=== PATIENT | female | born 1935 | race Caucasian/White ===

== ENCOUNTER 2017-05-21 19:44 | Observation (INO) | payer MEDICARE ==
[~2017-05-21] VITALS: Ht 162.6 cm; Wt 94.5 kg
[~2017-05-21 19:44] MED LIST: AMLO10TA2 PO; ANTACID; ASPI-630 PO; CYCL-331 PO; DONE10TA7 PO; GABA-586 PO; HYDR-2758 PO; ISOS30TA4 PO; LIDOCAINE; METF500T4 PO; METO10TA81 PO; OMEP40CA5 PO; POTA20TA12 PO; PRAV20TA2 PO; RIVA10TA PO; RIVA20TA2 PO; [UNRECOGNIZED DRUG - OTHER]
[2017-05-21] MEDS ORDERED: MEMA10TA PO (21:32)
[2017-05-21] MEDS ORDERED: POTA10TA10 PO (21:33)
[2017-05-21] MEDS ORDERED: MIRT15TA3 PO (21:33)
[2017-05-21] MEDS ORDERED: HYDR-2758 PO (21:33)
[2017-05-21] MEDS ORDERED: ALPR1TAB2 PO (21:34)
[2017-05-21] MEDS ORDERED: ACET325T9 PO (21:34)
[2017-05-21 21:36] VITALS: BP 186/69
[2017-05-21] MEDS ORDERED: HYDROcodone/APAP 5/325MG 1 TAB TABLET PO PRN (21:45)
[2017-05-21] MEDS: MEMANTINE 5 MG TABLET. PO SCH (22:00)
[2017-05-21] MEDS: ACETAMINOPHEN 325 MG TABLET PO PRN (22:00)
[2017-05-21] MEDS: PRAVASTATIN 20 MG TABLET. PO SCH (22:00)
[2017-05-21] MEDS: MIRTAZAPINE 15 MG TABLET PO SCH (22:00)
[2017-05-21] MEDS: ALPRAZolam 0.5 MG TABLET PO PRN (22:54)
[2017-05-22 01:57] VITALS: BP 162/90
[2017-05-22 04:42] LABS: BASO % 1 % (0-3); EOS # 0.3 x10^3/uL (0.0-0.7); EOS % 5 % (0-3); HEMATOCRIT 31.4 % (36.0-47.0); HEMOGLOBIN 10.4 g/dL (12.0-15.5); LYMPH # 1.8 x10^3/uL (1.0-4.8); LYMPH % 30 % (24-48); MEAN CORPUSCULAR HEMOGLOBIN 30 pg (25-35); MEAN CORPUSCULAR HGB CONC 33 g/dL (31-37); MEAN CORPUSCULAR VOLUME 91 fL (79-100); MONO # 0.6 x10^3/uL (0.0-1.1); MONO % 10 % (0-9); NEUT # 3.4 x10^3uL (1.8-7.7); NEUT % 54 % (31-73); PLATELET COUNT 231 x10^3/uL (140-400); RED BLOOD COUNT 3.44 x10^6/uL (3.50-5.40); RED CELL DISTRIBUTION WIDTH 13.3 % (11.5-14.5); WHITE BLOOD COUNT 6.2 x10^3/uL (4.0-11.0)
[2017-05-22 05:04] LABS: ALBUMIN 2.9 g/dL (3.4-5.0); ALBUMIN/GLOBULIN RATIO 0.7 (1.0-1.7); CALCIUM 8.5 mg/dL (8.5-10.1); CREATININE 1.3 mg/dL (0.6-1.0); GFR 39.3; POTASSIUM 4.2 mmol/L (3.5-5.1); TOTAL BILIRUBIN 0.3 mg/dL (0.2-1.0); TOTAL PROTEIN 6.8 g/dL (6.4-8.2)
[2017-05-22 05:25] VITALS: BP 164/84
[2017-05-22] MEDS: ACETAMINOPHEN 325 MG TABLET PO PRN ×2 (07:19→15:52)
[2017-05-22] MEDS: POTASSIUM CHLORIDE 20 MEQ TABLET.ER. PO SCH (08:58)
[2017-05-22] MEDS: MEMANTINE 5 MG TABLET. PO SCH ×2 (08:58→20:05)
[2017-05-22] MEDS: ALPRAZolam 0.5 MG TABLET PO PRN ×2 (10:29→20:04)
[2017-05-22] MEDS: amLODIPine BESYLATE 10 MG TABLET PO SCH (10:58)
[2017-05-22] MEDS: traMADol 50 MG TABLET PO PRN ×2 (10:59→12:49)
[2017-05-22 11:26] VITALS: BP 151/84
[2017-05-22] MEDS: SODIUM CHLORIDE 0.65% NASAL SPRAY 45ML BOTTLE. NS PRN ×2 (11:33→20:04)
[2017-05-22] MEDS: PANTOPRAZOLE 40 MG TABLET. PO SCH (11:33)
--- NOTE | 2017-05-22 13:17 | PDOC2 ---
CARDIAC CONSULT DATE OF CONSULT Date Of Consult DATE: 05/22/17 TIME: 13:04 REASON FOR CONSULT Reason for Consult Chest pain REFERRING PHYSICIAN Referring Physician Dr. Jaleel Valdovinos HPI History of Present Illness Ms. Gill is a very pleasant 82 yo F who is relatively well known to our group. It appears that she used to follow with my partner, Dr. Ren, in the past. She was last seen in our office in September 2015. The patient has a history of mild nonobstructive coronary artery disease, essential hypertension, hyperlipidemia, DMII, GERD with gastritis, and morbid obesity. The patient reports that she has been feeling unwell for the past year, but more recently has been having intermittent symptoms of chest pain that has been becoming more frequent over the past month. She states that yesterday she was out working on her garden when she developed symptoms of chest pain localized to her mid chest that did not radiate, and was not associated with any particular features. She denies any associated shortness of breath, nausea, diaphoresis, or palpitations. The patient states that she usually keeps working, and the pain eventually resolves spontaneously. She has not been able to identify any exacerbating or relieving factors, and reports that the pain may occur at rest as well. Her work up thus far has included an ECG demonstrating underlying RBBB , but no acute ischemic changes. Her serial troponins were noted to be negative. In review of her records, it appears that the patient underwent a cardiac catheterization within the past year at [facility]. This demonstrated mild nonobstructive coronary artery disease, and no intervention was thought to be necessary at that time. She also had an echocardiogram performed at that time that as unremarkable. The patient is otherwise doing well this afternoon, and has no other particular complaints. PAST MEDICAL HISTORY Cardiovascular: CAD, HTN, hyperipidemia GI: GERD, Gastritis Endocrine: Diabetes FAMILY HISTORY Family History: Heart Disease SOCIAL HISTORY Smoke: No ALCOHOL: rare CURRENT MEDICATIONS Current Medications Current Medications Acetaminophen (Tylenol) 650 mg PRN Q6HRS PRN PO PAIN Last administered on t 07:19; Start 05/21/17 at 21:45 Acetaminophen/ Hydrocodone Bitart (Lortab 5/325) 1 tab PRN Q6HRS PRN PO PAIN; Start 05/21/17 at 21:45 Memantine (Namenda) 5 mg BID PO Last administered on 05/22/17 08:58; Start at 22:00 Mirtazapine (Remeron) 15 mg QHS PO Last administered on 05/21/17 22:00; Start 05/21/17 at 22:00 Pravastatin Sodium (Pravachol) 20 mg HS PO Last administered on 05/21/17 22:00 ; Start 05/21/17 at 22:00 Alprazolam (Xanax) 1 mg PRN TID PRN PO ANXIETY / AGITATION Last administered on 05/22/17 10:29; Start 05/21/17 at 22:00 Potassium Chloride (Klor-Con) 20 meq DAILYWBKFT PO Last administered on 08:58; Start 05/22/17 at 08:00 Pantoprazole Sodium (Protonix) 40 mg DAILYAC PO Last administered on 05/22/17 11:33; Start 05/22/17 at 11:00 Famotidine (Pepcid) 20 mg BID PO ; Start 05/22/17 at 21:00 Amlodipine Besylate (Norvasc) 10 mg DAILY PO Last administered on 05/22/17 10: 58; Start 05/22/17 at 10:45 Tramadol HCl (Ultram) 50 mg PRN Q6HRS PRN PO PAIN; Start 05/22/17 at 11:00 Sodium Chloride (Saline Mist Nasal) 1 mo PRN Q1HR PRN NS NASAL CONGESTION Last administered on 05/22/17 11:33; Start 05/22/17 at 11:15 Active Scripts Active Reported Xanax (Alprazolam) 1 Mg Tablet 1 Tab PO TID PRN Tylenol (Acetaminophen) 325 Mg Tablet 650 Mg PO Q6HRS PRN Hydrocodone-Apap 5-325 (Hydrocodone Bit/Acetaminophen) 1 Each Tablet 1 Tab PO PRN Q6HRS PRN Mirtazapine 15 Mg Tablet 1 Tab PO QHS Potassium Chloride 10 Meq Tablet.er 20 Meq PO DAILY Namenda (Memantine Hcl) 10 Mg Tablet 5 Mg PO BID Pravastatin Sodium 20 Mg Tablet 1 Tab PO HS ALLERGIES Allergies: Coded Allergies: I S O L A T I O N *CONTACT* (Verified Allergy, Unknown, 05/22/17) +MRSA screen 8-9-13 NKMA (Verified Allergy, Unknown, 05/22/17) ROS Review of Systems 14-point organ system ROS is negative other than as described above. PHYSICAL EXAM General: Alert, Oriented X3, No acute distress HEENT: Atraumatic, PERRLA, EOMI Lungs: Clear to auscultation Heart: Regular rate, Normal S1, Normal S2, No murmurs Abdomen: Normal bowel sounds, Soft, No tenderness Extremities: No edema, Normal pulses Skin: No rashes Neuro: Normal speech, Strength at 5/5 X4 ext, Normal tone, Cranial nerves 3-12 NL Psych/Mental Status: Mental status NL MUSCULOSKELETAL: Full range of motion without pain VITALS Vital Signs Vital Signs Date Time Temp Pulse Resp B/P (MAP) Pulse Ox O2 Delivery O2 Flow Rate FiO2 05/22/17 11:26 97.3 74 18 151/84 (106) 97 05/22/17 05:25 Room Air LABS LABS Laboratory Tests Test 05/21/17 22:20 05/22/17 01:52 05/22/17 04:30 05/22/17 09:57 Troponin I Quantitative < 0.017 ng/mL (0-0.055) < 0.017 ng/mL (0-0.055) < 0.017 ng/mL (0-0.055) Glucose (Fingerstick) 121 mg/dL (70-99) White Blood Count 6.2 x10^3/uL (4.0-11.0) Red Blood Count 3.44 x10^6/uL (3.50-5.40) Hemoglobin 10.4 g/dL (12.0-15.5) Hematocrit 31.4 % (36.0-47.0) Mean Corpuscular Volume 91 fL (79-100) Mean Corpuscular Hemoglobin 30 pg (25-35) Mean Corpuscular Hemoglobin Concent 33 g/dL (31-37) Red Cell Distribution Width 13.3 % (11.5-14.5) Platelet Count 231 x10^3/uL (140-400) Neutrophils (%) (Auto) 54 % (31-73) Lymphocytes (%) (Auto) 30 % (24-48) Monocytes (%) (Auto) 10 % (0-9) Eosinophils (%) (Auto) 5 % (0-3) Basophils (%) (Auto) 1 % (0-3) Neutrophils # (Auto) 3.4 x10^3uL (1.8-7.7) Lymphocytes # (Auto) 1.8 x10^3/uL (1.0-4.8) Monocytes # (Auto) 0.6 x10^3/uL (0.0-1.1) Eosinophils # (Auto) 0.3 x10^3/uL (0.0-0.7) Basophils # (Auto) 0.0 x10^3/uL (0.0-0.2) Sodium Level 143 mmol/L (136-145) Potassium Level 4.2 mmol/L (3.5-5.1) Chloride Level 110 mmol/L (98-107) Carbon Dioxide Level 27 mmol/L (21-32) Anion Gap 6 (6-14) Blood Urea Nitrogen 27 mg/dL (7-20) Creatinine 1.3 mg/dL (0.6-1.0) Estimated GFR (Cockcroft-Gault) 39.3 BUN/Creatinine Ratio 21 (6-20) Glucose Level 112 mg/dL (70-99) Calcium Level 8.5 mg/dL (8.5-10.1) Total Bilirubin 0.3 mg/dL (0.2-1.0) Aspartate Amino Transf (AST/SGOT) 18 U/L (15-37) Alanine Aminotransferase (ALT/SGPT) 17 U/L (14-59) Alkaline Phosphatase 129 U/L (46-116) Total Protein 6.8 g/dL (6.4-8.2) Albumin 2.9 g/dL (3.4-5.0) Albumin/Globulin Ratio 0.7 (1.0-1.7) EKG EKG Normal sinus rhythm with underlying RBBB. No acute ischemic changes noted. HEART CATH Heart Cath Heart catheterization from January 2016 demonstrated mild nonobstructive coronary artery disease. ASSESSMENT/PLAN Assessment/Plan 1. Chest pain with atypical features 2. History of mild CAD 3. Essential hypertension 4. Hyperlipidemia 5. DMII 6. Abnormal ECG 7. Obesity 8. GERD Ms. Gill presented with a several week history of progressively worsening chest pain with atypical features. Etiology is not completely clear at this point. Her work up has thus far been unremarkable, with negative serial troponins and ECG, although abnormal with underlying RBBB, demonstrates no significant ischemic changes. The patient has remained hemodynamically stable since admission, and her chest pain has actually resolved today. I do note that she has been persistently hypertensive. I have taken the liberty of starting the patient on metoprolol tart 12.5 mg BID. This may need to be adjusted further as tolerated. I did review her most recent cardiac work up done last year. This included an echocardiogram and cardiac catheterization, both of which were essentially unremarkable. I do not think any further cardiac diagnostic testing is needed at this time given resolution of her symptoms, and no high-risk features noted. If patient remains chest pain free and blood pressure better controlled, she may be able to be discharged home tomorrow with plans for close follow up in our office. We will continue to follow along. Please call with any further questions. STEPHANIE MEEK MD May 22, 2017 13:17
[2017-05-22] MEDS: METOPROLOL TART IMMED RELEASE 25 MG TABLET PO SCH ×2 (13:51→20:05)
[2017-05-22 15:08] VITALS: BP 151/68
[2017-05-22 19:29] VITALS: BP 137/75
[2017-05-22] MEDS: PRAVASTATIN 20 MG TABLET. PO SCH (20:04)
[2017-05-22] MEDS: FAMOTIDINE 20 MG TABLET PO SCH (20:05)
[2017-05-22] MEDS: MIRTAZAPINE 15 MG TABLET PO SCH (20:05)
[2017-05-22 22:54] VITALS: BP 146/92
[2017-05-23 05:36] VITALS: BP 149/80
[2017-05-23 07:09] LABS: BASO # 0.1 x10^3/uL (0.0-0.2); BASO % 1 % (0-3); EOS # 0.3 x10^3/uL (0.0-0.7); EOS % 6 % (0-3); HEMATOCRIT 34.5 % (36.0-47.0); HEMOGLOBIN 11.2 g/dL (12.0-15.5); LYMPH # 1.7 x10^3/uL (1.0-4.8); LYMPH % 30 % (24-48); MEAN CORPUSCULAR HEMOGLOBIN 30 pg (25-35); MEAN CORPUSCULAR HGB CONC 33 g/dL (31-37); MEAN CORPUSCULAR VOLUME 93 fL (79-100); MONO # 0.5 x10^3/uL (0.0-1.1); MONO % 9 % (0-9); NEUT # 3.1 x10^3uL (1.8-7.7); NEUT % 54 % (31-73); PLATELET COUNT 273 x10^3/uL (140-400); RED BLOOD COUNT 3.72 x10^6/uL (3.50-5.40); RED CELL DISTRIBUTION WIDTH 13.5 % (11.5-14.5); WHITE BLOOD COUNT 5.8 x10^3/uL (4.0-11.0)
[2017-05-23 07:19] LABS: CALCIUM 8.6 mg/dL (8.5-10.1); CREATININE 1.3 mg/dL (0.6-1.0); GFR 39.3; POTASSIUM 4.2 mmol/L (3.5-5.1)
[2017-05-23] MEDS: POTASSIUM CHLORIDE 20 MEQ TABLET.ER. PO SCH (07:53)
[2017-05-23] MEDS: PANTOPRAZOLE 40 MG TABLET. PO SCH (07:53)
[2017-05-23] MEDS: MEMANTINE 5 MG TABLET. PO SCH (08:27)
[2017-05-23] MEDS: amLODIPine BESYLATE 10 MG TABLET PO SCH (08:28)
[2017-05-23 08:31] VITALS: BP 149/80
[2017-05-23] MEDS: METOPROLOL TART IMMED RELEASE 25 MG TABLET PO SCH (08:31)
[2017-05-23] MEDS: FAMOTIDINE 20 MG TABLET PO SCH (08:32)
[2017-05-23] MEDS: ALPRAZolam 0.5 MG TABLET PO PRN (08:49)
[2017-05-23] MEDS ORDERED: FAMO20TA5 PO (10:04)
[2017-05-23] MEDS ORDERED: PANT40TA5 PO (10:04)
[2017-05-23] MEDS ORDERED: AMLO10TA2 PO (10:04)
== END 2017-05-23 11:00 | disposition home or self-care (01) ==
LOC: INTOOBSV 21:07 → 1 SOUTH 21:07
PROVIDERS: ADMIT Family Medicine; ATTEND Family Medicine
DX: R07.89 Other chest pain (principal); I25.10 Atherosclerotic heart disease of native coronary artery without angina pectoris; I10 Essential (primary) hypertension; E78.5 Hyperlipidemia, unspecified; E11.9 Type 2 diabetes mellitus without complications; R94.31 Abnormal electrocardiogram [ECG] [EKG]; K21.9 Gastro-esophageal reflux disease without esophagitis; I45.10 Unspecified right bundle-branch block; E66.01 Morbid (severe) obesity due to excess calories; Z82.49 Family history of ischemic heart disease and other diseases of the circulatory system
CPT/HCPCS: 36415; 80048; 80053; 82947; 84484; 85027; 87641; G0378; G0379

== ENCOUNTER 2017-05-28 17:55 | Inpatient (IN) | payer MEDICARE ==
[~2017-05-28] VITALS: Ht 157.5 cm; Wt 100.9 kg
[~2017-05-28 17:55] MED LIST changes: +ACET325T9 PO; +ALPR1TAB2 PO; +FAMO20TA5 PO; +MEMA10TA PO; +MIRT15TA3 PO; +PANT40TA5 PO; +POTA10TA10 PO
[2017-05-28] MEDS ORDERED: IV NORMAL SALINE 1,000ML 1,000 ML IV SCH (18:47)
[2017-05-28 19:01] LABS: BASO # 0.1 x10^3/uL (0.0-0.2); BASO % 1 % (0-3); EOS # 0.3 x10^3/uL (0.0-0.7); EOS % 4 % (0-3); HEMATOCRIT 35.3 % (36.0-47.0); HEMOGLOBIN 11.6 g/dL (12.0-15.5); LYMPH # 1.6 x10^3/uL (1.0-4.8); LYMPH % 23 % (24-48); MEAN CORPUSCULAR HEMOGLOBIN 30 pg (25-35); MEAN CORPUSCULAR HGB CONC 33 g/dL (31-37); MEAN CORPUSCULAR VOLUME 92 fL (79-100); MONO # 0.6 x10^3/uL (0.0-1.1); MONO % 8 % (0-9); NEUT # 4.5 x10^3uL (1.8-7.7); NEUT % 64 % (31-73); PLATELET COUNT 268 x10^3/uL (140-400); RED BLOOD COUNT 3.83 x10^6/uL (3.50-5.40); RED CELL DISTRIBUTION WIDTH 13.4 % (11.5-14.5); WHITE BLOOD COUNT 7.1 x10^3/uL (4.0-11.0)
[2017-05-28 19:06] LABS: ALBUMIN 3.6 g/dL (3.4-5.0); ALBUMIN/GLOBULIN RATIO 0.9 (1.0-1.7); CALCIUM 9.2 mg/dL (8.5-10.1); CREATININE 1.3 mg/dL (0.6-1.0); GFR 39.3; POTASSIUM 4.1 mmol/L (3.5-5.1); TOTAL BILIRUBIN 0.5 mg/dL (0.2-1.0); TOTAL PROTEIN 7.8 g/dL (6.4-8.2)
[2017-05-28 19:31] LABS: BILIRUBIN,URINE NEG (NEG); CLARITY,URINE CLOUDY; COLOR,URINE YELLOW; GLUCOSE,URINE NEG (NEG)
[2017-05-28 19:32] LABS: BACTERIA,URINE 0 /HPF (0-FEW); NITRITE,URINE NEG (NEG); SQUAMOUS EPITHELIAL CELL,UR MANY /LPF; UROBILINOGEN,URINE 0.2 mg/dL (0.2 mg/dL)
--- NOTE | 2017-05-28 19:48 | RAD ---
CT head without intravenous contrast History: Altered mental status. Comparison: None. Technique: Axial images are obtained of the head from the skull base through the vertex without IV contrast. Exposure: One or more of the following individualized dose reduction techniques were utilized for this examination: 1. Automated exposure control 2. Adjustment of the mA and/or kV according to patient size 3. Use of iterative reconstruction technique Findings: The ventricles are appropriate in size, shape, and location for the patient's age. No obvious intracranial mass, mass-effect, midline shift, hemorrhage or obvious acute infarction is identified. Basilar cisterns are patent. Mild, patchy nonspecific white matter low-attenuation is seen, probably chronic microvascular ischemic disease. Bone windows demonstrate no acute calvarial abnormality. The visualized paranasal sinuses appear clear. Impression: No acute intracranial process. Please note that CT can be relatively insensitive to acute ischemic infarction for up to 24 hours after symptom onset. Electronically signed by: Zana Long MD (05/28/2017 7:46 PM)
[2017-05-28 22:06] VITALS: BP 144/89
[2017-05-28] MEDS ORDERED: METHYL SALICYLATE/MENTHOL TOPICAL OINTMENT 29GM TUBE. TP PRN (22:15)
[2017-05-28] MEDS ORDERED: MAG HYDROX/AL HYDROX/SIMETH 30 ML ORAL.SUSP PO PRN (22:15)
[2017-05-28] MEDS ORDERED: MAGNESIUM HYDROXIDE 2,400 MG/30 ML ORAL.SUSP. PO PRN (22:15)
--- NOTE | 2017-05-29 00:23 | PHYS DOC ---
Past History Past Medical History: Diabetes, Hypertension, Other Past Surgical History: Cholecystectomy, Knee Replacement, Other Alcohol Use: None Drug Use: None Adult General Chief Complaint Chief Complaint: ALTERED MENTAL STATUS HPI HPI 82-year-old female with a history of dementia, son has power of city attorney, now sent for evaluation of exacerbation of dementia. Per son patient has been exhibiting some unusual behavior at home and he is concerned she may be a danger to herself. She did not Suffer any injuries or take any overdose accidentally. Patient is currently asymptomatic alert communicative and appropriate however she is disoriented at her chronic dementia baseline per her sons were present in the ED. Review of Systems Review of Systems Constitutional: Denies fever or chills [] Eyes: Denies change in visual acuity, redness, or eye pain [] HENT: Denies nasal congestion or sore throat [] Respiratory: Denies cough or shortness of breath [] Cardiovascular: No additional information not addressed in HPI [] GI: Denies abdominal pain, nausea, vomiting, bloody stools or diarrhea [] : Denies dysuria or hematuria [] Musculoskeletal: Denies back pain or joint pain [] Integument: Denies rash or skin lesions [] Neurologic: Denies headache, focal weakness or sensory changes [] Endocrine: Denies polyuria or polydipsia [] Current Medications Current Medications Current Medications Medications (Trade) Dose Ordered Sig/Henrry Start Time Stop Time Status Last Admin Dose Admin Sodium Chloride 1,000 ml @ 100 mls/hr Q10H 05/28/17 18:47 05/29/17 04:46 05/28/17 19:08 100 MLS/HR Allergies Allergies Allergies Coded Allergies Type Severity Reaction Last Updated Verified NKMA Allergy Unknown 05/22/17 Yes Physical Exam Physical Exam Elderly female no acute distress alert and communicative and very pleasant. She is manifesting her baseline signs of dementia with a nonfocal neurologic exam Constitutional: Well developed, well nourished, no acute distress, non-toxic appearance. [] HENT: Normocephalic, atraumatic, bilateral external ears normal, oropharynx moist, no oral exudates, nose normal. [] Eyes: PERRLA, EOMI, conjunctiva normal, no discharge. [] Neck: Normal range of motion, no tenderness, supple, no stridor. [] Cardiovascular:Heart rate regular rhythm, no murmur [] Lungs & Thorax: Bilateral breath sounds clear to auscultation [] Abdomen: Bowel sounds normal, soft, no tenderness, no masses, no pulsatile masses. [] Skin: Warm, dry, no erythema, no rash. [] Back: No tenderness, no CVA tenderness. [] Extremities: No tenderness, no cyanosis, no clubbing, ROM intact, no edema. [] Neurologic: Alert and oriented X 2 , normal motor function, normal sensory function, no focal deficits noted. [] Psychologic: Affect normal, judgement normal, mood normal. [] Current Patient Data Vital Signs Vital Signs Date Time Temp Pulse Resp B/P (MAP) Pulse Ox O2 Delivery O2 Flow Rate FiO2 05/28/17 22:06 97.4 83 18 144/89 (107) 97 Room Air Lab Results Laboratory Tests Test 05/28/17 18:20 05/28/17 18:23 05/28/17 18:53 White Blood Count 7.1 x10^3/uL (4.0-11.0) Red Blood Count 3.83 x10^6/uL (3.50-5.40) Hemoglobin 11.6 g/dL (12.0-15.5) L Hematocrit 35.3 % (36.0-47.0) L Mean Corpuscular Volume 92 fL (79-100) Mean Corpuscular Hemoglobin 30 pg (25-35) Mean Corpuscular Hemoglobin Concent 33 g/dL (31-37) Red Cell Distribution Width 13.4 % (11.5-14.5) Platelet Count 268 x10^3/uL (140-400) Neutrophils (%) (Auto) 64 % (31-73) Lymphocytes (%) (Auto) 23 % (24-48) L Monocytes (%) (Auto) 8 % (0-9) Eosinophils (%) (Auto) 4 % (0-3) H Basophils (%) (Auto) 1 % (0-3) Neutrophils # (Auto) 4.5 x10^3uL (1.8-7.7) Lymphocytes # (Auto) 1.6 x10^3/uL (1.0-4.8) Monocytes # (Auto) 0.6 x10^3/uL (0.0-1.1) Eosinophils # (Auto) 0.3 x10^3/uL (0.0-0.7) Basophils # (Auto) 0.1 x10^3/uL (0.0-0.2) Sodium Level 141 mmol/L (136-145) Potassium Level 4.1 mmol/L (3.5-5.1) Chloride Level 107 mmol/L (98-107) Carbon Dioxide Level 22 mmol/L (21-32) Anion Gap 12 (6-14) Blood Urea Nitrogen 23 mg/dL (7-20) H Creatinine 1.3 mg/dL (0.6-1.0) H Estimated GFR (Cockcroft-Gault) 39.3 BUN/Creatinine Ratio 18 (6-20) Glucose Level 98 mg/dL (70-99) Calcium Level 9.2 mg/dL (8.5-10.1) Total Bilirubin 0.5 mg/dL (0.2-1.0) Aspartate Amino Transferase (AST) 24 U/L (15-37) Alanine Aminotransferase (ALT) 24 U/L (14-59) Alkaline Phosphatase 168 U/L (46-116) H Troponin I Quantitative < 0.017 ng/mL (0-0.055) Total Protein 7.8 g/dL (6.4-8.2) Albumin 3.6 g/dL (3.4-5.0) Albumin/Globulin Ratio 0.9 (1.0-1.7) L Magnesium Level 2.1 mg/dL (1.8-2.4) Urine Collection Type Unknown Urine Color Yellow Urine Clarity Cloudy Urine pH 5.0 Urine Specific [place] <=1.005 Urine Protein Neg (NEG-TRACE) Urine Glucose (UA) Neg mg/dL (NEG) Urine Ketones (Stick) Neg mg/dL (NEG) Urine Blood Trace (NEG) Urine Nitrite Neg (NEG) Urine Bilirubin Neg (NEG) Urine Urobilinogen Dipstick 0.2 mg/dL (0.2 mg/dL) Urine Leukocyte Esterase Large (NEG) Urine RBC 3-5 /HPF (0-2) Urine WBC 11-20 /HPF (0-4) Urine Squamous Epithelial Cells Many /LPF Urine Bacteria 0 /HPF (0-FEW) EKG EKG [] Radiology/Procedures Radiology/Procedures [] Course & Med Decision Making Course & Med Decision Making Pertinent Labs and Imaging studies reviewed. (See chart for details) Signs and symptoms consistent with exacerbation of dementia in this patient who is no longer safe to be at home without full supervision. Medical clearance unremarkable. Patient accepted for inpatient evaluation at [facility]. No further workup or treatment indicated medically cleared for psych eval [] Dragon Disclaimer Dragon Disclaimer This chart was dictated in whole or in part using Voice Recognition software in a busy, high-work load, and often noisy Emergency Department environment. It may contain unintended and wholly unrecognized errors or omissions. Departure Departure: Impression: Primary Impression: Altered mental state Disposition: 65 XFER TO PSYCH HOSP/UNIT Condition: STABLE HEATHER MURRY MD May 29, 2017 00:23
[2017-05-29 05:49] VITALS: BP 130/81
--- NOTE | 2017-05-29 06:18 | EKG ---
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
--- NOTE | 2017-05-29 07:17 | RAD ---
Indication: Altered mental status. Time of exam 1910 hours. Correlation is made with prior study from 09/28/2014. The heart is mildly enlarged but stable. There is some ectasia and tortuosity of the descending thoracic aorta. The lungs are clear. No infiltrate or failure is detected. No effusion or pneumothorax is seen. Impression: No acute cardiopulmonary process is detected.
[2017-05-29] MEDS: MEMANTINE 10 MG TABLET. PO SCH ×2 (08:48→19:34)
[2017-05-29] MEDS: PANTOPRAZOLE 40 MG TABLET. PO SCH (08:48)
[2017-05-29] MEDS: POTASSIUM CHLORIDE 20 MEQ TABLET.ER. PO SCH (08:48)
[2017-05-29] MEDS: amLODIPine BESYLATE 10 MG TABLET PO SCH (08:50)
[2017-05-29 14:14] LABS: THYROID STIM HORMONE (TSH) 0.813 uIU/mL (0.358-3.740)
[2017-05-29 15:44] VITALS: BP 124/80
[2017-05-29] MEDS: PRAVASTATIN 20 MG TABLET. PO SCH (19:34)
[2017-05-29] MEDS: MIRTAZAPINE 7.5 MG TABLET. PO SCH (19:34)
[2017-05-29] MEDS ORDERED: MIRTAZAPINE 15 MG TABLET PO SCH (21:00)
[2017-05-29 21:10] LABS: T3 TOTAL 99 ng/dL (71-180); THYROXINE 7.7 ug/dL (4.5-12.0)
[2017-05-30 03:10] LABS: HEMOGLOBIN A1C 5.9 % (4.8-5.6)
[2017-05-30 06:17] VITALS: BP 116/76
[2017-05-30] MEDS: PANTOPRAZOLE 40 MG TABLET. PO SCH (08:41)
[2017-05-30] MEDS: POTASSIUM CHLORIDE 20 MEQ TABLET.ER. PO SCH (08:41)
[2017-05-30] MEDS: MEMANTINE 10 MG TABLET. PO SCH ×2 (08:41→19:17)
[2017-05-30] MEDS: amLODIPine BESYLATE 10 MG TABLET PO SCH (08:42)
[2017-05-30 15:22] VITALS: BP 113/75
[2017-05-30] MEDS: CHOLECALCIFEROL (VITAMIN D3) 50,000 UNIT CAPSULE PO SCH (16:05)
[2017-05-30 16:40] LABS: BILIRUBIN,URINE NEG (NEG); CLARITY,URINE CLOUDY; COLOR,URINE YELLOW; GLUCOSE,URINE NEG (NEG); NITRITE,URINE NEG (NEG); UROBILINOGEN,URINE 0.2 mg/dL (0.2 mg/dL)
[2017-05-30 16:41] LABS: BACTERIA,URINE FEW /HPF (0-FEW); RBC,URINE 0 /HPF (0-2); SQUAMOUS EPITHELIAL CELL,UR MOD /LPF; WBC,URINE >40 /HPF (0-4)
[2017-05-30] MEDS: PRAVASTATIN 20 MG TABLET. PO SCH (19:16)
[2017-05-30] MEDS: MIRTAZAPINE 7.5 MG TABLET. PO SCH (19:16)
[2017-05-31 05:45] VITALS: BP 122/65
[2017-05-31] MEDS: ACETAMINOPHEN 325 MG TABLET PO PRN (08:16)
[2017-05-31] MEDS: MEMANTINE 10 MG TABLET. PO SCH ×2 (08:16→19:50)
[2017-05-31] MEDS: POTASSIUM CHLORIDE 20 MEQ TABLET.ER. PO SCH (08:17)
[2017-05-31] MEDS: PANTOPRAZOLE 40 MG TABLET. PO SCH (08:17)
[2017-05-31] MEDS: amLODIPine BESYLATE 10 MG TABLET PO SCH (08:17)
[2017-05-31 16:00] VITALS: BP 113/75
[2017-05-31] MEDS: MIRTAZAPINE 7.5 MG TABLET. PO SCH (19:50)
[2017-05-31] MEDS: PRAVASTATIN 20 MG TABLET. PO SCH (19:50)
[2017-05-31] MEDS: DIVALPROEX 125 MG CAP.SPRINK PO SCH (19:52)
[2017-06-01 05:59] VITALS: BP 153/98
[2017-06-01] MEDS: MEMANTINE 10 MG TABLET. PO SCH ×2 (07:49→20:52)
[2017-06-01] MEDS: DIVALPROEX 125 MG CAP.SPRINK PO SCH ×2 (07:49→20:53)
[2017-06-01] MEDS: POTASSIUM CHLORIDE 20 MEQ TABLET.ER. PO SCH (07:49)
[2017-06-01] MEDS: PANTOPRAZOLE 40 MG TABLET. PO SCH (07:49)
[2017-06-01] MEDS: amLODIPine BESYLATE 10 MG TABLET PO SCH (07:50)
--- NOTE | 2017-06-01 13:03 | PDOC ---
Exam Antoine Demential Exam: Antoine Note: Please also refer to the separate dictated note~for this date of service dictated separately.~Patient seen individually. Discussed the patient with Nursing staff reviewed the chart.~Reviewed interim history and current functioning. Reviewed vital signs,~Labs/ Radiology~and current medications noted below. Continue current treatment with the changes noted in the dictated addendum note Assessment: Vital Signs: Vital Signs Date Time Temp Pulse Resp B/P (MAP) Pulse Ox O2 Delivery O2 Flow Rate FiO2 06/01/17 07:50 98 153/98 06/01/17 05:59 98.0 18 95 05/31/17 05:45 Room Air I&O Intake and Output 06/01/17 07:00 Intake Total 960 ml Balance 960 ml Intake Oral 960 ml # Bowel Movements 1 Labs: Laboratory Tests Test 06/01/17 07:04 Glucose (Fingerstick) 119 mg/dL (70-99) H Current Medications: Meds: Current Medications Sodium Chloride 1,000 ml @ 100 mls/hr Q10H IV Last administered on 05/28/17 19:08; Start 05/28/17 at 18:47; Stop 05/29/17 at 04:46; Status DC Acetaminophen (Tylenol) 650 mg PRN Q6HRS PRN PO PAIN / TEMP Last administered on 05/31/17 08:16; Start 05/28/17 at 22:15 Multi-Ingredient Ointment (Analgesic [place]) 1 mo PRN QID PRN TP MUSCLE PAIN; Start 05/28/17 at 22:15 Al Hydroxide/Mg Hydroxide (Mylanta Plus Xs) 15 ml PRN AFTMEALHC PRN PO DYSPEPSIA; Start 05/28/17 at 22:15 Magnesium Hydroxide (Milk Of Magnesia) 2,400 mg PRN QHS PRN PO CONSTIPATION; Start 05/28/17 at 22:15 Olanzapine (ZyPREXA ZYDIS) 5 mg 1X ONCE PO Last administered on 05/28/17 23: 16; Start 05/28/17 at 23:15; Stop 05/28/17 at 23:16; Status DC Olanzapine (ZyPREXA ZYDIS) 2.5 mg PRN Q4HRS PRN PO ANXIETY / AGITATION Last administered on 05/31/17 12:56; Start 05/28/17 at 23:15 Memantine (Namenda) 5 mg BID PO Last administered on 06/01/17 07:49; Start at 09:00 Mirtazapine (Remeron) 15 mg QHS PO ; Start 05/29/17 at 21:00; Stop 05/29/17 at 21:00; Status DC Amlodipine Besylate (Norvasc) 10 mg DAILY PO Last administered on 06/01/17 07: 50; Start 05/29/17 at 09:00 Pantoprazole Sodium (Protonix) 40 mg DAILYAC PO Last administered on 06/01/17 07:49; Start 05/29/17 at 08:00 Pravastatin Sodium (Pravachol) 20 mg HS PO Last administered on 05/31/17 19:50 ; Start 05/29/17 at 21:00 Potassium Chloride (Klor-Con) 20 meq DAILYWBKFT PO Last administered on 07:49; Start 05/29/17 at 08:00 Mirtazapine (Remeron) 7.5 mg QHS PO Last administered on 05/31/17 19:50; Start 05/29/17 at 21:00 Olanzapine (ZyPREXA ZYDIS) 5 mg HS PO Last administered on 05/30/17 19:16; Start 05/29/17 at 21:00; Stop 05/31/17 at 14:49; Status DC Vitamin D (Vitamin D3) 50,000 unit WEEKLY PO Last administered on 05/30/17 16: 05; Start 05/30/17 at 14:30 Olanzapine (ZyPREXA ZYDIS) 7.5 mg HS PO Last administered on 05/31/17 19:50; Start 05/31/17 at 21:00 Divalproex Sodium (Depakote Sprinkles) 125 mg BID PO Last administered on 07:49; Start 05/31/17 at 21:00 Active Scripts Active Pantoprazole Sodium 40 Mg Tablet.dr 40 Mg PO DAILYAC 30 Days Famotidine 20 Mg Tablet 20 Mg PO BID 30 Days Amlodipine Besylate 10 Mg Tablet 10 Mg PO DAILY 30 Days Reported Mirtazapine 15 Mg Tablet 15 Mg PO QHS Potassium Chloride 10 Meq Tablet.er 20 Meq PO DAILY Namenda (Memantine Hcl) 10 Mg Tablet 5 Mg PO BID Pravastatin Sodium 20 Mg Tablet 20 Mg PO HS Diagnosis: Problems: (1) Anxiety disorder (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
[2017-06-01 16:21] VITALS: BP 138/85
[2017-06-01] MEDS: MIRTAZAPINE 7.5 MG TABLET. PO SCH (20:52)
[2017-06-01] MEDS: PRAVASTATIN 20 MG TABLET. PO SCH (20:53)
[2017-06-02 06:20] VITALS: BP 119/72
[2017-06-02] MEDS: DIVALPROEX 125 MG CAP.SPRINK PO SCH ×2 (07:48→20:51)
[2017-06-02] MEDS: PANTOPRAZOLE 40 MG TABLET. PO SCH (07:48)
[2017-06-02] MEDS: POTASSIUM CHLORIDE 20 MEQ TABLET.ER. PO SCH (07:48)
[2017-06-02] MEDS: amLODIPine BESYLATE 10 MG TABLET PO SCH (07:48)
[2017-06-02] MEDS: MEMANTINE 10 MG TABLET. PO SCH ×2 (07:49→20:52)
[2017-06-02 15:58] VITALS: BP 132/93
[2017-06-02 18:31] LABS: BILIRUBIN,URINE NEG (NEG); CLARITY,URINE HAZY; COLOR,URINE YELLOW; GLUCOSE,URINE NEG (NEG)
[2017-06-02 18:32] LABS: NITRITE,URINE NEG (NEG); UROBILINOGEN,URINE 0.2 mg/dL (0.2 mg/dL)
[2017-06-02 18:34] LABS: RBC,URINE RARE /HPF (0-2); WBC,URINE >40 /HPF (0-4)
[2017-06-02 18:35] LABS: BACTERIA,URINE 0 /HPF (0-FEW); SQUAMOUS EPITHELIAL CELL,UR OCC /LPF
[2017-06-02] MEDS: MIRTAZAPINE 7.5 MG TABLET. PO SCH (20:51)
[2017-06-02] MEDS: PRAVASTATIN 20 MG TABLET. PO SCH (20:51)
--- NOTE | 2017-06-02 21:17 | PDOC ---
Exam Antoine Demential Exam: Antoine Note: Please also refer to the separate dictated note~for this date of service dictated separately.~Patient seen individually. Discussed the patient with Nursing staff reviewed the chart.~Reviewed interim history and current functioning. Reviewed vital signs,~Labs/ Radiology~and current medications noted below. Continue current treatment with the changes noted in the dictated addendum note Assessment: Vital Signs: Vital Signs Date Time Temp Pulse Resp B/P (MAP) Pulse Ox O2 Delivery O2 Flow Rate FiO2 06/02/17 15:58 98.7 94 20 132/93 (106) 97 05/31/17 05:45 Room Air I&O Intake and Output 06/02/17 07:00 Intake Total 540 ml Balance 540 ml Intake Oral 540 ml Labs: Laboratory Tests Test 06/02/17 07:30 06/02/17 18:15 Glucose (Fingerstick) 121 mg/dL (70-99) H Urine Collection Type Void Urine Color Yellow Urine Clarity Hazy Urine pH 5.5 Urine Specific [place] 1.025 Urine Protein 30 mg/dl (NEG-TRACE) Urine Glucose (UA) Neg mg/dL (NEG) Urine Ketones (Stick) Neg mg/dL (NEG) Urine Blood Trace (NEG) Urine Nitrite Neg (NEG) Urine Bilirubin Neg (NEG) Urine Urobilinogen Dipstick 0.2 mg/dL (0.2 mg/dL) Urine Leukocyte Esterase Small (NEG) Urine RBC Rare /HPF (0-2) Urine WBC >40 /HPF (0-4) Urine Squamous Epithelial Cells Occ /LPF Urine Bacteria 0 /HPF (0-FEW) Current Medications: Meds: Current Medications Sodium Chloride 1,000 ml @ 100 mls/hr Q10H IV Last administered on 05/28/17 19:08; Start 05/28/17 at 18:47; Stop 05/29/17 at 04:46; Status DC Acetaminophen (Tylenol) 650 mg PRN Q6HRS PRN PO PAIN / TEMP Last administered on 05/31/17 08:16; Start 05/28/17 at 22:15 Multi-Ingredient Ointment (Analgesic [place]) 1 mo PRN QID PRN TP MUSCLE PAIN; Start 05/28/17 at 22:15 Al Hydroxide/Mg Hydroxide (Mylanta Plus Xs) 15 ml PRN AFTMEALHC PRN PO DYSPEPSIA; Start 05/28/17 at 22:15 Magnesium Hydroxide (Milk Of Magnesia) 2,400 mg PRN QHS PRN PO CONSTIPATION; Start 05/28/17 at 22:15 Olanzapine (ZyPREXA ZYDIS) 5 mg 1X ONCE PO Last administered on 05/28/17 23: 16; Start 05/28/17 at 23:15; Stop 05/28/17 at 23:16; Status DC Olanzapine (ZyPREXA ZYDIS) 2.5 mg PRN Q4HRS PRN PO ANXIETY / AGITATION Last administered on 06/02/17 18:22; Start 05/28/17 at 23:15 Memantine (Namenda) 5 mg BID PO Last administered on 06/02/17 20:52; Start at 09:00 Mirtazapine (Remeron) 15 mg QHS PO ; Start 05/29/17 at 21:00; Stop 05/29/17 at 21:00; Status DC Amlodipine Besylate (Norvasc) 10 mg DAILY PO Last administered on 06/02/17 07: 48; Start 05/29/17 at 09:00 Pantoprazole Sodium (Protonix) 40 mg DAILYAC PO Last administered on 06/02/17 07:48; Start 05/29/17 at 08:00 Pravastatin Sodium (Pravachol) 20 mg HS PO Last administered on 06/02/17 20:51 ; Start 05/29/17 at 21:00 Potassium Chloride (Klor-Con) 20 meq DAILYWBKFT PO Last administered on 07:48; Start 05/29/17 at 08:00 Mirtazapine (Remeron) 7.5 mg QHS PO Last administered on 06/02/17 20:51; Start 05/29/17 at 21:00 Olanzapine (ZyPREXA ZYDIS) 5 mg HS PO Last administered on 05/30/17 19:16; Start 05/29/17 at 21:00; Stop 05/31/17 at 14:49; Status DC Vitamin D (Vitamin D3) 50,000 unit WEEKLY PO Last administered on 05/30/17 16: 05; Start 05/30/17 at 14:30 Olanzapine (ZyPREXA ZYDIS) 7.5 mg HS PO Last administered on 06/02/17 20:51; Start 05/31/17 at 21:00 Divalproex Sodium (Depakote Sprinkles) 125 mg BID PO Last administered on 20:51; Start 05/31/17 at 21:00 Active Scripts Active Pantoprazole Sodium 40 Mg Tablet.dr 40 Mg PO DAILYAC 30 Days Famotidine 20 Mg Tablet 20 Mg PO BID 30 Days Amlodipine Besylate 10 Mg Tablet 10 Mg PO DAILY 30 Days Reported Mirtazapine 15 Mg Tablet 15 Mg PO QHS Potassium Chloride 10 Meq Tablet.er 20 Meq PO DAILY Namenda (Memantine Hcl) 10 Mg Tablet 5 Mg PO BID Pravastatin Sodium 20 Mg Tablet 20 Mg PO HS Diagnosis: Problems: (1) Anxiety disorder (2) Altered mental state (3) Impulse control disorder (4) Major depressive disorder, recurrent episode (5) Dementia, vascular, with depression (6) Dementia, vascular, with delusions (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
[2017-06-02] MEDS: traZODone 50 MG TABLET. PO PRN (22:23)
[2017-06-03 06:45] VITALS: BP 133/82
[2017-06-03 07:48] LABS: BASO # 0.1 x10^3/uL (0.0-0.2); BASO % 1 % (0-3); EOS # 0.1 x10^3/uL (0.0-0.7); EOS % 2 % (0-3); HEMOGLOBIN 11.4 g/dL (12.0-15.5); LYMPH # 1.4 x10^3/uL (1.0-4.8); LYMPH % 18 % (24-48); MEAN CORPUSCULAR HEMOGLOBIN 30 pg (25-35); MEAN CORPUSCULAR HGB CONC 33 g/dL (31-37); MEAN CORPUSCULAR VOLUME 92 fL (79-100); MONO # 0.6 x10^3/uL (0.0-1.1); MONO % 7 % (0-9); NEUT # 5.5 x10^3uL (1.8-7.7); NEUT % 72 % (31-73); PLATELET COUNT 260 x10^3/uL (140-400); RED CELL DISTRIBUTION WIDTH 13.5 % (11.5-14.5); WHITE BLOOD COUNT 7.6 x10^3/uL (4.0-11.0)
[2017-06-03 07:59] LABS: ALBUMIN 3.6 g/dL (3.4-5.0); ALBUMIN/GLOBULIN RATIO 0.8 (1.0-1.7); ALK PHOS 150 U/L (46-116); ALT (SGPT) 21 U/L (14-59); ANION GAP 10 (6-14); AST (SGOT) 18 U/L (15-37); BLOOD UREA NITROGEN 27 mg/dL (7-20); BUN/CREATININE RATIO 19 (6-20); CARBON DIOXIDE 24 mmol/L (21-32); CHLORIDE 109 mmol/L (98-107); CREATININE 1.4 mg/dL (0.6-1.0); GFR 36.1; GLUCOSE 145 mg/dL (70-99); POTASSIUM 4.1 mmol/L (3.5-5.1); SODIUM 143 mmol/L (136-145); TOTAL BILIRUBIN 0.6 mg/dL (0.2-1.0); TOTAL PROTEIN 7.9 g/dL (6.4-8.2)
[2017-06-03 08:01] LABS: VAL ACID 16 mcg/mL (50-100)
[2017-06-03] MEDS: amLODIPine BESYLATE 10 MG TABLET PO SCH (09:11)
[2017-06-03] MEDS: DIVALPROEX 125 MG CAP.SPRINK PO SCH ×2 (09:11→21:04)
[2017-06-03] MEDS: MEMANTINE 10 MG TABLET. PO SCH ×2 (09:12→19:53)
[2017-06-03] MEDS: POTASSIUM CHLORIDE 20 MEQ TABLET.ER. PO SCH (09:12)
[2017-06-03] MEDS: PANTOPRAZOLE 40 MG TABLET. PO SCH (09:12)
[2017-06-03 15:51] VITALS: BP 114/81
[2017-06-03] MEDS: PRAVASTATIN 20 MG TABLET. PO SCH (19:51)
[2017-06-03] MEDS: MIRTAZAPINE 15 MG TABLET PO SCH (19:53)
--- NOTE | 2017-06-03 20:47 | PDOC ---
Exam Antoine Demential Exam: Antoine Note: Please also refer to the separate dictated note~for this date of service dictated separately.~Patient seen individually. Discussed the patient with Nursing staff reviewed the chart.~Reviewed interim history and current functioning. Reviewed vital signs,~Labs/ Radiology~and current medications noted below. Continue current treatment with the changes noted in the dictated addendum note S/O: This is late entry for date of service 06/01/2017. This note covers elements not covered in my initial note of June 01. The patient's remote memory is reasonable. She recognizes the nursing supervisor [facility] at the hospital whom she has known in the past. Short-term memory is impaired. Reviewed information from Dr. Rogers and nursing staff. UA was contaminated, will be repeated. The patient is anxious, restless, wanting to leave, refusing medications. MSE: Oriented to herself, at times to situation. Insight, judgment, recent memory is impaired. Language function intact. Attention span short. Mood and affect are somewhat labile. Labs: Reviewed. Plan: Continue Zyprexa, Remeron, Namenda, Depakote, valproic acid will be checked on June 03 and will adjust thereafter. Assessment: Vital Signs: Vital Signs Date Time Temp Pulse Resp B/P (MAP) Pulse Ox O2 Delivery O2 Flow Rate FiO2 06/03/17 15:51 98.2 104 20 114/81 (92) 95 Room Air I&O Intake and Output 06/03/17 07:00 Intake Total 720 ml Balance 720 ml Intake Oral 720 ml Labs: Laboratory Tests Test 06/03/17 07:31 06/03/17 07:45 White Blood Count 7.6 x10^3/uL (4.0-11.0) Red Blood Count 3.80 x10^6/uL (3.50-5.40) Hemoglobin 11.4 g/dL (12.0-15.5) L Hematocrit 35.0 % (36.0-47.0) L Mean Corpuscular Volume 92 fL (79-100) Mean Corpuscular Hemoglobin 30 pg (25-35) Mean Corpuscular Hemoglobin Concent 33 g/dL (31-37) Red Cell Distribution Width 13.5 % (11.5-14.5) Platelet Count 260 x10^3/uL (140-400) Neutrophils (%) (Auto) 72 % (31-73) Lymphocytes (%) (Auto) 18 % (24-48) L Monocytes (%) (Auto) 7 % (0-9) Eosinophils (%) (Auto) 2 % (0-3) Basophils (%) (Auto) 1 % (0-3) Neutrophils # (Auto) 5.5 x10^3uL (1.8-7.7) Lymphocytes # (Auto) 1.4 x10^3/uL (1.0-4.8) Monocytes # (Auto) 0.6 x10^3/uL (0.0-1.1) Eosinophils # (Auto) 0.1 x10^3/uL (0.0-0.7) Basophils # (Auto) 0.1 x10^3/uL (0.0-0.2) Sodium Level 143 mmol/L (136-145) Potassium Level 4.1 mmol/L (3.5-5.1) Chloride Level 109 mmol/L (98-107) H Carbon Dioxide Level 24 mmol/L (21-32) Anion Gap 10 (6-14) Blood Urea Nitrogen 27 mg/dL (7-20) H Creatinine 1.4 mg/dL (0.6-1.0) H Estimated GFR (Cockcroft-Gault) 36.1 BUN/Creatinine Ratio 19 (6-20) Glucose Level 145 mg/dL (70-99) H Calcium Level 9.0 mg/dL (8.5-10.1) Total Bilirubin 0.6 mg/dL (0.2-1.0) Aspartate Amino Transferase (AST) 18 U/L (15-37) Alanine Aminotransferase (ALT) 21 U/L (14-59) Alkaline Phosphatase 150 U/L (46-116) H Total Protein 7.9 g/dL (6.4-8.2) Albumin 3.6 g/dL (3.4-5.0) Albumin/Globulin Ratio 0.8 (1.0-1.7) L Valproic Acid Level 16 mcg/mL (50-100) L Valproic Acid Last Dose Date 06/02/17 Valproic Acid Last Dose Time 2100 Glucose (Fingerstick) 139 mg/dL (70-99) H Current Medications: Meds: Current Medications Sodium Chloride 1,000 ml @ 100 mls/hr Q10H IV Last administered on 6/27/17at 19:08; Start 05/28/17 at 18:47; Stop 05/29/17 at 04:46; Status DC Acetaminophen (Tylenol) 650 mg PRN Q6HRS PRN PO PAIN / TEMP Last administered on 05/31/17 08:16; Start 05/28/17 at 22:15 Multi-Ingredient Ointment (Analgesic [place]) 1 mo PRN QID PRN TP MUSCLE PAIN; Start 05/28/17 at 22:15 Al Hydroxide/Mg Hydroxide (Mylanta Plus Xs) 15 ml PRN AFTMEALHC PRN PO DYSPEPSIA; Start 05/28/17 at 22:15 Magnesium Hydroxide (Milk Of Magnesia) 2,400 mg PRN QHS PRN PO CONSTIPATION; Start 05/28/17 at 22:15 Olanzapine (ZyPREXA ZYDIS) 5 mg 1X ONCE PO Last administered on 05/28/17 23: 16; Start 05/28/17 at 23:15; Stop 05/28/17 at 23:16; Status DC Olanzapine (ZyPREXA ZYDIS) 2.5 mg PRN Q4HRS PRN PO ANXIETY / AGITATION Last administered on 06/02/17 18:22; Start 05/28/17 at 23:15 Memantine (Namenda) 5 mg BID PO Last administered on 06/03/17 19:53; Start at 09:00 Mirtazapine (Remeron) 15 mg QHS PO ; Start 05/29/17 at 21:00; Stop 05/29/17 at 21:00; Status DC Amlodipine Besylate (Norvasc) 10 mg DAILY PO Last administered on 06/03/17 09: 11; Start 05/29/17 at 09:00 Pantoprazole Sodium (Protonix) 40 mg DAILYAC PO Last administered on 06/03/17 09:12; Start 05/29/17 at 08:00 Pravastatin Sodium (Pravachol) 20 mg HS PO Last administered on 06/03/17 19:51 ; Start 05/29/17 at 21:00 Potassium Chloride (Klor-Con) 20 meq DAILYWBKFT PO Last administered on 09:12; Start 05/29/17 at 08:00 Mirtazapine (Remeron) 7.5 mg QHS PO Last administered on 06/02/17 20:51; Start 05/29/17 at 21:00; Stop 06/03/17 at 18:36; Status DC Olanzapine (ZyPREXA ZYDIS) 5 mg HS PO Last administered on 05/30/17 19:16; Start 05/29/17 at 21:00; Stop 05/31/17 at 14:49; Status DC Vitamin D (Vitamin D3) 50,000 unit WEEKLY PO Last administered on 05/30/17 16: 05; Start 05/30/17 at 14:30 Olanzapine (ZyPREXA ZYDIS) 7.5 mg HS PO Last administered on 06/03/17 19:53; Start 05/31/17 at 21:00 Divalproex Sodium (Depakote Sprinkles) 125 mg BID PO Last administered on 09:11; Start 05/31/17 at 21:00; Stop 06/03/17 at 18:36; Status DC Trazodone HCl (Desyrel) 50 mg PRN QHS PRN PO INSOMNIA, MAY REPEAT IN 1HR Last administered on 06/02/17 22:23; Start 06/02/17 at 22:30 Divalproex Sodium (Depakote Sprinkles) 250 mg BID PO ; Start 06/03/17 at 21:00 Mirtazapine (Remeron) 15 mg QHS PO Last administered on 06/03/17 19:53; Start 06/03/17 at 21:00 Active Scripts Active Pantoprazole Sodium 40 Mg Tablet.dr 40 Mg PO DAILYAC 30 Days Famotidine 20 Mg Tablet 20 Mg PO BID 30 Days Amlodipine Besylate 10 Mg Tablet 10 Mg PO DAILY 30 Days Reported Mirtazapine 15 Mg Tablet 15 Mg PO QHS Potassium Chloride 10 Meq Tablet.er 20 Meq PO DAILY Namenda (Memantine Hcl) 10 Mg Tablet 5 Mg PO BID Pravastatin Sodium 20 Mg Tablet 20 Mg PO HS MONICA BOND MD Jun 03, 2017 20:46
[2017-06-04 06:02] VITALS: BP 121/64
[2017-06-04] MEDS: POTASSIUM CHLORIDE 20 MEQ TABLET.ER. PO SCH (09:34)
[2017-06-04] MEDS: MEMANTINE 10 MG TABLET. PO SCH ×2 (09:35→19:07)
[2017-06-04] MEDS: amLODIPine BESYLATE 10 MG TABLET PO SCH (09:35)
[2017-06-04] MEDS: PANTOPRAZOLE 40 MG TABLET. PO SCH (09:35)
[2017-06-04] MEDS: DIVALPROEX 125 MG CAP.SPRINK PO SCH ×2 (09:36→19:07)
[2017-06-04 16:23] VITALS: BP 121/75
[2017-06-04] MEDS: PRAVASTATIN 20 MG TABLET. PO SCH (19:07)
[2017-06-04] MEDS: MIRTAZAPINE 15 MG TABLET PO SCH (19:07)
--- NOTE | 2017-06-04 20:07 | PDOC ---
Exam Antoine Demential Exam: Antoine Note: Please also refer to the separate dictated note~for this date of service dictated separately.~Patient seen individually. Discussed the patient with Nursing staff reviewed the chart.~Reviewed interim history and current functioning. Reviewed vital signs,~Labs/ Radiology~and current medications noted below. Continue current treatment with the changes noted in the dictated addendum note TIFFANIE FRANCI DATE OF SERVICE: 06/02/2017. PSYCHIATRIC PROGRESS NOTE This is a late entry for Date of Service 06/02/2017 and covers elements not covered in my initial note of 06/02/2017. Per nursing report the patient has been hyperverbal, manic, somewhat anxious, labile in her mood. Slept poorly 2-1 /2 hours previous night. No CV, , pulmonary, eye, ENT systems symptoms, on review. Reliability poor. MENTAL STATUS EXAM: Oriented to herself. Insight and judgment, recent and memory is impaired, language function intact, attention span short. Mood and affect labile. LABS: Reviewed. IMPRESSION: Unchanged from initial note. PLAN: Start trazodone 50 mg h.s. p.r.n., may repeat x1 for insomnia. Continue Remeron, Namenda, Zyprexa, Depakote at current dosage. Check valproic acid level 06/03, adjust further as clinically indicated. Assessment: Vital Signs: Vital Signs Date Time Temp Pulse Resp B/P (MAP) Pulse Ox O2 Delivery O2 Flow Rate FiO2 06/04/17 16:23 99.1 55 16 121/75 (90) 100 06/03/17 15:51 Room Air I&O Intake and Output 06/04/17 07:00 Intake Total 960 ml Balance 960 ml Intake Oral 960 ml # Bowel Movements 1 Labs: Laboratory Tests Test 06/04/17 07:52 Glucose (Fingerstick) 82 mg/dL (70-99) Current Medications: Meds: Current Medications Sodium Chloride 1,000 ml @ 100 mls/hr Q10H IV Last administered on 05/28/17 19:08; Start 05/28/17 at 18:47; Stop 05/29/17 at 04:46; Status DC Acetaminophen (Tylenol) 650 mg PRN Q6HRS PRN PO PAIN / TEMP Last administered on 05/31/17 08:16; Start 05/28/17 at 22:15 Multi-Ingredient Ointment (Analgesic [place]) 1 mo PRN QID PRN TP MUSCLE PAIN; Start 05/28/17 at 22:15 Al Hydroxide/Mg Hydroxide (Mylanta Plus Xs) 15 ml PRN AFTMEALHC PRN PO DYSPEPSIA; Start 05/28/17 at 22:15 Magnesium Hydroxide (Milk Of Magnesia) 2,400 mg PRN QHS PRN PO CONSTIPATION; Start 05/28/17 at 22:15 Olanzapine (ZyPREXA ZYDIS) 5 mg 1X ONCE PO Last administered on 05/28/17 23: 16; Start 05/28/17 at 23:15; Stop 05/28/17 at 23:16; Status DC Olanzapine (ZyPREXA ZYDIS) 2.5 mg PRN Q4HRS PRN PO ANXIETY / AGITATION Last administered on 06/04/17 18:41; Start 05/28/17 at 23:15 Memantine (Namenda) 5 mg BID PO Last administered on 06/04/17 09:35; Start at 09:00; Stop 06/04/17 at 18:17; Status DC Mirtazapine (Remeron) 15 mg QHS PO ; Start 05/29/17 at 21:00; Stop 05/29/17 at 21:00; Status DC Amlodipine Besylate (Norvasc) 10 mg DAILY PO Last administered on 06/04/17 09: 35; Start 05/29/17 at 09:00 Pantoprazole Sodium (Protonix) 40 mg DAILYAC PO Last administered on 06/04/17 09:35; Start 05/29/17 at 08:00 Pravastatin Sodium (Pravachol) 20 mg HS PO Last administered on 06/04/17 19:07 ; Start 05/29/17 at 21:00 Potassium Chloride (Klor-Con) 20 meq DAILYWBKFT PO Last administered on 09:34; Start 05/29/17 at 08:00 Mirtazapine (Remeron) 7.5 mg QHS PO Last administered on 06/02/17 20:51; Start 05/29/17 at 21:00; Stop 06/03/17 at 18:36; Status DC Olanzapine (ZyPREXA ZYDIS) 5 mg HS PO Last administered on 05/30/17 19:16; Start 05/29/17 at 21:00; Stop 05/31/17 at 14:49; Status DC Vitamin D (Vitamin D3) 50,000 unit WEEKLY PO Last administered on 05/30/17 16: 05; Start 05/30/17 at 14:30 Olanzapine (ZyPREXA ZYDIS) 7.5 mg HS PO Last administered on 06/04/17 19:08; Start 05/31/17 at 21:00 Divalproex Sodium (Depakote Sprinkles) 125 mg BID PO Last administered on 09:11; Start 05/31/17 at 21:00; Stop 06/03/17 at 18:36; Status DC Trazodone HCl (Desyrel) 50 mg PRN QHS PRN PO INSOMNIA, MAY REPEAT IN 1HR Last administered on 06/02/17 22:23; Start 06/02/17 at 22:30 Divalproex Sodium (Depakote Sprinkles) 250 mg BID PO Last administered on 19:07; Start 06/03/17 at 21:00 Mirtazapine (Remeron) 15 mg QHS PO Last administered on 06/04/17 19:07; Start 06/03/17 at 21:00 Memantine (Namenda) 10 mg BID PO Last administered on 06/04/17 19:07; Start 06/04/17 at 21:00 Active Scripts Active Pantoprazole Sodium 40 Mg Tablet.dr 40 Mg PO DAILYAC 30 Days Famotidine 20 Mg Tablet 20 Mg PO BID 30 Days Amlodipine Besylate 10 Mg Tablet 10 Mg PO DAILY 30 Days Reported Mirtazapine 15 Mg Tablet 15 Mg PO QHS Potassium Chloride 10 Meq Tablet.er 20 Meq PO DAILY Namenda (Memantine Hcl) 10 Mg Tablet 5 Mg PO BID Pravastatin Sodium 20 Mg Tablet 20 Mg PO HS MONICA BOND MD Jun 04, 2017 20:07
--- NOTE | 2017-06-04 20:44 | PDOC ---
Exam Antoine Demential Exam: Antoine Note: Please also refer to the separate dictated note~for this date of service dictated separately.~Patient seen individually. Discussed the patient with Nursing staff reviewed the chart.~Reviewed interim history and current functioning. Reviewed vital signs,~Labs/ Radiology~and current medications noted below. Continue current treatment with the changes noted in the dictated addendum note Assessment: Vital Signs: Vital Signs Date Time Temp Pulse Resp B/P (MAP) Pulse Ox O2 Delivery O2 Flow Rate FiO2 06/04/17 16:23 99.1 55 16 121/75 (90) 100 06/03/17 15:51 Room Air I&O Intake and Output 06/04/17 07:00 Intake Total 960 ml Balance 960 ml Intake Oral 960 ml # Bowel Movements 1 Labs: Laboratory Tests Test 06/04/17 07:52 Glucose (Fingerstick) 82 mg/dL (70-99) Current Medications: Meds: Current Medications Sodium Chloride 1,000 ml @ 100 mls/hr Q10H IV Last administered on 05/28/17 19:08; Start 05/28/17 at 18:47; Stop 05/29/17 at 04:46; Status DC Acetaminophen (Tylenol) 650 mg PRN Q6HRS PRN PO PAIN / TEMP Last administered on 05/31/17 08:16; Start 05/28/17 at 22:15 Multi-Ingredient Ointment (Analgesic [place]) 1 mo PRN QID PRN TP MUSCLE PAIN; Start 05/28/17 at 22:15 Al Hydroxide/Mg Hydroxide (Mylanta Plus Xs) 15 ml PRN AFTMEALHC PRN PO DYSPEPSIA; Start 05/28/17 at 22:15 Magnesium Hydroxide (Milk Of Magnesia) 2,400 mg PRN QHS PRN PO CONSTIPATION; Start 05/28/17 at 22:15 Olanzapine (ZyPREXA ZYDIS) 5 mg 1X ONCE PO Last administered on 05/28/17 23: 16; Start 05/28/17 at 23:15; Stop 05/28/17 at 23:16; Status DC Olanzapine (ZyPREXA ZYDIS) 2.5 mg PRN Q4HRS PRN PO ANXIETY / AGITATION Last administered on 06/04/17 18:41; Start 05/28/17 at 23:15 Memantine (Namenda) 5 mg BID PO Last administered on 06/04/17 09:35; Start at 09:00; Stop 06/04/17 at 18:17; Status DC Mirtazapine (Remeron) 15 mg QHS PO ; Start 05/29/17 at 21:00; Stop 05/29/17 at 21:00; Status DC Amlodipine Besylate (Norvasc) 10 mg DAILY PO Last administered on 06/04/17 09: 35; Start 05/29/17 at 09:00 Pantoprazole Sodium (Protonix) 40 mg DAILYAC PO Last administered on 06/04/17 09:35; Start 05/29/17 at 08:00 Pravastatin Sodium (Pravachol) 20 mg HS PO Last administered on 06/04/17 19:07 ; Start 05/29/17 at 21:00 Potassium Chloride (Klor-Con) 20 meq DAILYWBKFT PO Last administered on 09:34; Start 05/29/17 at 08:00 Mirtazapine (Remeron) 7.5 mg QHS PO Last administered on 06/02/17 20:51; Start 05/29/17 at 21:00; Stop 06/03/17 at 18:36; Status DC Olanzapine (ZyPREXA ZYDIS) 5 mg HS PO Last administered on 05/30/17 19:16; Start 05/29/17 at 21:00; Stop 05/31/17 at 14:49; Status DC Vitamin D (Vitamin D3) 50,000 unit WEEKLY PO Last administered on 05/30/17 16: 05; Start 05/30/17 at 14:30 Olanzapine (ZyPREXA ZYDIS) 7.5 mg HS PO Last administered on 06/04/17 19:08; Start 05/31/17 at 21:00 Divalproex Sodium (Depakote Sprinkles) 125 mg BID PO Last administered on 09:11; Start 05/31/17 at 21:00; Stop 06/03/17 at 18:36; Status DC Trazodone HCl (Desyrel) 50 mg PRN QHS PRN PO INSOMNIA, MAY REPEAT IN 1HR Last administered on 06/02/17 22:23; Start 06/02/17 at 22:30 Divalproex Sodium (Depakote Sprinkles) 250 mg BID PO Last administered on 19:07; Start 06/03/17 at 21:00 Mirtazapine (Remeron) 15 mg QHS PO Last administered on 06/04/17 19:07; Start 06/03/17 at 21:00 Memantine (Namenda) 10 mg BID PO Last administered on 06/04/17 19:07; Start 06/04/17 at 21:00 Active Scripts Active Pantoprazole Sodium 40 Mg Tablet.dr 40 Mg PO DAILYAC 30 Days Famotidine 20 Mg Tablet 20 Mg PO BID 30 Days Amlodipine Besylate 10 Mg Tablet 10 Mg PO DAILY 30 Days Reported Mirtazapine 15 Mg Tablet 15 Mg PO QHS Potassium Chloride 10 Meq Tablet.er 20 Meq PO DAILY Namenda (Memantine Hcl) 10 Mg Tablet 5 Mg PO BID Pravastatin Sodium 20 Mg Tablet 20 Mg PO HS Diagnosis: Problems: (1) Anxiety disorder (2) Impulse control disorder (3) Major depressive disorder, recurrent episode (4) Dementia, vascular, with depression (5) Dementia, vascular, with delusions (6) Dementia in Alzheimer's disease with depression (7) Dementia in Alzheimer's disease with delusions MONICA BOND MD Jun 04, 2017 20:44
[2017-06-05 05:59] VITALS: BP 158/86
[2017-06-05] MEDS: amLODIPine BESYLATE 10 MG TABLET PO SCH (08:56)
[2017-06-05] MEDS: DIVALPROEX 125 MG CAP.SPRINK PO SCH ×2 (08:56→19:30)
[2017-06-05] MEDS: PANTOPRAZOLE 40 MG TABLET. PO SCH (08:56)
[2017-06-05] MEDS: POTASSIUM CHLORIDE 20 MEQ TABLET.ER. PO SCH (08:57)
[2017-06-05] MEDS: MEMANTINE 10 MG TABLET. PO SCH ×2 (08:57→19:30)
[2017-06-05 16:11] VITALS: BP 121/79
[2017-06-05] MEDS: MIRTAZAPINE 15 MG TABLET PO SCH (19:30)
[2017-06-05] MEDS: PRAVASTATIN 20 MG TABLET. PO SCH (19:30)
[2017-06-05] MEDS: ACETAMINOPHEN 325 MG TABLET PO SCH (19:32)
--- NOTE | 2017-06-05 19:51 | PDOC ---
Exam Antoine Demential Exam: Antoine Note: Please also refer to the separate dictated note~for this date of service dictated separately.~Patient seen individually. Discussed the patient with Nursing staff reviewed the chart.~Reviewed interim history and current functioning. Reviewed vital signs,~Labs/ Radiology~and current medications noted below. Continue current treatment with the changes noted in the dictated addendum note Assessment: Vital Signs: Vital Signs Date Time Temp Pulse Resp B/P (MAP) Pulse Ox O2 Delivery O2 Flow Rate FiO2 06/05/17 16:11 98.9 85 18 121/79 (93) 97 06/03/17 15:51 Room Air I&O Intake and Output 06/05/17 07:00 Intake Total 1220 ml Balance 1220 ml Intake Oral 1220 ml # Bowel Movements 1 Current Medications: Meds: Current Medications Sodium Chloride 1,000 ml @ 100 mls/hr Q10H IV Last administered on 05/28/17 19:08; Start 05/28/17 at 18:47; Stop 05/29/17 at 04:46; Status DC Acetaminophen (Tylenol) 650 mg PRN Q6HRS PRN PO PAIN / TEMP Last administered on 05/31/17 08:16; Start 05/28/17 at 22:15 Multi-Ingredient Ointment (Analgesic [place]) 1 mo PRN QID PRN TP MUSCLE PAIN; Start 05/28/17 at 22:15 Al Hydroxide/Mg Hydroxide (Mylanta Plus Xs) 15 ml PRN AFTMEALHC PRN PO DYSPEPSIA; Start 05/28/17 at 22:15 Magnesium Hydroxide (Milk Of Magnesia) 2,400 mg PRN QHS PRN PO CONSTIPATION; Start 05/28/17 at 22:15 Olanzapine (ZyPREXA ZYDIS) 5 mg 1X ONCE PO Last administered on 05/28/17 23: 16; Start 05/28/17 at 23:15; Stop 05/28/17 at 23:16; Status DC Olanzapine (ZyPREXA ZYDIS) 2.5 mg PRN Q4HRS PRN PO ANXIETY / AGITATION Last administered on 06/04/17 23:59; Start 05/28/17 at 23:15 Memantine (Namenda) 5 mg BID PO Last administered on 06/04/17 09:35; Start at 09:00; Stop 06/04/17 at 18:17; Status DC Mirtazapine (Remeron) 15 mg QHS PO ; Start 05/29/17 at 21:00; Stop 05/29/17 at 21:00; Status DC Amlodipine Besylate (Norvasc) 10 mg DAILY PO Last administered on 06/05/17 08: 56; Start 05/29/17 at 09:00 Pantoprazole Sodium (Protonix) 40 mg DAILYAC PO Last administered on 06/05/17 08:56; Start 05/29/17 at 08:00 Pravastatin Sodium (Pravachol) 20 mg HS PO Last administered on 06/05/17 19:30 ; Start 05/29/17 at 21:00 Potassium Chloride (Klor-Con) 20 meq DAILYWBKFT PO Last administered on 08:57; Start 05/29/17 at 08:00 Mirtazapine (Remeron) 7.5 mg QHS PO Last administered on 06/02/17 20:51; Start 05/29/17 at 21:00; Stop 06/03/17 at 18:36; Status DC Olanzapine (ZyPREXA ZYDIS) 5 mg HS PO Last administered on 05/30/17 19:16; Start 05/29/17 at 21:00; Stop 05/31/17 at 14:49; Status DC Vitamin D (Vitamin D3) 50,000 unit WEEKLY PO Last administered on 05/30/17 16: 05; Start 05/30/17 at 14:30 Olanzapine (ZyPREXA ZYDIS) 7.5 mg HS PO Last administered on 06/05/17 19:31; Start 05/31/17 at 21:00 Divalproex Sodium (Depakote Sprinkles) 125 mg BID PO Last administered on 09:11; Start 05/31/17 at 21:00; Stop 06/03/17 at 18:36; Status DC Trazodone HCl (Desyrel) 50 mg PRN QHS PRN PO INSOMNIA, MAY REPEAT IN 1HR Last administered on 06/02/17 22:23; Start 06/02/17 at 22:30 Divalproex Sodium (Depakote Sprinkles) 250 mg BID PO Last administered on 19:30; Start 06/03/17 at 21:00 Mirtazapine (Remeron) 15 mg QHS PO Last administered on 06/05/17 19:30; Start 06/03/17 at 21:00 Memantine (Namenda) 10 mg BID PO Last administered on 06/05/17 19:30; Start 06/04/17 at 21:00 Acetaminophen (Tylenol) 650 mg TID PO Last administered on 06/05/17 19:32; Start 06/05/17 at 21:00 Active Scripts Active Pantoprazole Sodium 40 Mg Tablet.dr 40 Mg PO DAILYAC 30 Days Famotidine 20 Mg Tablet 20 Mg PO BID 30 Days Amlodipine Besylate 10 Mg Tablet 10 Mg PO DAILY 30 Days Reported Mirtazapine 15 Mg Tablet 15 Mg PO QHS Potassium Chloride 10 Meq Tablet.er 20 Meq PO DAILY Namenda (Memantine Hcl) 10 Mg Tablet 5 Mg PO BID Pravastatin Sodium 20 Mg Tablet 20 Mg PO HS Diagnosis: Problems: (1) Anxiety disorder (2) Impulse control disorder (3) Major depressive disorder, recurrent episode (4) Dementia, vascular, with depression (5) Dementia, vascular, with delusions (6) Dementia in Alzheimer's disease with depression (7) Dementia in Alzheimer's disease with delusions MONICA BOND MD Jun 05, 2017 19:50
[2017-06-06 06:07] VITALS: BP 136/85
[2017-06-06 06:44] LABS: BASO % 1 % (0-3); EOS # 0.3 x10^3/uL (0.0-0.7); EOS % 6 % (0-3); HEMATOCRIT 30.7 % (36.0-47.0); HEMOGLOBIN 10.3 g/dL (12.0-15.5); LYMPH # 1.6 x10^3/uL (1.0-4.8); LYMPH % 29 % (24-48); MEAN CORPUSCULAR HEMOGLOBIN 31 pg (25-35); MEAN CORPUSCULAR HGB CONC 34 g/dL (31-37); MEAN CORPUSCULAR VOLUME 92 fL (79-100); MONO # 0.5 x10^3/uL (0.0-1.1); MONO % 9 % (0-9); NEUT # 3.1 x10^3uL (1.8-7.7); NEUT % 55 % (31-73); PLATELET COUNT 199 x10^3/uL (140-400); RED BLOOD COUNT 3.35 x10^6/uL (3.50-5.40); RED CELL DISTRIBUTION WIDTH 13.3 % (11.5-14.5); WHITE BLOOD COUNT 5.6 x10^3/uL (4.0-11.0)
[2017-06-06 06:52] LABS: ALBUMIN 2.9 g/dL (3.4-5.0); ALBUMIN/GLOBULIN RATIO 0.8 (1.0-1.7); ALK PHOS 117 U/L (46-116); ALT (SGPT) 15 U/L (14-59); ANION GAP 10 (6-14); AST (SGOT) 16 U/L (15-37); BLOOD UREA NITROGEN 29 mg/dL (7-20); BUN/CREATININE RATIO 22 (6-20); CALCIUM 8.2 mg/dL (8.5-10.1); CARBON DIOXIDE 24 mmol/L (21-32); CHLORIDE 112 mmol/L (98-107); CREATININE 1.3 mg/dL (0.6-1.0); GFR 39.3; GLUCOSE 90 mg/dL (70-99); MAGNESIUM 1.9 mg/dL (1.8-2.4); POTASSIUM 3.8 mmol/L (3.5-5.1); SODIUM 146 mmol/L (136-145); TOTAL BILIRUBIN 0.3 mg/dL (0.2-1.0); TOTAL PROTEIN 6.5 g/dL (6.4-8.2)
[2017-06-06 06:53] LABS: VAL ACID 43 mcg/mL (50-100)
[2017-06-06] MEDS: PANTOPRAZOLE 40 MG TABLET. PO SCH (09:17)
[2017-06-06] MEDS: DIVALPROEX 125 MG CAP.SPRINK PO SCH ×2 (09:18→19:34)
[2017-06-06] MEDS: POTASSIUM CHLORIDE 20 MEQ TABLET.ER. PO SCH (09:18)
[2017-06-06] MEDS: CHOLECALCIFEROL (VITAMIN D3) 50,000 UNIT CAPSULE PO SCH (09:18)
[2017-06-06] MEDS: MEMANTINE 10 MG TABLET. PO SCH ×2 (09:18→19:34)
[2017-06-06] MEDS: amLODIPine BESYLATE 10 MG TABLET PO SCH (09:19)
[2017-06-06] MEDS: ACETAMINOPHEN 325 MG TABLET PO SCH ×3 (09:19→19:34)
[2017-06-06] MEDS: risperiDONE 0.5 MG TABLET. PO SCH ×2 (12:27→19:34)
[2017-06-06 15:30] VITALS: BP 110/62
[2017-06-06] MEDS: MIRTAZAPINE 15 MG TABLET PO SCH (19:34)
[2017-06-06] MEDS: PRAVASTATIN 20 MG TABLET. PO SCH (19:34)
--- NOTE | 2017-06-06 20:10 | PDOC ---
Exam Antoine Demential Exam: Antoine Note: Please also refer to the separate dictated note~for this date of service dictated separately.~Patient seen individually. Discussed the patient with Nursing staff reviewed the chart.~Reviewed interim history and current functioning. Reviewed vital signs,~Labs/ Radiology~and current medications noted below. Continue current treatment with the changes noted in the dictated addendum note S/O: This is a late entry for date of service 06/03/2017. The patient is seen individually in the evening of June 03. This note covers elements not covered in my initial note. Per nursing report the patient is alert, oriented to herself. Has flight of ideas, labile in her mood, anxious, exit-seeking, wandering. Review of Systems: No CV, , Pulmonary, Eye, ENT system symptoms on review. She is very pleasant, verbal as I met with her. MSE: Oriented to herself. Insight, judgment, recent memory is impaired. Language function intact. Attention span short. Mood and affect still anxious , labile but improved. Labs: Reviewed. Imp: Unchanged from initial note. Plan: Increase Depakote from 125 b.i.d. to 250 mg twice a day, check labs level in three days since the current valproic acid level today is 16 on the current dosage of 125 mg b.i.d. Increase Remeron from 7.5 mg h.s. to 15 mg h.s. since she slept only 2 hours last night. Make further adjustments as clinically indicated. Assessment: Vital Signs: Vital Signs Date Time Temp Pulse Resp B/P (MAP) Pulse Ox O2 Delivery O2 Flow Rate FiO2 06/06/17 15:30 98.5 81 18 110/62 (78) 96 06/06/17 06:07 Room Air I&O Intake and Output 06/06/17 07:00 Intake Total 960 ml Balance 960 ml Intake Oral 960 ml Labs: Laboratory Tests Test 06/06/17 06:17 06/06/17 07:25 White Blood Count 5.6 x10^3/uL (4.0-11.0) Red Blood Count 3.35 x10^6/uL (3.50-5.40) L Hemoglobin 10.3 g/dL (12.0-15.5) L Hematocrit 30.7 % (36.0-47.0) L Mean Corpuscular Volume 92 fL (79-100) Mean Corpuscular Hemoglobin 31 pg (25-35) Mean Corpuscular Hemoglobin Concent 34 g/dL (31-37) Red Cell Distribution Width 13.3 % (11.5-14.5) Platelet Count 199 x10^3/uL (140-400) Neutrophils (%) (Auto) 55 % (31-73) Lymphocytes (%) (Auto) 29 % (24-48) Monocytes (%) (Auto) 9 % (0-9) Eosinophils (%) (Auto) 6 % (0-3) H Basophils (%) (Auto) 1 % (0-3) Neutrophils # (Auto) 3.1 x10^3uL (1.8-7.7) Lymphocytes # (Auto) 1.6 x10^3/uL (1.0-4.8) Monocytes # (Auto) 0.5 x10^3/uL (0.0-1.1) Eosinophils # (Auto) 0.3 x10^3/uL (0.0-0.7) Basophils # (Auto) 0.0 x10^3/uL (0.0-0.2) Sodium Level 146 mmol/L (136-145) H Potassium Level 3.8 mmol/L (3.5-5.1) Chloride Level 112 mmol/L (98-107) H Carbon Dioxide Level 24 mmol/L (21-32) Anion Gap 10 (6-14) Blood Urea Nitrogen 29 mg/dL (7-20) H Creatinine 1.3 mg/dL (0.6-1.0) H Estimated GFR (Cockcroft-Gault) 39.3 BUN/Creatinine Ratio 22 (6-20) H Glucose Level 90 mg/dL (70-99) Calcium Level 8.2 mg/dL (8.5-10.1) L Magnesium Level 1.9 mg/dL (1.8-2.4) Total Bilirubin 0.3 mg/dL (0.2-1.0) Aspartate Amino Transferase (AST) 16 U/L (15-37) Alanine Aminotransferase (ALT) 15 U/L (14-59) Alkaline Phosphatase 117 U/L (46-116) H Total Protein 6.5 g/dL (6.4-8.2) Albumin 2.9 g/dL (3.4-5.0) L Albumin/Globulin Ratio 0.8 (1.0-1.7) L Valproic Acid Level 43 mcg/mL (50-100) L Valproic Acid Last Dose Date 06/05/2017 Valproic Acid Last Dose Time 2100 Glucose (Fingerstick) 93 mg/dL (70-99) Current Medications: Meds: Current Medications Sodium Chloride 1,000 ml @ 100 mls/hr Q10H IV Last administered on 05/28/17 19:08; Start 05/28/17 at 18:47; Stop 05/29/17 at 04:46; Status DC Acetaminophen (Tylenol) 650 mg PRN Q6HRS PRN PO PAIN / TEMP Last administered on 05/31/17 08:16; Start 05/28/17 at 22:15 Multi-Ingredient Ointment (Analgesic [place]) 1 mo PRN QID PRN TP MUSCLE PAIN; Start 05/28/17 at 22:15 Al Hydroxide/Mg Hydroxide (Mylanta Plus Xs) 15 ml PRN AFTMEALHC PRN PO DYSPEPSIA; Start 05/28/17 at 22:15 Magnesium Hydroxide (Milk Of Magnesia) 2,400 mg PRN QHS PRN PO CONSTIPATION; Start 05/28/17 at 22:15 Olanzapine (ZyPREXA ZYDIS) 5 mg 1X ONCE PO Last administered on 05/28/17 23: 16; Start 05/28/17 at 23:15; Stop 05/28/17 at 23:16; Status DC Olanzapine (ZyPREXA ZYDIS) 2.5 mg PRN Q4HRS PRN PO ANXIETY / AGITATION Last administered on 06/06/17 17:15; Start 05/28/17 at 23:15 Memantine (Namenda) 5 mg BID PO Last administered on 06/04/17 09:35; Start at 09:00; Stop 06/04/17 at 18:17; Status DC Mirtazapine (Remeron) 15 mg QHS PO ; Start 05/29/17 at 21:00; Stop 05/29/17 at 21:00; Status DC Amlodipine Besylate (Norvasc) 10 mg DAILY PO Last administered on 06/06/17 09: 19; Start 05/29/17 at 09:00 Pantoprazole Sodium (Protonix) 40 mg DAILYAC PO Last administered on 06/06/17 09:17; Start 05/29/17 at 08:00 Pravastatin Sodium (Pravachol) 20 mg HS PO Last administered on 06/06/17 19:34 ; Start 05/29/17 at 21:00 Potassium Chloride (Klor-Con) 20 meq DAILYWBKFT PO Last administered on 09:18; Start 05/29/17 at 08:00 Mirtazapine (Remeron) 7.5 mg QHS PO Last administered on 06/02/17 20:51; Start 05/29/17 at 21:00; Stop 06/03/17 at 18:36; Status DC Olanzapine (ZyPREXA ZYDIS) 5 mg HS PO Last administered on 05/30/17 19:16; Start 05/29/17 at 21:00; Stop 05/31/17 at 14:49; Status DC Vitamin D (Vitamin D3) 50,000 unit WEEKLY PO Last administered on 06/06/17 09: 18; Start 05/30/17 at 14:30 Olanzapine (ZyPREXA ZYDIS) 7.5 mg HS PO Last administered on 06/05/17 19:31; Start 05/31/17 at 21:00; Stop 06/06/17 at 10:43; Status DC Divalproex Sodium (Depakote Sprinkles) 125 mg BID PO Last administered on 09:11; Start 05/31/17 at 21:00; Stop 06/03/17 at 18:36; Status DC Trazodone HCl (Desyrel) 50 mg PRN QHS PRN PO INSOMNIA, MAY REPEAT IN 1HR Last administered on 06/02/17 22:23; Start 06/02/17 at 22:30 Divalproex Sodium (Depakote Sprinkles) 250 mg BID PO Last administered on 09:18; Start 06/03/17 at 21:00; Stop 06/06/17 at 18:43; Status DC Mirtazapine (Remeron) 15 mg QHS PO Last administered on 06/06/17 19:34; Start 06/03/17 at 21:00 Memantine (Namenda) 10 mg BID PO Last administered on 06/06/17 19:34; Start 06/04/17 at 21:00 Acetaminophen (Tylenol) 650 mg TID PO Last administered on 06/06/17 19:34; Start 06/05/17 at 21:00 Risperidone (RisperDAL) 0.5 mg QHS PO Last administered on 06/06/17 19:34; Start 06/06/17 at 11:00 Sertraline HCl (Zoloft) 50 mg DAILY PO ; Start 06/07/17 at 09:00 Divalproex Sodium (Depakote Sprinkles) 375 mg BID PO Last administered on 19:34; Start 06/06/17 at 21:00 Active Scripts Active Pantoprazole Sodium 40 Mg Tablet.dr 40 Mg PO DAILYAC 30 Days Famotidine 20 Mg Tablet 20 Mg PO BID 30 Days Amlodipine Besylate 10 Mg Tablet 10 Mg PO DAILY 30 Days Reported Mirtazapine 15 Mg Tablet 15 Mg PO QHS Potassium Chloride 10 Meq Tablet.er 20 Meq PO DAILY Namenda (Memantine Hcl) 10 Mg Tablet 5 Mg PO BID Pravastatin Sodium 20 Mg Tablet 20 Mg PO MONICA BOND MD Jun 06, 2017 20:10
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
--- NOTE | 2017-06-06 21:16 | PDOC ---
Exam Antoine Demential Exam: Antoine Note: Please also refer to the separate dictated note~for this date of service dictated separately.~Patient seen individually. Discussed the patient with Nursing staff reviewed the chart.~Reviewed interim history and current functioning. Reviewed vital signs,~Labs/ Radiology~and current medications noted below. Continue current treatment with the changes noted in the dictated addendum note Assessment: Vital Signs: Vital Signs Date Time Temp Pulse Resp B/P (MAP) Pulse Ox O2 Delivery O2 Flow Rate FiO2 06/06/17 15:30 98.5 81 18 110/62 (78) 96 06/06/17 06:07 Room Air I&O Intake and Output 06/06/17 07:00 Intake Total 960 ml Balance 960 ml Intake Oral 960 ml Labs: Laboratory Tests Test 06/06/17 06:17 06/06/17 07:25 White Blood Count 5.6 x10^3/uL (4.0-11.0) Red Blood Count 3.35 x10^6/uL (3.50-5.40) L Hemoglobin 10.3 g/dL (12.0-15.5) L Hematocrit 30.7 % (36.0-47.0) L Mean Corpuscular Volume 92 fL (79-100) Mean Corpuscular Hemoglobin 31 pg (25-35) Mean Corpuscular Hemoglobin Concent 34 g/dL (31-37) Red Cell Distribution Width 13.3 % (11.5-14.5) Platelet Count 199 x10^3/uL (140-400) Neutrophils (%) (Auto) 55 % (31-73) Lymphocytes (%) (Auto) 29 % (24-48) Monocytes (%) (Auto) 9 % (0-9) Eosinophils (%) (Auto) 6 % (0-3) H Basophils (%) (Auto) 1 % (0-3) Neutrophils # (Auto) 3.1 x10^3uL (1.8-7.7) Lymphocytes # (Auto) 1.6 x10^3/uL (1.0-4.8) Monocytes # (Auto) 0.5 x10^3/uL (0.0-1.1) Eosinophils # (Auto) 0.3 x10^3/uL (0.0-0.7) Basophils # (Auto) 0.0 x10^3/uL (0.0-0.2) Sodium Level 146 mmol/L (136-145) H Potassium Level 3.8 mmol/L (3.5-5.1) Chloride Level 112 mmol/L (98-107) H Carbon Dioxide Level 24 mmol/L (21-32) Anion Gap 10 (6-14) Blood Urea Nitrogen 29 mg/dL (7-20) H Creatinine 1.3 mg/dL (0.6-1.0) H Estimated GFR (Cockcroft-Gault) 39.3 BUN/Creatinine Ratio 22 (6-20) H Glucose Level 90 mg/dL (70-99) Calcium Level 8.2 mg/dL (8.5-10.1) L Magnesium Level 1.9 mg/dL (1.8-2.4) Total Bilirubin 0.3 mg/dL (0.2-1.0) Aspartate Amino Transferase (AST) 16 U/L (15-37) Alanine Aminotransferase (ALT) 15 U/L (14-59) Alkaline Phosphatase 117 U/L (46-116) H Total Protein 6.5 g/dL (6.4-8.2) Albumin 2.9 g/dL (3.4-5.0) L Albumin/Globulin Ratio 0.8 (1.0-1.7) L Valproic Acid Level 43 mcg/mL (50-100) L Valproic Acid Last Dose Date 06/05/2017 Valproic Acid Last Dose Time 2100 Glucose (Fingerstick) 93 mg/dL (70-99) Current Medications: Meds: Current Medications Sodium Chloride 1,000 ml @ 100 mls/hr Q10H IV Last administered on 05/28/17 19:08; Start 05/28/17 at 18:47; Stop 05/29/17 at 04:46; Status DC Acetaminophen (Tylenol) 650 mg PRN Q6HRS PRN PO PAIN / TEMP Last administered on 05/31/17 08:16; Start 05/28/17 at 22:15 Multi-Ingredient Ointment (Analgesic [place]) 1 mo PRN QID PRN TP MUSCLE PAIN; Start 05/28/17 at 22:15 Al Hydroxide/Mg Hydroxide (Mylanta Plus Xs) 15 ml PRN AFTMEALHC PRN PO DYSPEPSIA; Start 05/28/17 at 22:15 Magnesium Hydroxide (Milk Of Magnesia) 2,400 mg PRN QHS PRN PO CONSTIPATION; Start 05/28/17 at 22:15 Olanzapine (ZyPREXA ZYDIS) 5 mg 1X ONCE PO Last administered on 05/28/17 23: 16; Start 05/28/17 at 23:15; Stop 05/28/17 at 23:16; Status DC Olanzapine (ZyPREXA ZYDIS) 2.5 mg PRN Q4HRS PRN PO ANXIETY / AGITATION Last administered on 06/06/17 17:15; Start 05/28/17 at 23:15 Memantine (Namenda) 5 mg BID PO Last administered on 06/04/17 09:35; Start at 09:00; Stop 06/04/17 at 18:17; Status DC Mirtazapine (Remeron) 15 mg QHS PO ; Start 05/29/17 at 21:00; Stop 05/29/17 at 21:00; Status DC Amlodipine Besylate (Norvasc) 10 mg DAILY PO Last administered on 06/06/17 09: 19; Start 05/29/17 at 09:00 Pantoprazole Sodium (Protonix) 40 mg DAILYAC PO Last administered on 06/06/17 09:17; Start 05/29/17 at 08:00 Pravastatin Sodium (Pravachol) 20 mg HS PO Last administered on 06/06/17 19:34 ; Start 05/29/17 at 21:00 Potassium Chloride (Klor-Con) 20 meq DAILYWBKFT PO Last administered on 09:18; Start 05/29/17 at 08:00 Mirtazapine (Remeron) 7.5 mg QHS PO Last administered on 06/02/17 20:51; Start 05/29/17 at 21:00; Stop 06/03/17 at 18:36; Status DC Olanzapine (ZyPREXA ZYDIS) 5 mg HS PO Last administered on 05/30/17 19:16; Start 05/29/17 at 21:00; Stop 05/31/17 at 14:49; Status DC Vitamin D (Vitamin D3) 50,000 unit WEEKLY PO Last administered on 06/06/17 09: 18; Start 05/30/17 at 14:30 Olanzapine (ZyPREXA ZYDIS) 7.5 mg HS PO Last administered on 06/05/17 19:31; Start 05/31/17 at 21:00; Stop 06/06/17 at 10:43; Status DC Divalproex Sodium (Depakote Sprinkles) 125 mg BID PO Last administered on 09:11; Start 05/31/17 at 21:00; Stop 06/03/17 at 18:36; Status DC Trazodone HCl (Desyrel) 50 mg PRN QHS PRN PO INSOMNIA, MAY REPEAT IN 1HR Last administered on 06/02/17 22:23; Start 06/02/17 at 22:30 Divalproex Sodium (Depakote Sprinkles) 250 mg BID PO Last administered on 09:18; Start 06/03/17 at 21:00; Stop 06/06/17 at 18:43; Status DC Mirtazapine (Remeron) 15 mg QHS PO Last administered on 06/06/17 19:34; Start 06/03/17 at 21:00 Memantine (Namenda) 10 mg BID PO Last administered on 06/06/17 19:34; Start 06/04/17 at 21:00 Acetaminophen (Tylenol) 650 mg TID PO Last administered on 06/06/17 19:34; Start 06/05/17 at 21:00 Risperidone (RisperDAL) 0.5 mg QHS PO Last administered on 06/06/17 19:34; Start 06/06/17 at 11:00 Sertraline HCl (Zoloft) 50 mg DAILY PO ; Start 06/07/17 at 09:00 Divalproex Sodium (Depakote Sprinkles) 375 mg BID PO Last administered on 19:34; Start 06/06/17 at 21:00 Active Scripts Active Pantoprazole Sodium 40 Mg Tablet.dr 40 Mg PO DAILYAC 30 Days Famotidine 20 Mg Tablet 20 Mg PO BID 30 Days Amlodipine Besylate 10 Mg Tablet 10 Mg PO DAILY 30 Days Reported Mirtazapine 15 Mg Tablet 15 Mg PO QHS Potassium Chloride 10 Meq Tablet.er 20 Meq PO DAILY Namenda (Memantine Hcl) 10 Mg Tablet 5 Mg PO BID Pravastatin Sodium 20 Mg Tablet 20 Mg PO HS Diagnosis: Problems: (1) Anxiety disorder (2) Impulse control disorder (3) Major depressive disorder, recurrent episode (4) Dementia, vascular, with depression (5) Dementia, vascular, with delusions (6) Dementia in Alzheimer's disease with depression (7) Dementia in Alzheimer's disease with delusions MONICA BOND MD Jun 06, 2017 21:16
[2017-06-07 05:44] VITALS: BP 158/66
[2017-06-07] MEDS: ACETAMINOPHEN 325 MG TABLET PO SCH ×3 (07:27→19:53)
[2017-06-07] MEDS: MEMANTINE 10 MG TABLET. PO SCH ×2 (07:27→19:53)
[2017-06-07] MEDS: PANTOPRAZOLE 40 MG TABLET. PO SCH (07:27)
[2017-06-07] MEDS: DIVALPROEX 125 MG CAP.SPRINK PO SCH ×2 (07:28→19:53)
[2017-06-07] MEDS: amLODIPine BESYLATE 10 MG TABLET PO SCH (07:28)
[2017-06-07] MEDS: SERTRALINE 50 MG TABLET. PO SCH (07:41)
[2017-06-07] MEDS: POTASSIUM CHLORIDE 20 MEQ TABLET.ER. PO SCH (07:43)
[2017-06-07 15:53] VITALS: BP 111/68
[2017-06-07] MEDS: PRAVASTATIN 20 MG TABLET. PO SCH (19:53)
[2017-06-07] MEDS: MIRTAZAPINE 15 MG TABLET PO SCH (19:53)
[2017-06-07] MEDS: risperiDONE 0.5 MG TABLET. PO SCH (19:53)
--- NOTE | 2017-06-07 20:07 | PDOC ---
Exam Antoine Demential Exam: Antoine Note: Please also refer to the separate dictated note~for this date of service dictated separately.~Patient seen individually. Discussed the patient with Nursing staff reviewed the chart.~Reviewed interim history and current functioning. Reviewed vital signs,~Labs/ Radiology~and current medications noted below. Continue current treatment with the changes noted in the dictated addendum note Assessment: Vital Signs: Vital Signs Date Time Temp Pulse Resp B/P (MAP) Pulse Ox O2 Delivery O2 Flow Rate FiO2 06/07/17 15:53 97.2 67 18 111/68 (82) 97 06/06/17 06:07 Room Air I&O Intake and Output 06/07/17 07:00 Intake Total 1360 ml Balance 1360 ml Intake Oral 1360 ml Labs: Laboratory Tests Test 06/07/17 07:15 Glucose (Fingerstick) 87 mg/dL (70-99) Current Medications: Meds: Current Medications Sodium Chloride 1,000 ml @ 100 mls/hr Q10H IV Last administered on 05/28/17 19:08; Start 05/28/17 at 18:47; Stop 05/29/17 at 04:46; Status DC Acetaminophen (Tylenol) 650 mg PRN Q6HRS PRN PO PAIN / TEMP Last administered on 05/31/17 08:16; Start 05/28/17 at 22:15 Multi-Ingredient Ointment (Analgesic [place]) 1 mo PRN QID PRN TP MUSCLE PAIN; Start 05/28/17 at 22:15 Al Hydroxide/Mg Hydroxide (Mylanta Plus Xs) 15 ml PRN AFTMEALHC PRN PO DYSPEPSIA; Start 05/28/17 at 22:15 Magnesium Hydroxide (Milk Of Magnesia) 2,400 mg PRN QHS PRN PO CONSTIPATION; Start 05/28/17 at 22:15 Olanzapine (ZyPREXA ZYDIS) 5 mg 1X ONCE PO Last administered on 05/28/17 23: 16; Start 05/28/17 at 23:15; Stop 05/28/17 at 23:16; Status DC Olanzapine (ZyPREXA ZYDIS) 2.5 mg PRN Q4HRS PRN PO ANXIETY / AGITATION Last administered on 06/06/17 17:15; Start 05/28/17 at 23:15 Memantine (Namenda) 5 mg BID PO Last administered on 06/04/17 09:35; Start at 09:00; Stop 06/04/17 at 18:17; Status DC Mirtazapine (Remeron) 15 mg QHS PO ; Start 05/29/17 at 21:00; Stop 05/29/17 at 21:00; Status DC Amlodipine Besylate (Norvasc) 10 mg DAILY PO Last administered on 06/07/17 07: 28; Start 05/29/17 at 09:00 Pantoprazole Sodium (Protonix) 40 mg DAILYAC PO Last administered on 06/07/17 07:27; Start 05/29/17 at 08:00 Pravastatin Sodium (Pravachol) 20 mg HS PO Last administered on 06/07/17 19:53 ; Start 05/29/17 at 21:00 Potassium Chloride (Klor-Con) 20 meq DAILYWBKFT PO Last administered on 07:43; Start 05/29/17 at 08:00 Mirtazapine (Remeron) 7.5 mg QHS PO Last administered on 06/02/17 20:51; Start 05/29/17 at 21:00; Stop 06/03/17 at 18:36; Status DC Olanzapine (ZyPREXA ZYDIS) 5 mg HS PO Last administered on 05/30/17 19:16; Start 05/29/17 at 21:00; Stop 05/31/17 at 14:49; Status DC Vitamin D (Vitamin D3) 50,000 unit WEEKLY PO Last administered on 06/06/17 09: 18; Start 05/30/17 at 14:30 Olanzapine (ZyPREXA ZYDIS) 7.5 mg HS PO Last administered on 06/05/17 19:31; Start 05/31/17 at 21:00; Stop 06/06/17 at 10:43; Status DC Divalproex Sodium (Depakote Sprinkles) 125 mg BID PO Last administered on 09:11; Start 05/31/17 at 21:00; Stop 06/03/17 at 18:36; Status DC Trazodone HCl (Desyrel) 50 mg PRN QHS PRN PO INSOMNIA, MAY REPEAT IN 1HR Last administered on 06/02/17 22:23; Start 06/02/17 at 22:30 Divalproex Sodium (Depakote Sprinkles) 250 mg BID PO Last administered on 09:18; Start 06/03/17 at 21:00; Stop 06/06/17 at 18:43; Status DC Mirtazapine (Remeron) 15 mg QHS PO Last administered on 06/07/17 19:53; Start 06/03/17 at 21:00 Memantine (Namenda) 10 mg BID PO Last administered on 06/07/17 19:53; Start 06/04/17 at 21:00 Acetaminophen (Tylenol) 650 mg TID PO Last administered on 06/07/17 19:53; Start 06/05/17 at 21:00 Risperidone (RisperDAL) 0.5 mg QHS PO Last administered on 06/07/17 19:53; Start 06/06/17 at 11:00 Sertraline HCl (Zoloft) 50 mg DAILY PO Last administered on 06/07/17 07:41; Start 06/07/17 at 09:00 Divalproex Sodium (Depakote Sprinkles) 375 mg BID PO Last administered on 19:53; Start 06/06/17 at 21:00 Active Scripts Active Pantoprazole Sodium 40 Mg Tablet.dr 40 Mg PO DAILYAC 30 Days Famotidine 20 Mg Tablet 20 Mg PO BID 30 Days Amlodipine Besylate 10 Mg Tablet 10 Mg PO DAILY 30 Days Reported Mirtazapine 15 Mg Tablet 15 Mg PO QHS Potassium Chloride 10 Meq Tablet.er 20 Meq PO DAILY Namenda (Memantine Hcl) 10 Mg Tablet 5 Mg PO BID Pravastatin Sodium 20 Mg Tablet 20 Mg PO HS Diagnosis: Problems: (1) Anxiety disorder (2) Impulse control disorder (3) Major depressive disorder, recurrent episode (4) Dementia, vascular, with depression (5) Dementia, vascular, with delusions (6) Dementia in Alzheimer's disease with depression (7) Dementia in Alzheimer's disease with delusions MONICA BOND MD Jun 07, 2017 20:07
[2017-06-08 06:12] VITALS: BP 132/67
[2017-06-08] MEDS: POTASSIUM CHLORIDE 20 MEQ TABLET.ER. PO SCH (07:40)
[2017-06-08] MEDS: SERTRALINE 50 MG TABLET. PO SCH (07:40)
[2017-06-08] MEDS: DIVALPROEX 125 MG CAP.SPRINK PO SCH ×2 (07:41→19:58)
[2017-06-08] MEDS: ACETAMINOPHEN 325 MG TABLET PO SCH ×3 (07:41→19:59)
[2017-06-08] MEDS: amLODIPine BESYLATE 10 MG TABLET PO SCH (07:41)
[2017-06-08] MEDS: MEMANTINE 10 MG TABLET. PO SCH ×2 (07:41→19:59)
[2017-06-08] MEDS: PANTOPRAZOLE 40 MG TABLET. PO SCH (07:43)
[2017-06-08 15:53] VITALS: BP 127/84
[2017-06-08] MEDS: traZODone 50 MG TABLET. PO PRN (19:59)
[2017-06-08] MEDS: MIRTAZAPINE 15 MG TABLET PO SCH (19:59)
[2017-06-08] MEDS: PRAVASTATIN 20 MG TABLET. PO SCH (19:59)
[2017-06-08] MEDS: risperiDONE 0.5 MG TABLET. PO SCH (19:59)
--- NOTE | 2017-06-08 23:20 | PDOC ---
Exam Antoine Demential Exam: Antoine Note: Please also refer to the separate dictated note~for this date of service dictated separately.~Patient seen individually. Discussed the patient with Nursing staff reviewed the chart.~Reviewed interim history and current functioning. Reviewed vital signs,~Labs/ Radiology~and current medications noted below. Continue current treatment with the changes noted in the dictated addendum note Assessment: Vital Signs: Vital Signs Date Time Temp Pulse Resp B/P (MAP) Pulse Ox O2 Delivery O2 Flow Rate FiO2 06/08/17 15:53 98.8 77 16 127/84 (98) 97 Room Air I&O Intake and Output 06/08/17 07:00 Intake Total 600 ml Balance 600 ml Intake Oral 600 ml Current Medications: Meds: Current Medications Sodium Chloride 1,000 ml @ 100 mls/hr Q10H IV Last administered on 05/28/17 19:08; Start 05/28/17 at 18:47; Stop 05/29/17 at 04:46; Status DC Acetaminophen (Tylenol) 650 mg PRN Q6HRS PRN PO PAIN / TEMP Last administered on 05/31/17 08:16; Start 05/28/17 at 22:15 Multi-Ingredient Ointment (Analgesic [place]) 1 mo PRN QID PRN TP MUSCLE PAIN; Start 05/28/17 at 22:15 Al Hydroxide/Mg Hydroxide (Mylanta Plus Xs) 15 ml PRN AFTMEALHC PRN PO DYSPEPSIA; Start 05/28/17 at 22:15 Magnesium Hydroxide (Milk Of Magnesia) 2,400 mg PRN QHS PRN PO CONSTIPATION; Start 05/28/17 at 22:15 Olanzapine (ZyPREXA ZYDIS) 5 mg 1X ONCE PO Last administered on 05/28/17 23: 16; Start 05/28/17 at 23:15; Stop 05/28/17 at 23:16; Status DC Olanzapine (ZyPREXA ZYDIS) 2.5 mg PRN Q4HRS PRN PO ANXIETY / AGITATION Last administered on 06/06/17 17:15; Start 05/28/17 at 23:15 Memantine (Namenda) 5 mg BID PO Last administered on 06/04/17 09:35; Start at 09:00; Stop 06/04/17 at 18:17; Status DC Mirtazapine (Remeron) 15 mg QHS PO ; Start 05/29/17 at 21:00; Stop 05/29/17 at 21:00; Status DC Amlodipine Besylate (Norvasc) 10 mg DAILY PO Last administered on 06/08/17 07: 41; Start 05/29/17 at 09:00 Pantoprazole Sodium (Protonix) 40 mg DAILYAC PO Last administered on 06/08/17 07:43; Start 05/29/17 at 08:00 Pravastatin Sodium (Pravachol) 20 mg HS PO Last administered on 06/08/17 19:59 ; Start 05/29/17 at 21:00 Potassium Chloride (Klor-Con) 20 meq DAILYWBKFT PO Last administered on 07:40; Start 05/29/17 at 08:00 Mirtazapine (Remeron) 7.5 mg QHS PO Last administered on 06/02/17 20:51; Start 05/29/17 at 21:00; Stop 06/03/17 at 18:36; Status DC Olanzapine (ZyPREXA ZYDIS) 5 mg HS PO Last administered on 05/30/17 19:16; Start 05/29/17 at 21:00; Stop 05/31/17 at 14:49; Status DC Vitamin D (Vitamin D3) 50,000 unit WEEKLY PO Last administered on 06/06/17 09: 18; Start 05/30/17 at 14:30 Olanzapine (ZyPREXA ZYDIS) 7.5 mg HS PO Last administered on 06/05/17 19:31; Start 05/31/17 at 21:00; Stop 06/06/17 at 10:43; Status DC Divalproex Sodium (Depakote Sprinkles) 125 mg BID PO Last administered on 09:11; Start 05/31/17 at 21:00; Stop 06/03/17 at 18:36; Status DC Trazodone HCl (Desyrel) 50 mg PRN QHS PRN PO INSOMNIA, MAY REPEAT IN 1HR Last administered on 06/08/17 19:59; Start 06/02/17 at 22:30 Divalproex Sodium (Depakote Sprinkles) 250 mg BID PO Last administered on 09:18; Start 06/03/17 at 21:00; Stop 06/06/17 at 18:43; Status DC Mirtazapine (Remeron) 15 mg QHS PO Last administered on 06/08/17 19:59; Start 06/03/17 at 21:00 Memantine (Namenda) 10 mg BID PO Last administered on 06/08/17 19:59; Start 06/04/17 at 21:00 Acetaminophen (Tylenol) 650 mg TID PO Last administered on 06/08/17 19:59; Start 06/05/17 at 21:00 Risperidone (RisperDAL) 0.5 mg QHS PO Last administered on 06/08/17 19:59; Start 06/06/17 at 11:00 Sertraline HCl (Zoloft) 50 mg DAILY PO Last administered on 06/08/17 07:40; Start 06/07/17 at 09:00 Divalproex Sodium (Depakote Sprinkles) 375 mg BID PO Last administered on 19:58; Start 06/06/17 at 21:00 Active Scripts Active Pantoprazole Sodium 40 Mg Tablet.dr 40 Mg PO DAILYAC 30 Days Famotidine 20 Mg Tablet 20 Mg PO BID 30 Days Amlodipine Besylate 10 Mg Tablet 10 Mg PO DAILY 30 Days Reported Mirtazapine 15 Mg Tablet 15 Mg PO QHS Potassium Chloride 10 Meq Tablet.er 20 Meq PO DAILY Namenda (Memantine Hcl) 10 Mg Tablet 5 Mg PO BID Pravastatin Sodium 20 Mg Tablet 20 Mg PO HS Diagnosis: Problems: (1) Altered mental state (2) Anxiety disorder (3) Impulse control disorder (4) Major depressive disorder, recurrent episode (5) Dementia, vascular, with depression (6) Dementia, vascular, with delusions (7) Dementia in Alzheimer's disease with depression (8) Dementia in Alzheimer's disease with delusions MONICA BOND MD Jun 08, 2017 23:20
[2017-06-09 06:19] VITALS: BP 127/78
[2017-06-09] MEDS: ACETAMINOPHEN 325 MG TABLET PO SCH ×4 (07:45→21:00)
[2017-06-09] MEDS: SERTRALINE 50 MG TABLET. PO SCH (07:46)
[2017-06-09] MEDS: PANTOPRAZOLE 40 MG TABLET. PO SCH (07:46)
[2017-06-09] MEDS: MEMANTINE 10 MG TABLET. PO SCH ×3 (07:46→21:00)
[2017-06-09] MEDS: POTASSIUM CHLORIDE 20 MEQ TABLET.ER. PO SCH (07:46)
[2017-06-09] MEDS: amLODIPine BESYLATE 10 MG TABLET PO SCH (07:46)
[2017-06-09] MEDS: DIVALPROEX 125 MG CAP.SPRINK PO SCH ×3 (07:48→21:00)
[2017-06-09 16:40] VITALS: BP 114/72
[2017-06-09] MEDS: PRAVASTATIN 20 MG TABLET. PO SCH ×2 (19:36→21:00)
[2017-06-09] MEDS: risperiDONE 0.5 MG TABLET. PO SCH ×2 (19:36→21:00)
[2017-06-09] MEDS: traZODone 50 MG TABLET. PO PRN (19:36)
[2017-06-09] MEDS: MIRTAZAPINE 15 MG TABLET PO SCH ×2 (19:36→21:00)
--- NOTE | 2017-06-09 20:16 | PDOC ---
Exam Antoine Demential Exam: Antoine Note: Please also refer to the separate dictated note~for this date of service dictated separately.~Patient seen individually. Discussed the patient with Nursing staff reviewed the chart.~Reviewed interim history and current functioning. Reviewed vital signs,~Labs/ Radiology~and current medications noted below. Continue current treatment with the changes noted in the dictated addendum note Assessment: Vital Signs: Vital Signs Date Time Temp Pulse Resp B/P (MAP) Pulse Ox O2 Delivery O2 Flow Rate FiO2 06/09/17 16:40 98.6 78 16 114/72 (86) 97 06/09/17 06:19 Room Air I&O Intake and Output 06/09/17 07:00 Intake Total 760 ml Balance 760 ml Intake Oral 760 ml Current Medications: Meds: Current Medications Sodium Chloride 1,000 ml @ 100 mls/hr Q10H IV Last administered on 05/28/17 19:08; Start 05/28/17 at 18:47; Stop 05/29/17 at 04:46; Status DC Acetaminophen (Tylenol) 650 mg PRN Q6HRS PRN PO PAIN / TEMP Last administered on 05/31/17 08:16; Start 05/28/17 at 22:15 Multi-Ingredient Ointment (Analgesic [place]) 1 mo PRN QID PRN TP MUSCLE PAIN; Start 05/28/17 at 22:15 Al Hydroxide/Mg Hydroxide (Mylanta Plus Xs) 15 ml PRN AFTMEALHC PRN PO DYSPEPSIA; Start 05/28/17 at 22:15 Magnesium Hydroxide (Milk Of Magnesia) 2,400 mg PRN QHS PRN PO CONSTIPATION; Start 05/28/17 at 22:15 Olanzapine (ZyPREXA ZYDIS) 5 mg 1X ONCE PO Last administered on 05/28/17 23: 16; Start 05/28/17 at 23:15; Stop 05/28/17 at 23:16; Status DC Olanzapine (ZyPREXA ZYDIS) 2.5 mg PRN Q4HRS PRN PO ANXIETY / AGITATION Last administered on 06/09/17 19:33; Start 05/28/17 at 23:15 Memantine (Namenda) 5 mg BID PO Last administered on 06/04/17 09:35; Start at 09:00; Stop 06/04/17 at 18:17; Status DC Mirtazapine (Remeron) 15 mg QHS PO ; Start 05/29/17 at 21:00; Stop 05/29/17 at 21:00; Status DC Amlodipine Besylate (Norvasc) 10 mg DAILY PO Last administered on 06/09/17 07: 46; Start 05/29/17 at 09:00 Pantoprazole Sodium (Protonix) 40 mg DAILYAC PO Last administered on 06/09/17 07:46; Start 05/29/17 at 08:00 Pravastatin Sodium (Pravachol) 20 mg HS PO Last administered on 06/09/17 19:36 ; Start 05/29/17 at 21:00 Potassium Chloride (Klor-Con) 20 meq DAILYWBKFT PO Last administered on 07:46; Start 05/29/17 at 08:00 Mirtazapine (Remeron) 7.5 mg QHS PO Last administered on 06/02/17 20:51; Start 05/29/17 at 21:00; Stop 06/03/17 at 18:36; Status DC Olanzapine (ZyPREXA ZYDIS) 5 mg HS PO Last administered on 05/30/17 19:16; Start 05/29/17 at 21:00; Stop 05/31/17 at 14:49; Status DC Vitamin D (Vitamin D3) 50,000 unit WEEKLY PO Last administered on 06/06/17 09: 18; Start 05/30/17 at 14:30 Olanzapine (ZyPREXA ZYDIS) 7.5 mg HS PO Last administered on 06/05/17 19:31; Start 05/31/17 at 21:00; Stop 06/06/17 at 10:43; Status DC Divalproex Sodium (Depakote Sprinkles) 125 mg BID PO Last administered on 09:11; Start 05/31/17 at 21:00; Stop 06/03/17 at 18:36; Status DC Trazodone HCl (Desyrel) 50 mg PRN QHS PRN PO INSOMNIA, MAY REPEAT IN 1HR Last administered on 06/09/17 19:36; Start 06/02/17 at 22:30 Divalproex Sodium (Depakote Sprinkles) 250 mg BID PO Last administered on 09:18; Start 06/03/17 at 21:00; Stop 06/06/17 at 18:43; Status DC Mirtazapine (Remeron) 15 mg QHS PO Last administered on 06/09/17 19:36; Start 06/03/17 at 21:00 Memantine (Namenda) 10 mg BID PO Last administered on 06/09/17 19:33; Start 06/04/17 at 21:00 Acetaminophen (Tylenol) 650 mg TID PO Last administered on 06/09/17 19:33; Start 06/05/17 at 21:00 Risperidone (RisperDAL) 0.5 mg QHS PO Last administered on 06/09/17 19:36; Start 06/06/17 at 11:00 Sertraline HCl (Zoloft) 50 mg DAILY PO Last administered on 06/09/17 07:46; Start 06/07/17 at 09:00 Divalproex Sodium (Depakote Sprinkles) 375 mg BID PO Last administered on 19:33; Start 06/06/17 at 21:00 Active Scripts Active Pantoprazole Sodium 40 Mg Tablet.dr 40 Mg PO DAILYAC 30 Days Famotidine 20 Mg Tablet 20 Mg PO BID 30 Days Amlodipine Besylate 10 Mg Tablet 10 Mg PO DAILY 30 Days Reported Mirtazapine 15 Mg Tablet 15 Mg PO QHS Potassium Chloride 10 Meq Tablet.er 20 Meq PO DAILY Namenda (Memantine Hcl) 10 Mg Tablet 5 Mg PO BID Pravastatin Sodium 20 Mg Tablet 20 Mg PO HS Diagnosis: Problems: (1) Anxiety disorder (2) Impulse control disorder (3) Major depressive disorder, recurrent episode (4) Dementia, vascular, with depression (5) Dementia, vascular, with delusions (6) Dementia in Alzheimer's disease with depression (7) Dementia in Alzheimer's disease with delusions MONICA BOND MD Jun 09, 2017 20:16
[2017-06-10 05:54] VITALS: BP 110/71
[2017-06-10 06:45] LABS: BASO % 1 % (0-3); EOS # 0.2 x10^3/uL (0.0-0.7); EOS % 4 % (0-3); HEMATOCRIT 31.4 % (36.0-47.0); HEMOGLOBIN 10.5 g/dL (12.0-15.5); LYMPH # 1.6 x10^3/uL (1.0-4.8); LYMPH % 29 % (24-48); MEAN CORPUSCULAR HEMOGLOBIN 31 pg (25-35); MEAN CORPUSCULAR HGB CONC 33 g/dL (31-37); MEAN CORPUSCULAR VOLUME 91 fL (79-100); MONO # 0.4 x10^3/uL (0.0-1.1); MONO % 8 % (0-9); NEUT # 3.2 x10^3uL (1.8-7.7); NEUT % 59 % (31-73); PLATELET COUNT 183 x10^3/uL (140-400); RED BLOOD COUNT 3.44 x10^6/uL (3.50-5.40); RED CELL DISTRIBUTION WIDTH 13.6 % (11.5-14.5); WHITE BLOOD COUNT 5.4 x10^3/uL (4.0-11.0)
[2017-06-10 06:53] LABS: ALBUMIN 2.8 g/dL (3.4-5.0); ALBUMIN/GLOBULIN RATIO 0.8 (1.0-1.7); ALK PHOS 113 U/L (46-116); ALT (SGPT) 14 U/L (14-59); ANION GAP 6 (6-14); AST (SGOT) 14 U/L (15-37); BLOOD UREA NITROGEN 26 mg/dL (7-20); BUN/CREATININE RATIO 22 (6-20); CALCIUM 8.6 mg/dL (8.5-10.1); CARBON DIOXIDE 27 mmol/L (21-32); CHLORIDE 112 mmol/L (98-107); CREATININE 1.2 mg/dL (0.6-1.0); GFR 43.1; GLUCOSE 84 mg/dL (70-99); POTASSIUM 4.3 mmol/L (3.5-5.1); SODIUM 145 mmol/L (136-145); TOTAL BILIRUBIN 0.3 mg/dL (0.2-1.0); TOTAL PROTEIN 6.5 g/dL (6.4-8.2)
[2017-06-10 06:56] LABS: VAL ACID 38 mcg/mL (50-100)
[2017-06-10] MEDS: POTASSIUM CHLORIDE 20 MEQ TABLET.ER. PO SCH (08:01)
[2017-06-10] MEDS: PANTOPRAZOLE 40 MG TABLET. PO SCH (08:01)
[2017-06-10] MEDS: DIVALPROEX 125 MG CAP.SPRINK PO SCH ×2 (08:02→19:11)
[2017-06-10] MEDS: amLODIPine BESYLATE 10 MG TABLET PO SCH (08:03)
[2017-06-10] MEDS: MEMANTINE 10 MG TABLET. PO SCH ×2 (08:03→19:12)
[2017-06-10] MEDS: SERTRALINE 50 MG TABLET. PO SCH (08:04)
[2017-06-10] MEDS: ACETAMINOPHEN 325 MG TABLET PO SCH ×3 (08:12→19:12)
[2017-06-10 15:35] VITALS: BP 99/57
[2017-06-10] MEDS: PRAVASTATIN 20 MG TABLET. PO SCH (19:12)
[2017-06-10] MEDS: MIRTAZAPINE 15 MG TABLET PO SCH (19:12)
[2017-06-10] MEDS: risperiDONE 0.5 MG TABLET. PO SCH (19:12)
--- NOTE | 2017-06-10 20:11 | PDOC ---
Exam Antoine Demential Exam: Antoine Note: Please also refer to the separate dictated note~for this date of service dictated separately.~Patient seen individually. Discussed the patient with Nursing staff reviewed the chart.~Reviewed interim history and current functioning. Reviewed vital signs,~Labs/ Radiology~and current medications noted below. Continue current treatment with the changes noted in the dictated addendum note Assessment: Vital Signs: Vital Signs Date Time Temp Pulse Resp B/P (MAP) Pulse Ox O2 Delivery O2 Flow Rate FiO2 06/10/17 15:35 98.4 68 18 99/57 (71) 97 06/09/17 06:19 Room Air I&O Intake and Output 06/10/17 07:00 Intake Total 720 ml Balance 720 ml Intake Oral 720 ml Labs: Laboratory Tests Test 06/10/17 06:18 06/10/17 07:24 White Blood Count 5.4 x10^3/uL (4.0-11.0) Red Blood Count 3.44 x10^6/uL (3.50-5.40) L Hemoglobin 10.5 g/dL (12.0-15.5) L Hematocrit 31.4 % (36.0-47.0) L Mean Corpuscular Volume 91 fL (79-100) Mean Corpuscular Hemoglobin 31 pg (25-35) Mean Corpuscular Hemoglobin Concent 33 g/dL (31-37) Red Cell Distribution Width 13.6 % (11.5-14.5) Platelet Count 183 x10^3/uL (140-400) Neutrophils (%) (Auto) 59 % (31-73) Lymphocytes (%) (Auto) 29 % (24-48) Monocytes (%) (Auto) 8 % (0-9) Eosinophils (%) (Auto) 4 % (0-3) H Basophils (%) (Auto) 1 % (0-3) Neutrophils # (Auto) 3.2 x10^3uL (1.8-7.7) Lymphocytes # (Auto) 1.6 x10^3/uL (1.0-4.8) Monocytes # (Auto) 0.4 x10^3/uL (0.0-1.1) Eosinophils # (Auto) 0.2 x10^3/uL (0.0-0.7) Basophils # (Auto) 0.0 x10^3/uL (0.0-0.2) Sodium Level 145 mmol/L (136-145) Potassium Level 4.3 mmol/L (3.5-5.1) Chloride Level 112 mmol/L (98-107) H Carbon Dioxide Level 27 mmol/L (21-32) Anion Gap 6 (6-14) Blood Urea Nitrogen 26 mg/dL (7-20) H Creatinine 1.2 mg/dL (0.6-1.0) H Estimated GFR (Cockcroft-Gault) 43.1 BUN/Creatinine Ratio 22 (6-20) H Glucose Level 84 mg/dL (70-99) Calcium Level 8.6 mg/dL (8.5-10.1) Total Bilirubin 0.3 mg/dL (0.2-1.0) Aspartate Amino Transferase (AST) 14 U/L (15-37) L Alanine Aminotransferase (ALT) 14 U/L (14-59) Alkaline Phosphatase 113 U/L (46-116) Total Protein 6.5 g/dL (6.4-8.2) Albumin 2.8 g/dL (3.4-5.0) L Albumin/Globulin Ratio 0.8 (1.0-1.7) L Valproic Acid Level 38 mcg/mL (50-100) L Valproic Acid Last Dose Date 06/06/2017 Valproic Acid Last Dose Time 0000 Glucose (Fingerstick) 82 mg/dL (70-99) Current Medications: Meds: Current Medications Sodium Chloride 1,000 ml @ 100 mls/hr Q10H IV Last administered on 05/28/17 19:08; Start 05/28/17 at 18:47; Stop 05/29/17 at 04:46; Status DC Acetaminophen (Tylenol) 650 mg PRN Q6HRS PRN PO PAIN / TEMP Last administered on 05/31/17 08:16; Start 05/28/17 at 22:15 Multi-Ingredient Ointment (Analgesic [place]) 1 mo PRN QID PRN TP MUSCLE PAIN; Start 05/28/17 at 22:15 Al Hydroxide/Mg Hydroxide (Mylanta Plus Xs) 15 ml PRN AFTMEALHC PRN PO DYSPEPSIA Last administered on 06/10/17 16:32; Start 05/28/17 at 22:15 Magnesium Hydroxide (Milk Of Magnesia) 2,400 mg PRN QHS PRN PO CONSTIPATION; Start 05/28/17 at 22:15 Olanzapine (ZyPREXA ZYDIS) 5 mg 1X ONCE PO Last administered on 05/28/17 23: 16; Start 05/28/17 at 23:15; Stop 05/28/17 at 23:16; Status DC Olanzapine (ZyPREXA ZYDIS) 2.5 mg PRN Q4HRS PRN PO ANXIETY / AGITATION Last administered on 06/09/17 19:33; Start 05/28/17 at 23:15 Memantine (Namenda) 5 mg BID PO Last administered on 06/04/17 09:35; Start at 09:00; Stop 06/04/17 at 18:17; Status DC Mirtazapine (Remeron) 15 mg QHS PO ; Start 05/29/17 at 21:00; Stop 05/29/17 at 21:00; Status DC Amlodipine Besylate (Norvasc) 10 mg DAILY PO Last administered on 06/10/17 08: 03; Start 05/29/17 at 09:00 Pantoprazole Sodium (Protonix) 40 mg DAILYAC PO Last administered on 06/10/17 08:01; Start 05/29/17 at 08:00 Pravastatin Sodium (Pravachol) 20 mg HS PO Last administered on 06/10/17 19:12 ; Start 05/29/17 at 21:00 Potassium Chloride (Klor-Con) 20 meq DAILYWBKFT PO Last administered on 08:01; Start 05/29/17 at 08:00 Mirtazapine (Remeron) 7.5 mg QHS PO Last administered on 06/02/17 20:51; Start 05/29/17 at 21:00; Stop 06/03/17 at 18:36; Status DC Olanzapine (ZyPREXA ZYDIS) 5 mg HS PO Last administered on 05/30/17 19:16; Start 05/29/17 at 21:00; Stop 05/31/17 at 14:49; Status DC Vitamin D (Vitamin D3) 50,000 unit WEEKLY PO Last administered on 06/06/17 09: 18; Start 05/30/17 at 14:30 Olanzapine (ZyPREXA ZYDIS) 7.5 mg HS PO Last administered on 06/05/17 19:31; Start 05/31/17 at 21:00; Stop 06/06/17 at 10:43; Status DC Divalproex Sodium (Depakote Sprinkles) 125 mg BID PO Last administered on 09:11; Start 05/31/17 at 21:00; Stop 06/03/17 at 18:36; Status DC Trazodone HCl (Desyrel) 50 mg PRN QHS PRN PO INSOMNIA, MAY REPEAT IN 1HR Last administered on 06/08/17 19:59; Start 06/02/17 at 22:30 Divalproex Sodium (Depakote Sprinkles) 250 mg BID PO Last administered on 09:18; Start 06/03/17 at 21:00; Stop 06/06/17 at 18:43; Status DC Mirtazapine (Remeron) 15 mg QHS PO Last administered on 06/10/17 19:12; Start 06/03/17 at 21:00 Memantine (Namenda) 10 mg BID PO Last administered on 06/10/17 19:12; Start at 21:00 Acetaminophen (Tylenol) 650 mg TID PO Last administered on 06/10/17 19:12; Start 06/05/17 at 21:00 Risperidone (RisperDAL) 0.5 mg QHS PO Last administered on 06/10/17 19:12; Start 06/06/17 at 11:00 Sertraline HCl (Zoloft) 50 mg DAILY PO Last administered on 06/10/17 08:04; Start 06/07/17 at 09:00 Divalproex Sodium (Depakote Sprinkles) 375 mg BID PO Last administered on 19:11; Start 06/06/17 at 21:00 Active Scripts Active Pantoprazole Sodium 40 Mg Tablet.dr 40 Mg PO DAILYAC 30 Days Famotidine 20 Mg Tablet 20 Mg PO BID 30 Days Amlodipine Besylate 10 Mg Tablet 10 Mg PO DAILY 30 Days Reported Mirtazapine 15 Mg Tablet 15 Mg PO QHS Potassium Chloride 10 Meq Tablet.er 20 Meq PO DAILY Namenda (Memantine Hcl) 10 Mg Tablet 5 Mg PO BID Pravastatin Sodium 20 Mg Tablet 20 Mg PO HS Diagnosis: Problems: (1) Anxiety disorder (2) Impulse control disorder (3) Major depressive disorder, recurrent episode (4) Dementia, vascular, with depression (5) Dementia, vascular, with delusions (6) Dementia in Alzheimer's disease with depression (7) Dementia in Alzheimer's disease with delusions MONICA BOND MD Jun 10, 2017 20:11
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
[2017-06-11 06:06] VITALS: BP 118/75
[2017-06-11] MEDS: PANTOPRAZOLE 40 MG TABLET. PO SCH ×2 (07:30→08:00)
[2017-06-11] MEDS: MEMANTINE 10 MG TABLET. PO SCH ×3 (08:00→19:24)
[2017-06-11] MEDS: POTASSIUM CHLORIDE 20 MEQ TABLET.ER. PO SCH (08:00)
[2017-06-11] MEDS: SERTRALINE 50 MG TABLET. PO SCH ×2 (08:01→09:00)
[2017-06-11] MEDS: amLODIPine BESYLATE 10 MG TABLET PO SCH ×2 (08:01→09:00)
[2017-06-11] MEDS: ACETAMINOPHEN 325 MG TABLET PO SCH ×3 (08:01→19:25)
[2017-06-11] MEDS: DIVALPROEX 125 MG CAP.SPRINK PO SCH ×3 (08:02→19:24)
[2017-06-11 15:58] VITALS: BP 115/71
[2017-06-11] MEDS: PRAVASTATIN 20 MG TABLET. PO SCH (19:24)
[2017-06-11] MEDS: MIRTAZAPINE 15 MG TABLET PO SCH (19:25)
[2017-06-11] MEDS: risperiDONE 0.5 MG TABLET. PO SCH (19:25)
--- NOTE | 2017-06-11 20:13 | PDOC ---
Exam Antoine Demential Exam: Antoine Note: Please also refer to the separate dictated note~for this date of service dictated separately.~Patient seen individually. Discussed the patient with Nursing staff reviewed the chart.~Reviewed interim history and current functioning. Reviewed vital signs,~Labs/ Radiology~and current medications noted below. Continue current treatment with the changes noted in the dictated addendum note Assessment: Vital Signs: Vital Signs Date Time Temp Pulse Resp B/P (MAP) Pulse Ox O2 Delivery O2 Flow Rate FiO2 06/11/17 15:58 98.8 58 18 115/71 (86) 98 Room Air I&O Intake and Output 06/11/17 07:00 Intake Total 960 ml Balance 960 ml Intake Oral 960 ml Labs: Laboratory Tests Test 06/11/17 07:24 Glucose (Fingerstick) 88 mg/dL (70-99) Current Medications: Meds: Current Medications Sodium Chloride 1,000 ml @ 100 mls/hr Q10H IV Last administered on 05/28/17 19:08; Start 05/28/17 at 18:47; Stop 05/29/17 at 04:46; Status DC Acetaminophen (Tylenol) 650 mg PRN Q6HRS PRN PO PAIN / TEMP Last administered on 05/31/17 08:16; Start 05/28/17 at 22:15 Multi-Ingredient Ointment (Analgesic [place]) 1 mo PRN QID PRN TP MUSCLE PAIN; Start 05/28/17 at 22:15 Al Hydroxide/Mg Hydroxide (Mylanta Plus Xs) 15 ml PRN AFTMEALHC PRN PO DYSPEPSIA Last administered on 06/10/17 16:32; Start 05/28/17 at 22:15 Magnesium Hydroxide (Milk Of Magnesia) 2,400 mg PRN QHS PRN PO CONSTIPATION; Start 05/28/17 at 22:15 Olanzapine (ZyPREXA ZYDIS) 5 mg 1X ONCE PO Last administered on 05/28/17 23: 16; Start 05/28/17 at 23:15; Stop 05/28/17 at 23:16; Status DC Olanzapine (ZyPREXA ZYDIS) 2.5 mg PRN Q4HRS PRN PO ANXIETY / AGITATION Last administered on 06/11/17 17:59; Start 05/28/17 at 23:15 Memantine (Namenda) 5 mg BID PO Last administered on 06/04/17 09:35; Start at 09:00; Stop 06/04/17 at 18:17; Status DC Mirtazapine (Remeron) 15 mg QHS PO ; Start 05/29/17 at 21:00; Stop 05/29/17 at 21:00; Status DC Amlodipine Besylate (Norvasc) 10 mg DAILY PO Last administered on 06/10/17 08: 03; Start 05/29/17 at 09:00 Pantoprazole Sodium (Protonix) 40 mg DAILYAC PO Last administered on 06/10/17 08:01; Start 05/29/17 at 08:00 Pravastatin Sodium (Pravachol) 20 mg HS PO Last administered on 06/11/17 19:24 ; Start 05/29/17 at 21:00 Potassium Chloride (Klor-Con) 20 meq DAILYWBKFT PO Last administered on 08:01; Start 05/29/17 at 08:00 Mirtazapine (Remeron) 7.5 mg QHS PO Last administered on 06/02/17 20:51; Start 05/29/17 at 21:00; Stop 06/03/17 at 18:36; Status DC Olanzapine (ZyPREXA ZYDIS) 5 mg HS PO Last administered on 05/30/17 19:16; Start 05/29/17 at 21:00; Stop 05/31/17 at 14:49; Status DC Vitamin D (Vitamin D3) 50,000 unit WEEKLY PO Last administered on 06/06/17 09: 18; Start 05/30/17 at 14:30 Olanzapine (ZyPREXA ZYDIS) 7.5 mg HS PO Last administered on 06/05/17 19:31; Start 05/31/17 at 21:00; Stop 06/06/17 at 10:43; Status DC Divalproex Sodium (Depakote Sprinkles) 125 mg BID PO Last administered on 09:11; Start 05/31/17 at 21:00; Stop 06/03/17 at 18:36; Status DC Trazodone HCl (Desyrel) 50 mg PRN QHS PRN PO INSOMNIA, MAY REPEAT IN 1HR Last administered on 06/08/17 19:59; Start 06/02/17 at 22:30 Divalproex Sodium (Depakote Sprinkles) 250 mg BID PO Last administered on 09:18; Start 06/03/17 at 21:00; Stop 06/06/17 at 18:43; Status DC Mirtazapine (Remeron) 15 mg QHS PO Last administered on 06/11/17 19:25; Start 06/03/17 at 21:00 Memantine (Namenda) 10 mg BID PO Last administered on 06/11/17 19:24; Start at 21:00 Acetaminophen (Tylenol) 650 mg TID PO Last administered on 06/11/17 19:25; Start 06/05/17 at 21:00 Risperidone (RisperDAL) 0.5 mg QHS PO Last administered on 06/11/17 19:25; Start 06/06/17 at 11:00 Sertraline HCl (Zoloft) 50 mg DAILY PO Last administered on 06/10/17 08:04; Start 06/07/17 at 09:00 Divalproex Sodium (Depakote Sprinkles) 375 mg BID PO Last administered on 19:24; Start 06/06/17 at 21:00 Active Scripts Active Pantoprazole Sodium 40 Mg Tablet.dr 40 Mg PO DAILYAC 30 Days Famotidine 20 Mg Tablet 20 Mg PO BID 30 Days Amlodipine Besylate 10 Mg Tablet 10 Mg PO DAILY 30 Days Reported Mirtazapine 15 Mg Tablet 15 Mg PO QHS Potassium Chloride 10 Meq Tablet.er 20 Meq PO DAILY Namenda (Memantine Hcl) 10 Mg Tablet 5 Mg PO BID Pravastatin Sodium 20 Mg Tablet 20 Mg PO HS Diagnosis: Problems: (1) Altered mental state (2) Impulse control disorder (3) Major depressive disorder, recurrent episode (4) Dementia, vascular, with depression (5) Dementia, vascular, with delusions (6) Dementia in Alzheimer's disease with depression (7) Dementia in Alzheimer's disease with delusions MONICA BOND MD Jun 11, 2017 20:13
--- NOTE | 2017-06-11 20:34 | PDOC ---
Exam Antoine Demential Exam: Antoine Note: Please also refer to the separate dictated note~for this date of service dictated separately.~Patient seen individually. Discussed the patient with Nursing staff reviewed the chart.~Reviewed interim history and current functioning. Reviewed vital signs,~Labs/ Radiology~and current medications noted below. Continue current treatment with the changes noted in the dictated addendum note S/O: This is a late entry for date of service 06/06/2017 and covers elements not covered in my initial note. The patient was staffed with the entire team in morning of 06/06/2017 and seen individually in evening of 06/06/2017. During the treatment team meeting, we discussed the patient's progress. She slept about 6 hours. Appetite is good, remains confused, paranoid, and somewhat delusional. Her visited her. She was anxious, received Zyprexa Zydis at 1800 mg p.r.n. Review of Systems: No CV, , Pulmonary, Eye, ENT system symptoms on review. Reliability poor. MSE: Oriented to herself. Insight, judgment, and recent memory are impaired. Language function is intact. Attention span is short. Mood and affect is still somewhat paranoid, labile at times. No active suicidal or homicidal ideation. Speech is coherent, rapid at times, slightly loose associations. Memory is impaired. Labs: Reviewed. Imp: Major neurocognitive disorder, Alzheimer vascular with depression, delusion behavioral disturbance. Rest unchanged. Plan: Change Zyprexa 7.5 mg h.s. to Risperdal 0.5 mg h.s. Start Zoloft 50 mg a day, valproic acid level on 06/06/2017 is 43. We will increase the Depakote from 250 mg b.i.d. to 375 mg b.i.d. Check labs and valproic acid level in three days. Adjust further as clinically indicated. Assessment: Vital Signs: Vital Signs Date Time Temp Pulse Resp B/P (MAP) Pulse Ox O2 Delivery O2 Flow Rate FiO2 06/11/17 15:58 98.8 58 18 115/71 (86) 98 Room Air I&O Intake and Output 06/11/17 07:00 Intake Total 960 ml Balance 960 ml Intake Oral 960 ml Labs: Laboratory Tests Test 06/11/17 07:24 Glucose (Fingerstick) 88 mg/dL (70-99) Current Medications: Meds: Current Medications Sodium Chloride 1,000 ml @ 100 mls/hr Q10H IV Last administered on 05/28/17 19:08; Start 05/28/17 at 18:47; Stop 05/29/17 at 04:46; Status DC Acetaminophen (Tylenol) 650 mg PRN Q6HRS PRN PO PAIN / TEMP Last administered on 05/31/17 08:16; Start 05/28/17 at 22:15 Multi-Ingredient Ointment (Analgesic [place]) 1 mo PRN QID PRN TP MUSCLE PAIN; Start 05/28/17 at 22:15 Al Hydroxide/Mg Hydroxide (Mylanta Plus Xs) 15 ml PRN AFTMEALHC PRN PO DYSPEPSIA Last administered on 06/10/17 16:32; Start 05/28/17 at 22:15 Magnesium Hydroxide (Milk Of Magnesia) 2,400 mg PRN QHS PRN PO CONSTIPATION; Start 05/28/17 at 22:15 Olanzapine (ZyPREXA ZYDIS) 5 mg 1X ONCE PO Last administered on 05/28/17 23: 16; Start 05/28/17 at 23:15; Stop 05/28/17 at 23:16; Status DC Olanzapine (ZyPREXA ZYDIS) 2.5 mg PRN Q4HRS PRN PO ANXIETY / AGITATION Last administered on 06/11/17 17:59; Start 05/28/17 at 23:15 Memantine (Namenda) 5 mg BID PO Last administered on 06/04/17 09:35; Start at 09:00; Stop 06/04/17 at 18:17; Status DC Mirtazapine (Remeron) 15 mg QHS PO ; Start 05/29/17 at 21:00; Stop 05/29/17 at 21:00; Status DC Amlodipine Besylate (Norvasc) 10 mg DAILY PO Last administered on 06/10/17 08: 03; Start 05/29/17 at 09:00 Pantoprazole Sodium (Protonix) 40 mg DAILYAC PO Last administered on 06/10/17 08:01; Start 05/29/17 at 08:00 Pravastatin Sodium (Pravachol) 20 mg HS PO Last administered on 06/11/17 19:24 ; Start 05/29/17 at 21:00 Potassium Chloride (Klor-Con) 20 meq DAILYWBKFT PO Last administered on 08:01; Start 05/29/17 at 08:00 Mirtazapine (Remeron) 7.5 mg QHS PO Last administered on 06/02/17 20:51; Start 05/29/17 at 21:00; Stop 06/03/17 at 18:36; Status DC Olanzapine (ZyPREXA ZYDIS) 5 mg HS PO Last administered on 05/30/17 19:16; Start 05/29/17 at 21:00; Stop 05/31/17 at 14:49; Status DC Vitamin D (Vitamin D3) 50,000 unit WEEKLY PO Last administered on 06/06/17 09: 18; Start 05/30/17 at 14:30 Olanzapine (ZyPREXA ZYDIS) 7.5 mg HS PO Last administered on 06/05/17 19:31; Start 05/31/17 at 21:00; Stop 06/06/17 at 10:43; Status DC Divalproex Sodium (Depakote Sprinkles) 125 mg BID PO Last administered on 09:11; Start 05/31/17 at 21:00; Stop 06/03/17 at 18:36; Status DC Trazodone HCl (Desyrel) 50 mg PRN QHS PRN PO INSOMNIA, MAY REPEAT IN 1HR Last administered on 06/08/17 19:59; Start 06/02/17 at 22:30 Divalproex Sodium (Depakote Sprinkles) 250 mg BID PO Last administered on 09:18; Start 06/03/17 at 21:00; Stop 06/06/17 at 18:43; Status DC Mirtazapine (Remeron) 15 mg QHS PO Last administered on 06/11/17 19:25; Start 06/03/17 at 21:00 Memantine (Namenda) 10 mg BID PO Last administered on 06/11/17 19:24; Start at 21:00 Acetaminophen (Tylenol) 650 mg TID PO Last administered on 06/11/17 19:25; Start 06/05/17 at 21:00 Risperidone (RisperDAL) 0.5 mg QHS PO Last administered on 06/11/17 19:25; Start 06/06/17 at 11:00 Sertraline HCl (Zoloft) 50 mg DAILY PO Last administered on 06/10/17 08:04; Start 06/07/17 at 09:00 Divalproex Sodium (Depakote Sprinkles) 375 mg BID PO Last administered on 19:24; Start 06/06/17 at 21:00 Active Scripts Active Pantoprazole Sodium 40 Mg Tablet.dr 40 Mg PO DAILYAC 30 Days Famotidine 20 Mg Tablet 20 Mg PO BID 30 Days Amlodipine Besylate 10 Mg Tablet 10 Mg PO DAILY 30 Days Reported Mirtazapine 15 Mg Tablet 15 Mg PO QHS Potassium Chloride 10 Meq Tablet.er 20 Meq PO DAILY Namenda (Memantine Hcl) 10 Mg Tablet 5 Mg PO BID Pravastatin Sodium 20 Mg Tablet 20 Mg PO MONICA BOND MD Jun 11, 2017 20:34
--- NOTE | 2017-06-11 21:22 | PDOC ---
Exam Antoine Demential Exam: Antoine Note: Please also refer to the separate dictated note~for this date of service dictated separately.~Patient seen individually. Discussed the patient with Nursing staff reviewed the chart.~Reviewed interim history and current functioning. Reviewed vital signs,~Labs/ Radiology~and current medications noted below. Continue current treatment with the changes noted in the dictated addendum note S/O: This is a late entry for date of service 06/07/2017. The patient was seen individually in the evening of June 07, discussed with nursing staff, and reviewed the chart. This note covers elements not covered in my initial note. Per nursing report, the patient has done better during the day. The patient is confused and less agitated. Her son, Jarvis and came to visit her in the afternoon. They talked about EEG scheduled on the as an outpatient. Review of Systems: No CV, , Pulmonary, Eye, ENT system symptoms on review. This note covers elements not covered in my initial note. MSE: Oriented to herself. Insight, judgment, and recent memory are impaired. Language function intact. Attention span short. Mood and affect appears less labile. Labs: Reviewed. Imp: Unchanged from initial note. Plan: Continue psychotropics mentioned in my initial note. Assessment: Vital Signs: Vital Signs Date Time Temp Pulse Resp B/P (MAP) Pulse Ox O2 Delivery O2 Flow Rate FiO2 06/11/17 15:58 98.8 58 18 115/71 (86) 98 Room Air I&O Intake and Output 06/11/17 07:00 Intake Total 960 ml Balance 960 ml Intake Oral 960 ml Labs: Laboratory Tests Test 06/11/17 07:24 Glucose (Fingerstick) 88 mg/dL (70-99) Current Medications: Meds: Current Medications Sodium Chloride 1,000 ml @ 100 mls/hr Q10H IV Last administered on 05/28/17 19:08; Start 05/28/17 at 18:47; Stop 05/29/17 at 04:46; Status DC Acetaminophen (Tylenol) 650 mg PRN Q6HRS PRN PO PAIN / TEMP Last administered on 05/31/17 08:16; Start 05/28/17 at 22:15 Multi-Ingredient Ointment (Analgesic [place]) 1 mo PRN QID PRN TP MUSCLE PAIN; Start 05/28/17 at 22:15 Al Hydroxide/Mg Hydroxide (Mylanta Plus Xs) 15 ml PRN AFTMEALHC PRN PO DYSPEPSIA Last administered on 06/10/17 16:32; Start 05/28/17 at 22:15 Magnesium Hydroxide (Milk Of Magnesia) 2,400 mg PRN QHS PRN PO CONSTIPATION; Start 05/28/17 at 22:15 Olanzapine (ZyPREXA ZYDIS) 5 mg 1X ONCE PO Last administered on 05/28/17 23: 16; Start 05/28/17 at 23:15; Stop 05/28/17 at 23:16; Status DC Olanzapine (ZyPREXA ZYDIS) 2.5 mg PRN Q4HRS PRN PO ANXIETY / AGITATION Last administered on 06/11/17 17:59; Start 05/28/17 at 23:15 Memantine (Namenda) 5 mg BID PO Last administered on 06/04/17 09:35; Start at 09:00; Stop 06/04/17 at 18:17; Status DC Mirtazapine (Remeron) 15 mg QHS PO ; Start 05/29/17 at 21:00; Stop 05/29/17 at 21:00; Status DC Amlodipine Besylate (Norvasc) 10 mg DAILY PO Last administered on 06/10/17 08: 03; Start 05/29/17 at 09:00 Pantoprazole Sodium (Protonix) 40 mg DAILYAC PO Last administered on 06/10/17 08:01; Start 05/29/17 at 08:00 Pravastatin Sodium (Pravachol) 20 mg HS PO Last administered on 06/11/17 19:24 ; Start 05/29/17 at 21:00 Potassium Chloride (Klor-Con) 20 meq DAILYWBKFT PO Last administered on 08:01; Start 05/29/17 at 08:00 Mirtazapine (Remeron) 7.5 mg QHS PO Last administered on 06/02/17 20:51; Start 05/29/17 at 21:00; Stop 06/03/17 at 18:36; Status DC Olanzapine (ZyPREXA ZYDIS) 5 mg HS PO Last administered on 05/30/17 19:16; Start 05/29/17 at 21:00; Stop 05/31/17 at 14:49; Status DC Vitamin D (Vitamin D3) 50,000 unit WEEKLY PO Last administered on 06/06/17 09: 18; Start 05/30/17 at 14:30 Olanzapine (ZyPREXA ZYDIS) 7.5 mg HS PO Last administered on 06/05/17 19:31; Start 05/31/17 at 21:00; Stop 06/06/17 at 10:43; Status DC Divalproex Sodium (Depakote Sprinkles) 125 mg BID PO Last administered on 09:11; Start 05/31/17 at 21:00; Stop 06/03/17 at 18:36; Status DC Trazodone HCl (Desyrel) 50 mg PRN QHS PRN PO INSOMNIA, MAY REPEAT IN 1HR Last administered on 06/08/17 19:59; Start 06/02/17 at 22:30 Divalproex Sodium (Depakote Sprinkles) 250 mg BID PO Last administered on 09:18; Start 06/03/17 at 21:00; Stop 06/06/17 at 18:43; Status DC Mirtazapine (Remeron) 15 mg QHS PO Last administered on 06/11/17 19:25; Start 06/03/17 at 21:00 Memantine (Namenda) 10 mg BID PO Last administered on 06/11/17 19:24; Start at 21:00 Acetaminophen (Tylenol) 650 mg TID PO Last administered on 06/11/17 19:25; Start 06/05/17 at 21:00 Risperidone (RisperDAL) 0.5 mg QHS PO Last administered on 06/11/17 19:25; Start 06/06/17 at 11:00 Sertraline HCl (Zoloft) 50 mg DAILY PO Last administered on 06/10/17 08:04; Start 06/07/17 at 09:00 Divalproex Sodium (Depakote Sprinkles) 375 mg BID PO Last administered on 19:24; Start 06/06/17 at 21:00 Active Scripts Active Pantoprazole Sodium 40 Mg Tablet.dr 40 Mg PO DAILYAC 30 Days Famotidine 20 Mg Tablet 20 Mg PO BID 30 Days Amlodipine Besylate 10 Mg Tablet 10 Mg PO DAILY 30 Days Reported Mirtazapine 15 Mg Tablet 15 Mg PO QHS Potassium Chloride 10 Meq Tablet.er 20 Meq PO DAILY Namenda (Memantine Hcl) 10 Mg Tablet 5 Mg PO BID Pravastatin Sodium 20 Mg Tablet 20 Mg PO MONICA BOND MD Jun 11, 2017 21:22
[2017-06-12 05:53] VITALS: BP 110/68
[2017-06-12] MEDS: POTASSIUM CHLORIDE 20 MEQ TABLET.ER. PO SCH (07:48)
[2017-06-12] MEDS: SERTRALINE 50 MG TABLET. PO SCH (07:48)
[2017-06-12] MEDS: DIVALPROEX 125 MG CAP.SPRINK PO SCH ×2 (07:48→19:49)
[2017-06-12] MEDS: PANTOPRAZOLE 40 MG TABLET. PO SCH (07:48)
[2017-06-12] MEDS: MEMANTINE 10 MG TABLET. PO SCH ×2 (07:48→19:48)
[2017-06-12] MEDS: ACETAMINOPHEN 325 MG TABLET PO SCH ×3 (07:49→19:48)
[2017-06-12] MEDS: amLODIPine BESYLATE 10 MG TABLET PO SCH (07:49)
[2017-06-12 16:09] VITALS: BP 118/71
[2017-06-12] MEDS: ACETAMINOPHEN 325 MG TABLET PO PRN (16:52)
[2017-06-12] MEDS: MIRTAZAPINE 15 MG TABLET PO SCH (19:48)
[2017-06-12] MEDS: PRAVASTATIN 20 MG TABLET. PO SCH (19:48)
[2017-06-12] MEDS: risperiDONE 0.5 MG TABLET. PO SCH (19:49)
--- NOTE | 2017-06-12 19:52 | PDOC ---
Exam Antoine Demential Exam: Antoine Note: Please also refer to the separate dictated note~for this date of service dictated separately.~Patient seen individually. Discussed the patient with Nursing staff reviewed the chart.~Reviewed interim history and current functioning. Reviewed vital signs,~Labs/ Radiology~and current medications noted below. Continue current treatment with the changes noted in the dictated addendum note Assessment: Vital Signs: Vital Signs Date Time Temp Pulse Resp B/P (MAP) Pulse Ox O2 Delivery O2 Flow Rate FiO2 06/12/17 16:09 98.7 69 16 118/71 (87) 98 Room Air I&O Intake and Output 06/12/17 07:00 Intake Total 1200 ml Balance 1200 ml Intake Oral 1200 ml Labs: Laboratory Tests Test 06/12/17 07:05 Glucose (Fingerstick) 99 mg/dL (70-99) Current Medications: Meds: Current Medications Sodium Chloride 1,000 ml @ 100 mls/hr Q10H IV Last administered on 05/28/17 19:08; Start 05/28/17 at 18:47; Stop 05/29/17 at 04:46; Status DC Acetaminophen (Tylenol) 650 mg PRN Q6HRS PRN PO PAIN / TEMP Last administered on 06/12/17 16:52; Start 05/28/17 at 22:15 Multi-Ingredient Ointment (Analgesic [place]) 1 mo PRN QID PRN TP MUSCLE PAIN; Start 05/28/17 at 22:15 Al Hydroxide/Mg Hydroxide (Mylanta Plus Xs) 15 ml PRN AFTMEALHC PRN PO DYSPEPSIA Last administered on 06/10/17 16:32; Start 05/28/17 at 22:15 Magnesium Hydroxide (Milk Of Magnesia) 2,400 mg PRN QHS PRN PO CONSTIPATION; Start 05/28/17 at 22:15 Olanzapine (ZyPREXA ZYDIS) 5 mg 1X ONCE PO Last administered on 05/28/17 23: 16; Start 05/28/17 at 23:15; Stop 05/28/17 at 23:16; Status DC Olanzapine (ZyPREXA ZYDIS) 2.5 mg PRN Q4HRS PRN PO ANXIETY / AGITATION Last administered on 06/11/17 17:59; Start 05/28/17 at 23:15 Memantine (Namenda) 5 mg BID PO Last administered on 06/04/17 09:35; Start at 09:00; Stop 06/04/17 at 18:17; Status DC Mirtazapine (Remeron) 15 mg QHS PO ; Start 05/29/17 at 21:00; Stop 05/29/17 at 21:00; Status DC Amlodipine Besylate (Norvasc) 10 mg DAILY PO Last administered on 06/12/17 07: 49; Start 05/29/17 at 09:00 Pantoprazole Sodium (Protonix) 40 mg DAILYAC PO Last administered on 06/12/17 07:48; Start 05/29/17 at 08:00 Pravastatin Sodium (Pravachol) 20 mg HS PO Last administered on 06/12/17 19:48 ; Start 05/29/17 at 21:00 Potassium Chloride (Klor-Con) 20 meq DAILYWBKFT PO Last administered on 07:48; Start 05/29/17 at 08:00 Mirtazapine (Remeron) 7.5 mg QHS PO Last administered on 06/02/17 20:51; Start 05/29/17 at 21:00; Stop 06/03/17 at 18:36; Status DC Olanzapine (ZyPREXA ZYDIS) 5 mg HS PO Last administered on 05/30/17 19:16; Start 05/29/17 at 21:00; Stop 05/31/17 at 14:49; Status DC Vitamin D (Vitamin D3) 50,000 unit WEEKLY PO Last administered on 06/06/17 09: 18; Start 05/30/17 at 14:30 Olanzapine (ZyPREXA ZYDIS) 7.5 mg HS PO Last administered on 06/05/17 19:31; Start 05/31/17 at 21:00; Stop 06/06/17 at 10:43; Status DC Divalproex Sodium (Depakote Sprinkles) 125 mg BID PO Last administered on 09:11; Start 05/31/17 at 21:00; Stop 06/03/17 at 18:36; Status DC Trazodone HCl (Desyrel) 50 mg PRN QHS PRN PO INSOMNIA, MAY REPEAT IN 1HR Last administered on 06/08/17 19:59; Start 06/02/17 at 22:30 Divalproex Sodium (Depakote Sprinkles) 250 mg BID PO Last administered on 09:18; Start 06/03/17 at 21:00; Stop 06/06/17 at 18:43; Status DC Mirtazapine (Remeron) 15 mg QHS PO Last administered on 06/12/17 19:48; Start 06/03/17 at 21:00 Memantine (Namenda) 10 mg BID PO Last administered on 06/12/17 19:48; Start at 21:00 Acetaminophen (Tylenol) 650 mg TID PO Last administered on 06/12/17 19:48; Start 06/05/17 at 21:00 Risperidone (RisperDAL) 0.5 mg QHS PO Last administered on 06/12/17 19:49; Start 06/06/17 at 11:00 Sertraline HCl (Zoloft) 50 mg DAILY PO Last administered on 06/12/17 07:48; Start 06/07/17 at 09:00 Divalproex Sodium (Depakote Sprinkles) 375 mg BID PO Last administered on 19:49; Start 06/06/17 at 21:00 Active Scripts Active Pantoprazole Sodium 40 Mg Tablet.dr 40 Mg PO DAILYAC 30 Days Famotidine 20 Mg Tablet 20 Mg PO BID 30 Days Amlodipine Besylate 10 Mg Tablet 10 Mg PO DAILY 30 Days Reported Mirtazapine 15 Mg Tablet 15 Mg PO QHS Potassium Chloride 10 Meq Tablet.er 20 Meq PO DAILY Namenda (Memantine Hcl) 10 Mg Tablet 5 Mg PO BID Pravastatin Sodium 20 Mg Tablet 20 Mg PO HS Diagnosis: Problems: (1) Altered mental state (2) Anxiety disorder (3) Impulse control disorder (4) Major depressive disorder, recurrent episode (5) Dementia, vascular, with depression (6) Dementia, vascular, 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
--- NOTE | 2017-06-12 20:16 | PDOC ---
Exam Antoine Demential Exam: Antoine Note: Please also refer to the separate dictated note~for this date of service dictated separately.~Patient seen individually. Discussed the patient with Nursing staff reviewed the chart.~Reviewed interim history and current functioning. Reviewed vital signs,~Labs/ Radiology~and current medications noted below. Continue current treatment with the changes noted in the dictated addendum note S/O: This is a late entry of 06/08/2017, and covers the elements not covered in my initial note. The patient was seen in the evening of 06/08/2017. Per nursing report, she has been less intrusive, attention seeking, compliant with medications and somewhat drowsy. The patient is quite graphically describing to me, how she felt sedated because she takes too many medications. No CV, , Pulmonary, Eye, ENT, system symptoms on review. MSE: Oriented to herself and situation. At times, insight, judgment, recent memory is impaired. Language function is intact. Attention span short. Mood and affect somewhat withdrawn. Labs: Reviewed. Imp: Unchanged from initial note. Plan: Continue current psychotropics. Valproic acid level is sub-therapeutic but clinically adequate. We will see how the sedation does for the next day or two before reducing the Risperdal perhaps. Assessment: Vital Signs: Vital Signs Date Time Temp Pulse Resp B/P (MAP) Pulse Ox O2 Delivery O2 Flow Rate FiO2 06/12/17 16:09 98.7 69 16 118/71 (87) 98 Room Air I&O Intake and Output 06/12/17 07:00 Intake Total 1200 ml Balance 1200 ml Intake Oral 1200 ml Labs: Laboratory Tests Test 06/12/17 07:05 Glucose (Fingerstick) 99 mg/dL (70-99) Current Medications: Meds: Current Medications Sodium Chloride 1,000 ml @ 100 mls/hr Q10H IV Last administered on 05/28/17 19:08; Start 05/28/17 at 18:47; Stop 05/29/17 at 04:46; Status DC Acetaminophen (Tylenol) 650 mg PRN Q6HRS PRN PO PAIN / TEMP Last administered on 06/12/17 16:52; Start 05/28/17 at 22:15 Multi-Ingredient Ointment (Analgesic [place]) 1 mo PRN QID PRN TP MUSCLE PAIN; Start 05/28/17 at 22:15 Al Hydroxide/Mg Hydroxide (Mylanta Plus Xs) 15 ml PRN AFTMEALHC PRN PO DYSPEPSIA Last administered on 06/10/17 16:32; Start 05/28/17 at 22:15 Magnesium Hydroxide (Milk Of Magnesia) 2,400 mg PRN QHS PRN PO CONSTIPATION; Start 05/28/17 at 22:15 Olanzapine (ZyPREXA ZYDIS) 5 mg 1X ONCE PO Last administered on 05/28/17 23: 16; Start 05/28/17 at 23:15; Stop 05/28/17 at 23:16; Status DC Olanzapine (ZyPREXA ZYDIS) 2.5 mg PRN Q4HRS PRN PO ANXIETY / AGITATION Last administered on 06/11/17 17:59; Start 05/28/17 at 23:15 Memantine (Namenda) 5 mg BID PO Last administered on 06/04/17 09:35; Start at 09:00; Stop 06/04/17 at 18:17; Status DC Mirtazapine (Remeron) 15 mg QHS PO ; Start 05/29/17 at 21:00; Stop 05/29/17 at 21:00; Status DC Amlodipine Besylate (Norvasc) 10 mg DAILY PO Last administered on 06/12/17 07: 49; Start 05/29/17 at 09:00 Pantoprazole Sodium (Protonix) 40 mg DAILYAC PO Last administered on 06/12/17 07:48; Start 05/29/17 at 08:00 Pravastatin Sodium (Pravachol) 20 mg HS PO Last administered on 06/12/17 19:48 ; Start 05/29/17 at 21:00 Potassium Chloride (Klor-Con) 20 meq DAILYWBKFT PO Last administered on 07:48; Start 05/29/17 at 08:00 Mirtazapine (Remeron) 7.5 mg QHS PO Last administered on 06/02/17 20:51; Start 05/29/17 at 21:00; Stop 06/03/17 at 18:36; Status DC Olanzapine (ZyPREXA ZYDIS) 5 mg HS PO Last administered on 05/30/17 19:16; Start 05/29/17 at 21:00; Stop 05/31/17 at 14:49; Status DC Vitamin D (Vitamin D3) 50,000 unit WEEKLY PO Last administered on 06/06/17 09: 18; Start 05/30/17 at 14:30 Olanzapine (ZyPREXA ZYDIS) 7.5 mg HS PO Last administered on 06/05/17 19:31; Start 05/31/17 at 21:00; Stop 06/06/17 at 10:43; Status DC Divalproex Sodium (Depakote Sprinkles) 125 mg BID PO Last administered on 09:11; Start 05/31/17 at 21:00; Stop 06/03/17 at 18:36; Status DC Trazodone HCl (Desyrel) 50 mg PRN QHS PRN PO INSOMNIA, MAY REPEAT IN 1HR Last administered on 06/08/17 19:59; Start 06/02/17 at 22:30 Divalproex Sodium (Depakote Sprinkles) 250 mg BID PO Last administered on 09:18; Start 06/03/17 at 21:00; Stop 06/06/17 at 18:43; Status DC Mirtazapine (Remeron) 15 mg QHS PO Last administered on 06/12/17 19:48; Start 06/03/17 at 21:00 Memantine (Namenda) 10 mg BID PO Last administered on 06/12/17 19:48; Start at 21:00 Acetaminophen (Tylenol) 650 mg TID PO Last administered on 06/12/17 19:48; Start 06/05/17 at 21:00 Risperidone (RisperDAL) 0.5 mg QHS PO Last administered on 06/12/17 19:49; Start 06/06/17 at 11:00 Sertraline HCl (Zoloft) 50 mg DAILY PO Last administered on 06/12/17 07:48; Start 06/07/17 at 09:00 Divalproex Sodium (Depakote Sprinkles) 375 mg BID PO Last administered on 19:49; Start 06/06/17 at 21:00 Active Scripts Active Pantoprazole Sodium 40 Mg Tablet.dr 40 Mg PO DAILYAC 30 Days Famotidine 20 Mg Tablet 20 Mg PO BID 30 Days Amlodipine Besylate 10 Mg Tablet 10 Mg PO DAILY 30 Days Reported Mirtazapine 15 Mg Tablet 15 Mg PO QHS Potassium Chloride 10 Meq Tablet.er 20 Meq PO DAILY Namenda (Memantine Hcl) 10 Mg Tablet 5 Mg PO BID Pravastatin Sodium 20 Mg Tablet 20 Mg PO HS MONICA BOND MD Jun 12, 2017 20:15
--- NOTE | 2017-06-12 20:51 | PDOC ---
Exam Antoine Demential Exam: Antoine Note: Please also refer to the separate dictated note~for this date of service dictated separately.~Patient seen individually. Discussed the patient with Nursing staff reviewed the chart.~Reviewed interim history and current functioning. Reviewed vital signs,~Labs/ Radiology~and current medications noted below. Continue current treatment with the changes noted in the dictated addendum note S/O: This is a late entry for date of service 06/09/2017 and covers the elements that are not covered in my initial note. UA shows mixed delores. The patient has been compliant, confused, less anxious today, and intrusive. She complains of some dizziness and wants not to take her psychotropics. I addressed this with her at some length. Review of Systems: No CV, , Eye, ENT, Pulmonary system symptoms on review. Reliability poor. MSE: Oriented to herself. Insight and judgment, recent memory is impaired. Attention span, short. Language function, intact. Mood and affect, somewhat anxious and less labile. Labs: Reviewed. Imp: Unchanged from initial note. The patient was seen individually on evening of 06/09/2017. Plan: Continue psychotropics mentioned in my initial note. Adjust further as clinically indicated. Assessment: Vital Signs: Vital Signs Date Time Temp Pulse Resp B/P (MAP) Pulse Ox O2 Delivery O2 Flow Rate FiO2 06/12/17 16:09 98.7 69 16 118/71 (87) 98 Room Air I&O Intake and Output 06/12/17 07:00 Intake Total 1200 ml Balance 1200 ml Intake Oral 1200 ml Labs: Laboratory Tests Test 06/12/17 07:05 Glucose (Fingerstick) 99 mg/dL (70-99) Current Medications: Meds: Current Medications Sodium Chloride 1,000 ml @ 100 mls/hr Q10H IV Last administered on 05/28/17 19:08; Start 05/28/17 at 18:47; Stop 05/29/17 at 04:46; Status DC Acetaminophen (Tylenol) 650 mg PRN Q6HRS PRN PO PAIN / TEMP Last administered on 06/12/17 16:52; Start 05/28/17 at 22:15 Multi-Ingredient Ointment (Analgesic [place]) 1 mo PRN QID PRN TP MUSCLE PAIN; Start 05/28/17 at 22:15 Al Hydroxide/Mg Hydroxide (Mylanta Plus Xs) 15 ml PRN AFTMEALHC PRN PO DYSPEPSIA Last administered on 06/10/17 16:32; Start 05/28/17 at 22:15 Magnesium Hydroxide (Milk Of Magnesia) 2,400 mg PRN QHS PRN PO CONSTIPATION; Start 05/28/17 at 22:15 Olanzapine (ZyPREXA ZYDIS) 5 mg 1X ONCE PO Last administered on 05/28/17 23: 16; Start 05/28/17 at 23:15; Stop 05/28/17 at 23:16; Status DC Olanzapine (ZyPREXA ZYDIS) 2.5 mg PRN Q4HRS PRN PO ANXIETY / AGITATION Last administered on 06/11/17 17:59; Start 05/28/17 at 23:15 Memantine (Namenda) 5 mg BID PO Last administered on 06/04/17 09:35; Start at 09:00; Stop 06/04/17 at 18:17; Status DC Mirtazapine (Remeron) 15 mg QHS PO ; Start 05/29/17 at 21:00; Stop 05/29/17 at 21:00; Status DC Amlodipine Besylate (Norvasc) 10 mg DAILY PO Last administered on 06/12/17 07: 49; Start 05/29/17 at 09:00 Pantoprazole Sodium (Protonix) 40 mg DAILYAC PO Last administered on 06/12/17 07:48; Start 05/29/17 at 08:00 Pravastatin Sodium (Pravachol) 20 mg HS PO Last administered on 06/12/17 19:48 ; Start 05/29/17 at 21:00 Potassium Chloride (Klor-Con) 20 meq DAILYWBKFT PO Last administered on 07:48; Start 05/29/17 at 08:00 Mirtazapine (Remeron) 7.5 mg QHS PO Last administered on 06/02/17 20:51; Start 05/29/17 at 21:00; Stop 06/03/17 at 18:36; Status DC Olanzapine (ZyPREXA ZYDIS) 5 mg HS PO Last administered on 05/30/17 19:16; Start 05/29/17 at 21:00; Stop 05/31/17 at 14:49; Status DC Vitamin D (Vitamin D3) 50,000 unit WEEKLY PO Last administered on 06/06/17 09: 18; Start 05/30/17 at 14:30 Olanzapine (ZyPREXA ZYDIS) 7.5 mg HS PO Last administered on 06/05/17 19:31; Start 05/31/17 at 21:00; Stop 06/06/17 at 10:43; Status DC Divalproex Sodium (Depakote Sprinkles) 125 mg BID PO Last administered on 09:11; Start 05/31/17 at 21:00; Stop 06/03/17 at 18:36; Status DC Trazodone HCl (Desyrel) 50 mg PRN QHS PRN PO INSOMNIA, MAY REPEAT IN 1HR Last administered on 06/08/17 19:59; Start 06/02/17 at 22:30 Divalproex Sodium (Depakote Sprinkles) 250 mg BID PO Last administered on 09:18; Start 06/03/17 at 21:00; Stop 06/06/17 at 18:43; Status DC Mirtazapine (Remeron) 15 mg QHS PO Last administered on 06/12/17 19:48; Start 06/03/17 at 21:00 Memantine (Namenda) 10 mg BID PO Last administered on 06/12/17 19:48; Start at 21:00 Acetaminophen (Tylenol) 650 mg TID PO Last administered on 06/12/17 19:48; Start 06/05/17 at 21:00 Risperidone (RisperDAL) 0.5 mg QHS PO Last administered on 06/12/17 19:49; Start 06/06/17 at 11:00 Sertraline HCl (Zoloft) 50 mg DAILY PO Last administered on 06/12/17 07:48; Start 06/07/17 at 09:00 Divalproex Sodium (Depakote Sprinkles) 375 mg BID PO Last administered on 19:49; Start 06/06/17 at 21:00 Active Scripts Active Pantoprazole Sodium 40 Mg Tablet.dr 40 Mg PO DAILYAC 30 Days Famotidine 20 Mg Tablet 20 Mg PO BID 30 Days Amlodipine Besylate 10 Mg Tablet 10 Mg PO DAILY 30 Days Reported Mirtazapine 15 Mg Tablet 15 Mg PO QHS Potassium Chloride 10 Meq Tablet.er 20 Meq PO DAILY Namenda (Memantine Hcl) 10 Mg Tablet 5 Mg PO BID Pravastatin Sodium 20 Mg Tablet 20 Mg PO HS MONICA BOND MD Jun 12, 2017 20:51
[2017-06-13] MEDS ORDERED: SERT50TA PO (00:26)
[2017-06-13] MEDS ORDERED: TRAZ50TA15 PO (00:26)
[2017-06-13] MEDS ORDERED: MAG30ORA2 PO (00:26)
[2017-06-13] MEDS ORDERED: DIVA125C PO (00:26)
[2017-06-13] MEDS ORDERED: METH29OI TP (00:26)
[2017-06-13] MEDS ORDERED: MAGN2400 PO (00:26)
[2017-06-13] MEDS ORDERED: ACET325T9 PO ×2 (00:26→09:06)
[2017-06-13] MEDS ORDERED: CHOL500021 PO (00:26)
[2017-06-13] MEDS ORDERED: RISP0.5T3 PO (00:26)
[2017-06-13] MEDS ORDERED: OLAN5TAB9 PO (00:26)
[2017-06-13 05:55] VITALS: BP 129/80
[2017-06-13] MEDS: DIVALPROEX 125 MG CAP.SPRINK PO SCH (08:20)
[2017-06-13 08:21] VITALS: BP 129/80
[2017-06-13] MEDS: MEMANTINE 10 MG TABLET. PO SCH (08:21)
[2017-06-13] MEDS: amLODIPine BESYLATE 10 MG TABLET PO SCH (08:21)
[2017-06-13] MEDS: ACETAMINOPHEN 325 MG TABLET PO SCH (08:21)
[2017-06-13] MEDS: POTASSIUM CHLORIDE 20 MEQ TABLET.ER. PO SCH (08:21)
[2017-06-13] MEDS: PANTOPRAZOLE 40 MG TABLET. PO SCH (08:21)
[2017-06-13] MEDS: SERTRALINE 50 MG TABLET. PO SCH (08:22)
[2017-06-13] MEDS: CHOLECALCIFEROL (VITAMIN D3) 50,000 UNIT CAPSULE PO SCH (08:23)
--- NOTE | 2017-06-13 20:24 | PDOC ---
Exam Antoine Demential Exam: Antoine Note: Please also refer to the separate dictated note~for this date of service dictated separately.~Patient seen individually. Discussed the patient with Nursing staff reviewed the chart.~Reviewed interim history and current functioning. Reviewed vital signs,~Labs/ Radiology~and current medications noted below. Continue current treatment with the changes noted in the dictated addendum note S/O: This is a late entry for 06/10/2017 and covers elements not covered in my initial note. The patient was seen individually on the evening of 06/10/2017. She had a good night but today during the day she has refused some of her medications because she states it makes her head fuzzy. EEGs will be done on . Review of Systems: As I met with her, she complained of headaches. No CV, , Pulmonary, Eye system symptoms on review. MSE: Oriented to herself and situation. Speech is coherent, has some latency. Abstraction fair. Computation impaired. Language function intact. Attention span short. Memory is impaired. Imp: Unchanged from initial note. Plan: Continue psychotropics mentioned in my initial note. Transition to lower level of care this week. Assessment: Vital Signs: Vital Signs Date Time Temp Pulse Resp B/P (MAP) Pulse Ox O2 Delivery O2 Flow Rate FiO2 06/13/17 08:21 75 129/80 06/13/17 05:55 98.4 18 96 06/12/17 16:09 Room Air I&O Intake and Output 06/13/17 07:00 Intake Total 1080 ml Balance 1080 ml Intake Oral 1080 ml Labs: Laboratory Tests Test 06/13/17 07:15 Glucose (Fingerstick) 82 mg/dL (70-99) Current Medications: Meds: Current Medications Sodium Chloride 1,000 ml @ 100 mls/hr Q10H IV Last administered on 05/28/17 19:08; Start 05/28/17 at 18:47; Stop 05/29/17 at 04:46; Status DC Acetaminophen (Tylenol) 650 mg PRN Q6HRS PRN PO PAIN / TEMP Last administered on 06/12/17 16:52; Start 05/28/17 at 22:15; Stop 06/13/17 at 11:45; Status DC Multi-Ingredient Ointment (Analgesic [place]) 1 nelda PRN QID PRN TP MUSCLE PAIN; Start 05/28/17 at 22:15; Stop 06/13/17 at 11:45; Status DC Al Hydroxide/Mg Hydroxide (Mylanta Plus Xs) 15 ml PRN AFTMEALHC PRN PO DYSPEPSIA Last administered on 06/10/17 16:32; Start 05/28/17 at 22:15; Stop at 11:45; Status DC Magnesium Hydroxide (Milk Of Magnesia) 2,400 mg PRN QHS PRN PO CONSTIPATION; Start 05/28/17 at 22:15; Stop 06/13/17 at 11:45; Status DC Olanzapine (ZyPREXA ZYDIS) 5 mg 1X ONCE PO Last administered on 05/28/17 23: 16; Start 05/28/17 at 23:15; Stop 05/28/17 at 23:16; Status DC Olanzapine (ZyPREXA ZYDIS) 2.5 mg PRN Q4HRS PRN PO ANXIETY / AGITATION Last administered on 06/11/17 17:59; Start 05/28/17 at 23:15; Stop 06/13/17 at 11:45 ; Status DC Memantine (Namenda) 5 mg BID PO Last administered on 06/04/17 09:35; Start at 09:00; Stop 06/04/17 at 18:17; Status DC Mirtazapine (Remeron) 15 mg QHS PO ; Start 05/29/17 at 21:00; Stop 05/29/17 at 21:00; Status DC Amlodipine Besylate (Norvasc) 10 mg DAILY PO Last administered on 06/13/17 08: 21; Start 05/29/17 at 09:00; Stop 06/13/17 at 11:45; Status DC Pantoprazole Sodium (Protonix) 40 mg DAILYAC PO Last administered on 06/13/17 08:21; Start 05/29/17 at 08:00; Stop 06/13/17 at 11:45; Status DC Pravastatin Sodium (Pravachol) 20 mg HS PO Last administered on 06/12/17 19:48 ; Start 05/29/17 at 21:00; Stop 06/13/17 at 11:45; Status DC Potassium Chloride (Klor-Con) 20 meq DAILYWBKFT PO Last administered on 08:21; Start 05/29/17 at 08:00; Stop 06/13/17 at 11:45; Status DC Mirtazapine (Remeron) 7.5 mg QHS PO Last administered on 06/02/17 20:51; Start 05/29/17 at 21:00; Stop 06/03/17 at 18:36; Status DC Olanzapine (ZyPREXA ZYDIS) 5 mg HS PO Last administered on 05/30/17 19:16; Start 05/29/17 at 21:00; Stop 05/31/17 at 14:49; Status DC Vitamin D (Vitamin D3) 50,000 unit WEEKLY PO Last administered on 06/13/17 08: 23; Start 05/30/17 at 14:30; Stop 06/13/17 at 11:45; Status DC Olanzapine (ZyPREXA ZYDIS) 7.5 mg HS PO Last administered on 06/05/17 19:31; Start 05/31/17 at 21:00; Stop 06/06/17 at 10:43; Status DC Divalproex Sodium (Depakote Sprinkles) 125 mg BID PO Last administered on 09:11; Start 05/31/17 at 21:00; Stop 06/03/17 at 18:36; Status DC Trazodone HCl (Desyrel) 50 mg PRN QHS PRN PO INSOMNIA, MAY REPEAT IN 1HR Last administered on 06/08/17 19:59; Start 06/02/17 at 22:30; Stop 06/13/17 at 11:45; Status DC Divalproex Sodium (Depakote Sprinkles) 250 mg BID PO Last administered on 09:18; Start 06/03/17 at 21:00; Stop 06/06/17 at 18:43; Status DC Mirtazapine (Remeron) 15 mg QHS PO Last administered on 06/12/17 19:48; Start 06/03/17 at 21:00; Stop 06/13/17 at 11:45; Status DC Memantine (Namenda) 10 mg BID PO Last administered on 06/13/17 08:21; Start at 21:00; Stop 06/13/17 at 11:45; Status DC Acetaminophen (Tylenol) 650 mg TID PO Last administered on 06/13/17 08:21; Start 06/05/17 at 21:00; Stop 06/13/17 at 11:45; Status DC Risperidone (RisperDAL) 0.5 mg QHS PO Last administered on 06/12/17 19:49; Start 06/06/17 at 11:00; Stop 06/13/17 at 11:45; Status DC Sertraline HCl (Zoloft) 50 mg DAILY PO Last administered on 06/13/17 08:22; Start 06/07/17 at 09:00; Stop 06/13/17 at 11:45; Status DC Divalproex Sodium (Depakote Sprinkles) 375 mg BID PO Last administered on 08:20; Start 06/06/17 at 21:00; Stop 06/13/17 at 11:45; Status DC Active Scripts Active Pantoprazole Sodium 40 Mg Tablet.dr 40 Mg PO DAILYAC 30 Days Amlodipine Besylate 10 Mg Tablet 10 Mg PO DAILY 30 Days Reported Tylenol (Acetaminophen) 325 Mg Tablet 650 Mg PO TID Trazodone Hcl 50 Mg Tablet 50 Mg PO PRN QHS PRN Risperidone 0.5 Mg Tablet 0.5 Mg PO QHS Zoloft (Sertraline Hcl) 50 Mg Tablet 50 Mg PO DAILY Olanzapine 5 Mg Tablet 2.5 Mg PO PRN Q4HRS PRN MDD 10mg Analgesic [place] (Methyl Salicylate/Menthol) 28 Gm Oint...g. 1 Nelda TP PRN QID PRN Milk Of Magnesia (Magnesium Hydroxide) 2,400 Mg/10 Ml Oral.susp 2,400 Mg PO PRN QHS PRN Depakote Sprinkle (Divalproex Sodium) 125 Mg Cap.sprink 375 Mg PO BID D3-50 (Cholecalciferol (Vitamin D3)) 50,000 Unit Capsule 50,000 Unit PO WEEKLY Tylenol (Acetaminophen) 325 Mg Tablet 650 Mg PO PRN QID PRN Mirtazapine 15 Mg Tablet 15 Mg PO QHS Potassium Chloride 10 Meq Tablet.er 20 Meq PO DAILYWBKFT Namenda (Memantine Hcl) 10 Mg Tablet 10 Mg PO BID Pravastatin Sodium 20 Mg Tablet 20 Mg PO HS MONICA BOND MD Jun 13, 2017 20:24
--- NOTE | 2017-06-13 20:57 | PDOC ---
Exam Antoine Demential Exam: Antoine Note: Please also refer to the separate dictated note~for this date of service dictated separately.~Patient seen individually. Discussed the patient with Nursing staff reviewed the chart.~Reviewed interim history and current functioning. Reviewed vital signs,~Labs/ Radiology~and current medications noted below. Continue current treatment with the changes noted in the dictated addendum note S/O: This is a late entry for date of service 06/11/2017 and covers elements not covered in my initial note. The patient was seen individually o nthe evening of 06/11/2017. She refused her a.m. medications, felt strung out on them , and then later took her medications. She refused to eat later in the day and received Zyprexa Zydis p.r.n. x2. Review of Systems: No CV, , Pulmonary, Eye, ENT system symptoms on review. Reliability poor. MSE: Oriented to herself. Insight, judgment, recent and remote memory, attention and concentration, and fund of knowledge poor consistent with her diagnosis mentioned in my initial note. Plan: Continue current psychotropics. Transition to a lower level of care as soon as arranged by social service staff. Assessment: Vital Signs: Vital Signs Date Time Temp Pulse Resp B/P (MAP) Pulse Ox O2 Delivery O2 Flow Rate FiO2 06/13/17 08:21 75 129/80 06/13/17 05:55 98.4 18 96 06/12/17 16:09 Room Air I&O Intake and Output 06/13/17 07:00 Intake Total 1080 ml Balance 1080 ml Intake Oral 1080 ml Labs: Laboratory Tests Test 06/13/17 07:15 Glucose (Fingerstick) 82 mg/dL (70-99) Current Medications: Meds: Current Medications Sodium Chloride 1,000 ml @ 100 mls/hr Q10H IV Last administered on 05/28/17 19:08; Start 05/28/17 at 18:47; Stop 05/29/17 at 04:46; Status DC Acetaminophen (Tylenol) 650 mg PRN Q6HRS PRN PO PAIN / TEMP Last administered on 06/12/17 16:52; Start 05/28/17 at 22:15; Stop 06/13/17 at 11:45; Status DC Multi-Ingredient Ointment (Analgesic [place]) 1 nelda PRN QID PRN TP MUSCLE PAIN; Start 05/28/17 at 22:15; Stop 06/13/17 at 11:45; Status DC Al Hydroxide/Mg Hydroxide (Mylanta Plus Xs) 15 ml PRN AFTMEALHC PRN PO DYSPEPSIA Last administered on 06/10/17 16:32; Start 05/28/17 at 22:15; Stop at 11:45; Status DC Magnesium Hydroxide (Milk Of Magnesia) 2,400 mg PRN QHS PRN PO CONSTIPATION; Start 05/28/17 at 22:15; Stop 06/13/17 at 11:45; Status DC Olanzapine (ZyPREXA ZYDIS) 5 mg 1X ONCE PO Last administered on 05/28/17 23: 16; Start 05/28/17 at 23:15; Stop 05/28/17 at 23:16; Status DC Olanzapine (ZyPREXA ZYDIS) 2.5 mg PRN Q4HRS PRN PO ANXIETY / AGITATION Last administered on 06/11/17 17:59; Start 05/28/17 at 23:15; Stop 06/13/17 at 11:45 ; Status DC Memantine (Namenda) 5 mg BID PO Last administered on 06/04/17 09:35; Start at 09:00; Stop 06/04/17 at 18:17; Status DC Mirtazapine (Remeron) 15 mg QHS PO ; Start 05/29/17 at 21:00; Stop 05/29/17 at 21:00; Status DC Amlodipine Besylate (Norvasc) 10 mg DAILY PO Last administered on 06/13/17 08: 21; Start 05/29/17 at 09:00; Stop 06/13/17 at 11:45; Status DC Pantoprazole Sodium (Protonix) 40 mg DAILYAC PO Last administered on 06/13/17 08:21; Start 05/29/17 at 08:00; Stop 06/13/17 at 11:45; Status DC Pravastatin Sodium (Pravachol) 20 mg HS PO Last administered on 06/12/17 19:48 ; Start 05/29/17 at 21:00; Stop 06/13/17 at 11:45; Status DC Potassium Chloride (Klor-Con) 20 meq DAILYWBKFT PO Last administered on 08:21; Start 05/29/17 at 08:00; Stop 06/13/17 at 11:45; Status DC Mirtazapine (Remeron) 7.5 mg QHS PO Last administered on 06/02/17 20:51; Start 05/29/17 at 21:00; Stop 06/03/17 at 18:36; Status DC Olanzapine (ZyPREXA ZYDIS) 5 mg HS PO Last administered on 05/30/17 19:16; Start 05/29/17 at 21:00; Stop 05/31/17 at 14:49; Status DC Vitamin D (Vitamin D3) 50,000 unit WEEKLY PO Last administered on 06/13/17 08: 23; Start 05/30/17 at 14:30; Stop 06/13/17 at 11:45; Status DC Olanzapine (ZyPREXA ZYDIS) 7.5 mg HS PO Last administered on 06/05/17 19:31; Start 05/31/17 at 21:00; Stop 06/06/17 at 10:43; Status DC Divalproex Sodium (Depakote Sprinkles) 125 mg BID PO Last administered on 09:11; Start 05/31/17 at 21:00; Stop 06/03/17 at 18:36; Status DC Trazodone HCl (Desyrel) 50 mg PRN QHS PRN PO INSOMNIA, MAY REPEAT IN 1HR Last administered on 06/08/17 19:59; Start 06/02/17 at 22:30; Stop 06/13/17 at 11:45; Status DC Divalproex Sodium (Depakote Sprinkles) 250 mg BID PO Last administered on 09:18; Start 06/03/17 at 21:00; Stop 06/06/17 at 18:43; Status DC Mirtazapine (Remeron) 15 mg QHS PO Last administered on 06/12/17 19:48; Start 06/03/17 at 21:00; Stop 06/13/17 at 11:45; Status DC Memantine (Namenda) 10 mg BID PO Last administered on 06/13/17 08:21; Start at 21:00; Stop 06/13/17 at 11:45; Status DC Acetaminophen (Tylenol) 650 mg TID PO Last administered on 06/13/17 08:21; Start 06/05/17 at 21:00; Stop 06/13/17 at 11:45; Status DC Risperidone (RisperDAL) 0.5 mg QHS PO Last administered on 06/12/17 19:49; Start 06/06/17 at 11:00; Stop 06/13/17 at 11:45; Status DC Sertraline HCl (Zoloft) 50 mg DAILY PO Last administered on 06/13/17 08:22; Start 06/07/17 at 09:00; Stop 06/13/17 at 11:45; Status DC Divalproex Sodium (Depakote Sprinkles) 375 mg BID PO Last administered on 08:20; Start 06/06/17 at 21:00; Stop 06/13/17 at 11:45; Status DC Active Scripts Active Pantoprazole Sodium 40 Mg Tablet.dr 40 Mg PO DAILYAC 30 Days Amlodipine Besylate 10 Mg Tablet 10 Mg PO DAILY 30 Days Reported Tylenol (Acetaminophen) 325 Mg Tablet 650 Mg PO TID Trazodone Hcl 50 Mg Tablet 50 Mg PO PRN QHS PRN Risperidone 0.5 Mg Tablet 0.5 Mg PO QHS Zoloft (Sertraline Hcl) 50 Mg Tablet 50 Mg PO DAILY Olanzapine 5 Mg Tablet 2.5 Mg PO PRN Q4HRS PRN MDD 10mg Analgesic [place] (Methyl Salicylate/Menthol) 28 Gm Oint...g. 1 Nelda TP PRN QID PRN Milk Of Magnesia (Magnesium Hydroxide) 2,400 Mg/10 Ml Oral.susp 2,400 Mg PO PRN QHS PRN Depakote Sprinkle (Divalproex Sodium) 125 Mg Cap.sprink 375 Mg PO BID D3-50 (Cholecalciferol (Vitamin D3)) 50,000 Unit Capsule 50,000 Unit PO WEEKLY Tylenol (Acetaminophen) 325 Mg Tablet 650 Mg PO PRN QID PRN Mirtazapine 15 Mg Tablet 15 Mg PO QHS Potassium Chloride 10 Meq Tablet.er 20 Meq PO DAILYWBKFT Namenda (Memantine Hcl) 10 Mg Tablet 10 Mg PO BID Pravastatin Sodium 20 Mg Tablet 20 Mg PO HS VARUN,MAN M MD Jun 13, 2017 20:57
--- NOTE | 2017-06-14 20:38 | PDOC ---
Exam Antoine Demential Exam: Antoine Note: Please also refer to the separate dictated note~for this date of service dictated separately.~Patient seen individually. Discussed the patient with Nursing staff reviewed the chart.~Reviewed interim history and current functioning. Reviewed vital signs,~Labs/ Radiology~and current medications noted below. Continue current treatment with the changes noted in the dictated addendum note S/O: This is late entry on 06/12/2017 covers elements not covered in my initial note. The patient was seen individually on evening of 06/12/2017. Complains of headaches, otherwise, compliant, anxious regarding discharge. She had another demented patient in her bathroom and that other patient's colostomy bag was removed; it is unclear the patient had anything to do with this, however. Review of systems: Positive for the headaches. No CV, , Pulmonary, Eye, ENT system symptoms on review. Reliability is poor. MSE: Oriented to herself and situation. Insight, judgment, recent memory is impaired. Language function is intact. Attention span is short. Mood and affect is somewhat anxious. Impression: Unchanged. Plan: Continue current psychotropics adjust as indicated. Assessment: Vital Signs: Vital Signs Date Time Temp Pulse Resp B/P (MAP) Pulse Ox O2 Delivery O2 Flow Rate FiO2 06/13/17 08:21 75 129/80 06/13/17 05:55 98.4 18 96 06/12/17 16:09 Room Air I&O Intake and Output 06/14/17 07:00 Intake Total 360 ml Balance 360 ml Intake Oral 360 ml Current Medications: Meds: Current Medications Sodium Chloride 1,000 ml @ 100 mls/hr Q10H IV Last administered on 05/28/17 19:08; Start 05/28/17 at 18:47; Stop 05/29/17 at 04:46; Status DC Acetaminophen (Tylenol) 650 mg PRN Q6HRS PRN PO PAIN / TEMP Last administered on 06/12/17 16:52; Start 05/28/17 at 22:15; Stop 06/13/17 at 11:45; Status DC Multi-Ingredient Ointment (Analgesic [place]) 1 nelda PRN QID PRN TP MUSCLE PAIN; Start 05/28/17 at 22:15; Stop 06/13/17 at 11:45; Status DC Al Hydroxide/Mg Hydroxide (Mylanta Plus Xs) 15 ml PRN AFTMEALHC PRN PO DYSPEPSIA Last administered on 06/10/17 16:32; Start 05/28/17 at 22:15; Stop at 11:45; Status DC Magnesium Hydroxide (Milk Of Magnesia) 2,400 mg PRN QHS PRN PO CONSTIPATION; Start 05/28/17 at 22:15; Stop 06/13/17 at 11:45; Status DC Olanzapine (ZyPREXA ZYDIS) 5 mg 1X ONCE PO Last administered on 05/28/17 23: 16; Start 05/28/17 at 23:15; Stop 05/28/17 at 23:16; Status DC Olanzapine (ZyPREXA ZYDIS) 2.5 mg PRN Q4HRS PRN PO ANXIETY / AGITATION Last administered on 06/11/17 17:59; Start 05/28/17 at 23:15; Stop 06/13/17 at 11:45 ; Status DC Memantine (Namenda) 5 mg BID PO Last administered on 06/04/17 09:35; Start at 09:00; Stop 06/04/17 at 18:17; Status DC Mirtazapine (Remeron) 15 mg QHS PO ; Start 05/29/17 at 21:00; Stop 05/29/17 at 21:00; Status DC Amlodipine Besylate (Norvasc) 10 mg DAILY PO Last administered on 06/13/17 08: 21; Start 05/29/17 at 09:00; Stop 06/13/17 at 11:45; Status DC Pantoprazole Sodium (Protonix) 40 mg DAILYAC PO Last administered on 06/13/17 08:21; Start 05/29/17 at 08:00; Stop 06/13/17 at 11:45; Status DC Pravastatin Sodium (Pravachol) 20 mg HS PO Last administered on 06/12/17 19:48 ; Start 05/29/17 at 21:00; Stop 06/13/17 at 11:45; Status DC Potassium Chloride (Klor-Con) 20 meq DAILYWBKFT PO Last administered on 08:21; Start 05/29/17 at 08:00; Stop 06/13/17 at 11:45; Status DC Mirtazapine (Remeron) 7.5 mg QHS PO Last administered on 06/02/17 20:51; Start 05/29/17 at 21:00; Stop 06/03/17 at 18:36; Status DC Olanzapine (ZyPREXA ZYDIS) 5 mg HS PO Last administered on 05/30/17 19:16; Start 05/29/17 at 21:00; Stop 05/31/17 at 14:49; Status DC Vitamin D (Vitamin D3) 50,000 unit WEEKLY PO Last administered on 06/13/17 08: 23; Start 05/30/17 at 14:30; Stop 06/13/17 at 11:45; Status DC Olanzapine (ZyPREXA ZYDIS) 7.5 mg HS PO Last administered on 06/05/17 19:31; Start 05/31/17 at 21:00; Stop 06/06/17 at 10:43; Status DC Divalproex Sodium (Depakote Sprinkles) 125 mg BID PO Last administered on 09:11; Start 05/31/17 at 21:00; Stop 06/03/17 at 18:36; Status DC Trazodone HCl (Desyrel) 50 mg PRN QHS PRN PO INSOMNIA, MAY REPEAT IN 1HR Last administered on 06/08/17 19:59; Start 06/02/17 at 22:30; Stop 06/13/17 at 11:45; Status DC Divalproex Sodium (Depakote Sprinkles) 250 mg BID PO Last administered on 09:18; Start 06/03/17 at 21:00; Stop 06/06/17 at 18:43; Status DC Mirtazapine (Remeron) 15 mg QHS PO Last administered on 06/12/17 19:48; Start 06/03/17 at 21:00; Stop 06/13/17 at 11:45; Status DC Memantine (Namenda) 10 mg BID PO Last administered on 06/13/17 08:21; Start at 21:00; Stop 06/13/17 at 11:45; Status DC Acetaminophen (Tylenol) 650 mg TID PO Last administered on 06/13/17 08:21; Start 06/05/17 at 21:00; Stop 06/13/17 at 11:45; Status DC Risperidone (RisperDAL) 0.5 mg QHS PO Last administered on 06/12/17 19:49; Start 06/06/17 at 11:00; Stop 06/13/17 at 11:45; Status DC Sertraline HCl (Zoloft) 50 mg DAILY PO Last administered on 06/13/17 08:22; Start 06/07/17 at 09:00; Stop 06/13/17 at 11:45; Status DC Divalproex Sodium (Depakote Sprinkles) 375 mg BID PO Last administered on 08:20; Start 06/06/17 at 21:00; Stop 06/13/17 at 11:45; Status DC Active Scripts Active Pantoprazole Sodium 40 Mg Tablet.dr 40 Mg PO DAILYAC 30 Days Amlodipine Besylate 10 Mg Tablet 10 Mg PO DAILY 30 Days Reported Tylenol (Acetaminophen) 325 Mg Tablet 650 Mg PO TID Trazodone Hcl 50 Mg Tablet 50 Mg PO PRN QHS PRN Risperidone 0.5 Mg Tablet 0.5 Mg PO QHS Zoloft (Sertraline Hcl) 50 Mg Tablet 50 Mg PO DAILY Olanzapine 5 Mg Tablet 2.5 Mg PO PRN Q4HRS PRN MDD 10mg Analgesic [place] (Methyl Salicylate/Menthol) 28 Gm Oint...g. 1 Nelda TP PRN QID PRN Milk Of Magnesia (Magnesium Hydroxide) 2,400 Mg/10 Ml Oral.susp 2,400 Mg PO PRN QHS PRN Depakote Sprinkle (Divalproex Sodium) 125 Mg Cap.sprink 375 Mg PO BID D3-50 (Cholecalciferol (Vitamin D3)) 50,000 Unit Capsule 50,000 Unit PO WEEKLY Tylenol (Acetaminophen) 325 Mg Tablet 650 Mg PO PRN QID PRN Mirtazapine 15 Mg Tablet 15 Mg PO QHS Potassium Chloride 10 Meq Tablet.er 20 Meq PO DAILYWBKFT Namenda (Memantine Hcl) 10 Mg Tablet 10 Mg PO BID Pravastatin Sodium 20 Mg Tablet 20 Mg PO HS MONICA BOND MD Jun 14, 2017 20:38
--- NOTE | 2017-06-17 20:38 | PDOC3 ---
Discharge Summary Visit Information Final Diagnosis Problems Medical Problems: (1) Altered mental state Status: Acute Problems: Brief Hospital Course Allergies Allergies Coded Allergies Type Severity Reaction Last Updated Verified NKMA Allergy Unknown 05/22/17 Yes Vital Signs Vital Signs Date Time Temp Pulse Resp B/P (MAP) Pulse Ox O2 Delivery O2 Flow Rate FiO2 06/13/17 08:21 75 129/80 06/13/17 05:55 98.4 18 96 06/12/17 16:09 Room Air Brief Hospital Course Ms. Gill is a 82 old [sex] who presented with [ ] Reason for Admission: Please refer to the admission history for detail. Briefly, the patient is an 82-year-old female admitted from home to the emergency room on account of increasing delusion, dementia, memory deficits , attempting to eat her wedding ring, bath in a toilet card cleaner amongst other things. She is dangerous living at home, referred for inpatient psychiatric stabilization. Significant Findings/Clinical Course Following Admission: The patient was seen daily individually by myself, followed medically by Dr. Sharma/Dr. Rendon. She is quite confused, paranoid, intermittently agitated, and labile. Adjustments were made in her psychotropics and she seemed to respond to a combination of Namenda, Remeron, Depakote, trazodone, Risperdal, and Zoloft. Review of Systems: Prior to discharge on 06/13/2017, no CV, , Pulmonary, Eye , ENT system symptoms on review. Reliability is poor. MSE: Oriented to herself. Insight and judgment and recent memory are impaired. Language function is intact. Mood and affect is improved. Final Diagnoses: Major neurocognitive disorder, Alzheimer's vascular with depression, delusion, behavioral disturbance; anxiety disorder, unspecified; impulse control disorder, unspecified. Rest of the diagnoses is as above. Discharge Medications: Please refer to the EMRAD. Outpatient psychiatric followup at the [facility]. Medical followup with her primary care physician. Time for Discharge and management: Greater than 30 minutes. Discharge Information Dischare Medications Current Medications Sodium Chloride 1,000 ml @ 100 mls/hr Q10H IV Last administered on 05/28/17t 19:08; Start 05/28/17 at 18:47; Stop 05/29/17 at 04:46; Status DC Acetaminophen (Tylenol) 650 mg PRN Q6HRS PRN PO PAIN / TEMP Last administered on 06/12/17 16:52; Start 05/28/17 at 22:15; Stop 06/13/17 at 11:45; Status DC Multi-Ingredient Ointment (Analgesic [place]) 1 nelda PRN QID PRN TP MUSCLE PAIN; Start 05/28/17 at 22:15; Stop 06/13/17 at 11:45; Status DC Al Hydroxide/Mg Hydroxide (Mylanta Plus Xs) 15 ml PRN AFTMEALHC PRN PO DYSPEPSIA Last administered on 06/10/17 16:32; Start 05/28/17 at 22:15; Stop at 11:45; Status DC Magnesium Hydroxide (Milk Of Magnesia) 2,400 mg PRN QHS PRN PO CONSTIPATION; Start 05/28/17 at 22:15; Stop 06/13/17 at 11:45; Status DC Olanzapine (ZyPREXA ZYDIS) 5 mg 1X ONCE PO Last administered on 05/28/17 23: 16; Start 05/28/17 at 23:15; Stop 05/28/17 at 23:16; Status DC Olanzapine (ZyPREXA ZYDIS) 2.5 mg PRN Q4HRS PRN PO ANXIETY / AGITATION Last administered on 06/11/17 17:59; Start 05/28/17 at 23:15; Stop 06/13/17 at 11:45 ; Status DC Memantine (Namenda) 5 mg BID PO Last administered on 06/04/17 09:35; Start at 09:00; Stop 06/04/17 at 18:17; Status DC Mirtazapine (Remeron) 15 mg QHS PO ; Start 05/29/17 at 21:00; Stop 05/29/17 at 21:00; Status DC Amlodipine Besylate (Norvasc) 10 mg DAILY PO Last administered on 06/13/17 08: 21; Start 05/29/17 at 09:00; Stop 06/13/17 at 11:45; Status DC Pantoprazole Sodium (Protonix) 40 mg DAILYAC PO Last administered on 06/13/17 08:21; Start 05/29/17 at 08:00; Stop 06/13/17 at 11:45; Status DC Pravastatin Sodium (Pravachol) 20 mg HS PO Last administered on 06/12/17 19:48 ; Start 05/29/17 at 21:00; Stop 06/13/17 at 11:45; Status DC Potassium Chloride (Klor-Con) 20 meq DAILYWBKFT PO Last administered on 08:21; Start 05/29/17 at 08:00; Stop 06/13/17 at 11:45; Status DC Mirtazapine (Remeron) 7.5 mg QHS PO Last administered on 06/02/17 20:51; Start 05/29/17 at 21:00; Stop 06/03/17 at 18:36; Status DC Olanzapine (ZyPREXA ZYDIS) 5 mg HS PO Last administered on 05/30/17 19:16; Start 05/29/17 at 21:00; Stop 05/31/17 at 14:49; Status DC Vitamin D (Vitamin D3) 50,000 unit WEEKLY PO Last administered on 06/13/17 08: 23; Start 05/30/17 at 14:30; Stop 06/13/17 at 11:45; Status DC Olanzapine (ZyPREXA ZYDIS) 7.5 mg HS PO Last administered on 06/05/17 19:31; Start 05/31/17 at 21:00; Stop 06/06/17 at 10:43; Status DC Divalproex Sodium (Depakote Sprinkles) 125 mg BID PO Last administered on 09:11; Start 05/31/17 at 21:00; Stop 06/03/17 at 18:36; Status DC Trazodone HCl (Desyrel) 50 mg PRN QHS PRN PO INSOMNIA, MAY REPEAT IN 1HR Last administered on 06/08/17 19:59; Start 06/02/17 at 22:30; Stop 06/13/17 at 11:45; Status DC Divalproex Sodium (Depakote Sprinkles) 250 mg BID PO Last administered on 09:18; Start 06/03/17 at 21:00; Stop 06/06/17 at 18:43; Status DC Mirtazapine (Remeron) 15 mg QHS PO Last administered on 06/12/17 19:48; Start 06/03/17 at 21:00; Stop 06/13/17 at 11:45; Status DC Memantine (Namenda) 10 mg BID PO Last administered on 06/13/17 08:21; Start at 21:00; Stop 06/13/17 at 11:45; Status DC Acetaminophen (Tylenol) 650 mg TID PO Last administered on 06/13/17 08:21; Start 06/05/17 at 21:00; Stop 06/13/17 at 11:45; Status DC Risperidone (RisperDAL) 0.5 mg QHS PO Last administered on 06/12/17 19:49; Start 06/06/17 at 11:00; Stop 06/13/17 at 11:45; Status DC Sertraline HCl (Zoloft) 50 mg DAILY PO Last administered on 06/13/17 08:22; Start 06/07/17 at 09:00; Stop 06/13/17 at 11:45; Status DC Divalproex Sodium (Depakote Sprinkles) 375 mg BID PO Last administered on 08:20; Start 06/06/17 at 21:00; Stop 06/13/17 at 11:45; Status DC Active Scripts Active Pantoprazole Sodium 40 Mg Tablet.dr 40 Mg PO DAILYAC 30 Days Amlodipine Besylate 10 Mg Tablet 10 Mg PO DAILY 30 Days Reported Tylenol (Acetaminophen) 325 Mg Tablet 650 Mg PO TID Trazodone Hcl 50 Mg Tablet 50 Mg PO PRN QHS PRN Risperidone 0.5 Mg Tablet 0.5 Mg PO QHS Zoloft (Sertraline Hcl) 50 Mg Tablet 50 Mg PO DAILY Olanzapine 5 Mg Tablet 2.5 Mg PO PRN Q4HRS PRN MDD 10mg Analgesic [place] (Methyl Salicylate/Menthol) 28 Gm Oint...g. 1 Nelda TP PRN QID PRN Milk Of Magnesia (Magnesium Hydroxide) 2,400 Mg/10 Ml Oral.susp 2,400 Mg PO PRN QHS PRN Depakote Sprinkle (Divalproex Sodium) 125 Mg Cap.sprink 375 Mg PO BID D3-50 (Cholecalciferol (Vitamin D3)) 50,000 Unit Capsule 50,000 Unit PO WEEKLY Tylenol (Acetaminophen) 325 Mg Tablet 650 Mg PO PRN QID PRN Mirtazapine 15 Mg Tablet 15 Mg PO QHS Potassium Chloride 10 Meq Tablet.er 20 Meq PO DAILYWBKFT Namenda (Memantine Hcl) 10 Mg Tablet 10 Mg PO BID Pravastatin Sodium 20 Mg Tablet 20 Mg PO HS MONICA BOND MD Jun 17, 2017 20:38
--- NOTE | 2017-06-26 14:21 | HP ---
ADMIT DATE: 05/29/2017 During the time of this admission on 05/28, the dictation line was out and a paper history and physical was done; however, it has been lost. Also, cranial nerves were done at that time. We will dictate an H and P now to the best of what I can remember. REASON FOR ADMISSION TO THE [facility]: This is an 82-year-old female who was brought from home for agitation and abnormal behavior. She was having memory deficits, which she was attempting to eat her wedding ring and excessively cleaning and was found to be dangerous to live at home. PAST MEDICAL HISTORY: She had a recent admission on 05/21/2017 to the hospital for chest pain and under the care of Dr. Valdovinos. Other medical conditions include coronary artery disease, hypertension, hyperlipidemia, GERD, gastritis, and diabetes. MEDICATIONS: Available on the MAR. ALLERGIES: No known medical allergies. REVIEW OF SYSTEMS: Negative today. OBJECTIVE: Blood pressure on the day of admission 134/67, temperature 97.5, pulse 66, respirations 20, pulse ox 100% on room air. The patient was not overly cooperative and the actual exam, I cannot recall and will not be dictating physical exam because I cannot recall the exam. She was examined, did have a history and physical; however, it was written on paper. LABORATORY DATA: Hemoglobin 11.6, hematocrit 35.3, BUN was 26, creatinine 1.2. Vitamin D was low at 12.5. TSH was normal. I did not see B12. ASSESSMENT: Dementia with behavior disturbance, vitamin D deficiency, chronic kidney disease stage 3, morbid obesity, coronary artery disease, hypertension. PLAN: Follow along with Dr. Martinez. Replace her vitamin D and treat her medical conditions. RELL PARKS DO DR: ANNEMARIE/willy JOB#: [id number] / [id number]
== END 2017-06-13 10:15 | disposition home health service (06) | DRG 884 ==
LOC: ER 17:55 → GEROPSY 21:25
PROVIDERS: ADMIT Psychiatry & Neurology Psychiatry; ATTEND Psychiatry & Neurology Psychiatry
DX: F01.51 Vascular dementia, unspecified severity, with behavioral disturbance (principal); F02.81 Dementia in other diseases classified elsewhere, unspecified severity, with behavioral disturbance; F33.9 Major depressive disorder, recurrent, unspecified; G30.9 Alzheimer's disease, unspecified; F41.9 Anxiety disorder, unspecified; F63.9 Impulse disorder, unspecified; I10 Essential (primary) hypertension; Z96.659 Presence of unspecified artificial knee joint; Z90.49 Acquired absence of other specified parts of digestive tract; F22 Delusional disorders; I25.10 Atherosclerotic heart disease of native coronary artery without angina pectoris; K21.9 Gastro-esophageal reflux disease without esophagitis; I12.9 Hypertensive chronic kidney disease with stage 1 through stage 4 chronic kidney disease, or unspecified chronic kidney disease; N18.3 Chronic kidney disease, stage 3 (moderate); E78.5 Hyperlipidemia, unspecified; E66.01 Morbid (severe) obesity due to excess calories; E55.9 Vitamin D deficiency, unspecified; E11.22 Type 2 diabetes mellitus with diabetic chronic kidney disease
CPT/HCPCS: 36415; 70450; 71010; 80053; 80061; 80164; 81001; 82306; 82947; 83036; 83735; 84436; 84443; 84480; 84484; 85027; 86592; 86593; 87086; 93005; 96360; 96361; 99285-25; J7030

== ENCOUNTER → 2017-07-11 | Outpatient (CLI) | payer MEDICARE ==
[2017-06-13 08:21] VITALS: BP 129/80
[~2017-07-11] MED LIST changes: +CHOL500021 PO; +DIVA125C PO; +MAG30ORA2 PO; +MAGN2400 PO; +METH29OI TP; +OLAN5TAB9 PO; +RISP0.5T3 PO; +SERT50TA PO; +TRAZ50TA15 PO
--- NOTE | 2017-07-11 16:13 | RAD ---
Indication pain and swelling. Grayscale color Doppler and spectral imaging was performed. The examination was targeted to the veins of the right lower extremity. The common femoral, femoral and popliteal vessels demonstrate normal flow compressibility and augmentation. No thrombus is seen. The visualized calf veins appeared unremarkable. The left common femoral vein appeared normal. IMPRESSION: Negative right lower extremity venous analysis for DVT
== END | disposition home or self-care (01) ==
LOC: US 14:50
PROVIDERS: ATTEND Family Medicine
DX: I82.441 Acute embolism and thrombosis of right tibial vein (principal); M79.604 Pain in right leg; M79.89 Other specified soft tissue disorders
CPT/HCPCS: 93971

== ENCOUNTER 2018-07-12 19:53 | Inpatient (IN) | payer MEDICARE ==
[~2018-07-12] VITALS: Ht 160 cm; Wt 99.4 kg
[2018-07-12] MEDS: IV RINGERS SOLUTION,LACTATED 1,000 ML IV SCH (00:45)
[~2018-07-12 19:53] MED LIST changes: -METF500T4 PO; +METF500T5 PO; +TRAZ-85 PO; -TRAZ50TA15 PO
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
[2018-07-12] MEDS ORDERED: IV RINGERS SOLUTION,LACTATED 1,000 ML IV SCH (20:00)
[2018-07-12] MEDS ORDERED: TETANUS AND DIPHTHERIA TOX/PF 0.5 ML VIAL. VAX IM ONE (20:00)
[2018-07-12] MEDS ORDERED: LIDOCAINE 2% 20 ML VIAL. IJ ONE (20:00)
[2018-07-12] MEDS ORDERED: BUPIVACAINE MPF 0.5% 10 ML VIAL. IJ ONE (20:00)
[2018-07-12] MEDS ORDERED: ONDANSETRON PF 4 MG/2 ML VIAL. IV PRN (21:15)
[2018-07-12 21:18] LABS: BASO # 0.1 x10^3/uL (0.0-0.2); BASO % 1 % (0-3); EOS # 0.3 x10^3/uL (0.0-0.7); EOS % 3 % (0-3); HEMATOCRIT 31.4 % (36.0-47.0); HEMOGLOBIN 10.4 g/dL (12.0-15.5); LYMPH # 1.2 x10^3/uL (1.0-4.8); LYMPH % 10 % (24-48); MEAN CORPUSCULAR HEMOGLOBIN 29 pg (25-35); MEAN CORPUSCULAR HGB CONC 33 g/dL (31-37); MEAN CORPUSCULAR VOLUME 88 fL (79-100); MONO # 0.8 x10^3/uL (0.0-1.1); MONO % 7 % (0-9); NEUT # 9.5 x10^3uL (1.8-7.7); NEUT % 80 % (31-73); PLATELET COUNT 252 x10^3/uL (140-400); RED BLOOD COUNT 3.56 x10^6/uL (3.50-5.40)
--- NOTE | 2018-07-12 21:20 | EKG ---
[address] [address] Test Date: 2018-07-12 Test Time: 20:00:53 Pat Name: TIFFANIE KOROMA Department: Room: Gender: F Penetration Tester: : [id number] Requested By: ERNESTINA FISCHER Order Number: [id number] Reading MD: Devon Smiley MD Measurements Intervals [place] Rate: 85 P: -103 TX: 190 QRS: -12 QRSD: 116 T: 11 QT: 376 QTc: 453 Interpretive Statements SINUS RHYTHM RBBB NON-SPECIFIC ST/T CHANGES LOW VOLTAGE Electronically Signed On 07-21-2018 10:56:53 CDT by Devon Smiley MD
[2018-07-12 21:27] LABS: CLARITY,URINE HAZY; COLOR,URINE YELLOW
[2018-07-12 21:31] LABS: BILIRUBIN,URINE NEG (NEG); GLUCOSE,URINE NEG (NEG); NITRITE,URINE POS (NEG); UROBILINOGEN,URINE 0.2 mg/dL (0.2 mg/dL)
[2018-07-12 21:32] LABS: ALBUMIN 2.7 g/dL (3.4-5.0); BACTERIA,URINE MANY /HPF (0-FEW); CALCIUM 8.7 mg/dL (8.5-10.1); CREATININE 1.2 mg/dL (0.6-1.0); MAGNESIUM 1.9 mg/dL (1.8-2.4); POTASSIUM 4.5 mmol/L (3.5-5.1); RBC,URINE OCC /HPF (0-2); SQUAMOUS EPITHELIAL CELL,UR FEW /LPF; TOTAL BILIRUBIN 0.4 mg/dL (0.2-1.0); TOTAL PROTEIN 6.7 g/dL (6.4-8.2)
[2018-07-12 21:33] LABS: DIRECT BILIRUBIN 0.1 mg/dL (0.0-0.2)
[2018-07-12 21:35] LABS: BARBITURATES NEG (NEG); BENZODIAZEPINES POS (NEG); CANNABINOIDS NEG (NEG); COCAINE NEG (NEG); METHADONE NEG (NEG); OPIATES NEG (NEG); PHENCYCLIDINE NEG (NEG)
[2018-07-12 21:36] LABS: AMPHETAMINE/METHAMPHETAMINE NEG (NEG)
[2018-07-12 21:38] LABS: AMORPHOUS SEDIMENT,UR PRESENT /HPF
[2018-07-12] MEDS ORDERED: cefTRIAXone IV Push 1 GM VIAL. IVP ONE (22:00)
[2018-07-12] MEDS ORDERED: MAGNESIUM HYDROXIDE 2,400 MG/30 ML ORAL.SUSP. PO ONE (22:15)
--- NOTE | 2018-07-12 22:16 | RAD ---
AP chest. HISTORY: Syncope AP view was taken of the chest. Comparison is made with an old study from May 28, 2017. Heart is enlarged. The aorta is mildly enlarged and tortuous. There are no confluent infiltrates. There is arthritis in the shoulders especially on the right. Patient is not taken a deep inspiration. Patient is mildly rotated. IMPRESSION: 1. No acute infiltrates. Electronically signed by: Wilton Mcclelland MD (07/12/2018 10:12 PM) [facility]
[2018-07-12] MEDS ORDERED: LORazepam 2 MG/ML VIAL IV STA (22:26)
--- NOTE | 2018-07-12 22:31 | RAD ---
CT head without contrast: Reason for examination: Syncope. Fell with neck pain. Laceration to right posterior occipital region of the skull. Comparison is made to previous study dated 05/28/2017. Axial images were obtained through the brain. No contrast was administered. The ventricular systems are symmetric and not abnormally dilated for the patient's age. There is some prominence of the cerebral sulci and fissures consistent some generalized cerebral atrophy. No midline shift is seen. There is no evidence of intracranial hemorrhage. There are patchy deep white matter changes in the frontal and parietal lobes which probably represents chronic microvascular ischemic changes and are stable. No acute infarct, mass, contusion or edema is seen. No abnormalities are seen at the orbits. The paranasal sinuses and mastoid air cells are clear. No acute abnormality seen in the skull. IMPRESSION: Generalized cerebral atrophy with some microvascular ischemic changes in the deep white matter. No acute intracranial abnormality evident. CT cervical spine without contrast: Helical images were obtained through the cervical spine from skull base through the thoracic apices with no contrast administered. Reconstruction was performed in sagittal and coronal planes. The C1 ring is intact. The odontoid process appears to be intact and normally centered between the lateral masses of C1. No acute fracture is seen. There is however a grade 1 anterolisthesis of C4 on C5 which appears to be chronic. The remaining vertebral bodies are normally aligned. Posterior elements are intact. There are some hypertrophic changes off the anterior endplates. The intervertebral discs show moderate narrowing at the C5-6 and C6-7 disc levels. Remaining intervertebral disc heights are fairly well-maintained but there does appear to be some bulging of disc posteriorly at the C4-5 level which is probably associated with the anterolisthesis. There does appear to be some narrowing of the spinal canal at this level with the disc encroaching on the anterior surface of the cervical cord. There is still a 7 mm AP diameter of the cervical cord and canal. Prevertebral soft tissues are normal. IMPRESSION: Degenerative spondylosis with degenerative disc disease at the C4-5, C5-6 and C6-7 disc levels. Grade 1 anterolisthesis is seen of C4 on C5 and appears to be chronic. Bulging of disc posteriorly at the C4-5 level also appears chronic but causes at least mild stenosis of the spinal canal at this level. No acute abnormalities evident in the cervical spine. Exposure: One or more of the following individualized dose reduction techniques were utilized for this examination: 1. Automated exposure control 2. Adjustment of the mA and/or kV according to patient size 3. Use of iterative reconstruction technique. Electronically signed by: Nicole De Paz MD (07/12/2018 10:27 PM) [id number]
[2018-07-12] MEDS ORDERED: LORazepam 2 MG/ML VIAL IV ONE (22:45)
[2018-07-12] MEDS ORDERED: LORazepam 1 MG TABLET PO ONE (22:45)
[2018-07-12] MEDS ORDERED: HALOPERIDOL LACT 5 MG/ML VIAL. IVP ONE (23:00)
[2018-07-12] MEDS ORDERED: diphenhydrAMINE 50 MG/ML VIAL IVP ONE (23:00)
--- NOTE | 2018-07-13 00:20 | NUR ---
The patient, TIFFANIE KOROMA, 83 y/o, F admitted by KASEY OWENS MD, was given written information regarding hospital policies, unit procedures and contact persons. Valuables were checked and logged. Pt is extremely confused, yelling, and screaming. Call light in reach, with a bed alarm and a personal alarm. Will continue to monitor.
[2018-07-13 00:27] VITALS: BP 130/83
[2018-07-13] MEDS: IV RINGERS SOLUTION,LACTATED 1,000 ML IV SCH ×5 (00:45→22:15)
--- NOTE | 2018-07-13 01:00 | NUR ---
Pt does not cooperate with admission process. Very poor historian.
[2018-07-13] MEDS ORDERED: LORazepam 2 MG/ML VIAL IV ONE (06:00)
--- NOTE | 2018-07-13 06:00 | NUR ---
Order for Ativan that was non-administered at this time was for a ER does given earlier in the shift per MAYDA Puente.
[2018-07-13 06:08] VITALS: BP 135/83
[2018-07-13] MEDS: IPRATRPIUM/ALBUTEROL 0.5/2.5MG 3 ML NEBU. NEB SCH ×4 (06:23→20:00)
[2018-07-13 06:34] LABS: BASO # 0.1 x10^3/uL (0.0-0.2); BASO % 1 % (0-3); EOS # 0.3 x10^3/uL (0.0-0.7); EOS % 3 % (0-3); HEMATOCRIT 30.8 % (36.0-47.0); HEMOGLOBIN 10.1 g/dL (12.0-15.5); LYMPH # 1.3 x10^3/uL (1.0-4.8); LYMPH % 15 % (24-48); MEAN CORPUSCULAR HEMOGLOBIN 28 pg (25-35); MEAN CORPUSCULAR HGB CONC 33 g/dL (31-37); MEAN CORPUSCULAR VOLUME 86 fL (79-100); MONO # 0.8 x10^3/uL (0.0-1.1); MONO % 9 % (0-9); NEUT # 6.5 x10^3uL (1.8-7.7); NEUT % 73 % (31-73); PLATELET COUNT 223 x10^3/uL (140-400); RED BLOOD COUNT 3.59 x10^6/uL (3.50-5.40); WHITE BLOOD COUNT 8.9 x10^3/uL (4.0-11.0)
[2018-07-13 06:42] LABS: CALCIUM 8.7 mg/dL (8.5-10.1); CREATININE 1.1 mg/dL (0.6-1.0); GFR 47.6; POTASSIUM 3.9 mmol/L (3.5-5.1)
--- NOTE | 2018-07-13 06:53 | RAD ---
AP view pelvis 2017 CLINICAL INDICATION: Fall and syncope. COMPARISON: None. FINDINGS: No diastases of the symphysis pubis or sacroiliac articulations. No evidence of acute fracture or traumatic malalignment. Lower lumbar spondylosis. Mild bilateral hip osteoarthritis. Moderate distal colorectal retained stool. IMPRESSION: No radiographic evidence of acute osseous abnormality. Electronically signed by: Wes Rodriguez MD (07/13/2018 6:49 AM) [facility]
--- NOTE | 2018-07-13 07:04 | RAD ---
Supine and upright AP views abdomen 07/12/2018 CLINICAL INDICATION: Syncope. COMPARISON: CT abdomen and pelvis 03/10/2016. FINDINGS: Vertebral quadrant cholecystectomy clips. There is a nonobstructive bowel gas pattern with moderate distal colorectal retained stool. No evidence of pneumoperitoneum. Multilevel lumbar spondylosis. IMPRESSION: 1. No radiographic evidence of bowel obstruction. 2. Moderate retained distal colonic stool, may contribute to constipation. Electronically signed by: Wes Rodriguez MD (07/13/2018 7:01 AM) [facility]
[2018-07-13] MEDS ORDERED: METHYL SALICYLATE/MENTHOL TOPICAL OINTMENT 29GM TUBE. TP PRN (08:45)
[2018-07-13] MEDS ORDERED: MAGNESIUM HYDROXIDE 2,400 MG/30 ML ORAL.SUSP. PO PRN (09:00)
[2018-07-13] MEDS ORDERED: CHOLECALCIFEROL (VITAMIN D3) 50,000 UNIT CAPSULE PO SCH (09:00)
[2018-07-13] MEDS: POTASSIUM CHLORIDE 20 MEQ TABLET.ER. PO SCH (09:00)
[2018-07-13] MEDS ORDERED: traZODone 50 MG TABLET. PO PRN (09:00)
[2018-07-13] MEDS: DIVALPROEX 125 MG CAP.SPRINK PO SCH ×2 (09:13→20:44)
[2018-07-13] MEDS: PANTOPRAZOLE 40 MG TABLET. PO SCH (09:14)
[2018-07-13] MEDS: SERTRALINE 50 MG TABLET. PO SCH (09:14)
[2018-07-13] MEDS: MEMANTINE 10 MG TABLET. PO SCH ×2 (09:14→20:42)
[2018-07-13] MEDS: amLODIPine BESYLATE 10 MG TABLET PO SCH (09:14)
[2018-07-13 10:42] VITALS: BP 129/76
[2018-07-13] MEDS ORDERED: PIP/TAZO PER PHARMACY MC PRN (10:45)
[2018-07-13] MEDS: OLANZapine 2.5 MG TABLET PO PRN (11:17)
[2018-07-13] MEDS: ACETAMINOPHEN 325 MG TABLET PO PRN (11:45)
--- NOTE | 2018-07-13 12:32 | HP ---
ADMIT DATE: 07/12/2018 HISTORY OF PRESENT ILLNESS: Apparently the patient confused, acute change in mental status, went out to change ____ in the middle of the night with her walker, she fell, crawling around the ground. The patient's apparently neighbors found her in the middle of the night. She was brought into the Emergency Room where she was worked up. The patient had acute psychosis where she was completely disoriented and talking out of her hat, talking to people that were not there. Her mom was 82, her boy was 7, of course, neither of which is true. The patient did have a head laceration 2.5 cm laceration, which was repaired in the Emergency Room. The patient was admitted for Alzheimer's with depression and delusions, encephalopathy, anxiety disorder, impulsive behavior, history of pulmonary emboli and so forth. The patient was admitted to the hospital for further evaluation for her multiple medical issues here with her marked confusion. PAST MEDICAL HISTORY: Includes dementia, peripheral neuropathy, cardiac catheterizations, gastrointestinal disorders, appendectomy, cholecystectomy, uterine suspension, incontinence, left knee replacement, back pain, endocrine disorders, psychiatric disorders, depression, medical symptoms, wears glasses, skin disorders. 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 IMMUNIZATIONS: Influenza and pneumococcal up-to-date. The patient has had problems with neuropathy and acute mental changes in the past. FAMILY HISTORY: Cardiovascular disease and stroke in the family. ALLERGIES: No known allergies. MEDICATIONS: Include that of pravastatin 20 mg a day, amlodipine 10, analgesic balm, Depakote 375 p.o. b.i.d., Remeron 15 at bedtime, Zoloft 50, trazodone 50, Zyprexa 2.5 mg a day, risperidone, Protonix 40 mg a day, vitamin D3. SOCIAL HISTORY: No smoking, alcohol, or drug use. Lives at home normally. REVIEW OF SYSTEMS: The patient unable to give any type of history. The patient markedly confused and yelling out and with marked confusional mentation. PHYSICAL EXAMINATION: VITAL SIGNS: Blood pressure 130/76, respiratory rate 24, pulse 76, afebrile. GENERAL: The patient is alert, but disoriented x 3. LUNGS: Diminished but clear. HEENT: Traumatic as noted with the laceration repair. Eyes were PERRLA. Mouth and throat: Dry. NECK: Supple. LUNGS: Diminished throughout, but clear. CARDIOVASCULAR: Regular sinus rhythm. ABDOMEN: Soft, nontender. EXTREMITIES: No clubbing, cyanosis, or edema. Abrasions noted on the legs and so forth. NEUROLOGIC: Alert, but confused, disoriented. LABORATORY DATA: Lactic acid 2.1. Drug screen unremarkable. Most of her other labs except for a white count of 12,000, hemoglobin of 10 are basically unremarkable. The patient otherwise will continue to be monitored carefully in psych consult. Because of the elevated lactic acid and the possibility of sepsis causing this acute change in mental status, the patient will be placed on IV antibiotic therapy for now. The patient's urine did show positive for nitrites and she has a Carr catheter in place. KASEY OWENS MD DR: ISAAC/willy JOB#: [id number] / [id number]
[2018-07-13] MEDS: PIPERACILLIN/TAZOBACTAM 4.5 GM in IV NORMAL SALINE 50ML 50 ML IV SCH ×2 (13:54→19:27)
[2018-07-13 15:34] VITALS: BP 126/69
[2018-07-13 20:31] VITALS: BP 135/84
--- NOTE | 2018-07-13 20:37 | PDOC ---
Exam Note: Antoine Note: Please also refer to the separate dictated note~for this date of service dictated separately.~Patient seen individually. Discussed the patient with Nursing staff reviewed the chart.~Reviewed interim history and current functioning. Reviewed vital signs,~Labs/ Radiology~and current medications noted below. Continue current treatment with the changes noted in the dictated addendum note Assessment: Vital Signs: Vital Signs Date Time Temp Pulse Resp B/P (MAP) Pulse Ox O2 Delivery O2 Flow Rate FiO2 07/13/18 20:31 97.3 76 22 135/84 (101) 96 07/13/18 08:00 Room Air I&O Intake and Output 07/13/18 07:00 Intake Total 1436 ml Output Total 1000 ml Balance 436 ml IV Total 1436 ml Output Urine Total 1000 ml Labs: Laboratory Tests Test 07/12/18 20:50 07/13/18 00:45 07/13/18 06:06 07/13/18 07:28 White Blood Count 12.0 x10^3/uL (4.0-11.0) H 8.9 x10^3/uL (4.0-11.0) Red Blood Count 3.56 x10^6/uL (3.50-5.40) 3.59 x10^6/uL (3.50-5.40) Hemoglobin 10.4 g/dL (12.0-15.5) L 10.1 g/dL (12.0-15.5) L Hematocrit 31.4 % (36.0-47.0) L 30.8 % (36.0-47.0) L Mean Corpuscular Volume 88 fL (79-100) 86 fL (79-100) Mean Corpuscular Hemoglobin 29 pg (25-35) 28 pg (25-35) Mean Corpuscular Hemoglobin Concent 33 g/dL (31-37) 33 g/dL (31-37) Red Cell Distribution Width 15.0 % (11.5-14.5) H 15.0 % (11.5-14.5) H Platelet Count 252 x10^3/uL (140-400) 223 x10^3/uL (140-400) Neutrophils (%) (Auto) 80 % (31-73) H 73 % (31-73) Lymphocytes (%) (Auto) 10 % (24-48) L 15 % (24-48) L Monocytes (%) (Auto) 7 % (0-9) 9 % (0-9) Eosinophils (%) (Auto) 3 % (0-3) 3 % (0-3) Basophils (%) (Auto) 1 % (0-3) 1 % (0-3) Neutrophils # (Auto) 9.5 x10^3uL (1.8-7.7) H 6.5 x10^3uL (1.8-7.7) Lymphocytes # (Auto) 1.2 x10^3/uL (1.0-4.8) 1.3 x10^3/uL (1.0-4.8) Monocytes # (Auto) 0.8 x10^3/uL (0.0-1.1) 0.8 x10^3/uL (0.0-1.1) Eosinophils # (Auto) 0.3 x10^3/uL (0.0-0.7) 0.3 x10^3/uL (0.0-0.7) Basophils # (Auto) 0.1 x10^3/uL (0.0-0.2) 0.1 x10^3/uL (0.0-0.2) Prothrombin Time 9.9 SEC (9.4-11.4) Prothrombin Time INR 1.0 (0.9-1.1) PTT 23 SEC (23-33) D-Dimer (Megan) 2.85 mg/L (0.00-0.50) H Urine Collection Type Unknown Urine Color Yellow Urine Clarity Hazy Urine pH 6.0 Urine Specific [place] 1.010 Urine Protein Neg (NEG-TRACE) Urine Glucose (UA) Neg mg/dL (NEG) Urine Ketones (Stick) Neg mg/dL (NEG) Urine Blood Neg (NEG) Urine Nitrite Pos (NEG) Urine Bilirubin Neg (NEG) Urine Urobilinogen Dipstick 0.2 mg/dL (0.2 mg/dL) Urine Leukocyte Esterase Trace (NEG) Urine RBC Occ /HPF (0-2) Urine WBC 5-10 /HPF (0-4) Urine Squamous Epithelial Cells Few /LPF Urine Amorphous Sediment Present /HPF Urine Bacteria Many /HPF (0-FEW) Urine Mucus Mod /LPF Sodium Level 138 mmol/L (136-145) 141 mmol/L (136-145) Potassium Level 4.5 mmol/L (3.5-5.1) 3.9 mmol/L (3.5-5.1) Chloride Level 107 mmol/L (98-107) 108 mmol/L (98-107) H Carbon Dioxide Level 22 mmol/L (21-32) 26 mmol/L (21-32) Anion Gap 9 (6-14) 7 (6-14) Blood Urea Nitrogen 16 mg/dL (7-20) 14 mg/dL (7-20) Creatinine 1.2 mg/dL (0.6-1.0) H 1.1 mg/dL (0.6-1.0) H Estimated GFR (Cockcroft-Gault) 43.0 47.6 Glucose Level 115 mg/dL (70-99) H 120 mg/dL (70-99) H Calcium Level 8.7 mg/dL (8.5-10.1) 8.7 mg/dL (8.5-10.1) Magnesium Level 1.9 mg/dL (1.8-2.4) Total Bilirubin 0.4 mg/dL (0.2-1.0) Direct Bilirubin 0.1 mg/dL (0.0-0.2) Aspartate Amino Transferase (AST) 25 U/L (15-37) Alanine Aminotransferase (ALT) 18 U/L (14-59) Alkaline Phosphatase 102 U/L (46-116) Creatine Kinase 130 U/L (26-192) Creatine Kinase MB (Mass) 2.5 ng/mL (0.0-3.6) Creatine Kinase MB Relative Index 1.9 % (0-4) Troponin I Quantitative < 0.017 ng/mL (0-0.055) WE-Fhm-K-Type Natriuretic Peptide 267 pg/mL (0-449) Total Protein 6.7 g/dL (6.4-8.2) Albumin 2.7 g/dL (3.4-5.0) L Lipase 125 U/L (73-393) Thyroid Stimulating Hormone (TSH) 2.482 uIU/mL (0.358-3.740) Urine Opiates Screen Neg (NEG) Urine Methadone Screen Neg (NEG) Urine Barbiturates Neg (NEG) Urine Phencyclidine Screen Neg (NEG) Urine Amphetamine/Methamphetamine Neg (NEG) Urine Benzodiazepines Screen Pos (NEG) Urine Cocaine Screen Neg (NEG) Urine Cannabinoids Screen Neg (NEG) Urine Ethyl Alcohol Neg (NEG) Glucose (Fingerstick) 136 mg/dL (70-99) H 122 mg/dL (70-99) H Test 07/13/18 10:07 07/13/18 11:22 07/13/18 13:02 07/13/18 16:34 Lactic Acid Level 2.1 mmol/L (0.4-2.0) H 1.6 mmol/L (0.4-2.0) Ammonia < 10 mcmol/L (11-34) L Glucose (Fingerstick) 148 mg/dL (70-99) H 125 mg/dL (70-99) H Current Medications: Meds: Current Medications Lactated Ringer's 1,000 ml @ 100 mls/hr Q10H IV Last administered on at 23:13; Start 07/12/18 at 20:00; Stop 07/13/18 at 06:00; Status DC Tetanus/ Diphtheria Toxoids Adsorbed (Tenivac Vial) 0.5 ml ONCE ONCE VAX IM Last administered on 07/12/18at 23:12; Start 07/12/18 at 20:00; Stop 07/12/18 at 20:10; Status DC Bupivacaine HCl (Sensorcaine Mpf 0.5%) 10 ml 1X ONCE IJ ; Start 07/12/18 at 20: 00; Stop 07/12/18 at 20:10; Status DC Lidocaine HCl 20 ml 1X ONCE IJ ; Start 07/12/18 at 20:00; Stop 07/12/18 at 20: 10; Status DC Ondansetron HCl (Zofran) 4 mg PRN Q4HRS PRN IV NAUSEA/VOMITING; Start 07/12/18 at 21:15; Stop 07/13/18 at 21:14 Albuterol/ Ipratropium (Duoneb) 3 ml RTQID NEB ; Start 07/13/18 at 08:00; Stop 07/14/18 at 07:59 Lactated Ringer's 1,000 ml @ 160 mls/hr Q6H15M IV Last administered on at 19:28; Start 07/12/18 at 21:15 Ceftriaxone Sodium 1 gm/ Sodium Chloride 50 ml @ 100 mls/hr 1X ONCE IV ; Start 07/12/18 at 22:00; Stop 07/12/18 at 22:29; Status UNV Ceftriaxone Sodium (Rocephin) 1 gm ONCE ONCE IVP Last administered on at 23:17; Start 07/12/18 at 22:00; Stop 07/12/18 at 22:05; Status DC Magnesium Hydroxide (Milk Of Magnesia) 2,400 mg 1X ONCE PO ; Start 07/12/18 at 22:15; Stop 07/12/18 at 22:16; Status DC Lorazepam (Ativan) 2 mg 1X ONCE PO ; Start 07/12/18 at 22:45; Stop 07/12/18 at 22:46; Status DC Lorazepam (Ativan) 2 mg 1X STAT IV Last administered on 07/12/18at 22:34; Start 07/12/18 at 22:26; Stop 07/12/18 at 22:35; Status DC Lorazepam (Ativan) 2 mg 1X ONCE IV Last administered on 07/12/18at 22:45; Start 07/12/18 at 22:45; Stop 07/12/18 at 22:46; Status DC Haloperidol Lactate (Haldol) 2 mg 1X ONCE IVP Last administered on 07/12/18at 23:09; Start 07/12/18 at 23:00; Stop 07/12/18 at 23:21; Status DC Diphenhydramine HCl (Benadryl) 50 mg 1X ONCE IVP Last administered on at 23:12; Start 07/12/18 at 23:00; Stop 07/12/18 at 23:21; Status DC Lorazepam (Ativan) 2 mg 1X ONCE IV ; Start 07/13/18 at 06:00; Stop 07/13/18 at 06:23; Status DC Acetaminophen (Tylenol) 650 mg PRN QID PRN PO PAIN / TEMP Last administered on 07/13/18at 11:45; Start 07/13/18 at 08:45 Vitamin D (Vitamin D3) 50,000 unit WEEKLY PO Last administered on 07/13/18at 11: 46; Start 07/13/18 at 09:00 Multi-Ingredient Ointment (Analgesic [place]) 1 nelda PRN QID PRN TP MUSCLE PAIN; Start 07/13/18 at 08:45 Pravastatin Sodium (Pravachol) 20 mg HS PO ; Start 07/13/18 at 21:00 Sertraline HCl (Zoloft) 50 mg DAILY PO Last administered on 07/13/18at 09:14; Start 07/13/18 at 09:00 Amlodipine Besylate (Norvasc) 10 mg DAILY PO Last administered on 07/13/18at 09: 14; Start 07/13/18 at 09:00 Divalproex Sodium (Depakote Sprinkles) 375 mg BID PO Last administered on at 09:13; Start 07/13/18 at 09:00 Magnesium Hydroxide (Milk Of Magnesia) 2,400 mg PRN QHS PRN PO CONSTIPATION; Start 07/13/18 at 09:00 Memantine (Namenda) 10 mg BID PO Last administered on 07/13/18at 09:14; Start at 09:00 Mirtazapine (Remeron) 15 mg QHS PO ; Start 07/13/18 at 21:00 Olanzapine (ZyPREXA) 2.5 mg PRN Q4HRS PRN PO AGITATION Last administered on 11/18at 11:17; Start 07/13/18 at 09:00 Pantoprazole Sodium (Protonix) 40 mg DAILYAC PO Last administered on 07/13/18at 09:14; Start 07/13/18 at 09:00 Potassium Chloride (Klor-Con) 20 meq DAILYWBKFT PO Last administered on at 09:00; Start 07/13/18 at 09:00 Risperidone (RisperDAL) 0.5 mg QHS PO ; Start 07/13/18 at 21:00 Trazodone HCl (Desyrel) 50 mg PRN QHS PRN PO INSOMNIA; Start 07/13/18 at 09:00 Piperacillin Sod/ Tazobactam Sod (Zosyn Per Pharmacy) 1 each PRN DAILY PRN MC SEE COMMENTS; Start 07/13/18 at 10:45 Levofloxacin/ Dextrose 150 ml @ 150 mls/hr Q24H IV ; Start 07/13/18 at 11:00; Stop 07/13/18 at 11:00; Status DC Levofloxacin/ Dextrose 50 ml @ 50 mls/hr Q24H IV Last administered on at 11:29; Start 07/13/18 at 11:00 Piperacillin Sod/ Tazobactam Sod 4.5 gm/Sodium Chloride 50 ml @ 100 mls/hr Q6HRS IV Last administered on 07/13/18at 19:27; Start 07/13/18 at 12:00 Lactobacillus Rhamnosus (Culturelle) 1 cap BID PO ; Start 07/13/18 at 21:00 Active Scripts Active Pantoprazole Sodium 40 Mg Tablet.dr 40 Mg PO DAILYAC 30 Days Amlodipine Besylate 10 Mg Tablet 10 Mg PO DAILY 30 Days Reported Trazodone Hcl 50 Mg Tablet 50 Mg PO PRN QHS PRN Risperidone 0.5 Mg Tablet 0.5 Mg PO QHS Zoloft (Sertraline Hcl) 50 Mg Tablet 50 Mg PO DAILY Olanzapine 5 Mg Tablet 2.5 Mg PO PRN Q4HRS PRN MDD 10mg Analgesic [place] (Methyl Salicylate/Menthol) 28 Gm Oint...g. 1 Nelda TP PRN QID PRN Milk Of Magnesia (Magnesium Hydroxide) 2,400 Mg/10 Ml Oral.susp 2,400 Mg PO PRN QHS PRN Depakote Sprinkle (Divalproex Sodium) 125 Mg Cap.sprink 375 Mg PO BID D3-50 (Cholecalciferol (Vitamin D3)) 50,000 Unit Capsule 50,000 Unit PO WEEKLY Tylenol (Acetaminophen) 325 Mg Tablet 650 Mg PO PRN QID PRN Mirtazapine 15 Mg Tablet 15 Mg PO QHS Potassium Chloride 10 Meq Tablet.er 20 Meq PO DAILYWBKFT Namenda (Memantine Hcl) 10 Mg Tablet 10 Mg PO BID Pravastatin Sodium 20 Mg Tablet 20 Mg PO HS I have reviewed the current psychotropics carefully including drug interactions. Risk benefit ratio favors no change other than as noted in my dictated progress note. 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
[2018-07-13] MEDS: LACTOBACILLUS RHAMNOSUS GG 1 CAPSULE. PO SCH (20:42)
[2018-07-13] MEDS ORDERED: PRAVASTATIN 20 MG TABLET. PO SCH (21:00)
[2018-07-13] MEDS ORDERED: MIRTAZAPINE 15 MG TABLET PO SCH (21:00)
[2018-07-13] MEDS ORDERED: risperiDONE 0.5 MG TABLET. PO SCH (21:00)
[2018-07-14] MEDS: PIPERACILLIN/TAZOBACTAM 4.5 GM in IV NORMAL SALINE 50ML 50 ML IV SCH ×3 (00:26→11:18)
[2018-07-14] MEDS: IV RINGERS SOLUTION,LACTATED 1,000 ML IV SCH (04:28)
[2018-07-14] MEDS: OLANZapine 2.5 MG TABLET PO PRN ×2 (05:18→11:18)
[2018-07-14 05:49] VITALS: BP 120/79
[2018-07-14 06:54] LABS: BASO % 1 % (0-3); EOS # 0.3 x10^3/uL (0.0-0.7); EOS % 5 % (0-3); HEMATOCRIT 32.1 % (36.0-47.0); HEMOGLOBIN 10.5 g/dL (12.0-15.5); LYMPH # 1.2 x10^3/uL (1.0-4.8); LYMPH % 17 % (24-48); MEAN CORPUSCULAR HEMOGLOBIN 28 pg (25-35); MEAN CORPUSCULAR HGB CONC 33 g/dL (31-37); MEAN CORPUSCULAR VOLUME 86 fL (79-100); MONO # 0.6 x10^3/uL (0.0-1.1); MONO % 9 % (0-9); NEUT # 4.8 x10^3uL (1.8-7.7); NEUT % 68 % (31-73); PLATELET COUNT 221 x10^3/uL (140-400); RED BLOOD COUNT 3.73 x10^6/uL (3.50-5.40); RED CELL DISTRIBUTION WIDTH 15.2 % (11.5-14.5)
[2018-07-14] MEDS: POTASSIUM CHLORIDE 20 MEQ TABLET.ER. PO SCH (08:12)
[2018-07-14] MEDS: DIVALPROEX 125 MG CAP.SPRINK PO SCH (08:12)
[2018-07-14] MEDS: LACTOBACILLUS RHAMNOSUS GG 1 CAPSULE. PO SCH (08:12)
[2018-07-14] MEDS: SERTRALINE 50 MG TABLET. PO SCH (08:12)
[2018-07-14] MEDS: PANTOPRAZOLE 40 MG TABLET. PO SCH (08:12)
[2018-07-14] MEDS: MEMANTINE 10 MG TABLET. PO SCH (08:13)
[2018-07-14] MEDS: amLODIPine BESYLATE 10 MG TABLET PO SCH (08:13)
--- NOTE | 2018-07-14 09:36 | NUR ---
Pt arrived to unit Saturday night after a fall at home. On Saturday, 07/13, pt was very confused on where she was. She was very anxious and tearful and wanted to go home. She thought her parents were waiting for her to come home and they would be mad if she wasn't there in time. Pt received prn zydis to help calm her down. This morning pt remains very confused and anxious. Again, she is asking that we call her parents and make sure they know where she is. She keeps trying to get out of bed to leave and go to them. Pt is not easily redirected. Pt will call out if no one is in her room, yelling for help or saying a name of someone that I can not understand.
--- NOTE | 2018-07-14 09:45 | NUR ---
Arrived onto shift, patient was yelling out "hello" from room. Patient appears very disoriented to place and situation, uable to explain where she is at. Talking about how she needs to go home and her car is outside so she can go drive. Patient does well with company but once left alone she starts to yell out and be more confused and agitated. Patient very restless and trying to get out of bed, nurse continues to try to reorient patient. Patient was taken to shower this morning, required moderate assist. Patient denies pain or discomfort this morning, but complains of catheter being uncomfortable. Catheter removed this morning, urine clear pale yellow.
[2018-07-14 10:04] VITALS: BP 134/79
[2018-07-14] MEDS: ACETAMINOPHEN 325 MG TABLET PO PRN (10:18)
--- NOTE | 2018-07-14 11:30 | NUR ---
Dr. Rowley notified of patients behaviors, PRN zyprexa zydis ordered and given at this time. Patient yelling and continues to cry majority of day. Currently looking for granddaughter Adelia under the sheets and bed, states the she sees her running around and then she cant find her. This is making patient very anxious and tearful, Pt also hitting at staff when they are trying to assist patient.
--- NOTE | 2018-07-14 14:45 | NUR ---
Patient accepted to [facility], awaiting for nurse to call for report. Patient sitting out at nurses station at this time, calm and cooperative with staff.
[2018-07-14 14:59] VITALS: BP 117/77
--- NOTE | 2018-07-14 15:41 | NUR ---
Report given to Yudith OHARA on [facility] unit. Patient ambulated off unit via wheelchair by staff. Belongings left with patient and IV discontinued at this time.
--- NOTE | 2018-07-14 17:47 | PDOC ---
Exam Note: Antoine Note: Please also refer to the separate dictated note~for this date of service dictated separately.~Patient seen individually. Discussed the patient with Nursing staff reviewed the chart.~Reviewed interim history and current functioning. Reviewed vital signs,~Labs/ Radiology~and current medications noted below. Continue current treatment with the changes noted in the dictated addendum note Assessment: Vital Signs: Vital Signs Date Time Temp Pulse Resp B/P (MAP) Pulse Ox O2 Delivery O2 Flow Rate FiO2 07/14/18 14:59 98.4 89 18 117/77 (90) 94 Room Air I&O Intake and Output 07/14/18 06:59 Intake Total 944 ml Output Total 4600 ml Balance -3656 ml Intake Oral 780 ml IV Total 164 ml Output Urine Total 4600 ml Labs: Laboratory Tests Test 07/13/18 21:00 07/14/18 05:40 07/14/18 07:17 07/14/18 11:20 Glucose (Fingerstick) 93 mg/dL (70-99) 106 mg/dL (70-99) H 161 mg/dL (70-99) H White Blood Count 7.0 x10^3/uL (4.0-11.0) Red Blood Count 3.73 x10^6/uL (3.50-5.40) Hemoglobin 10.5 g/dL (12.0-15.5) L Hematocrit 32.1 % (36.0-47.0) L Mean Corpuscular Volume 86 fL (79-100) Mean Corpuscular Hemoglobin 28 pg (25-35) Mean Corpuscular Hemoglobin Concent 33 g/dL (31-37) Red Cell Distribution Width 15.2 % (11.5-14.5) H Platelet Count 221 x10^3/uL (140-400) Neutrophils (%) (Auto) 68 % (31-73) Lymphocytes (%) (Auto) 17 % (24-48) L Monocytes (%) (Auto) 9 % (0-9) Eosinophils (%) (Auto) 5 % (0-3) H Basophils (%) (Auto) 1 % (0-3) Neutrophils # (Auto) 4.8 x10^3uL (1.8-7.7) Lymphocytes # (Auto) 1.2 x10^3/uL (1.0-4.8) Monocytes # (Auto) 0.6 x10^3/uL (0.0-1.1) Eosinophils # (Auto) 0.3 x10^3/uL (0.0-0.7) Basophils # (Auto) 0.0 x10^3/uL (0.0-0.2) Current Medications: Meds: Current Medications Lactated Ringer's 1,000 ml @ 100 mls/hr Q10H IV Last administered on at 23:13; Start 07/12/18 at 20:00; Stop 07/13/18 at 06:00; Status DC Tetanus/ Diphtheria Toxoids Adsorbed (Tenivac Vial) 0.5 ml ONCE ONCE VAX IM Last administered on 07/12/18at 23:12; Start 07/12/18 at 20:00; Stop 07/12/18 at 20:10; Status DC Bupivacaine HCl (Sensorcaine Mpf 0.5%) 10 ml 1X ONCE IJ ; Start 07/12/18 at 20: 00; Stop 07/12/18 at 20:10; Status DC Lidocaine HCl 20 ml 1X ONCE IJ ; Start 07/12/18 at 20:00; Stop 07/12/18 at 20: 10; Status DC Ondansetron HCl (Zofran) 4 mg PRN Q4HRS PRN IV NAUSEA/VOMITING; Start 07/12/18 at 21:15; Stop 07/13/18 at 21:14; Status DC Albuterol/ Ipratropium (Duoneb) 3 ml RTQID NEB ; Start 07/13/18 at 08:00; Stop 07/14/18 at 07:59; Status DC Lactated Ringer's 1,000 ml @ 160 mls/hr Q6H15M IV Last administered on at 04:28; Start 07/12/18 at 21:15; Stop 07/14/18 at 10:09; Status DC Ceftriaxone Sodium 1 gm/ Sodium Chloride 50 ml @ 100 mls/hr 1X ONCE IV ; Start 07/12/18 at 22:00; Stop 07/12/18 at 22:29; Status UNV Ceftriaxone Sodium (Rocephin) 1 gm ONCE ONCE IVP Last administered on at 23:17; Start 07/12/18 at 22:00; Stop 07/12/18 at 22:05; Status DC Magnesium Hydroxide (Milk Of Magnesia) 2,400 mg 1X ONCE PO ; Start 07/12/18 at 22:15; Stop 07/12/18 at 22:16; Status DC Lorazepam (Ativan) 2 mg 1X ONCE PO ; Start 07/12/18 at 22:45; Stop 07/12/18 at 22:46; Status DC Lorazepam (Ativan) 2 mg 1X STAT IV Last administered on 07/12/18at 22:34; Start 07/12/18 at 22:26; Stop 07/12/18 at 22:35; Status DC Lorazepam (Ativan) 2 mg 1X ONCE IV Last administered on 07/12/18at 22:45; Start 07/12/18 at 22:45; Stop 07/12/18 at 22:46; Status DC Haloperidol Lactate (Haldol) 2 mg 1X ONCE IVP Last administered on 07/12/18at 23:09; Start 07/12/18 at 23:00; Stop 07/12/18 at 23:21; Status DC Diphenhydramine HCl (Benadryl) 50 mg 1X ONCE IVP Last administered on at 23:12; Start 07/12/18 at 23:00; Stop 07/12/18 at 23:21; Status DC Lorazepam (Ativan) 2 mg 1X ONCE IV ; Start 07/13/18 at 06:00; Stop 07/13/18 at 06:23; Status DC Acetaminophen (Tylenol) 650 mg PRN QID PRN PO PAIN / TEMP Last administered on 07/14/18at 10:18; Start 07/13/18 at 08:45; Stop 07/14/18 at 15:46; Status DC Vitamin D (Vitamin D3) 50,000 unit WEEKLY PO Last administered on 07/13/18at 11: 46; Start 07/13/18 at 09:00; Stop 07/14/18 at 15:46; Status DC Multi-Ingredient Ointment (Analgesic [place]) 1 nelda PRN QID PRN TP MUSCLE PAIN; Start 07/13/18 at 08:45; Stop 07/14/18 at 15:46; Status DC Pravastatin Sodium (Pravachol) 20 mg HS PO Last administered on 07/13/18at 20:44 ; Start 07/13/18 at 21:00; Stop 07/14/18 at 15:46; Status DC Sertraline HCl (Zoloft) 50 mg DAILY PO Last administered on 07/14/18at 08:12; Start 07/13/18 at 09:00; Stop 07/14/18 at 15:46; Status DC Amlodipine Besylate (Norvasc) 10 mg DAILY PO Last administered on 07/14/18at 08: 13; Start 07/13/18 at 09:00; Stop 07/14/18 at 15:46; Status DC Divalproex Sodium (Depakote Sprinkles) 375 mg BID PO Last administered on at 08:12; Start 07/13/18 at 09:00; Stop 07/14/18 at 15:46; Status DC Magnesium Hydroxide (Milk Of Magnesia) 2,400 mg PRN QHS PRN PO CONSTIPATION; Start 07/13/18 at 09:00; Stop 07/14/18 at 15:46; Status DC Memantine (Namenda) 10 mg BID PO Last administered on 07/14/18at 08:13; Start at 09:00; Stop 07/14/18 at 15:46; Status DC Mirtazapine (Remeron) 15 mg QHS PO Last administered on 07/13/18at 20:43; Start 07/13/18 at 21:00; Stop 07/14/18 at 15:46; Status DC Olanzapine (ZyPREXA) 2.5 mg PRN Q4HRS PRN PO AGITATION Last administered on at 11:18; Start 07/13/18 at 09:00; Stop 07/14/18 at 12:28; Status DC Pantoprazole Sodium (Protonix) 40 mg DAILYAC PO Last administered on 07/14/18at 08:12; Start 07/13/18 at 09:00; Stop 07/14/18 at 15:46; Status DC Potassium Chloride (Klor-Con) 20 meq DAILYWBKFT PO Last administered on at 08:12; Start 07/13/18 at 09:00; Stop 07/14/18 at 15:46; Status DC Risperidone (RisperDAL) 0.5 mg QHS PO Last administered on 07/13/18at 20:43; Start 07/13/18 at 21:00; Stop 07/14/18 at 15:46; Status DC Trazodone HCl (Desyrel) 50 mg PRN QHS PRN PO INSOMNIA; Start 07/13/18 at 09:00 ; Stop 07/14/18 at 15:46; Status DC Piperacillin Sod/ Tazobactam Sod (Zosyn Per Pharmacy) 1 each PRN DAILY PRN MC SEE COMMENTS; Start 07/13/18 at 10:45; Stop 07/14/18 at 15:46; Status DC Levofloxacin/ Dextrose 150 ml @ 150 mls/hr Q24H IV ; Start 07/13/18 at 11:00; Stop 07/13/18 at 11:00; Status DC Levofloxacin/ Dextrose 50 ml @ 50 mls/hr Q24H IV Last administered on at 10:19; Start 07/13/18 at 11:00; Stop 07/14/18 at 15:46; Status DC Piperacillin Sod/ Tazobactam Sod 4.5 gm/Sodium Chloride 50 ml @ 100 mls/hr Q6HRS IV Last administered on 07/14/18at 11:18; Start 07/13/18 at 12:00; Stop at 15:46; Status DC Lactobacillus Rhamnosus (Culturelle) 1 cap BID PO Last administered on at 08:12; Start 07/13/18 at 21:00; Stop 07/14/18 at 15:46; Status DC Olanzapine (ZyPREXA ZYDIS) 5 mg PRN Q2HR PRN PO AGITATION Last administered on 07/14/18at 12:23; Start 07/14/18 at 12:30; Stop 07/14/18 at 15:46; Status DC Active Scripts Active Pantoprazole Sodium 40 Mg Tablet.dr 40 Mg PO DAILYAC 30 Days Amlodipine Besylate 10 Mg Tablet 10 Mg PO DAILY 30 Days Reported Trazodone Hcl 50 Mg Tablet 50 Mg PO PRN QHS PRN Risperidone 0.5 Mg Tablet 0.5 Mg PO QHS Zoloft (Sertraline Hcl) 50 Mg Tablet 50 Mg PO DAILY Olanzapine 5 Mg Tablet 2.5 Mg PO PRN Q4HRS PRN MDD 10mg Analgesic [place] (Methyl Salicylate/Menthol) 28 Gm Oint...g. 1 Nelda TP PRN QID PRN Milk Of Magnesia (Magnesium Hydroxide) 2,400 Mg/10 Ml Oral.susp 2,400 Mg PO PRN QHS PRN Depakote Sprinkle (Divalproex Sodium) 125 Mg Cap.sprink 375 Mg PO BID D3-50 (Cholecalciferol (Vitamin D3)) 50,000 Unit Capsule 50,000 Unit PO WEEKLY Tylenol (Acetaminophen) 325 Mg Tablet 650 Mg PO PRN QID PRN Mirtazapine 15 Mg Tablet 15 Mg PO QHS Potassium Chloride 10 Meq Tablet.er 20 Meq PO DAILYWBKFT Namenda (Memantine Hcl) 10 Mg Tablet 10 Mg PO BID Pravastatin Sodium 20 Mg Tablet 20 Mg PO HS I have reviewed the current psychotropics carefully including drug interactions. Risk benefit ratio favors no change other than as noted in my dictated progress note. 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
--- NOTE | 2018-07-14 21:29 | CONS ---
DATE OF CONSULTATION: 07/13/2018 PSYCHIATRIC CONSULTATION This is a late entry, , covers elements not covered in my initial note, 07/13. SUBJECTIVE: I met with the patient evening of 07/13. IDENTIFYING DATA: The patient is an 83-year-old female who is seen in room 111, [address] [place] [address], for a psychiatric consult requested by Dr. Valdovinos on account of the patient's increased confusional, status post fall and syncope and head injury. Reportedly, the patient has been living at home with her son, wandering away from home, gets extremely combative late in the evening. Behaviors have been deemed dangerous, unmanageable by the son in the home. Apparently, the patient may need usp placement and I have been asked to consult from a psychiatric standpoint to ensure stabilization before either transfer to [facility] or [facility]. CHIEF COMPLAINT: "I am okay." "I have a headache." HISTORY OF PRESENT ILLNESS: The patient has had progressive memory deficits for short term and remote events. She has had further mental status changes recently, went out in the middle of the night with a walker. She fell, was crawling around the ground. The neighbors found her in the middle of the night. She was brought to the Emergency Room and was worked up. She was extremely disoriented, psychotic, talking rapidly, talking to people who were not there. She was relating that her mother was 82 years old, that her boy was 7 years old, entirely confused about this and other events. The patient did have a head laceration, 2.5 cm, repaired in the ER. She is admitted with Alzheimer/vascular dementia with delusion, depression, encephalopathy, anxiety disorder, impulsive behavior, history of pulmonary emboli. She has had sleep and appetite changes. No clear history of bipolar disorder. PAST PSYCHIATRIC HISTORY: Progressive dementia. MEDICAL HISTORY: Peripheral neuropathy, history of cardiac catheterization, GI disorders, appendectomy, cholecystectomy, uterine suspension incontinence, left knee replacement, back pain, endocrine disorder, wears glasses. Skin disorder, history of skin cancer, melanoma, right arm, 10 years ago. ALLERGIES: Negative. FAMILY HISTORY: Cardiovascular disease and CVA in the family. SOCIAL HISTORY: No alcohol or drug abuse. She lives at home with her son. CURRENT PSYCHOTROPICS: Zoloft 50 mg a day, trazodone 50 mg at bedtime, Zyprexa 2.5 mg a day, Remeron 15 mg at bedtime, Depakote 375 mg b.i.d., Risperdal 0.5 mg at bedtime. CODE STATUS: She is a full code. MENTAL STATUS EXAMINATION: The patient was seen individually evening of 07/13. She is oriented to herself, anxious, restless, complains of headaches. No CV, , pulmonary, eye, ENT system symptoms on review. She appears intermittently psychotic, restless, anxious. LABORATORY DATA: CT head showed generalized cerebral atrophy, microvascular changes in deep white matter, no acute changes. IMPRESSION: Major neurocognitive disorder, Alzheimer, vascular with delusion, depression, behavioral disturbance; anxiety disorder, unspecified; impulse control disorder, unspecified. Rest unchanged from above. PLAN: From a psychiatric standpoint, continue her current psychotropics. Once she is stable, we will simplify the atypical antipsychotics. Instead of using 2 atypicals, we will try and stop the Risperdal. The patient may need [facility] before transitioning to a [facility]. I will be happy to follow her while she is on . Dr. Valdovinos, thank you for the opportunity to participate in your patient's care. We will follow with you. MONICA BOND MD DR: [email or web address]/willy JOB#: [id number] / [id number]
--- NOTE | 2018-07-14 21:32 | PN ---
DATE: 07/14/2018 PSYCHIATRIC PROGRESS NOTE This note covers elements not covered in my initial note. SUBJECTIVE: I met with the patient afternoon of 07/14, previously discussed with Sissy, Clinic Nurse life skills coordinator volunteer after the patient was screened for the [facility] Unit. The patient remains extremely confused, psychotic, restless, agitated. As I have entered the room, bed rails were up, but she was trying to squeeze through the bed rails, almost standing up, nursing staff intervened. She has significant fall risk. REVIEW OF SYSTEMS: Ambulation impaired. No CV, , pulmonary, eye, ENT system symptoms on review. MENTAL STATUS EXAM: Oriented to herself. Insight, judgment, recent and remote memory, attention, concentration, fund of knowledge poor, consistent with her diagnosis. IMPRESSION: Major neurocognitive disorder, Alzheimer, vascular with delusion, depression, behavioral disturbance. Rest unchanged. PLAN: No change from initial note. Continue current psychotropics. Transition to [facility] Unit once medically stable. MONICA BOND MD DR: TAMIKO/willy JOB#: [id number] / [id number]
== END 2018-07-14 15:45 | DRG 871 ==
LOC: ER 19:53 → 1 SOUTH 23:38
PROVIDERS: ADMIT Family Medicine; ATTEND Family Medicine
PROC: 0HQ0XZZ Repair Scalp Skin, External Approach (ICD-10-PCS; principal; 2018-07-12)
DX: A41.9 Sepsis, unspecified organism (principal); G93.40 Encephalopathy, unspecified; F23 Brief psychotic disorder; F33.9 Major depressive disorder, recurrent, unspecified; N39.0 Urinary tract infection, site not specified; E46 Unspecified protein-calorie malnutrition; S01.01XA Laceration without foreign body of scalp, initial encounter; E11.9 Type 2 diabetes mellitus without complications; F01.50 Vascular dementia, unspecified severity, without behavioral disturbance, psychotic disturbance, mood disturbance, and anxiety; F02.80 Dementia in other diseases classified elsewhere, unspecified severity, without behavioral disturbance, psychotic disturbance, mood disturbance, and anxiety; F41.9 Anxiety disorder, unspecified; F63.9 Impulse disorder, unspecified; W18.39XA Other fall on same level, initial encounter; G30.9 Alzheimer's disease, unspecified; I10 Essential (primary) hypertension; D72.829 Elevated white blood cell count, unspecified; D64.9 Anemia, unspecified; K59.00 Constipation, unspecified; G62.9 Polyneuropathy, unspecified; Z79.899 Other long term (current) drug therapy; Z96.652 Presence of left artificial knee joint; Z82.3 Family history of stroke; Z82.49 Family history of ischemic heart disease and other diseases of the circulatory system; Z86.711 Personal history of pulmonary embolism; Z91.81 History of falling; Z85.820 Personal history of malignant melanoma of skin; M19.90 Unspecified osteoarthritis, unspecified site; Z90.49 Acquired absence of other specified parts of digestive tract; Y93.89 Activity, other specified; Y92.89 Other specified places as the place of occurrence of the external cause; Y99.8 Other external cause status; Z68.38 Body mass index [BMI] 38.0-38.9, adult
CPT/HCPCS: 12001; 36415; 70450; 71045; 72125; 72170; 74021; 80048; 80076; 80307; 81001; 82140; 82553; 82947; 83605; 83690; 83735; 83880; 84443; 84484; 85025; 85379; 85610; 85730; 87086; 87186; 90471; 90714; 93005; 96361; 96374; 96375; J0696; J1200; J1630; J1956; J2060; J2543; J7120; 99285-25; G0479

== ENCOUNTER 2018-07-14 15:50 | Inpatient (IN) | payer MEDICARE ==
[~2018-07-14] VITALS: Ht 160 cm; Wt 67.7 kg
[~2018-07-14 15:50] MED LIST changes: -AMLO10TA2 PO; +AMLO10TA6 PO; -DIVA125C PO; +DIVA125C2 PO; +METF500T16 PO; -METF500T5 PO
[2018-07-14] MEDS ORDERED: METHYL SALICYLATE/MENTHOL TOPICAL OINTMENT 29GM TUBE. TP PRN ×2 (17:15→17:30)
[2018-07-14] MEDS ORDERED: MAG HYDROX/AL HYDROX/SIMETH 30 ML ORAL.SUSP PO PRN (17:15)
[2018-07-14] MEDS ORDERED: MAGNESIUM HYDROXIDE 2,400 MG/30 ML ORAL.SUSP. PO PRN (17:15)
[2018-07-14] MEDS ORDERED: ACETAMINOPHEN 325 MG TABLET PO PRN (17:30)
[2018-07-14] MEDS ORDERED: NON FORMULARY ITEM (Magnesium Hydroxide (Milk Of Magnesia) 2,400 MG) PO PRN (17:30)
[2018-07-14 17:34] VITALS: BP 138/87
[2018-07-14] MEDS: risperiDONE 0.5 MG TABLET. PO SCH (19:38)
[2018-07-14] MEDS: traZODone 50 MG TABLET. PO PRN (19:38)
[2018-07-14] MEDS: PRAVASTATIN 20 MG TABLET. PO SCH (19:38)
[2018-07-14] MEDS: MIRTAZAPINE 15 MG TABLET PO SCH (19:38)
[2018-07-14] MEDS: MEMANTINE 10 MG TABLET. PO SCH (19:39)
[2018-07-14] MEDS: DIVALPROEX 125 MG CAP.SPRINK PO SCH (19:39)
[2018-07-14 21:29] LABS: BASO # 0.1 x10^3/uL (0.0-0.2); BASO % 1 % (0-3); EOS # 0.2 x10^3/uL (0.0-0.7); EOS % 3 % (0-3); HEMATOCRIT 34.4 % (36.0-47.0); HEMOGLOBIN 11.2 g/dL (12.0-15.5); LYMPH # 1.5 x10^3/uL (1.0-4.8); LYMPH % 19 % (24-48); MEAN CORPUSCULAR HEMOGLOBIN 28 pg (25-35); MEAN CORPUSCULAR HGB CONC 33 g/dL (31-37); MEAN CORPUSCULAR VOLUME 86 fL (79-100); MONO # 0.7 x10^3/uL (0.0-1.1); MONO % 9 % (0-9); NEUT # 5.5 x10^3uL (1.8-7.7); NEUT % 68 % (31-73); PLATELET COUNT 250 x10^3/uL (140-400); RED CELL DISTRIBUTION WIDTH 15.1 % (11.5-14.5); WHITE BLOOD COUNT 8.1 x10^3/uL (4.0-11.0)
[2018-07-14 21:43] LABS: ALBUMIN 2.8 g/dL (3.4-5.0); ALBUMIN/GLOBULIN RATIO 0.6 (1.0-1.7); CALCIUM 9.3 mg/dL (8.5-10.1); CREATININE 1.5 mg/dL (0.6-1.0); GFR 33.2; POTASSIUM 3.6 mmol/L (3.5-5.1); TOTAL BILIRUBIN 0.4 mg/dL (0.2-1.0); TOTAL PROTEIN 7.4 g/dL (6.4-8.2)
[2018-07-14 21:46] LABS: VAL ACID 62 mcg/mL (50-100)
[2018-07-15] MEDS: levoFLOXacin 250 MG TABLET PO SCH (05:49)
[2018-07-15 06:13] VITALS: BP 144/85
[2018-07-15] MEDS: PANTOPRAZOLE 40 MG TABLET. PO SCH (07:42)
[2018-07-15] MEDS: DIVALPROEX 125 MG CAP.SPRINK PO SCH ×2 (07:42→19:16)
[2018-07-15] MEDS: POTASSIUM CHLORIDE 20 MEQ TABLET.ER. PO SCH (07:42)
[2018-07-15] MEDS: MEMANTINE 10 MG TABLET. PO SCH ×2 (07:43→19:16)
[2018-07-15] MEDS: amLODIPine BESYLATE 10 MG TABLET PO SCH (07:43)
[2018-07-15] MEDS: SERTRALINE 50 MG TABLET. PO SCH (07:43)
[2018-07-15 13:22] LABS: THYROID STIM HORMONE (TSH) 1.321 uIU/mL (0.358-3.740)
[2018-07-15 16:13] VITALS: BP 118/75
--- NOTE | 2018-07-15 17:23 | PDOC1 ---
History of Present Illness History of Present Illness Consulting physician: Dr Martinez Reason for consult: Medical management Patient is an 83-year-old female referred to the senior behavioral unit from the medical floor by Dr. Valdovinos. She had been admitted after suffering a fall with head injury and worsening confusion. She was very agitated and confused and at times combative on the medical floor and unable to return to her home where she lives with her son. She has history of Alzheimer's and vascular dementia and has been cared for at home by her son. Records reveal that her confusion had been worsening U before her fall with hallucinations wandering and changes in sleep and appetite. I find the patient wandering the halls using her walker asking every passerby to loan her $20. On my evaluation she denies any physical complaints only concern for some money and where to spend it. Past medical history: Dementia, peripheral neuropathy, coronary artery disease, and incontinence, osteoarthritis, chronic back pain, depression, melanoma, pulmonary embolism, unsteady gait, hyperlipidemia Past surgical history: Cardiac catheterizations, appendectomy, cholecystectomy, left knee replacement, Social history: Lives at home with her son, no smoking alcohol or drug use Allergies: Coded Allergies: NKMA (Verified Allergy, Unknown, 07/12/18) Review of Systems Review Of Systems Patient is very confused and disoriented and accurate review of systems is unobtainable Medications Current Medications Acetaminophen (Tylenol) 650 mg PRN Q6HRS PRN PO PAIN / TEMP; Start 07/14/18 at 17:15 Multi-Ingredient Ointment (Analgesic Brixey) 1 nelda PRN QID PRN TP MUSCLE PAIN; Start 07/14/18 at 17:15 Al Hydroxide/Mg Hydroxide (Mylanta Plus Xs) 15 ml PRN AFTMEALHC PRN PO DYSPEPSIA; Start 07/14/18 at 17:15 Magnesium Hydroxide (Milk Of Magnesia) 2,400 mg PRN QHS PRN PO CONSTIPATION; Start 07/14/18 at 17:15 Sertraline HCl (Zoloft) 50 mg DAILY PO Last administered on 07/15/18at 07:43; Start 07/15/18 at 09:00 Divalproex Sodium (Depakote Sprinkles) 375 mg BID PO Last administered on at 07:42; Start 07/14/18 at 21:00 Memantine (Namenda) 10 mg BID PO Last administered on 07/15/18 07:43; Start at 21:00 Mirtazapine (Remeron) 15 mg QHS PO Last administered on 07/14/18 19:38; Start 07/14/18 at 21:00 Risperidone (RisperDAL) 0.5 mg QHS PO Last administered on 07/14/18 19:38; Start 07/14/18 at 21:00 Trazodone HCl (Desyrel) 50 mg PRN QHS PRN PO INSOMNIA, MAY REPEAT IN 1HR Last administered on 07/14/18 19:38; Start 07/14/18 at 17:30 Olanzapine (ZyPREXA ZYDIS) 5 mg PRN Q2HR PRN PO PSYCHOSIS; Start 07/14/18 at 17 :30; Stop 07/14/18 at 17:33; Status DC Levofloxacin (Levaquin) 250 mg DAILY06 PO Last administered on 07/15/18at 05:49 ; Start 07/15/18 at 06:00; Stop 07/20/18 at 05:59 Acetaminophen (Tylenol) 650 mg PRN QID PRN PO PAIN / TEMP; Start 07/14/18 at 17 :30; Status UNV Vitamin D (Vitamin D3) 50,000 unit WEEKLY PO ; Start 07/20/18 at 09:00 Multi-Ingredient Ointment (Analgesic Brixey) 1 nelda PRN QID PRN TP MUSCLE PAIN; Start 07/14/18 at 17:30; Status UNV Pravastatin Sodium (Pravachol) 20 mg HS PO Last administered on 07/14/18 19:38 ; Start 07/14/18 at 21:00 Non-Formulary Medication (Magnesium Hydroxide (Milk Of Magnesia)) 2,400 mg PRN QHS PRN PO CONSTIPATION; Start 07/14/18 at 17:30; Status UNV Pantoprazole Sodium (Protonix) 40 mg DAILYAC PO Last administered on 07/15/18 07:42; Start 07/15/18 at 07:30 Potassium Chloride (Klor-Con) 20 meq DAILYWBKFT PO Last administered on at 07:42; Start 07/15/18 at 08:00 Olanzapine (ZyPREXA ZYDIS) 2.5 mg PRN Q2HR PRN PO PSYCHOSIS Last administered on 07/15/18at 13:50; Start 07/14/18 at 17:45 Amlodipine Besylate (Norvasc) 10 mg DAILY PO Last administered on 07/15/18at 07: 43; Start 07/15/18 at 09:00 Active Scripts Active Pantoprazole Sodium 40 Mg Tablet.dr 40 Mg PO DAILYAC 30 Days Amlodipine Besylate 10 Mg Tablet 10 Mg PO DAILY 30 Days Reported Trazodone Hcl 50 Mg Tablet 50 Mg PO PRN QHS PRN Risperidone 0.5 Mg Tablet 0.5 Mg PO QHS Zoloft (Sertraline Hcl) 50 Mg Tablet 50 Mg PO DAILY Olanzapine 5 Mg Tablet 2.5 Mg PO PRN Q4HRS PRN MDD 10mg Analgesic Brixey (Methyl Salicylate/Menthol) 28 Gm Oint...g. 1 Nelda TP PRN QID PRN Milk Of Magnesia (Magnesium Hydroxide) 2,400 Mg/10 Ml Oral.susp 2,400 Mg PO PRN QHS PRN Depakote Sprinkle (Divalproex Sodium) 125 Mg Cap.sprink 375 Mg PO BID D3-50 (Cholecalciferol (Vitamin D3)) 50,000 Unit Capsule 50,000 Unit PO WEEKLY Tylenol (Acetaminophen) 325 Mg Tablet 650 Mg PO PRN QID PRN Mirtazapine 15 Mg Tablet 15 Mg PO QHS Potassium Chloride 10 Meq Tablet.er 20 Meq PO DAILYWBKFT Namenda (Memantine Hcl) 10 Mg Tablet 10 Mg PO BID Pravastatin Sodium 20 Mg Tablet 20 Mg PO HS Exam Vital Signs Vital Signs Date Time Temp Pulse Resp B/P (MAP) Pulse Ox O2 Delivery O2 Flow Rate FiO2 07/15/18 16:13 98.6 89 20 118/75 (89) 94 Room Air General Appearance: Alert, Other (active and agitated wandering the halls with her walker) HEENT: PERRLA, EOMI, Mucous membr. moist/pink, Other (2.5 cm head laceration appears to be healing well no erythema or discharge) Respiratory: Clear to auscultation, Normal air movement Heart: Regular rate, Normal S1, Normal S2 Abdominal: Normal bowel sounds, Soft, No tenderness Extremities: No clubbing, No cyanosis, No edema Neuro: Normal gait (with a walker), Normal speech, Strength at 5/5 X4 ext (as tested), Cranial nerves 3-12 NL Psych/Mental Status: Other (agitated and disoriented) Assessment/Plan Assessment/Plan 84-year-old female with recent fall and head trauma and worsening dementia with multiple medical problems most of which appear to be controlled with current medications. Her vitamin D level was 21, she has been started on supplementation. Hemoglobin A1c was 6.5, no fasting glucose available nonfasting glucose on July 14 was 162. Check fasting chemistry in a.m. Serum iron 24, last hemoglobin was 11.2 and normocytic. Consider iron replacement supplementation with Dr. Martinez. Renal insufficiency noted on July 14 labs with BUN 14 and creatinine 1.5, we will recheck in the morning with a fasting glucose. Thank you Dr. Martinez for allowing me to participate in the care of your patient. I will follow along and offer treatments as necessary. COURSE Allergies Coded Allergies Type Severity Reaction Last Updated Verified NKMA Allergy Unknown 07/12/18 Yes Laboratory Tests Test 07/14/18 21:15 White Blood Count 8.1 x10^3/uL (4.0-11.0) Red Blood Count 4.00 x10^6/uL (3.50-5.40) Hemoglobin 11.2 g/dL (12.0-15.5) Hematocrit 34.4 % (36.0-47.0) Mean Corpuscular Volume 86 fL (79-100) Mean Corpuscular Hemoglobin 28 pg (25-35) Mean Corpuscular Hemoglobin Concent 33 g/dL (31-37) Red Cell Distribution Width 15.1 % (11.5-14.5) Platelet Count 250 x10^3/uL (140-400) Neutrophils (%) (Auto) 68 % (31-73) Lymphocytes (%) (Auto) 19 % (24-48) Monocytes (%) (Auto) 9 % (0-9) Eosinophils (%) (Auto) 3 % (0-3) Basophils (%) (Auto) 1 % (0-3) Neutrophils # (Auto) 5.5 x10^3uL (1.8-7.7) Lymphocytes # (Auto) 1.5 x10^3/uL (1.0-4.8) Monocytes # (Auto) 0.7 x10^3/uL (0.0-1.1) Eosinophils # (Auto) 0.2 x10^3/uL (0.0-0.7) Basophils # (Auto) 0.1 x10^3/uL (0.0-0.2) Sodium Level 147 mmol/L (136-145) Potassium Level 3.6 mmol/L (3.5-5.1) Chloride Level 109 mmol/L (98-107) Carbon Dioxide Level 25 mmol/L (21-32) Anion Gap 13 (6-14) Blood Urea Nitrogen 14 mg/dL (7-20) Creatinine 1.5 mg/dL (0.6-1.0) Estimated GFR (Cockcroft-Gault) 33.2 BUN/Creatinine Ratio 9 (6-20) Glucose Level 162 mg/dL (70-99) Calcium Level 9.3 mg/dL (8.5-10.1) Magnesium Level 2.0 mg/dL (1.8-2.4) Iron Level 24 ug/dL (50-170) Total Iron Binding Capacity 316 ug/dL (250-450) Iron Saturation 8 % (15-34) Total Bilirubin 0.4 mg/dL (0.2-1.0) Aspartate Amino Transf (AST/SGOT) 14 U/L (15-37) Alanine Aminotransferase (ALT/SGPT) 19 U/L (14-59) Alkaline Phosphatase 107 U/L (46-116) Total Protein 7.4 g/dL (6.4-8.2) Albumin 2.8 g/dL (3.4-5.0) Albumin/Globulin Ratio 0.6 (1.0-1.7) Triglycerides Level 137 mg/dL (0-150) Cholesterol Level 198 mg/dL (0-200) LDL Cholesterol, Calculated 121 mg/dL (0-100) VLDL Cholesterol, Calculated 27 mg/dL (0-40) Non-HDL Cholesterol Calculated 148 mg/dL (0-129) HDL Cholesterol 50 mg/dL (40-60) Cholesterol/HDL Ratio 3.0 Vitamin B12 Level 312 pg/mL (247-911) 25-Hydroxy Vitamin D Total 21.1 ng/mL (30-100) Thyroid Stimulating Hormone (TSH) 1.321 uIU/mL (0.358-3.740) Valproic Acid (Depakene) Level 62 mcg/mL (50-100) Valproic Acid Last Dose Date 07/14/18 Valproic Acid Last Dose Time 0900 Treponema pallidum Antibody Nonreactive (Nonreactive) Current Medications Medications (Trade) Dose Ordered Sig/Henrry Route PRN Reason Start Time Stop Time Status Last Admin Dose Admin Sertraline HCl (Zoloft) 50 mg DAILY PO 07/15/18 09:00 07/15/18 07:43 Divalproex Sodium (Depakote Sprinkles) 375 mg BID PO 07/14/18 21:00 07/15/18 07:42 Memantine (Namenda) 10 mg BID PO 07/14/18 21:00 07/15/18 07:43 Mirtazapine (Remeron) 15 mg QHS PO 07/14/18 21:00 07/14/18 19:38 Risperidone (RisperDAL) 0.5 mg QHS PO 07/14/18 21:00 07/14/18 19:38 Trazodone HCl (Desyrel) 50 mg PRN QHS PRN PO INSOMNIA, MAY REPEAT IN 1HR 07/14/18 17:30 07/14/18 19:38 Olanzapine (ZyPREXA ZYDIS) 5 mg PRN Q2HR PRN PO PSYCHOSIS 07/14/18 17:30 07/14/18 17:33 DC Levofloxacin (Levaquin) 250 mg DAILY06 PO 07/15/18 06:00 07/20/18 05:59 07/15/18 05:49 Acetaminophen (Tylenol) 650 mg PRN QID PRN PO PAIN / TEMP 07/14/18 17:30 UNV Vitamin D (Vitamin D3) 50,000 unit WEEKLY PO 07/20/18 09:00 Multi-Ingredient Ointment (Analgesic Brixey) 1 nelda PRN QID PRN TP MUSCLE PAIN 07/14/18 17:30 UNV Pravastatin Sodium (Pravachol) 20 mg HS PO 07/14/18 21:00 07/14/18 19:38 Non-Formulary Medication (Magnesium Hydroxide (Milk Of Magnesia)) 2,400 mg PRN QHS PRN PO CONSTIPATION 07/14/18 17:30 UNV Pantoprazole Sodium (Protonix) 40 mg DAILYAC PO 07/15/18 07:30 07/15/18 07:42 Potassium Chloride (Klor-Con) 20 meq DAILYWBKFT PO 07/15/18 08:00 07/15/18 07:42 Olanzapine (ZyPREXA ZYDIS) 2.5 mg PRN Q2HR PRN PO PSYCHOSIS 07/14/18 17:45 07/15/18 13:50 Amlodipine Besylate (Norvasc) 10 mg DAILY PO 07/15/18 09:00 07/15/18 07:43 I & O 07/15/18 00:00 Intake Total 480 ml Balance 480 ml Orders Procedure Category Date Status Time Olanzapine Zydis PHA 07/14/18 Complete (Zyprexa Zydis) 17:30 Levofloxacin PHA 07/15/18 In Process (Levaquin) 06:00 Pravastatin PHA 07/14/18 In Process (Pravachol) 21:00 Pantoprazole PHA 07/15/18 In Process (Protonix) 07:30 Potassium Chloride PHA 07/15/18 In Process Tab (Klor-Con) 08:00 Olanzapine Zydis PHA 07/14/18 In Process (Zyprexa Zydis) 17:45 Amlodipine Besylate PHA 07/15/18 In Process (Norvasc) 09:00 Cholecalciferol PHA 07/20/18 In Process (Vitamin D3) (Vitamin 09:00 Vital Signs Date Time Temp Pulse Resp B/P (MAP) Pulse Ox O2 Delivery O2 Flow Rate FiO2 07/15/18 16:13 98.6 89 20 118/75 (89) 94 Room Air LIZETH ROMO DO Jul 15, 2018 17:23
[2018-07-15] MEDS: risperiDONE 0.5 MG TABLET. PO SCH (19:16)
[2018-07-15] MEDS: PRAVASTATIN 20 MG TABLET. PO SCH (19:16)
[2018-07-15] MEDS: MIRTAZAPINE 15 MG TABLET PO SCH (19:16)
[2018-07-15 20:12] LABS: THYROXINE 8.8 ug/dL (4.5-12.0)
[2018-07-16 04:09] LABS: HEMOGLOBIN A1C 6.5 % (4.8-5.6)
[2018-07-16 05:43] VITALS: BP 116/75
[2018-07-16] MEDS: levoFLOXacin 250 MG TABLET PO SCH (06:24)
[2018-07-16] MEDS: PANTOPRAZOLE 40 MG TABLET. PO SCH (09:09)
[2018-07-16] MEDS: MEMANTINE 10 MG TABLET. PO SCH ×2 (09:09→20:23)
[2018-07-16] MEDS: POTASSIUM CHLORIDE 20 MEQ TABLET.ER. PO SCH (09:09)
[2018-07-16] MEDS: amLODIPine BESYLATE 10 MG TABLET PO SCH (09:10)
[2018-07-16] MEDS: DIVALPROEX 125 MG CAP.SPRINK PO SCH ×2 (09:10→20:23)
[2018-07-16] MEDS: SERTRALINE 50 MG TABLET. PO SCH (09:10)
[2018-07-16 16:14] VITALS: BP 121/88
[2018-07-16] MEDS: PRAVASTATIN 20 MG TABLET. PO SCH (20:23)
[2018-07-16] MEDS: MIRTAZAPINE 15 MG TABLET PO SCH (20:23)
[2018-07-16] MEDS: risperiDONE 0.5 MG TABLET. PO SCH (20:23)
--- NOTE | 2018-07-16 21:48 | HP ---
ADMIT DATE: 07/15/2018 PSYCHIATRIC PROGRESS NOTE This late entry 07/15/2018 covers elements not covered in my initial note. I met with the patient evening of 07/15/2018. This is a late entry, date of service 07/15/2018. IDENTIFYING DATA: The patient is an 83-year-old female referred to us from [facility] Medical/Surgical floor by Dr. Valdovinos after she was admitted on account of increasing confusion, having had a fall with a head injury when she was at home. She was psychotic on . I had followed her from a psychiatric standpoint. At home, she lives with her son and been wandering out of the home, probably needs alf placement, but intermittently remained psychotic, thus requiring psychiatric stabilization on an inpatient facility before possible transfer to the nursing facility. CHIEF COMPLAINT: "I don't know where I live. I have no daughters, not sure who I live with." HISTORY OF PRESENT ILLNESS: The patient has a history of dementia, Alzheimer's vascular type. She has been residing at the home with her son who has been helping take care of her. Confusion has been worsening with marked hallucinations, increased anxiety, wandering, sleep and appetite changes. No clear symptoms of bipolar disorder, suicidal or homicidal ideation. PAST PSYCHIATRIC HISTORY: As above. MEDICAL HISTORY: Positive for hypertension, pulmonary embolism, left knee replacement, status post fall. She ambulates with a walker. Gait unsteady. ACCU-CHEKS: None. DIET: Regular. Takes medications whole. CODE STATUS: Full code. ALLERGIES: Negative. CURRENT PSYCHOTROPICS: Depakote 375 b.i.d., Namenda 10 b.i.d., Zoloft 50 mg a day, Remeron 15 at bedtime, Risperdal 0.5 mg at bedtime, trazodone 50 at bedtime p.r.n., may repeat x 1, Zyprexa p.r.n. FAMILY HISTORY: Noncontributory. SOCIAL HISTORY: No alcohol or drug abuse, physical, sexual or elder abuse history is noted. Not known to be a perpetrator. REACTION TO HOSPITALIZATION: The patient oblivious of this. ASSETS: Supportive family. MENTAL STATUS EXAMINATION: The patient was seen individually evening of 07/15/2018. She is oriented to herself, pleasant, verbal. Insight, judgment, recent and remote memory, attention, concentration, fund of knowledge poor, consistent with her diagnosis. IMPRESSION: Major neurocognitive disorder, Alzheimer, vascular with delusion, depression, behavioral disturbance; anxiety disorder, unspecified; impulse control disorder, unspecified; status post fall. Rest as above. TREATMENT PLAN: Admit to Geropsychiatry Unit at [facility]. I will see the patient daily individually from a psychiatric standpoint. Medical followup per Dr. Rendon/Dr. Penaloza. Continue the patient on her current psychotropics. Follow labs level on the Depakote, adjust to reach a therapeutic level. Adjust Risperdal if psychotic symptoms resurface. Estimated length of stay 10-12 days. Discharged to alf. MAN Wandy BOND MD DR: TAMIKO/nts JOB#: [id number] / [id number]
--- NOTE | 2018-07-17 02:50 | PDOC ---
Exam Note: Antoine Note: Please also refer to the separate dictated note~for this date of service dictated separately.~Patient seen individually. Discussed the patient with Nursing staff reviewed the chart.~Reviewed interim history and current functioning. Reviewed vital signs,~Labs/ Radiology~and current medications noted below. Continue current treatment with the changes noted in the dictated addendum note Assessment: Vital Signs: Vital Signs Date Time Temp Pulse Resp B/P (MAP) Pulse Ox O2 Delivery O2 Flow Rate FiO2 07/16/18 16:14 97.6 92 18 121/88 (99) 96 07/15/18 16:13 Room Air I&O Intake and Output 07/17/18 07:00 Intake Total 580 ml Balance 580 ml Intake Oral 580 ml Current Medications: Meds: Current Medications Acetaminophen (Tylenol) 650 mg PRN Q6HRS PRN PO PAIN / TEMP; Start 07/14/18 at 17:15 Multi-Ingredient Ointment (Analgesic Revillo) 1 nelda PRN QID PRN TP MUSCLE PAIN; Start 07/14/18 at 17:15 Al Hydroxide/Mg Hydroxide (Mylanta Plus Xs) 15 ml PRN AFTMEALHC PRN PO DYSPEPSIA; Start 07/14/18 at 17:15 Magnesium Hydroxide (Milk Of Magnesia) 2,400 mg PRN QHS PRN PO CONSTIPATION Last administered on 07/16/18at 20:24; Start 07/14/18 at 17:15 Sertraline HCl (Zoloft) 50 mg DAILY PO Last administered on 07/16/18at 09:10; Start 07/15/18 at 09:00 Divalproex Sodium (Depakote Sprinkles) 375 mg BID PO Last administered on at 20:23; Start 07/14/18 at 21:00 Memantine (Namenda) 10 mg BID PO Last administered on 07/16/18 20:23; Start at 21:00 Mirtazapine (Remeron) 15 mg QHS PO Last administered on 07/16/18 20:23; Start 07/14/18 at 21:00 Risperidone (RisperDAL) 0.5 mg QHS PO Last administered on 07/16/18 20:23; Start 07/14/18 at 21:00 Trazodone HCl (Desyrel) 50 mg PRN QHS PRN PO INSOMNIA, MAY REPEAT IN 1HR Last administered on 07/14/18at 19:38; Start 07/14/18 at 17:30 Olanzapine (ZyPREXA ZYDIS) 5 mg PRN Q2HR PRN PO PSYCHOSIS; Start 07/14/18 at 17 :30; Stop 07/14/18 at 17:33; Status DC Levofloxacin (Levaquin) 250 mg DAILY06 PO Last administered on 07/16/18at 06:24 ; Start 07/15/18 at 06:00; Stop 07/20/18 at 05:59 Acetaminophen (Tylenol) 650 mg PRN QID PRN PO PAIN / TEMP; Start 07/14/18 at 17 :30; Status UNV Vitamin D (Vitamin D3) 50,000 unit WEEKLY PO ; Start 07/20/18 at 09:00 Multi-Ingredient Ointment (Analgesic Revillo) 1 nelda PRN QID PRN TP MUSCLE PAIN; Start 07/14/18 at 17:30; Status UNV Pravastatin Sodium (Pravachol) 20 mg HS PO Last administered on 07/16/18at 20:23 ; Start 07/14/18 at 21:00 Non-Formulary Medication (Magnesium Hydroxide (Milk Of Magnesia)) 2,400 mg PRN QHS PRN PO CONSTIPATION; Start 07/14/18 at 17:30; Status UNV Pantoprazole Sodium (Protonix) 40 mg DAILYAC PO Last administered on 07/16/18 09:09; Start 07/15/18 at 07:30 Potassium Chloride (Klor-Con) 20 meq DAILYWBKFT PO Last administered on at 09:09; Start 07/15/18 at 08:00 Olanzapine (ZyPREXA ZYDIS) 2.5 mg PRN Q2HR PRN PO PSYCHOSIS Last administered on 07/15/18at 13:50; Start 07/14/18 at 17:45 Amlodipine Besylate (Norvasc) 10 mg DAILY PO Last administered on 07/16/18at 09: 10; Start 07/15/18 at 09:00 Active Scripts Active Pantoprazole Sodium 40 Mg Tablet.dr 40 Mg PO DAILYAC 30 Days Amlodipine Besylate 10 Mg Tablet 10 Mg PO DAILY 30 Days Reported Trazodone Hcl 50 Mg Tablet 50 Mg PO PRN QHS PRN Risperidone 0.5 Mg Tablet 0.5 Mg PO QHS Zoloft (Sertraline Hcl) 50 Mg Tablet 50 Mg PO DAILY Olanzapine 5 Mg Tablet 2.5 Mg PO PRN Q4HRS PRN MDD 10mg Analgesic Revillo (Methyl Salicylate/Menthol) 28 Gm Oint...g. 1 Nelda TP PRN QID PRN Milk Of Magnesia (Magnesium Hydroxide) 2,400 Mg/10 Ml Oral.susp 2,400 Mg PO PRN QHS PRN Depakote Sprinkle (Divalproex Sodium) 125 Mg Cap.sprink 375 Mg PO BID D3-50 (Cholecalciferol (Vitamin D3)) 50,000 Unit Capsule 50,000 Unit PO WEEKLY Tylenol (Acetaminophen) 325 Mg Tablet 650 Mg PO PRN QID PRN Mirtazapine 15 Mg Tablet 15 Mg PO QHS Potassium Chloride 10 Meq Tablet.er 20 Meq PO DAILYWBKFT Namenda (Memantine Hcl) 10 Mg Tablet 10 Mg PO BID Pravastatin Sodium 20 Mg Tablet 20 Mg PO HS I have reviewed the current psychotropics carefully including drug interactions. Risk benefit ratio favors no change other than as noted in my dictated progress note. Diagnosis: Problems: (1) Chest pain (2) Pulmonary embolism (3) GERD (gastroesophageal reflux disease) (4) Encephalopathy acute (5) Anxiety disorder (6) Impulse control disorder (7) Major depressive disorder, recurrent episode (8) Dementia, vascular, with depression (9) Dementia, vascular, with delusions (10) Dementia in Alzheimer's disease with depression (11) Dementia in Alzheimer's disease with delusions (12) Altered mental status (13) UTI (urinary tract infection) MONICA BOND MD Jul 17, 2018 02:50
[2018-07-17 06:17] VITALS: BP 128/77
[2018-07-17] MEDS: levoFLOXacin 250 MG TABLET PO SCH (06:36)
[2018-07-17] MEDS: POTASSIUM CHLORIDE 20 MEQ TABLET.ER. PO SCH (08:19)
[2018-07-17] MEDS: DIVALPROEX 125 MG CAP.SPRINK PO SCH ×2 (08:19→20:25)
[2018-07-17] MEDS: PANTOPRAZOLE 40 MG TABLET. PO SCH (08:19)
[2018-07-17] MEDS: MEMANTINE 10 MG TABLET. PO SCH ×2 (08:19→20:25)
[2018-07-17] MEDS: SERTRALINE 50 MG TABLET. PO SCH (08:20)
[2018-07-17] MEDS: amLODIPine BESYLATE 10 MG TABLET PO SCH (08:20)
[2018-07-17 16:07] VITALS: BP 121/81
--- NOTE | 2018-07-17 20:18 | PDOC ---
Exam Note: Antoine Note: Please also refer to the separate dictated note~for this date of service dictated separately.~Patient seen individually. Discussed the patient with Nursing staff reviewed the chart.~Reviewed interim history and current functioning. Reviewed vital signs,~Labs/ Radiology~and current medications noted below. Continue current treatment with the changes noted in the dictated addendum note Assessment: Vital Signs: Vital Signs Date Time Temp Pulse Resp B/P (MAP) Pulse Ox O2 Delivery O2 Flow Rate FiO2 07/17/18 16:07 98.9 86 17 121/81 (94) 94 Room Air I&O Intake and Output 07/17/18 06:59 Intake Total 580 ml Balance 580 ml Intake Oral 580 ml # Bowel Movements 1 Current Medications: Meds: Current Medications Acetaminophen (Tylenol) 650 mg PRN Q6HRS PRN PO PAIN / TEMP; Start 07/14/18 at 17:15 Multi-Ingredient Ointment (Analgesic [place]) 1 nelda PRN QID PRN TP MUSCLE PAIN; Start 07/14/18 at 17:15 Al Hydroxide/Mg Hydroxide (Mylanta Plus Xs) 15 ml PRN AFTMEALHC PRN PO DYSPEPSIA; Start 07/14/18 at 17:15 Magnesium Hydroxide (Milk Of Magnesia) 2,400 mg PRN QHS PRN PO CONSTIPATION Last administered on 07/16/18 20:24; Start 07/14/18 at 17:15 Sertraline HCl (Zoloft) 50 mg DAILY PO Last administered on 07/17/18at 08:20; Start 07/15/18 at 09:00 Divalproex Sodium (Depakote Sprinkles) 375 mg BID PO Last administered on 08:19; Start 07/14/18 at 21:00 Memantine (Namenda) 10 mg BID PO Last administered on 07/17/18 08:19; Start at 21:00 Mirtazapine (Remeron) 15 mg QHS PO Last administered on 07/16/18 20:23; Start 07/14/18 at 21:00 Risperidone (RisperDAL) 0.5 mg QHS PO Last administered on 07/16/18 20:23; Start 07/14/18 at 21:00 Trazodone HCl (Desyrel) 50 mg PRN QHS PRN PO INSOMNIA, MAY REPEAT IN 1HR Last administered on 07/14/18at 19:38; Start 07/14/18 at 17:30 Olanzapine (ZyPREXA ZYDIS) 5 mg PRN Q2HR PRN PO PSYCHOSIS; Start 07/14/18 at 17 :30; Stop 07/14/18 at 17:33; Status DC Levofloxacin (Levaquin) 250 mg DAILY06 PO Last administered on 07/17/18at 06:36 ; Start 07/15/18 at 06:00; Stop 07/20/18 at 05:59 Acetaminophen (Tylenol) 650 mg PRN QID PRN PO PAIN / TEMP; Start 07/14/18 at 17 :30; Status UNV Vitamin D (Vitamin D3) 50,000 unit WEEKLY PO ; Start 07/20/18 at 09:00 Multi-Ingredient Ointment (Analgesic [place]) 1 nelda PRN QID PRN TP MUSCLE PAIN; Start 07/14/18 at 17:30; Status UNV Pravastatin Sodium (Pravachol) 20 mg HS PO Last administered on 07/16/18at 20:23 ; Start 07/14/18 at 21:00; Stop 07/17/18 at 14:58; Status DC Non-Formulary Medication (Magnesium Hydroxide (Milk Of Magnesia)) 2,400 mg PRN QHS PRN PO CONSTIPATION; Start 07/14/18 at 17:30; Status UNV Pantoprazole Sodium (Protonix) 40 mg DAILYAC PO Last administered on 07/17/18at 08:19; Start 07/15/18 at 07:30 Potassium Chloride (Klor-Con) 20 meq DAILYWBKFT PO Last administered on at 08:19; Start 07/15/18 at 08:00 Olanzapine (ZyPREXA ZYDIS) 2.5 mg PRN Q2HR PRN PO PSYCHOSIS Last administered on 07/15/18at 13:50; Start 07/14/18 at 17:45 Amlodipine Besylate (Norvasc) 10 mg DAILY PO Last administered on 07/17/18at 08: 20; Start 07/15/18 at 09:00 Lactobacillus Rhamnosus (Culturelle) 1 cap BID PO ; Start 07/17/18 at 21:00 Pravastatin Sodium (Pravachol) 40 mg HS PO ; Start 07/17/18 at 21:00 Active Scripts Active Pantoprazole Sodium 40 Mg Tablet.dr 40 Mg PO DAILYAC 30 Days Amlodipine Besylate 10 Mg Tablet 10 Mg PO DAILY 30 Days Reported Trazodone Hcl 50 Mg Tablet 50 Mg PO PRN QHS PRN Risperidone 0.5 Mg Tablet 0.5 Mg PO QHS Zoloft (Sertraline Hcl) 50 Mg Tablet 50 Mg PO DAILY Olanzapine 5 Mg Tablet 2.5 Mg PO PRN Q4HRS PRN MDD 10mg Analgesic [place] (Methyl Salicylate/Menthol) 28 Gm Oint...g. 1 Nelda TP PRN QID PRN Milk Of Magnesia (Magnesium Hydroxide) 2,400 Mg/10 Ml Oral.susp 2,400 Mg PO PRN QHS PRN Depakote Sprinkle (Divalproex Sodium) 125 Mg Cap.sprink 375 Mg PO BID D3-50 (Cholecalciferol (Vitamin D3)) 50,000 Unit Capsule 50,000 Unit PO WEEKLY Tylenol (Acetaminophen) 325 Mg Tablet 650 Mg PO PRN QID PRN Mirtazapine 15 Mg Tablet 15 Mg PO QHS Potassium Chloride 10 Meq Tablet.er 20 Meq PO DAILYWBKFT Namenda (Memantine Hcl) 10 Mg Tablet 10 Mg PO BID Pravastatin Sodium 20 Mg Tablet 20 Mg PO HS I have reviewed the current psychotropics carefully including drug interactions. Risk benefit ratio favors no change other than as noted in my dictated progress note. 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
[2018-07-17] MEDS: risperiDONE 0.5 MG TABLET. PO SCH (20:25)
[2018-07-17] MEDS: MIRTAZAPINE 15 MG TABLET PO SCH (20:25)
[2018-07-17] MEDS: LACTOBACILLUS RHAMNOSUS GG 1 CAPSULE. PO SCH (20:28)
[2018-07-17] MEDS: PRAVASTATIN 20 MG TABLET. PO SCH (20:28)
--- NOTE | 2018-07-17 21:16 | PDOC ---
Exam Note: Antoine Note: Late entry for DOS July 16, 2018. Please also refer to the separate dictated note~for this date of service dictated separately.~Patient seen individually. Discussed the patient with Nursing staff reviewed the chart.~Reviewed interim history and current functioning. Reviewed vital signs,~Labs/ Radiology~and current medications noted below. Continue current treatment with the changes noted in the dictated addendum note Assessment: Vital Signs: VS - Last 72 Hours, by Label Date Time Temp Pulse Resp B/P (MAP) Pulse Ox O2 Delivery O2 Flow Rate FiO2 07/17/18 16:07 98.9 86 17 121/81 (94) 94 Room Air 07/17/18 08:20 94 128/77 07/17/18 06:17 97.8 94 18 128/77 (94) 93 07/16/18 16:14 97.6 92 18 121/88 (99) 96 07/16/18 09:10 89 116/75 07/16/18 05:43 98.7 89 18 116/75 (89) 91 07/15/18 16:13 98.6 89 20 118/75 (89) 94 Room Air 07/15/18 07:43 92 144/85 07/15/18 06:13 98.5 92 24 144/85 (104) 94 Vital Signs Date Time Temp Pulse Resp B/P (MAP) Pulse Ox O2 Delivery O2 Flow Rate FiO2 07/17/18 16:07 98.9 86 17 121/81 (94) 94 Room Air I&O Intake and Output 07/17/18 06:59 Intake Total 580 ml Balance 580 ml Intake Oral 580 ml # Bowel Movements 1 Current Medications: Meds: Current Medications Acetaminophen (Tylenol) 650 mg PRN Q6HRS PRN PO PAIN / TEMP; Start 07/14/18 at 17:15 Multi-Ingredient Ointment (Analgesic [place]) 1 nelda PRN QID PRN TP MUSCLE PAIN; Start 07/14/18 at 17:15 Al Hydroxide/Mg Hydroxide (Mylanta Plus Xs) 15 ml PRN AFTMEALHC PRN PO DYSPEPSIA; Start 07/14/18 at 17:15 Magnesium Hydroxide (Milk Of Magnesia) 2,400 mg PRN QHS PRN PO CONSTIPATION Last administered on 07/16/18at 20:24; Start 07/14/18 at 17:15 Sertraline HCl (Zoloft) 50 mg DAILY PO Last administered on 07/17/18 08:20; Start 07/15/18 at 09:00 Divalproex Sodium (Depakote Sprinkles) 375 mg BID PO Last administered on 20:25; Start 07/14/18 at 21:00 Memantine (Namenda) 10 mg BID PO Last administered on 07/17/18 20:25; Start at 21:00 Mirtazapine (Remeron) 15 mg QHS PO Last administered on 07/17/18 20:25; Start 07/14/18 at 21:00 Risperidone (RisperDAL) 0.5 mg QHS PO Last administered on 07/17/18 20:25; Start 07/14/18 at 21:00 Trazodone HCl (Desyrel) 50 mg PRN QHS PRN PO INSOMNIA, MAY REPEAT IN 1HR Last administered on 07/14/18at 19:38; Start 07/14/18 at 17:30 Olanzapine (ZyPREXA ZYDIS) 5 mg PRN Q2HR PRN PO PSYCHOSIS; Start 07/14/18 at 17 :30; Stop 07/14/18 at 17:33; Status DC Levofloxacin (Levaquin) 250 mg DAILY06 PO Last administered on 07/17/18at 06:36 ; Start 07/15/18 at 06:00; Stop 07/20/18 at 05:59 Acetaminophen (Tylenol) 650 mg PRN QID PRN PO PAIN / TEMP; Start 07/14/18 at 17 :30; Status UNV Vitamin D (Vitamin D3) 50,000 unit WEEKLY PO ; Start 07/20/18 at 09:00 Multi-Ingredient Ointment (Analgesic [place]) 1 nelda PRN QID PRN TP MUSCLE PAIN; Start 07/14/18 at 17:30; Status UNV Pravastatin Sodium (Pravachol) 20 mg HS PO Last administered on 07/16/18at 20:23 ; Start 07/14/18 at 21:00; Stop 07/17/18 at 14:58; Status DC Non-Formulary Medication (Magnesium Hydroxide (Milk Of Magnesia)) 2,400 mg PRN QHS PRN PO CONSTIPATION; Start 07/14/18 at 17:30; Status UNV Pantoprazole Sodium (Protonix) 40 mg DAILYAC PO Last administered on 07/17/18 08:19; Start 07/15/18 at 07:30 Potassium Chloride (Klor-Con) 20 meq DAILYWBKFT PO Last administered on 08:19; Start 07/15/18 at 08:00 Olanzapine (ZyPREXA ZYDIS) 2.5 mg PRN Q2HR PRN PO PSYCHOSIS Last administered on 07/15/18at 13:50; Start 07/14/18 at 17:45 Amlodipine Besylate (Norvasc) 10 mg DAILY PO Last administered on 07/17/18 08: 20; Start 07/15/18 at 09:00 Lactobacillus Rhamnosus (Culturelle) 1 cap BID PO Last administered on 20:28; Start 07/17/18 at 21:00 Pravastatin Sodium (Pravachol) 40 mg HS PO Last administered on 07/17/18at 20:28 ; Start 07/17/18 at 21:00 Active Scripts Active Pantoprazole Sodium 40 Mg Tablet.dr 40 Mg PO DAILYAC 30 Days Amlodipine Besylate 10 Mg Tablet 10 Mg PO DAILY 30 Days Reported Trazodone Hcl 50 Mg Tablet 50 Mg PO PRN QHS PRN Risperidone 0.5 Mg Tablet 0.5 Mg PO QHS Zoloft (Sertraline Hcl) 50 Mg Tablet 50 Mg PO DAILY Olanzapine 5 Mg Tablet 2.5 Mg PO PRN Q4HRS PRN MDD 10mg Analgesic [place] (Methyl Salicylate/Menthol) 28 Gm Oint...g. 1 Nelda TP PRN QID PRN Milk Of Magnesia (Magnesium Hydroxide) 2,400 Mg/10 Ml Oral.susp 2,400 Mg PO PRN QHS PRN Depakote Sprinkle (Divalproex Sodium) 125 Mg Cap.sprink 375 Mg PO BID D3-50 (Cholecalciferol (Vitamin D3)) 50,000 Unit Capsule 50,000 Unit PO WEEKLY Tylenol (Acetaminophen) 325 Mg Tablet 650 Mg PO PRN QID PRN Mirtazapine 15 Mg Tablet 15 Mg PO QHS Potassium Chloride 10 Meq Tablet.er 20 Meq PO DAILYWBKFT Namenda (Memantine Hcl) 10 Mg Tablet 10 Mg PO BID Pravastatin Sodium 20 Mg Tablet 20 Mg PO HS I have reviewed the current psychotropics carefully including drug interactions. Risk benefit ratio favors no change other than as noted in my dictated progress note. 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
--- NOTE | 2018-07-17 22:08 | PN ---
DATE: 07/16/2018 PSYCHIATRIC PROGRESS NOTE This is a late entry 07/16/2018, covers elements not covered in my initial note. SUBJECTIVE: I met with the patient in the evening. The patient slept 5-1/2 hours previous evening. She remains confused, previous night she was quite delusional, compliant with medications, believe she had to go find some work. REVIEW OF SYSTEMS: No CV, , pulmonary, eye, ENT system symptoms on review. Gait unsteady with walker. Reliability poor. MENTAL STATUS EXAM: Oriented to herself. Insight, judgment, recent and remote memory, attention, concentration, fund of knowledge poor, consistent with her diagnosis mentioned in the initial note. PLAN: No change from initial note. MAN Wandy BOND MD DR: TAMIKO/willy JOB#: [id number] / [id number]
--- NOTE | 2018-07-18 01:21 | PDOC ---
Exam Note: Antoine Note: Please also refer to the separate dictated note~for this date of service dictated separately.~Patient seen individually. Discussed the patient with Nursing staff reviewed the chart.~Reviewed interim history and current functioning. Reviewed vital signs,~Labs/ Radiology~and current medications noted below. Continue current treatment with the changes noted in the dictated addendum note Assessment: Vital Signs: Vital Signs Date Time Temp Pulse Resp B/P (MAP) Pulse Ox O2 Delivery O2 Flow Rate FiO2 07/17/18 16:07 98.9 86 17 121/81 (94) 94 Room Air I&O Intake and Output 07/18/18 07:00 Intake Total 960 ml Balance 960 ml Intake Oral 960 ml Current Medications: Meds: Current Medications Acetaminophen (Tylenol) 650 mg PRN Q6HRS PRN PO PAIN / TEMP; Start 07/14/18 at 17:15 Multi-Ingredient Ointment (Analgesic [place]) 1 nelda PRN QID PRN TP MUSCLE PAIN; Start 07/14/18 at 17:15 Al Hydroxide/Mg Hydroxide (Mylanta Plus Xs) 15 ml PRN AFTMEALHC PRN PO DYSPEPSIA; Start 07/14/18 at 17:15 Magnesium Hydroxide (Milk Of Magnesia) 2,400 mg PRN QHS PRN PO CONSTIPATION Last administered on 07/16/18at 20:24; Start 07/14/18 at 17:15 Sertraline HCl (Zoloft) 50 mg DAILY PO Last administered on 07/17/18at 08:20; Start 07/15/18 at 09:00 Divalproex Sodium (Depakote Sprinkles) 375 mg BID PO Last administered on 20:25; Start 07/14/18 at 21:00 Memantine (Namenda) 10 mg BID PO Last administered on 07/17/18 20:25; Start at 21:00 Mirtazapine (Remeron) 15 mg QHS PO Last administered on 07/17/18 20:25; Start 07/14/18 at 21:00 Risperidone (RisperDAL) 0.5 mg QHS PO Last administered on 07/17/18at 20:25; Start 07/14/18 at 21:00 Trazodone HCl (Desyrel) 50 mg PRN QHS PRN PO INSOMNIA, MAY REPEAT IN 1HR Last administered on 07/14/18at 19:38; Start 07/14/18 at 17:30 Olanzapine (ZyPREXA ZYDIS) 5 mg PRN Q2HR PRN PO PSYCHOSIS; Start 07/14/18 at 17 :30; Stop 07/14/18 at 17:33; Status DC Levofloxacin (Levaquin) 250 mg DAILY06 PO Last administered on 07/17/18at 06:36 ; Start 07/15/18 at 06:00; Stop 07/20/18 at 05:59 Acetaminophen (Tylenol) 650 mg PRN QID PRN PO PAIN / TEMP; Start 07/14/18 at 17 :30; Status UNV Vitamin D (Vitamin D3) 50,000 unit WEEKLY PO ; Start 07/20/18 at 09:00 Multi-Ingredient Ointment (Analgesic [place]) 1 nelda PRN QID PRN TP MUSCLE PAIN; Start 07/14/18 at 17:30; Status UNV Pravastatin Sodium (Pravachol) 20 mg HS PO Last administered on 07/16/18at 20:23 ; Start 07/14/18 at 21:00; Stop 07/17/18 at 14:58; Status DC Non-Formulary Medication (Magnesium Hydroxide (Milk Of Magnesia)) 2,400 mg PRN QHS PRN PO CONSTIPATION; Start 07/14/18 at 17:30; Status UNV Pantoprazole Sodium (Protonix) 40 mg DAILYAC PO Last administered on 07/17/18 08:19; Start 07/15/18 at 07:30 Potassium Chloride (Klor-Con) 20 meq DAILYWBKFT PO Last administered on at 08:19; Start 07/15/18 at 08:00 Olanzapine (ZyPREXA ZYDIS) 2.5 mg PRN Q2HR PRN PO PSYCHOSIS Last administered on 07/15/18at 13:50; Start 07/14/18 at 17:45 Amlodipine Besylate (Norvasc) 10 mg DAILY PO Last administered on 07/17/18at 08: 20; Start 07/15/18 at 09:00 Lactobacillus Rhamnosus (Culturelle) 1 cap BID PO Last administered on at 20:28; Start 07/17/18 at 21:00 Pravastatin Sodium (Pravachol) 40 mg HS PO Last administered on 07/17/18at 20:28 ; Start 07/17/18 at 21:00 Active Scripts Active Pantoprazole Sodium 40 Mg Tablet.dr 40 Mg PO DAILYAC 30 Days Amlodipine Besylate 10 Mg Tablet 10 Mg PO DAILY 30 Days Reported Trazodone Hcl 50 Mg Tablet 50 Mg PO PRN QHS PRN Risperidone 0.5 Mg Tablet 0.5 Mg PO QHS Zoloft (Sertraline Hcl) 50 Mg Tablet 50 Mg PO DAILY Olanzapine 5 Mg Tablet 2.5 Mg PO PRN Q4HRS PRN MDD 10mg Analgesic [place] (Methyl Salicylate/Menthol) 28 Gm Oint...g. 1 Nelda TP PRN QID PRN Milk Of Magnesia (Magnesium Hydroxide) 2,400 Mg/10 Ml Oral.susp 2,400 Mg PO PRN QHS PRN Depakote Sprinkle (Divalproex Sodium) 125 Mg Cap.sprink 375 Mg PO BID D3-50 (Cholecalciferol (Vitamin D3)) 50,000 Unit Capsule 50,000 Unit PO WEEKLY Tylenol (Acetaminophen) 325 Mg Tablet 650 Mg PO PRN QID PRN Mirtazapine 15 Mg Tablet 15 Mg PO QHS Potassium Chloride 10 Meq Tablet.er 20 Meq PO DAILYWBKFT Namenda (Memantine Hcl) 10 Mg Tablet 10 Mg PO BID Pravastatin Sodium 20 Mg Tablet 20 Mg PO HS I have reviewed the current psychotropics carefully including drug interactions. Risk benefit ratio favors no change other than as noted in my dictated progress note. 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
[2018-07-18 05:57] VITALS: BP 106/62
[2018-07-18] MEDS: levoFLOXacin 250 MG TABLET PO SCH (06:21)
[2018-07-18] MEDS: DIVALPROEX 125 MG CAP.SPRINK PO SCH ×2 (08:11→19:57)
[2018-07-18] MEDS: LACTOBACILLUS RHAMNOSUS GG 1 CAPSULE. PO SCH ×2 (08:11→19:57)
[2018-07-18] MEDS: MEMANTINE 10 MG TABLET. PO SCH ×2 (08:11→19:57)
[2018-07-18] MEDS: PANTOPRAZOLE 40 MG TABLET. PO SCH (08:11)
[2018-07-18] MEDS: POTASSIUM CHLORIDE 20 MEQ TABLET.ER. PO SCH (08:12)
[2018-07-18] MEDS: SERTRALINE 50 MG TABLET. PO SCH (08:12)
[2018-07-18] MEDS: amLODIPine BESYLATE 10 MG TABLET PO SCH (08:12)
[2018-07-18] MEDS ORDERED: FLUCONAZOLE 100 MG TABLET. PO ONE (10:30)
[2018-07-18] MEDS: NYSTATIN TOPICAL POWDER 15GM BOTTLE. TP SCH ×2 (12:13→19:58)
--- NOTE | 2018-07-18 12:49 | PN ---
DATE: 07/17/2018 PSYCHIATRIC PROGRESS NOTE This is a late entry, 07/17, covers elements not covered in my initial note. SUBJECTIVE: I met with the patient in the evening, staffed at treatment team meeting with the entire team in the morning with the patient's son, HILLARY Conley, who was present at the treatment team meeting. Reviewed the patient's diagnosis, progress, discharge, disposition plans, current psychotropics. She lives at home with her . One son lives across the [address] in [place], is near enough but little further away. She is sleeping 7-1/2 hours. Otherwise, confused, but pleasant. Would probably need a higher level of care given her ongoing confusion. Nursing staff informed me later in the day had arrived on the unit, wanting to discharge her, but son is the HILLARY. Social Service staff will coordinate with the son. REVIEW OF SYSTEMS: No CV, , pulmonary, eye, ENT system symptoms on review. Reliability poor. Gait unsteady with walker. MENTAL STATUS EXAM: Oriented to herself. Insight, judgment, recent and remote memory, attention, concentration, fund of knowledge poor, consistent with her diagnosis mentioned in my initial note. IMPRESSION: Major neurocognitive disorder, Alzheimer, vascular with delusion, depression, behavioral disturbance. PLAN: Continue psychotropics from initial note. Depakote is being adjusted to reach therapeutic level. MAN Wandy BOND MD DR: TAMIKO/willy JOB#: [id number] / [id number]
[2018-07-18 15:55] VITALS: BP 129/80
[2018-07-18] MEDS: PRAVASTATIN 20 MG TABLET. PO SCH (19:57)
[2018-07-18] MEDS: risperiDONE 0.5 MG TABLET. PO SCH (19:57)
[2018-07-18] MEDS: MIRTAZAPINE 15 MG TABLET PO SCH (19:57)
--- NOTE | 2018-07-18 20:24 | PDOC ---
Exam Note: Antoine Note: Please also refer to the separate dictated note~for this date of service dictated separately.~Patient seen individually. Discussed the patient with Nursing staff reviewed the chart.~Reviewed interim history and current functioning. Reviewed vital signs,~Labs/ Radiology~and current medications noted below. Continue current treatment with the changes noted in the dictated addendum note Assessment: Vital Signs: Vital Signs Date Time Temp Pulse Resp B/P (MAP) Pulse Ox O2 Delivery O2 Flow Rate FiO2 07/18/18 15:55 98.0 90 20 129/80 (96) 95 Room Air I&O Intake and Output 07/18/18 06:59 Intake Total 960 ml Balance 960 ml Intake Oral 960 ml Current Medications: Meds: Current Medications Acetaminophen (Tylenol) 650 mg PRN Q6HRS PRN PO PAIN / TEMP; Start 07/14/18 at 17:15 Multi-Ingredient Ointment (Analgesic [place]) 1 nelda PRN QID PRN TP MUSCLE PAIN; Start 07/14/18 at 17:15 Al Hydroxide/Mg Hydroxide (Mylanta Plus Xs) 15 ml PRN AFTMEALHC PRN PO DYSPEPSIA; Start 07/14/18 at 17:15 Magnesium Hydroxide (Milk Of Magnesia) 2,400 mg PRN QHS PRN PO CONSTIPATION Last administered on 07/16/18at 20:24; Start 07/14/18 at 17:15 Sertraline HCl (Zoloft) 50 mg DAILY PO Last administered on 07/18/18at 08:12; Start 07/15/18 at 09:00 Divalproex Sodium (Depakote Sprinkles) 375 mg BID PO Last administered on at 19:57; Start 07/14/18 at 21:00 Memantine (Namenda) 10 mg BID PO Last administered on 07/18/18 19:57; Start at 21:00 Mirtazapine (Remeron) 15 mg QHS PO Last administered on 07/18/18 19:57; Start 07/14/18 at 21:00 Risperidone (RisperDAL) 0.5 mg QHS PO Last administered on 07/18/18at 19:57; Start 07/14/18 at 21:00 Trazodone HCl (Desyrel) 50 mg PRN QHS PRN PO INSOMNIA, MAY REPEAT IN 1HR Last administered on 07/14/18at 19:38; Start 07/14/18 at 17:30 Olanzapine (ZyPREXA ZYDIS) 5 mg PRN Q2HR PRN PO PSYCHOSIS; Start 07/14/18 at 17 :30; Stop 07/14/18 at 17:33; Status DC Levofloxacin (Levaquin) 250 mg DAILY06 PO Last administered on 07/18/18at 06:21 ; Start 07/15/18 at 06:00; Stop 07/20/18 at 05:59 Acetaminophen (Tylenol) 650 mg PRN QID PRN PO PAIN / TEMP; Start 07/14/18 at 17 :30; Status UNV Vitamin D (Vitamin D3) 50,000 unit WEEKLY PO ; Start 07/20/18 at 09:00 Multi-Ingredient Ointment (Analgesic [place]) 1 nelda PRN QID PRN TP MUSCLE PAIN; Start 07/14/18 at 17:30; Status UNV Pravastatin Sodium (Pravachol) 20 mg HS PO Last administered on 07/16/18at 20:23 ; Start 07/14/18 at 21:00; Stop 07/17/18 at 14:58; Status DC Non-Formulary Medication (Magnesium Hydroxide (Milk Of Magnesia)) 2,400 mg PRN QHS PRN PO CONSTIPATION; Start 07/14/18 at 17:30; Status UNV Pantoprazole Sodium (Protonix) 40 mg DAILYAC PO Last administered on 07/18/18at 08:11; Start 07/15/18 at 07:30 Potassium Chloride (Klor-Con) 20 meq DAILYWBKFT PO Last administered on at 08:12; Start 07/15/18 at 08:00 Olanzapine (ZyPREXA ZYDIS) 2.5 mg PRN Q2HR PRN PO PSYCHOSIS Last administered on 07/15/18at 13:50; Start 07/14/18 at 17:45 Amlodipine Besylate (Norvasc) 10 mg DAILY PO Last administered on 07/18/18at 08: 12; Start 07/15/18 at 09:00 Lactobacillus Rhamnosus (Culturelle) 1 cap BID PO Last administered on at 19:57; Start 07/17/18 at 21:00 Pravastatin Sodium (Pravachol) 40 mg HS PO Last administered on 07/18/18at 19:57 ; Start 07/17/18 at 21:00 Nystatin (Nystop) 1 nelda BID TP Last administered on 07/18/18at 19:58; Start at 10:30 Fluconazole (Diflucan) 100 mg 1X ONCE PO Last administered on 07/18/18at 12:13 ; Start 07/18/18 at 10:30; Stop 07/18/18 at 10:31; Status DC Active Scripts Active Pantoprazole Sodium 40 Mg Tablet.dr 40 Mg PO DAILYAC 30 Days Amlodipine Besylate 10 Mg Tablet 10 Mg PO DAILY 30 Days Reported Trazodone Hcl 50 Mg Tablet 50 Mg PO PRN QHS PRN Risperidone 0.5 Mg Tablet 0.5 Mg PO QHS Zoloft (Sertraline Hcl) 50 Mg Tablet 50 Mg PO DAILY Olanzapine 5 Mg Tablet 2.5 Mg PO PRN Q4HRS PRN MDD 10mg Analgesic [place] (Methyl Salicylate/Menthol) 28 Gm Oint...g. 1 Nelda TP PRN QID PRN Milk Of Magnesia (Magnesium Hydroxide) 2,400 Mg/10 Ml Oral.susp 2,400 Mg PO PRN QHS PRN Depakote Sprinkle (Divalproex Sodium) 125 Mg Cap.sprink 375 Mg PO BID D3-50 (Cholecalciferol (Vitamin D3)) 50,000 Unit Capsule 50,000 Unit PO WEEKLY Tylenol (Acetaminophen) 325 Mg Tablet 650 Mg PO PRN QID PRN Mirtazapine 15 Mg Tablet 15 Mg PO QHS Potassium Chloride 10 Meq Tablet.er 20 Meq PO DAILYWBKFT Namenda (Memantine Hcl) 10 Mg Tablet 10 Mg PO BID Pravastatin Sodium 20 Mg Tablet 20 Mg PO HS I have reviewed the current psychotropics carefully including drug interactions. Risk benefit ratio favors no change other than as noted in my dictated progress note. 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
[2018-07-18] MEDS: traZODone 50 MG TABLET. PO PRN (22:29)
[2018-07-19 05:57] VITALS: BP 111/67
[2018-07-19] MEDS: levoFLOXacin 250 MG TABLET PO SCH (06:34)
[2018-07-19] MEDS: DIVALPROEX 125 MG CAP.SPRINK PO SCH ×2 (08:01→19:30)
[2018-07-19] MEDS: POTASSIUM CHLORIDE 20 MEQ TABLET.ER. PO SCH (08:01)
[2018-07-19] MEDS: MEMANTINE 10 MG TABLET. PO SCH ×2 (08:02→19:29)
[2018-07-19] MEDS: SERTRALINE 50 MG TABLET. PO SCH (08:02)
[2018-07-19] MEDS: amLODIPine BESYLATE 10 MG TABLET PO SCH (08:02)
[2018-07-19] MEDS: LACTOBACILLUS RHAMNOSUS GG 1 CAPSULE. PO SCH ×2 (08:02→19:29)
[2018-07-19] MEDS: PANTOPRAZOLE 40 MG TABLET. PO SCH (08:02)
[2018-07-19] MEDS: NYSTATIN TOPICAL POWDER 15GM BOTTLE. TP SCH ×2 (08:07→19:33)
[2018-07-19 16:28] VITALS: BP 102/65
[2018-07-19] MEDS: risperiDONE 0.5 MG TABLET. PO SCH (19:29)
[2018-07-19] MEDS: MIRTAZAPINE 15 MG TABLET PO SCH (19:29)
[2018-07-19] MEDS: traZODone 50 MG TABLET. PO PRN ×2 (19:30→23:24)
[2018-07-19] MEDS: PRAVASTATIN 20 MG TABLET. PO SCH (19:33)
--- NOTE | 2018-07-19 22:16 | PDOC ---
Exam Note: Antoine Note: Please also refer to the separate dictated note~for this date of service dictated separately.~Patient seen individually. Discussed the patient with Nursing staff reviewed the chart.~Reviewed interim history and current functioning. Reviewed vital signs,~Labs/ Radiology~and current medications noted below. Continue current treatment with the changes noted in the dictated addendum note Assessment: Vital Signs: Vital Signs Date Time Temp Pulse Resp B/P (MAP) Pulse Ox O2 Delivery O2 Flow Rate FiO2 07/19/18 16:28 98.6 96 18 102/65 (77) 99 07/18/18 15:55 Room Air I&O Intake and Output 07/19/18 07:01 Intake Total 840 ml Balance 840 ml Intake Oral 840 ml Current Medications: Meds: Current Medications Acetaminophen (Tylenol) 650 mg PRN Q6HRS PRN PO PAIN / TEMP; Start 07/14/18 at 17:15 Multi-Ingredient Ointment (Analgesic [place]) 1 nelda PRN QID PRN TP MUSCLE PAIN; Start 07/14/18 at 17:15 Al Hydroxide/Mg Hydroxide (Mylanta Plus Xs) 15 ml PRN AFTMEALHC PRN PO DYSPEPSIA; Start 07/14/18 at 17:15 Magnesium Hydroxide (Milk Of Magnesia) 2,400 mg PRN QHS PRN PO CONSTIPATION Last administered on 07/16/18at 20:24; Start 07/14/18 at 17:15 Sertraline HCl (Zoloft) 50 mg DAILY PO Last administered on 07/19/18at 08:02; Start 07/15/18 at 09:00 Divalproex Sodium (Depakote Sprinkles) 375 mg BID PO Last administered on at 19:30; Start 07/14/18 at 21:00 Memantine (Namenda) 10 mg BID PO Last administered on 07/19/18 19:29; Start at 21:00 Mirtazapine (Remeron) 15 mg QHS PO Last administered on 07/19/18 19:29; Start 07/14/18 at 21:00 Risperidone (RisperDAL) 0.5 mg QHS PO Last administered on 07/19/18at 19:29; Start 07/14/18 at 21:00 Trazodone HCl (Desyrel) 50 mg PRN QHS PRN PO INSOMNIA, MAY REPEAT IN 1HR Last administered on 07/19/18 19:30; Start 07/14/18 at 17:30 Olanzapine (ZyPREXA ZYDIS) 5 mg PRN Q2HR PRN PO PSYCHOSIS; Start 07/14/18 at 17 :30; Stop 07/14/18 at 17:33; Status DC Levofloxacin (Levaquin) 250 mg DAILY06 PO Last administered on 07/19/18at 06:34 ; Start 07/15/18 at 06:00; Stop 07/20/18 at 05:59 Acetaminophen (Tylenol) 650 mg PRN QID PRN PO PAIN / TEMP; Start 07/14/18 at 17 :30; Status UNV Vitamin D (Vitamin D3) 50,000 unit WEEKLY PO ; Start 07/20/18 at 09:00 Multi-Ingredient Ointment (Analgesic [place]) 1 nelda PRN QID PRN TP MUSCLE PAIN; Start 07/14/18 at 17:30; Status UNV Pravastatin Sodium (Pravachol) 20 mg HS PO Last administered on 07/16/18at 20:23 ; Start 07/14/18 at 21:00; Stop 07/17/18 at 14:58; Status DC Non-Formulary Medication (Magnesium Hydroxide (Milk Of Magnesia)) 2,400 mg PRN QHS PRN PO CONSTIPATION; Start 07/14/18 at 17:30; Status UNV Pantoprazole Sodium (Protonix) 40 mg DAILYAC PO Last administered on 07/19/18at 08:02; Start 07/15/18 at 07:30 Potassium Chloride (Klor-Con) 20 meq DAILYWBKFT PO Last administered on at 08:01; Start 07/15/18 at 08:00 Olanzapine (ZyPREXA ZYDIS) 2.5 mg PRN Q2HR PRN PO PSYCHOSIS Last administered on 07/15/18at 13:50; Start 07/14/18 at 17:45 Amlodipine Besylate (Norvasc) 10 mg DAILY PO Last administered on 07/19/18 08: 02; Start 07/15/18 at 09:00 Lactobacillus Rhamnosus (Culturelle) 1 cap BID PO Last administered on at 19:29; Start 07/17/18 at 21:00 Pravastatin Sodium (Pravachol) 40 mg HS PO Last administered on 07/19/18at 19:33 ; Start 07/17/18 at 21:00 Nystatin (Nystop) 1 nelda BID TP Last administered on 07/19/18at 19:33; Start at 10:30 Fluconazole (Diflucan) 100 mg 1X ONCE PO Last administered on 07/18/18at 12:13 ; Start 07/18/18 at 10:30; Stop 07/18/18 at 10:31; Status DC Active Scripts Active Pantoprazole Sodium 40 Mg Tablet.dr 40 Mg PO DAILYAC 30 Days Amlodipine Besylate 10 Mg Tablet 10 Mg PO DAILY 30 Days Reported Trazodone Hcl 50 Mg Tablet 50 Mg PO PRN QHS PRN Risperidone 0.5 Mg Tablet 0.5 Mg PO QHS Zoloft (Sertraline Hcl) 50 Mg Tablet 50 Mg PO DAILY Olanzapine 5 Mg Tablet 2.5 Mg PO PRN Q4HRS PRN MDD 10mg Analgesic [place] (Methyl Salicylate/Menthol) 28 Gm Oint...g. 1 Nelda TP PRN QID PRN Milk Of Magnesia (Magnesium Hydroxide) 2,400 Mg/10 Ml Oral.susp 2,400 Mg PO PRN QHS PRN Depakote Sprinkle (Divalproex Sodium) 125 Mg Cap.sprink 375 Mg PO BID D3-50 (Cholecalciferol (Vitamin D3)) 50,000 Unit Capsule 50,000 Unit PO WEEKLY Tylenol (Acetaminophen) 325 Mg Tablet 650 Mg PO PRN QID PRN Mirtazapine 15 Mg Tablet 15 Mg PO QHS Potassium Chloride 10 Meq Tablet.er 20 Meq PO DAILYWBKFT Namenda (Memantine Hcl) 10 Mg Tablet 10 Mg PO BID Pravastatin Sodium 20 Mg Tablet 20 Mg PO HS I have reviewed the current psychotropics carefully including drug interactions. Risk benefit ratio favors no change other than as noted in my dictated progress note. 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
[2018-07-20 05:53] VITALS: BP 114/69
[2018-07-20] MEDS: POTASSIUM CHLORIDE 20 MEQ TABLET.ER. PO SCH (08:02)
[2018-07-20] MEDS: PANTOPRAZOLE 40 MG TABLET. PO SCH (08:02)
[2018-07-20] MEDS: MEMANTINE 10 MG TABLET. PO SCH ×2 (08:02→19:53)
[2018-07-20] MEDS: LACTOBACILLUS RHAMNOSUS GG 1 CAPSULE. PO SCH ×2 (08:02→19:52)
[2018-07-20] MEDS: SERTRALINE 50 MG TABLET. PO SCH (08:03)
[2018-07-20] MEDS: amLODIPine BESYLATE 10 MG TABLET PO SCH (08:03)
[2018-07-20] MEDS: DIVALPROEX 125 MG CAP.SPRINK PO SCH ×2 (08:03→19:53)
[2018-07-20] MEDS: CHOLECALCIFEROL (VITAMIN D3) 50,000 UNIT CAPSULE PO SCH (08:04)
[2018-07-20] MEDS: NYSTATIN TOPICAL POWDER 15GM BOTTLE. TP SCH ×2 (08:04→19:54)
[2018-07-20 10:43] LABS: BASO % 1 % (0-3); EOS # 0.2 x10^3/uL (0.0-0.7); EOS % 4 % (0-3); HEMATOCRIT 32.9 % (36.0-47.0); HEMOGLOBIN 10.6 g/dL (12.0-15.5); LYMPH # 1.1 x10^3/uL (1.0-4.8); LYMPH % 17 % (24-48); MEAN CORPUSCULAR HEMOGLOBIN 29 pg (25-35); MEAN CORPUSCULAR HGB CONC 32 g/dL (31-37); MEAN CORPUSCULAR VOLUME 89 fL (79-100); MONO # 0.5 x10^3/uL (0.0-1.1); MONO % 8 % (0-9); NEUT # 4.4 x10^3uL (1.8-7.7); NEUT % 71 % (31-73); PLATELET COUNT 245 x10^3/uL (140-400); RED BLOOD COUNT 3.71 x10^6/uL (3.50-5.40); RED CELL DISTRIBUTION WIDTH 15.3 % (11.5-14.5); WHITE BLOOD COUNT 6.2 x10^3/uL (4.0-11.0)
[2018-07-20 10:48] LABS: ALBUMIN 2.6 g/dL (3.4-5.0); ALBUMIN/GLOBULIN RATIO 0.6 (1.0-1.7); CALCIUM 8.9 mg/dL (8.5-10.1); CREATININE 1.5 mg/dL (0.6-1.0); GFR 33.2; POTASSIUM 4.4 mmol/L (3.5-5.1); TOTAL BILIRUBIN 0.4 mg/dL (0.2-1.0); TOTAL PROTEIN 7.3 g/dL (6.4-8.2)
[2018-07-20 16:24] VITALS: BP 123/79
[2018-07-20] MEDS: PRAVASTATIN 20 MG TABLET. PO SCH (19:53)
[2018-07-20] MEDS: MIRTAZAPINE 15 MG TABLET PO SCH (19:53)
[2018-07-20] MEDS: traZODone 50 MG TABLET. PO PRN (19:53)
[2018-07-20] MEDS: risperiDONE 0.5 MG TABLET. PO SCH (19:53)
--- NOTE | 2018-07-20 20:53 | PDOC ---
Exam Note: Antoine Note: Please also refer to the separate dictated note~for this date of service dictated separately.~Patient seen individually. Discussed the patient with Nursing staff reviewed the chart.~Reviewed interim history and current functioning. Reviewed vital signs,~Labs/ Radiology~and current medications noted below. Continue current treatment with the changes noted in the dictated addendum note Assessment: Vital Signs: Vital Signs Date Time Temp Pulse Resp B/P (MAP) Pulse Ox O2 Delivery O2 Flow Rate FiO2 07/20/18 16:24 97.0 80 20 123/79 (94) 98 Room Air I&O Intake and Output 07/20/18 07:01 Intake Total 600 ml Balance 600 ml Intake Oral 600 ml Labs: Laboratory Tests Test 07/20/18 09:59 White Blood Count 6.2 x10^3/uL (4.0-11.0) Red Blood Count 3.71 x10^6/uL (3.50-5.40) Hemoglobin 10.6 g/dL (12.0-15.5) L Hematocrit 32.9 % (36.0-47.0) L Mean Corpuscular Volume 89 fL (79-100) Mean Corpuscular Hemoglobin 29 pg (25-35) Mean Corpuscular Hemoglobin Concent 32 g/dL (31-37) Red Cell Distribution Width 15.3 % (11.5-14.5) H Platelet Count 245 x10^3/uL (140-400) Neutrophils (%) (Auto) 71 % (31-73) Lymphocytes (%) (Auto) 17 % (24-48) L Monocytes (%) (Auto) 8 % (0-9) Eosinophils (%) (Auto) 4 % (0-3) H Basophils (%) (Auto) 1 % (0-3) Neutrophils # (Auto) 4.4 x10^3uL (1.8-7.7) Lymphocytes # (Auto) 1.1 x10^3/uL (1.0-4.8) Monocytes # (Auto) 0.5 x10^3/uL (0.0-1.1) Eosinophils # (Auto) 0.2 x10^3/uL (0.0-0.7) Basophils # (Auto) 0.0 x10^3/uL (0.0-0.2) Sodium Level 144 mmol/L (136-145) Potassium Level 4.4 mmol/L (3.5-5.1) Chloride Level 108 mmol/L (98-107) H Carbon Dioxide Level 23 mmol/L (21-32) Anion Gap 13 (6-14) Blood Urea Nitrogen 22 mg/dL (7-20) H Creatinine 1.5 mg/dL (0.6-1.0) H Estimated GFR (Cockcroft-Gault) 33.2 BUN/Creatinine Ratio 15 (6-20) Glucose Level 179 mg/dL (70-99) H Calcium Level 8.9 mg/dL (8.5-10.1) Total Bilirubin 0.4 mg/dL (0.2-1.0) Aspartate Amino Transferase (AST) 17 U/L (15-37) Alanine Aminotransferase (ALT) 15 U/L (14-59) Alkaline Phosphatase 85 U/L (46-116) Total Protein 7.3 g/dL (6.4-8.2) Albumin 2.6 g/dL (3.4-5.0) L Albumin/Globulin Ratio 0.6 (1.0-1.7) L Current Medications: Meds: Current Medications Acetaminophen (Tylenol) 650 mg PRN Q6HRS PRN PO PAIN / TEMP; Start 07/14/18 at 17:15 Multi-Ingredient Ointment (Analgesic [place]) 1 nelda PRN QID PRN TP MUSCLE PAIN; Start 07/14/18 at 17:15 Al Hydroxide/Mg Hydroxide (Mylanta Plus Xs) 15 ml PRN AFTMEALHC PRN PO DYSPEPSIA; Start 07/14/18 at 17:15 Magnesium Hydroxide (Milk Of Magnesia) 2,400 mg PRN QHS PRN PO CONSTIPATION Last administered on 07/16/18at 20:24; Start 07/14/18 at 17:15 Sertraline HCl (Zoloft) 50 mg DAILY PO Last administered on 07/20/18at 08:03; Start 07/15/18 at 09:00 Divalproex Sodium (Depakote Sprinkles) 375 mg BID PO Last administered on at 19:53; Start 07/14/18 at 21:00 Memantine (Namenda) 10 mg BID PO Last administered on 07/20/18 19:53; Start at 21:00 Mirtazapine (Remeron) 15 mg QHS PO Last administered on 07/20/18 19:53; Start 07/14/18 at 21:00 Risperidone (RisperDAL) 0.5 mg QHS PO Last administered on 07/20/18 19:53; Start 07/14/18 at 21:00 Trazodone HCl (Desyrel) 50 mg PRN QHS PRN PO INSOMNIA, MAY REPEAT IN 1HR Last administered on 07/20/18at 19:53; Start 07/14/18 at 17:30 Olanzapine (ZyPREXA ZYDIS) 5 mg PRN Q2HR PRN PO PSYCHOSIS; Start 07/14/18 at 17 :30; Stop 07/14/18 at 17:33; Status DC Levofloxacin (Levaquin) 250 mg DAILY06 PO Last administered on 07/19/18 06:34 ; Start 07/15/18 at 06:00; Stop 07/20/18 at 05:59; Status DC Acetaminophen (Tylenol) 650 mg PRN QID PRN PO PAIN / TEMP; Start 07/14/18 at 17 :30; Status UNV Vitamin D (Vitamin D3) 50,000 unit WEEKLY PO Last administered on 07/20/18at 08: 04; Start 07/20/18 at 09:00 Multi-Ingredient Ointment (Analgesic [place]) 1 nelda PRN QID PRN TP MUSCLE PAIN; Start 07/14/18 at 17:30; Status UNV Pravastatin Sodium (Pravachol) 20 mg HS PO Last administered on 07/16/18at 20:23 ; Start 07/14/18 at 21:00; Stop 07/17/18 at 14:58; Status DC Non-Formulary Medication (Magnesium Hydroxide (Milk Of Magnesia)) 2,400 mg PRN QHS PRN PO CONSTIPATION; Start 07/14/18 at 17:30; Status UNV Pantoprazole Sodium (Protonix) 40 mg DAILYAC PO Last administered on 07/20/18at 08:02; Start 07/15/18 at 07:30 Potassium Chloride (Klor-Con) 20 meq DAILYWBKFT PO Last administered on at 08:02; Start 07/15/18 at 08:00 Olanzapine (ZyPREXA ZYDIS) 2.5 mg PRN Q2HR PRN PO PSYCHOSIS Last administered on 07/15/18at 13:50; Start 07/14/18 at 17:45 Amlodipine Besylate (Norvasc) 10 mg DAILY PO Last administered on 07/20/18at 08: 03; Start 07/15/18 at 09:00 Lactobacillus Rhamnosus (Culturelle) 1 cap BID PO Last administered on at 19:52; Start 07/17/18 at 21:00 Pravastatin Sodium (Pravachol) 40 mg HS PO Last administered on 07/20/18 19:53 ; Start 07/17/18 at 21:00 Nystatin (Nystop) 1 nelda BID TP Last administered on 07/20/18 19:54; Start at 10:30 Fluconazole (Diflucan) 100 mg 1X ONCE PO Last administered on 07/18/18at 12:13 ; Start 07/18/18 at 10:30; Stop 07/18/18 at 10:31; Status DC Active Scripts Active Pantoprazole Sodium 40 Mg Tablet.dr 40 Mg PO DAILYAC 30 Days Amlodipine Besylate 10 Mg Tablet 10 Mg PO DAILY 30 Days Reported Trazodone Hcl 50 Mg Tablet 50 Mg PO PRN QHS PRN Risperidone 0.5 Mg Tablet 0.5 Mg PO QHS Zoloft (Sertraline Hcl) 50 Mg Tablet 50 Mg PO DAILY Olanzapine 5 Mg Tablet 2.5 Mg PO PRN Q4HRS PRN MDD 10mg Analgesic [place] (Methyl Salicylate/Menthol) 28 Gm Oint...g. 1 Nelda TP PRN QID PRN Milk Of Magnesia (Magnesium Hydroxide) 2,400 Mg/10 Ml Oral.susp 2,400 Mg PO PRN QHS PRN Depakote Sprinkle (Divalproex Sodium) 125 Mg Cap.sprink 375 Mg PO BID D3-50 (Cholecalciferol (Vitamin D3)) 50,000 Unit Capsule 50,000 Unit PO WEEKLY Tylenol (Acetaminophen) 325 Mg Tablet 650 Mg PO PRN QID PRN Mirtazapine 15 Mg Tablet 15 Mg PO QHS Potassium Chloride 10 Meq Tablet.er 20 Meq PO DAILYWBKFT Namenda (Memantine Hcl) 10 Mg Tablet 10 Mg PO BID Pravastatin Sodium 20 Mg Tablet 20 Mg PO HS I have reviewed the current psychotropics carefully including drug interactions. Risk benefit ratio favors no change other than as noted in my dictated progress note. 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
--- NOTE | 2018-07-20 23:18 | PN ---
DATE: 07/18/2018 This is a late entry 07/18/2018 covers elements not covered in my initial note. SUBJECTIVE: I met with the patient in the evening. Overall, the patient remains confused, but pleasant. Medication compliant. Ambulation impaired with walker. No CV, , pulmonary, eye, ENT system symptoms on review. MENTAL STATUS EXAM: Oriented to herself. Insight, judgment, recent and remote memory, attention, concentration, fund of knowledge poor, consistent with her diagnosis mentioned in my initial note. PLAN: No change from initial note. MAN Wandy BOND MD DR: TAMIKO/willy JOB#: [id number] / [id number]
[2018-07-21 05:57] VITALS: BP 125/74
[2018-07-21] MEDS: LACTOBACILLUS RHAMNOSUS GG 1 CAPSULE. PO SCH ×2 (07:47→20:12)
[2018-07-21] MEDS: amLODIPine BESYLATE 10 MG TABLET PO SCH (07:48)
[2018-07-21] MEDS: DIVALPROEX 125 MG CAP.SPRINK PO SCH ×2 (07:48→20:13)
[2018-07-21] MEDS: PANTOPRAZOLE 40 MG TABLET. PO SCH (07:48)
[2018-07-21] MEDS: MEMANTINE 10 MG TABLET. PO SCH ×2 (07:48→20:12)
[2018-07-21] MEDS: SERTRALINE 50 MG TABLET. PO SCH (07:48)
[2018-07-21] MEDS: POTASSIUM CHLORIDE 20 MEQ TABLET.ER. PO SCH (07:48)
[2018-07-21] MEDS: NYSTATIN TOPICAL POWDER 15GM BOTTLE. TP SCH ×2 (07:49→22:10)
--- NOTE | 2018-07-21 12:56 | PN ---
DATE: 07/19/2018 PSYCHIATRIC PROGRESS NOTE This is a late entry, 07/19, covers elements not covered in my initial note. SUBJECTIVE: I met with the patient in the morning. The patient slept 5-1/2 hours previous evening, remains confused, anxious, ambulates with a walker. REVIEW OF SYSTEMS: No CV, , pulmonary, eye, ENT system symptoms on review. MENTAL STATUS EXAM: Oriented to herself. Insight, judgment, recent and remote memory, attention, concentration, fund of knowledge poor, consistent with her diagnosis mentioned in my initial note. PLAN: No change from initial note. May need to increase her Zoloft gradually and Risperdal if psychotic symptoms are evident. MAN Wandy BOND MD DR: TAMIKO/willy JOB#: [id number] / [id number]
[2018-07-21 15:47] VITALS: BP 117/74
[2018-07-21] MEDS: MIRTAZAPINE 15 MG TABLET PO SCH (20:12)
[2018-07-21] MEDS: risperiDONE 0.5 MG TABLET. PO SCH (20:12)
[2018-07-21] MEDS: PRAVASTATIN 20 MG TABLET. PO SCH (20:13)
--- NOTE | 2018-07-21 20:57 | PDOC ---
Exam Note: Antoine Note: Please also refer to the separate dictated note~for this date of service dictated separately.~Patient seen individually. Discussed the patient with Nursing staff reviewed the chart.~Reviewed interim history and current functioning. Reviewed vital signs,~Labs/ Radiology~and current medications noted below. Continue current treatment with the changes noted in the dictated addendum note Assessment: Vital Signs: Vital Signs Date Time Temp Pulse Resp B/P (MAP) Pulse Ox O2 Delivery O2 Flow Rate FiO2 07/21/18 15:47 98.6 82 19 117/74 (88) 96 07/20/18 16:24 Room Air I&O Intake and Output 07/21/18 07:01 Intake Total 1320 ml Balance 1320 ml Intake Oral 1320 ml # Voids 1 # Bowel Movements 1 Current Medications: Meds: Current Medications Acetaminophen (Tylenol) 650 mg PRN Q6HRS PRN PO PAIN / TEMP; Start 07/14/18 at 17:15 Multi-Ingredient Ointment (Analgesic [place]) 1 nelda PRN QID PRN TP MUSCLE PAIN; Start 07/14/18 at 17:15 Al Hydroxide/Mg Hydroxide (Mylanta Plus Xs) 15 ml PRN AFTMEALHC PRN PO DYSPEPSIA; Start 07/14/18 at 17:15 Magnesium Hydroxide (Milk Of Magnesia) 2,400 mg PRN QHS PRN PO CONSTIPATION Last administered on 07/16/18at 20:24; Start 07/14/18 at 17:15 Sertraline HCl (Zoloft) 50 mg DAILY PO Last administered on 07/21/18at 07:48; Start 07/15/18 at 09:00 Divalproex Sodium (Depakote Sprinkles) 375 mg BID PO Last administered on at 20:13; Start 07/14/18 at 21:00 Memantine (Namenda) 10 mg BID PO Last administered on 07/21/18at 20:12; Start at 21:00 Mirtazapine (Remeron) 15 mg QHS PO Last administered on 07/21/18at 20:12; Start 07/14/18 at 21:00 Risperidone (RisperDAL) 0.5 mg QHS PO Last administered on 07/21/18at 20:12; Start 07/14/18 at 21:00 Trazodone HCl (Desyrel) 50 mg PRN QHS PRN PO INSOMNIA, MAY REPEAT IN 1HR Last administered on 07/20/18at 19:53; Start 07/14/18 at 17:30 Olanzapine (ZyPREXA ZYDIS) 5 mg PRN Q2HR PRN PO PSYCHOSIS; Start 07/14/18 at 17 :30; Stop 07/14/18 at 17:33; Status DC Levofloxacin (Levaquin) 250 mg DAILY06 PO Last administered on 07/19/18at 06:34 ; Start 07/15/18 at 06:00; Stop 07/20/18 at 05:59; Status DC Acetaminophen (Tylenol) 650 mg PRN QID PRN PO PAIN / TEMP; Start 07/14/18 at 17 :30; Status UNV Vitamin D (Vitamin D3) 50,000 unit WEEKLY PO Last administered on 07/20/18 08: 04; Start 07/20/18 at 09:00 Multi-Ingredient Ointment (Analgesic [place]) 1 nelda PRN QID PRN TP MUSCLE PAIN; Start 07/14/18 at 17:30; Status UNV Pravastatin Sodium (Pravachol) 20 mg HS PO Last administered on 07/16/18at 20:23 ; Start 07/14/18 at 21:00; Stop 07/17/18 at 14:58; Status DC Non-Formulary Medication (Magnesium Hydroxide (Milk Of Magnesia)) 2,400 mg PRN QHS PRN PO CONSTIPATION; Start 07/14/18 at 17:30; Status UNV Pantoprazole Sodium (Protonix) 40 mg DAILYAC PO Last administered on 07/21/18at 07:48; Start 07/15/18 at 07:30 Potassium Chloride (Klor-Con) 20 meq DAILYWBKFT PO Last administered on at 07:48; Start 07/15/18 at 08:00 Olanzapine (ZyPREXA ZYDIS) 2.5 mg PRN Q2HR PRN PO PSYCHOSIS Last administered on 07/15/18at 13:50; Start 07/14/18 at 17:45 Amlodipine Besylate (Norvasc) 10 mg DAILY PO Last administered on 07/21/18at 07: 48; Start 07/15/18 at 09:00 Lactobacillus Rhamnosus (Culturelle) 1 cap BID PO Last administered on at 20:12; Start 07/17/18 at 21:00 Pravastatin Sodium (Pravachol) 40 mg HS PO Last administered on 07/21/18at 20:13 ; Start 07/17/18 at 21:00 Nystatin (Nystop) 1 nelda BID TP Last administered on 07/21/18at 07:49; Start at 10:30 Fluconazole (Diflucan) 100 mg 1X ONCE PO Last administered on 07/18/18at 12:13 ; Start 07/18/18 at 10:30; Stop 07/18/18 at 10:31; Status DC Active Scripts Active Pantoprazole Sodium 40 Mg Tablet.dr 40 Mg PO DAILYAC 30 Days Amlodipine Besylate 10 Mg Tablet 10 Mg PO DAILY 30 Days Reported Trazodone Hcl 50 Mg Tablet 50 Mg PO PRN QHS PRN Risperidone 0.5 Mg Tablet 0.5 Mg PO QHS Zoloft (Sertraline Hcl) 50 Mg Tablet 50 Mg PO DAILY Olanzapine 5 Mg Tablet 2.5 Mg PO PRN Q4HRS PRN MDD 10mg Analgesic [place] (Methyl Salicylate/Menthol) 28 Gm Oint...g. 1 Nelda TP PRN QID PRN Milk Of Magnesia (Magnesium Hydroxide) 2,400 Mg/10 Ml Oral.susp 2,400 Mg PO PRN QHS PRN Depakote Sprinkle (Divalproex Sodium) 125 Mg Cap.sprink 375 Mg PO BID D3-50 (Cholecalciferol (Vitamin D3)) 50,000 Unit Capsule 50,000 Unit PO WEEKLY Tylenol (Acetaminophen) 325 Mg Tablet 650 Mg PO PRN QID PRN Mirtazapine 15 Mg Tablet 15 Mg PO QHS Potassium Chloride 10 Meq Tablet.er 20 Meq PO DAILYWBKFT Namenda (Memantine Hcl) 10 Mg Tablet 10 Mg PO BID Pravastatin Sodium 20 Mg Tablet 20 Mg PO HS I have reviewed the current psychotropics carefully including drug interactions. Risk benefit ratio favors no change other than as noted in my dictated progress note. 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
--- NOTE | 2018-07-21 23:19 | PN ---
DATE: 07/20/2018 PSYCHIATRIC PROGRESS NOTE This is a late entry, 07/20, covers elements not covered in my initial note. SUBJECTIVE: I met with the patient in the morning. The patient slept for 3-1/4 hours previous night. At night, she was quite suspicious, paranoid, confused, took her meds in ice cream, quite delusional. REVIEW OF SYSTEMS: No CV, , pulmonary, eye, ENT system symptoms on review. Reliability poor. Gait unsteady, with walker. MENTAL STATUS EXAM: Oriented to herself. Insight, judgment, recent and remote memory, attention, concentration, fund of knowledge poor, consistent with her diagnosis mentioned in my initial note. IMPRESSION: Major neurocognitive disorder, Alzheimer, vascular with delusion, depression; behavioral disturbance; anxiety disorder, unspecified; impulse control disorder, unspecified; urinary tract infection. PLAN: Treat the UTI. Continue rest per initial note. MAN Wandy BOND MD DR: TAMIKO/willy JOB#: [id number] / [id number]
[2018-07-22 05:20] VITALS: BP 111/65
[2018-07-22] MEDS: LACTOBACILLUS RHAMNOSUS GG 1 CAPSULE. PO SCH ×2 (11:25→19:31)
[2018-07-22] MEDS: SERTRALINE 50 MG TABLET. PO SCH (11:25)
[2018-07-22] MEDS: MEMANTINE 10 MG TABLET. PO SCH ×2 (11:25→19:33)
[2018-07-22] MEDS: NYSTATIN TOPICAL POWDER 15GM BOTTLE. TP SCH ×2 (11:25→19:37)
[2018-07-22] MEDS: DIVALPROEX 125 MG CAP.SPRINK PO SCH ×2 (11:25→19:31)
[2018-07-22] MEDS: PANTOPRAZOLE 40 MG TABLET. PO SCH (11:25)
[2018-07-22] MEDS: POTASSIUM CHLORIDE 20 MEQ TABLET.ER. PO SCH (11:26)
[2018-07-22] MEDS: amLODIPine BESYLATE 10 MG TABLET PO SCH (11:26)
[2018-07-22 15:59] VITALS: BP 131/82
[2018-07-22] MEDS: MIRTAZAPINE 15 MG TABLET PO SCH (19:33)
[2018-07-22] MEDS: PRAVASTATIN 20 MG TABLET. PO SCH (19:33)
[2018-07-22] MEDS: risperiDONE 0.5 MG TABLET. PO SCH (19:33)
--- NOTE | 2018-07-22 20:50 | PDOC ---
Exam Note: Antoine Note: Please also refer to the separate dictated note~for this date of service dictated separately.~Patient seen individually. Discussed the patient with Nursing staff reviewed the chart.~Reviewed interim history and current functioning. Reviewed vital signs,~Labs/ Radiology~and current medications noted below. Continue current treatment with the changes noted in the dictated addendum note Assessment: Vital Signs: Vital Signs Date Time Temp Pulse Resp B/P (MAP) Pulse Ox O2 Delivery O2 Flow Rate FiO2 07/22/18 15:59 98.0 89 18 131/82 (98) 97 07/20/18 16:24 Room Air I&O Intake and Output 07/22/18 07:00 Intake Total 1080 ml Balance 1080 ml Intake Oral 1080 ml Current Medications: Meds: Current Medications Acetaminophen (Tylenol) 650 mg PRN Q6HRS PRN PO PAIN / TEMP; Start 07/14/18 at 17:15 Multi-Ingredient Ointment (Analgesic [place]) 1 nelda PRN QID PRN TP MUSCLE PAIN; Start 07/14/18 at 17:15 Al Hydroxide/Mg Hydroxide (Mylanta Plus Xs) 15 ml PRN AFTMEALHC PRN PO DYSPEPSIA; Start 07/14/18 at 17:15 Magnesium Hydroxide (Milk Of Magnesia) 2,400 mg PRN QHS PRN PO CONSTIPATION Last administered on 07/16/18at 20:24; Start 07/14/18 at 17:15 Sertraline HCl (Zoloft) 50 mg DAILY PO Last administered on 07/22/18at 11:25; Start 07/15/18 at 09:00 Divalproex Sodium (Depakote Sprinkles) 375 mg BID PO Last administered on at 19:31; Start 07/14/18 at 21:00 Memantine (Namenda) 10 mg BID PO Last administered on 07/22/18 19:33; Start at 21:00 Mirtazapine (Remeron) 15 mg QHS PO Last administered on 07/22/18 19:33; Start 07/14/18 at 21:00 Risperidone (RisperDAL) 0.5 mg QHS PO Last administered on 07/22/18at 19:33; Start 07/14/18 at 21:00 Trazodone HCl (Desyrel) 50 mg PRN QHS PRN PO INSOMNIA, MAY REPEAT IN 1HR Last administered on 07/20/18at 19:53; Start 07/14/18 at 17:30 Olanzapine (ZyPREXA ZYDIS) 5 mg PRN Q2HR PRN PO PSYCHOSIS; Start 07/14/18 at 17 :30; Stop 07/14/18 at 17:33; Status DC Levofloxacin (Levaquin) 250 mg DAILY06 PO Last administered on 07/19/18at 06:34 ; Start 07/15/18 at 06:00; Stop 07/20/18 at 05:59; Status DC Acetaminophen (Tylenol) 650 mg PRN QID PRN PO PAIN / TEMP; Start 07/14/18 at 17 :30; Status UNV Vitamin D (Vitamin D3) 50,000 unit WEEKLY PO Last administered on 07/20/18at 08: 04; Start 07/20/18 at 09:00 Multi-Ingredient Ointment (Analgesic [place]) 1 nelda PRN QID PRN TP MUSCLE PAIN; Start 07/14/18 at 17:30; Status UNV Pravastatin Sodium (Pravachol) 20 mg HS PO Last administered on 07/16/18at 20:23 ; Start 07/14/18 at 21:00; Stop 07/17/18 at 14:58; Status DC Non-Formulary Medication (Magnesium Hydroxide (Milk Of Magnesia)) 2,400 mg PRN QHS PRN PO CONSTIPATION; Start 07/14/18 at 17:30; Status UNV Pantoprazole Sodium (Protonix) 40 mg DAILYAC PO Last administered on 07/22/18 11:25; Start 07/15/18 at 07:30 Potassium Chloride (Klor-Con) 20 meq DAILYWBKFT PO Last administered on 11:26; Start 07/15/18 at 08:00 Olanzapine (ZyPREXA ZYDIS) 2.5 mg PRN Q2HR PRN PO PSYCHOSIS Last administered on 07/15/18 13:50; Start 07/14/18 at 17:45 Amlodipine Besylate (Norvasc) 10 mg DAILY PO Last administered on 07/22/18 11: 26; Start 07/15/18 at 09:00 Lactobacillus Rhamnosus (Culturelle) 1 cap BID PO Last administered on 8/21/ 18at 19:31; Start 07/17/18 at 21:00 Pravastatin Sodium (Pravachol) 40 mg HS PO Last administered on 07/22/18 19:33 ; Start 07/17/18 at 21:00 Nystatin (Nystop) 1 nelda BID TP Last administered on 07/22/18at 19:37; Start at 10:30 Fluconazole (Diflucan) 100 mg 1X ONCE PO Last administered on 07/18/18at 12:13 ; Start 07/18/18 at 10:30; Stop 07/18/18 at 10:31; Status DC Active Scripts Active Pantoprazole Sodium 40 Mg Tablet.dr 40 Mg PO DAILYAC 30 Days Amlodipine Besylate 10 Mg Tablet 10 Mg PO DAILY 30 Days Reported Trazodone Hcl 50 Mg Tablet 50 Mg PO PRN QHS PRN Risperidone 0.5 Mg Tablet 0.5 Mg PO QHS Zoloft (Sertraline Hcl) 50 Mg Tablet 50 Mg PO DAILY Olanzapine 5 Mg Tablet 2.5 Mg PO PRN Q4HRS PRN MDD 10mg Analgesic [place] (Methyl Salicylate/Menthol) 28 Gm Oint...g. 1 Nelda TP PRN QID PRN Milk Of Magnesia (Magnesium Hydroxide) 2,400 Mg/10 Ml Oral.susp 2,400 Mg PO PRN QHS PRN Depakote Sprinkle (Divalproex Sodium) 125 Mg Cap.sprink 375 Mg PO BID D3-50 (Cholecalciferol (Vitamin D3)) 50,000 Unit Capsule 50,000 Unit PO WEEKLY Tylenol (Acetaminophen) 325 Mg Tablet 650 Mg PO PRN QID PRN Mirtazapine 15 Mg Tablet 15 Mg PO QHS Potassium Chloride 10 Meq Tablet.er 20 Meq PO DAILYWBKFT Namenda (Memantine Hcl) 10 Mg Tablet 10 Mg PO BID Pravastatin Sodium 20 Mg Tablet 20 Mg PO HS I have reviewed the current psychotropics carefully including drug interactions. Risk benefit ratio favors no change other than as noted in my dictated progress note. 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
--- NOTE | 2018-07-23 02:06 | PN ---
DATE: 07/21/2018 PSYCHIATRIC PROGRESS NOTE This is a late entry 07/21/2018 covers elements not covered in my initial note. SUBJECTIVE: I met with the patient in the evening. The patient slept 5-1/2 hours previous evening. She has been forgetful, confused, but redirectable, pleasant, smiling as I met with her. She told the nursing staff that she can stay here because there is "only 1 production control clerk here." She is compliant with her medications. REVIEW OF SYSTEMS: No CV, , pulmonary, eye, ENT system symptoms on review. Reliability poor. Gait unsteady with walker. MENTAL STATUS EXAM: Oriented to herself. Insight, judgment, recent and remote memory, attention, concentration, fund of knowledge poor, consistent with her diagnosis mentioned in my initial note. PLAN: No change from initial note. Adjust as clinically indicated. MAN Wandy BOND MD DR: TAMIKO/willy JOB#: [id number] / [id number]
[2018-07-23 05:35] VITALS: BP 135/80
[2018-07-23] MEDS: amLODIPine BESYLATE 10 MG TABLET PO SCH (07:56)
[2018-07-23] MEDS: LACTOBACILLUS RHAMNOSUS GG 1 CAPSULE. PO SCH ×2 (07:56→19:36)
[2018-07-23] MEDS: PANTOPRAZOLE 40 MG TABLET. PO SCH (07:56)
[2018-07-23] MEDS: POTASSIUM CHLORIDE 20 MEQ TABLET.ER. PO SCH (07:56)
[2018-07-23] MEDS: SERTRALINE 50 MG TABLET. PO SCH (07:56)
[2018-07-23] MEDS: DIVALPROEX 125 MG CAP.SPRINK PO SCH ×2 (07:56→19:36)
[2018-07-23] MEDS: MEMANTINE 10 MG TABLET. PO SCH ×2 (07:56→19:36)
[2018-07-23] MEDS: NYSTATIN TOPICAL POWDER 15GM BOTTLE. TP SCH ×2 (07:59→21:00)
[2018-07-23] MEDS: ACETAMINOPHEN 325 MG TABLET PO PRN (13:09)
[2018-07-23 16:00] VITALS: BP 116/68
[2018-07-23] MEDS: MIRTAZAPINE 15 MG TABLET PO SCH (19:37)
[2018-07-23] MEDS: risperiDONE 0.5 MG TABLET. PO SCH (19:37)
[2018-07-23] MEDS: PRAVASTATIN 20 MG TABLET. PO SCH (19:38)
--- NOTE | 2018-07-23 20:59 | PDOC ---
Exam Note: Antoine Note: Please also refer to the separate dictated note~for this date of service dictated separately.~Patient seen individually. Discussed the patient with Nursing staff reviewed the chart.~Reviewed interim history and current functioning. Reviewed vital signs,~Labs/ Radiology~and current medications noted below. Continue current treatment with the changes noted in the dictated addendum note Assessment: Vital Signs: Vital Signs Date Time Temp Pulse Resp B/P (MAP) Pulse Ox O2 Delivery O2 Flow Rate FiO2 07/23/18 16:00 98.1 82 16 116/68 (84) 97 07/20/18 16:24 Room Air I&O Intake and Output 07/23/18 07:00 Intake Total 1320 ml Balance 1320 ml Intake Oral 1320 ml Current Medications: Meds: Current Medications Acetaminophen (Tylenol) 650 mg PRN Q6HRS PRN PO PAIN / TEMP Last administered on 07/23/18 13:09; Start 07/14/18 at 17:15 Multi-Ingredient Ointment (Analgesic [place]) 1 nelda PRN QID PRN TP MUSCLE PAIN; Start 07/14/18 at 17:15 Al Hydroxide/Mg Hydroxide (Mylanta Plus Xs) 15 ml PRN AFTMEALHC PRN PO DYSPEPSIA; Start 07/14/18 at 17:15 Magnesium Hydroxide (Milk Of Magnesia) 2,400 mg PRN QHS PRN PO CONSTIPATION Last administered on 07/16/18at 20:24; Start 07/14/18 at 17:15 Sertraline HCl (Zoloft) 50 mg DAILY PO Last administered on 07/23/18 07:56; Start 07/15/18 at 09:00; Stop 07/23/18 at 16:17; Status DC Divalproex Sodium (Depakote Sprinkles) 375 mg BID PO Last administered on 19:36; Start 07/14/18 at 21:00 Memantine (Namenda) 10 mg BID PO Last administered on 07/23/18 19:36; Start at 21:00 Mirtazapine (Remeron) 15 mg QHS PO Last administered on 07/23/18 19:37; Start 07/14/18 at 21:00 Risperidone (RisperDAL) 0.5 mg QHS PO Last administered on 07/23/18 19:37; Start 07/14/18 at 21:00 Trazodone HCl (Desyrel) 50 mg PRN QHS PRN PO INSOMNIA, MAY REPEAT IN 1HR Last administered on 07/20/18at 19:53; Start 07/14/18 at 17:30 Olanzapine (ZyPREXA ZYDIS) 5 mg PRN Q2HR PRN PO PSYCHOSIS; Start 07/14/18 at 17 :30; Stop 07/14/18 at 17:33; Status DC Levofloxacin (Levaquin) 250 mg DAILY06 PO Last administered on 07/19/18 06:34 ; Start 07/15/18 at 06:00; Stop 07/20/18 at 05:59; Status DC Acetaminophen (Tylenol) 650 mg PRN QID PRN PO PAIN / TEMP; Start 07/14/18 at 17 :30; Status UNV Vitamin D (Vitamin D3) 50,000 unit WEEKLY PO Last administered on 07/20/18 08: 04; Start 07/20/18 at 09:00 Multi-Ingredient Ointment (Analgesic [place]) 1 nelda PRN QID PRN TP MUSCLE PAIN; Start 07/14/18 at 17:30; Status UNV Pravastatin Sodium (Pravachol) 20 mg HS PO Last administered on 07/16/18 20:23 ; Start 07/14/18 at 21:00; Stop 07/17/18 at 14:58; Status DC Non-Formulary Medication (Magnesium Hydroxide (Milk Of Magnesia)) 2,400 mg PRN QHS PRN PO CONSTIPATION; Start 07/14/18 at 17:30; Status UNV Pantoprazole Sodium (Protonix) 40 mg DAILYAC PO Last administered on 07/23/18 07:56; Start 07/15/18 at 07:30 Potassium Chloride (Klor-Con) 20 meq DAILYWBKFT PO Last administered on 07:56; Start 07/15/18 at 08:00 Olanzapine (ZyPREXA ZYDIS) 2.5 mg PRN Q2HR PRN PO PSYCHOSIS Last administered on 07/15/18 13:50; Start 07/14/18 at 17:45 Amlodipine Besylate (Norvasc) 10 mg DAILY PO Last administered on 07/23/18at 07: 56; Start 07/15/18 at 09:00 Lactobacillus Rhamnosus (Culturelle) 1 cap BID PO Last administered on at 19:36; Start 07/17/18 at 21:00 Pravastatin Sodium (Pravachol) 40 mg HS PO Last administered on 07/23/18at 19:38 ; Start 07/17/18 at 21:00 Nystatin (Nystop) 1 nelda BID TP Last administered on 07/23/18at 07:59; Start at 10:30 Fluconazole (Diflucan) 100 mg 1X ONCE PO Last administered on 07/18/18at 12:13 ; Start 07/18/18 at 10:30; Stop 07/18/18 at 10:31; Status DC Sertraline HCl (Zoloft) 75 mg DAILY PO ; Start 07/24/18 at 09:00 Active Scripts Active Pantoprazole Sodium 40 Mg Tablet.dr 40 Mg PO DAILYAC 30 Days Amlodipine Besylate 10 Mg Tablet 10 Mg PO DAILY 30 Days Reported Trazodone Hcl 50 Mg Tablet 50 Mg PO PRN QHS PRN Risperidone 0.5 Mg Tablet 0.5 Mg PO QHS Zoloft (Sertraline Hcl) 50 Mg Tablet 50 Mg PO DAILY Olanzapine 5 Mg Tablet 2.5 Mg PO PRN Q4HRS PRN MDD 10mg Analgesic [place] (Methyl Salicylate/Menthol) 28 Gm Oint...g. 1 Nelda TP PRN QID PRN Milk Of Magnesia (Magnesium Hydroxide) 2,400 Mg/10 Ml Oral.susp 2,400 Mg PO PRN QHS PRN Depakote Sprinkle (Divalproex Sodium) 125 Mg Cap.sprink 375 Mg PO BID D3-50 (Cholecalciferol (Vitamin D3)) 50,000 Unit Capsule 50,000 Unit PO WEEKLY Tylenol (Acetaminophen) 325 Mg Tablet 650 Mg PO PRN QID PRN Mirtazapine 15 Mg Tablet 15 Mg PO QHS Potassium Chloride 10 Meq Tablet.er 20 Meq PO DAILYWBKFT Namenda (Memantine Hcl) 10 Mg Tablet 10 Mg PO BID Pravastatin Sodium 20 Mg Tablet 20 Mg PO HS I have reviewed the current psychotropics carefully including drug interactions. Risk benefit ratio favors no change other than as noted in my dictated progress note. 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
--- NOTE | 2018-07-23 23:04 | PN ---
DATE: 07/22/2018 This is a late entry for 07/22/2018 covers elements not covered in my initial note. SUBJECTIVE: I met with the patient in the evening. The patient slept 7-1/4 hours previous evening. Per nursing report, tried on the unit, was wanting to discharge the patient, but the son is the DPOA. Social service staff are addressing this. The patient has been somewhat upset after the whole incident, but does not quite remember it, but did ask me about discharge plans, which I addressed with her at some length individually and she is calmer at the end of the visit. REVIEW OF SYSTEMS: Ambulation impaired with walker. No CV, , pulmonary, eye, ENT system symptoms on review. MENTAL STATUS EXAM: Oriented to herself. Insight, judgment, recent and remote memory, attention, concentration, fund of knowledge poor, consistent with her diagnosis mentioned in my initial note. PLAN: No change from initial note. Continue psychotropics mentioned in my initial note. MAN Wandy BOND MD DR: TAMIKO/willy JOB#: [id number] / [id number]
[2018-07-24 05:55] VITALS: BP 123/64
[2018-07-24] MEDS: LACTOBACILLUS RHAMNOSUS GG 1 CAPSULE. PO SCH ×2 (08:46→20:53)
[2018-07-24] MEDS: MEMANTINE 10 MG TABLET. PO SCH ×2 (08:46→20:54)
[2018-07-24] MEDS: POTASSIUM CHLORIDE 20 MEQ TABLET.ER. PO SCH (08:47)
[2018-07-24] MEDS: PANTOPRAZOLE 40 MG TABLET. PO SCH (08:47)
[2018-07-24] MEDS: amLODIPine BESYLATE 10 MG TABLET PO SCH (08:47)
[2018-07-24] MEDS: DIVALPROEX 125 MG CAP.SPRINK PO SCH ×2 (08:49→20:53)
[2018-07-24] MEDS: SERTRALINE 50 MG TABLET. PO SCH (08:51)
[2018-07-24] MEDS: NYSTATIN TOPICAL POWDER 15GM BOTTLE. TP SCH ×2 (08:51→20:54)
[2018-07-24 15:57] VITALS: BP 133/72
--- NOTE | 2018-07-24 20:32 | PDOC ---
Exam Note: Antoine Note: Please also refer to the separate dictated note~for this date of service dictated separately.~Patient seen individually. Discussed the patient with Nursing staff reviewed the chart.~Reviewed interim history and current functioning. Reviewed vital signs,~Labs/ Radiology~and current medications noted below. Continue current treatment with the changes noted in the dictated addendum note Assessment: Vital Signs: Vital Signs Date Time Temp Pulse Resp B/P (MAP) Pulse Ox O2 Delivery O2 Flow Rate FiO2 07/24/18 15:57 97.6 80 16 133/72 (92) 97 Room Air I&O Intake and Output 07/24/18 07:00 Intake Total 1140 ml Balance 1140 ml Intake Oral 1140 ml Current Medications: Meds: Current Medications Acetaminophen (Tylenol) 650 mg PRN Q6HRS PRN PO PAIN / TEMP Last administered on 07/23/18 13:09; Start 07/14/18 at 17:15 Multi-Ingredient Ointment (Analgesic [place]) 1 nelda PRN QID PRN TP MUSCLE PAIN; Start 07/14/18 at 17:15 Al Hydroxide/Mg Hydroxide (Mylanta Plus Xs) 15 ml PRN AFTMEALHC PRN PO DYSPEPSIA; Start 07/14/18 at 17:15 Magnesium Hydroxide (Milk Of Magnesia) 2,400 mg PRN QHS PRN PO CONSTIPATION Last administered on 07/16/18at 20:24; Start 07/14/18 at 17:15 Sertraline HCl (Zoloft) 50 mg DAILY PO Last administered on 07/23/18 07:56; Start 07/15/18 at 09:00; Stop 07/23/18 at 16:17; Status DC Divalproex Sodium (Depakote Sprinkles) 375 mg BID PO Last administered on 08:49; Start 07/14/18 at 21:00 Memantine (Namenda) 10 mg BID PO Last administered on 07/24/18 08:46; Start at 21:00 Mirtazapine (Remeron) 15 mg QHS PO Last administered on 07/23/18 19:37; Start 07/14/18 at 21:00 Risperidone (RisperDAL) 0.5 mg QHS PO Last administered on 8/22/18at 19:37; Start 07/14/18 at 21:00 Trazodone HCl (Desyrel) 50 mg PRN QHS PRN PO INSOMNIA, MAY REPEAT IN 1HR Last administered on 07/20/18at 19:53; Start 07/14/18 at 17:30 Olanzapine (ZyPREXA ZYDIS) 5 mg PRN Q2HR PRN PO PSYCHOSIS; Start 07/14/18 at 17 :30; Stop 07/14/18 at 17:33; Status DC Levofloxacin (Levaquin) 250 mg DAILY06 PO Last administered on 07/19/18at 06:34 ; Start 07/15/18 at 06:00; Stop 07/20/18 at 05:59; Status DC Acetaminophen (Tylenol) 650 mg PRN QID PRN PO PAIN / TEMP; Start 07/14/18 at 17 :30; Status UNV Vitamin D (Vitamin D3) 50,000 unit WEEKLY PO Last administered on 07/20/18at 08: 04; Start 07/20/18 at 09:00 Multi-Ingredient Ointment (Analgesic [place]) 1 nelda PRN QID PRN TP MUSCLE PAIN; Start 07/14/18 at 17:30; Status UNV Pravastatin Sodium (Pravachol) 20 mg HS PO Last administered on 07/16/18at 20:23 ; Start 07/14/18 at 21:00; Stop 07/17/18 at 14:58; Status DC Non-Formulary Medication (Magnesium Hydroxide (Milk Of Magnesia)) 2,400 mg PRN QHS PRN PO CONSTIPATION; Start 07/14/18 at 17:30; Status UNV Pantoprazole Sodium (Protonix) 40 mg DAILYAC PO Last administered on 07/24/18at 08:47; Start 07/15/18 at 07:30 Potassium Chloride (Klor-Con) 20 meq DAILYWBKFT PO Last administered on at 08:47; Start 07/15/18 at 08:00 Olanzapine (ZyPREXA ZYDIS) 2.5 mg PRN Q2HR PRN PO PSYCHOSIS Last administered on 07/15/18at 13:50; Start 07/14/18 at 17:45 Amlodipine Besylate (Norvasc) 10 mg DAILY PO Last administered on 07/24/18at 08: 47; Start 07/15/18 at 09:00 Lactobacillus Rhamnosus (Culturelle) 1 cap BID PO Last administered on at 08:46; Start 07/17/18 at 21:00 Pravastatin Sodium (Pravachol) 40 mg HS PO Last administered on 07/23/18at 19:38 ; Start 07/17/18 at 21:00 Nystatin (Nystop) 1 nelda BID TP Last administered on 07/24/18at 08:51; Start at 10:30 Fluconazole (Diflucan) 100 mg 1X ONCE PO Last administered on 07/18/18at 12:13 ; Start 07/18/18 at 10:30; Stop 07/18/18 at 10:31; Status DC Sertraline HCl (Zoloft) 75 mg DAILY PO Last administered on 07/24/18at 08:51; Start 07/24/18 at 09:00 Active Scripts Active Pantoprazole Sodium 40 Mg Tablet.dr 40 Mg PO DAILYAC 30 Days Amlodipine Besylate 10 Mg Tablet 10 Mg PO DAILY 30 Days Reported Trazodone Hcl 50 Mg Tablet 50 Mg PO PRN QHS PRN Risperidone 0.5 Mg Tablet 0.5 Mg PO QHS Zoloft (Sertraline Hcl) 50 Mg Tablet 50 Mg PO DAILY Olanzapine 5 Mg Tablet 2.5 Mg PO PRN Q4HRS PRN MDD 10mg Analgesic [place] (Methyl Salicylate/Menthol) 28 Gm Oint...g. 1 Nelda TP PRN QID PRN Milk Of Magnesia (Magnesium Hydroxide) 2,400 Mg/10 Ml Oral.susp 2,400 Mg PO PRN QHS PRN Depakote Sprinkle (Divalproex Sodium) 125 Mg Cap.sprink 375 Mg PO BID D3-50 (Cholecalciferol (Vitamin D3)) 50,000 Unit Capsule 50,000 Unit PO WEEKLY Tylenol (Acetaminophen) 325 Mg Tablet 650 Mg PO PRN QID PRN Mirtazapine 15 Mg Tablet 15 Mg PO QHS Potassium Chloride 10 Meq Tablet.er 20 Meq PO DAILYWBKFT Namenda (Memantine Hcl) 10 Mg Tablet 10 Mg PO BID Pravastatin Sodium 20 Mg Tablet 20 Mg PO HS I have reviewed the current psychotropics carefully including drug interactions. Risk benefit ratio favors no change other than as noted in my dictated progress note. 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
[2018-07-24] MEDS: PRAVASTATIN 20 MG TABLET. PO SCH (20:54)
[2018-07-24] MEDS: MIRTAZAPINE 15 MG TABLET PO SCH (20:54)
[2018-07-24] MEDS: risperiDONE 0.5 MG TABLET. PO SCH (20:54)
[2018-07-25 05:53] VITALS: BP 121/79
[2018-07-25] MEDS: DIVALPROEX 125 MG CAP.SPRINK PO SCH ×2 (07:40→19:50)
[2018-07-25] MEDS: MEMANTINE 10 MG TABLET. PO SCH ×2 (07:40→19:50)
[2018-07-25] MEDS: POTASSIUM CHLORIDE 20 MEQ TABLET.ER. PO SCH (07:40)
[2018-07-25] MEDS: SERTRALINE 50 MG TABLET. PO SCH (07:41)
[2018-07-25] MEDS: PANTOPRAZOLE 40 MG TABLET. PO SCH (07:41)
[2018-07-25] MEDS: NYSTATIN TOPICAL POWDER 15GM BOTTLE. TP SCH ×2 (07:41→19:50)
[2018-07-25] MEDS: LACTOBACILLUS RHAMNOSUS GG 1 CAPSULE. PO SCH ×2 (07:41→19:49)
[2018-07-25] MEDS: amLODIPine BESYLATE 10 MG TABLET PO SCH (07:41)
[2018-07-25 16:35] VITALS: BP 119/77
[2018-07-25] MEDS: ACETAMINOPHEN 325 MG TABLET PO PRN (17:52)
[2018-07-25] MEDS: PRAVASTATIN 20 MG TABLET. PO SCH (19:50)
[2018-07-25] MEDS: risperiDONE 0.5 MG TABLET. PO SCH (19:50)
[2018-07-25] MEDS: MIRTAZAPINE 15 MG TABLET PO SCH (19:51)
--- NOTE | 2018-07-26 00:26 | PN ---
DATE: 07/23/2018 PSYCHIATRIC PROGRESS NOTE This is a late entry 07/23/2018, covers elements not covered in my initial note. SUBJECTIVE: I met with the patient in the evening. The patient slept 6-3/4 hours previous evening, remains confused, resistive to medications, but otherwise compliant, pleasant, obsessed about wanting to leave, but oblivious of where she is. REVIEW OF SYSTEMS: No CV, , pulmonary, eye, ENT system symptoms on review. Reliability poor. Gait unsteady with walker. MENTAL STATUS EXAM: Oriented to herself. Insight, judgment, recent and remote memory, attention, concentration, fund of knowledge poor, consistent with her diagnosis mentioned in my initial note. PLAN: No change from initial note. MAN Wandy BOND MD DR: TAMIKO/willy JOB#: [id number] / [id number]
--- NOTE | 2018-07-26 00:47 | PN ---
DATE: 07/24/2018 PSYCHIATRIC PROGRESS NOTE This late entry 07/24/2018 covers elements not covered in my initial note. SUBJECTIVE: Met with the patient in the evening. The patient was seen at a treatment team meeting with the entire team in the morning. The patient's sons, Jarvis, enjoyed attended the treatment team meeting. This was a lengthy discussion about her diagnoses, placement options, has been wanting her home, but this is unsafe for her. She may be an option for [facility]. REVIEW OF SYSTEMS: No CV, , pulmonary, eye, ENT system symptoms on review. Reliability is poor. Gait is unsteady with walker. MENTAL STATUS EXAM: Oriented to herself. Insight, judgment, recent and remote memory, attention, concentration, fund of knowledge is poor, consistent with her diagnoses mentioned in my initial note. PLAN: No change from initial note and placement options as above. MONICA BOND MD DR: TAMIKO/willy JOB#: [id number] / [id number]
[2018-07-26 06:24] VITALS: BP 102/62
[2018-07-26 07:27] LABS: BASO % 1 % (0-3); EOS # 0.2 x10^3/uL (0.0-0.7); EOS % 4 % (0-3); HEMATOCRIT 33.9 % (36.0-47.0); LYMPH # 1.4 x10^3/uL (1.0-4.8); LYMPH % 22 % (24-48); MEAN CORPUSCULAR HEMOGLOBIN 28 pg (25-35); MEAN CORPUSCULAR HGB CONC 32 g/dL (31-37); MEAN CORPUSCULAR VOLUME 87 fL (79-100); MONO # 0.7 x10^3/uL (0.0-1.1); MONO % 12 % (0-9); NEUT % 62 % (31-73); PLATELET COUNT 286 x10^3/uL (140-400); RED BLOOD COUNT 3.91 x10^6/uL (3.50-5.40); RED CELL DISTRIBUTION WIDTH 15.2 % (11.5-14.5); WHITE BLOOD COUNT 6.4 x10^3/uL (4.0-11.0)
[2018-07-26 07:37] LABS: ALBUMIN 2.7 g/dL (3.4-5.0); ALBUMIN/GLOBULIN RATIO 0.6 (1.0-1.7); CALCIUM 8.9 mg/dL (8.5-10.1); CREATININE 1.3 mg/dL (0.6-1.0); GFR 39.2; POTASSIUM 4.4 mmol/L (3.5-5.1); TOTAL BILIRUBIN 0.2 mg/dL (0.2-1.0); TOTAL PROTEIN 7.2 g/dL (6.4-8.2)
[2018-07-26] MEDS: DIVALPROEX 125 MG CAP.SPRINK PO SCH ×2 (07:39→19:25)
[2018-07-26] MEDS: POTASSIUM CHLORIDE 20 MEQ TABLET.ER. PO SCH (07:39)
[2018-07-26] MEDS: LACTOBACILLUS RHAMNOSUS GG 1 CAPSULE. PO SCH ×2 (07:39→19:25)
[2018-07-26] MEDS: amLODIPine BESYLATE 10 MG TABLET PO SCH ×2 (07:40→07:43)
[2018-07-26] MEDS: SERTRALINE 50 MG TABLET. PO SCH (07:40)
[2018-07-26] MEDS: PANTOPRAZOLE 40 MG TABLET. PO SCH (07:41)
[2018-07-26] MEDS: MEMANTINE 10 MG TABLET. PO SCH ×2 (07:41→19:25)
[2018-07-26] MEDS: NYSTATIN TOPICAL POWDER 15GM BOTTLE. TP SCH ×2 (07:42→19:25)
[2018-07-26 08:20] LABS: % BANDS 2 % (0-9); % BASOS 1 % (0-3); % EOS 4 % (0-5); % LYMPHS 18 % (24-48); % METAS 0 % (0-0); % MONOS 9 % (0-10); % MYELOS 1 % (0-0); % SEGS 65 % (35-66); PLATELET CLUMP PRESENT; PLT ESTIMATE ADEQUATE (ADEQUATE); TOXIC GRANULATION SLIGHT
[2018-07-26 16:10] VITALS: BP 123/79
[2018-07-26] MEDS: risperiDONE 0.5 MG TABLET. PO SCH (19:25)
[2018-07-26] MEDS: PRAVASTATIN 20 MG TABLET. PO SCH (19:25)
[2018-07-26] MEDS: MIRTAZAPINE 15 MG TABLET PO SCH (19:25)
--- NOTE | 2018-07-26 22:23 | PDOC ---
Exam Note: Antoine Note: Please also refer to the separate dictated note~for this date of service dictated separately.~Patient seen individually. Discussed the patient with Nursing staff reviewed the chart.~Reviewed interim history and current functioning. Reviewed vital signs,~Labs/ Radiology~and current medications noted below. Continue current treatment with the changes noted in the dictated addendum note Assessment: Vital Signs: Vital Signs Date Time Temp Pulse Resp B/P (MAP) Pulse Ox O2 Delivery O2 Flow Rate FiO2 07/26/18 16:10 97.7 77 16 123/79 (94) 96 07/26/18 06:24 Room Air I&O Intake and Output 07/26/18 07:00 Intake Total 780 ml Balance 780 ml Intake Oral 780 ml Labs: Laboratory Tests Test 07/26/18 07:16 White Blood Count 6.4 x10^3/uL (4.0-11.0) Red Blood Count 3.91 x10^6/uL (3.50-5.40) Hemoglobin 11.0 g/dL (12.0-15.5) L Hematocrit 33.9 % (36.0-47.0) L Mean Corpuscular Volume 87 fL (79-100) Mean Corpuscular Hemoglobin 28 pg (25-35) Mean Corpuscular Hemoglobin Concent 32 g/dL (31-37) Red Cell Distribution Width 15.2 % (11.5-14.5) H Platelet Count 286 x10^3/uL (140-400) Neutrophils (%) (Auto) 62 % (31-73) Lymphocytes (%) (Auto) 22 % (24-48) L Monocytes (%) (Auto) 12 % (0-9) H Eosinophils (%) (Auto) 4 % (0-3) H Basophils (%) (Auto) 1 % (0-3) Neutrophils # (Auto) 4.0 x10^3uL (1.8-7.7) Lymphocytes # (Auto) 1.4 x10^3/uL (1.0-4.8) Monocytes # (Auto) 0.7 x10^3/uL (0.0-1.1) Eosinophils # (Auto) 0.2 x10^3/uL (0.0-0.7) Basophils # (Auto) 0.0 x10^3/uL (0.0-0.2) Segmented Neutrophils % 65 % (35-66) Band Neutrophils % 2 % (0-9) Lymphocytes % 18 % (24-48) L Monocytes % 9 % (0-10) Eosinophils % 4 % (0-5) Basophils % 1 % (0-3) Metamyelocytes % 0 % (0-0) Myelocytes % 1 % (0-0) H Toxic Granulation Slight Platelet Estimate Adequate (ADEQUATE) Platelet Clumps, EDTA Present Sodium Level 143 mmol/L (136-145) Potassium Level 4.4 mmol/L (3.5-5.1) Chloride Level 108 mmol/L (98-107) H Carbon Dioxide Level 26 mmol/L (21-32) Anion Gap 9 (6-14) Blood Urea Nitrogen 25 mg/dL (7-20) H Creatinine 1.3 mg/dL (0.6-1.0) H Estimated GFR (Cockcroft-Gault) 39.2 BUN/Creatinine Ratio 19 (6-20) Glucose Level 102 mg/dL (70-99) H Calcium Level 8.9 mg/dL (8.5-10.1) Total Bilirubin 0.2 mg/dL (0.2-1.0) Aspartate Amino Transferase (AST) 14 U/L (15-37) L Alanine Aminotransferase (ALT) 13 U/L (14-59) L Alkaline Phosphatase 88 U/L (46-116) Total Protein 7.2 g/dL (6.4-8.2) Albumin 2.7 g/dL (3.4-5.0) L Albumin/Globulin Ratio 0.6 (1.0-1.7) L Current Medications: Meds: Current Medications Acetaminophen (Tylenol) 650 mg PRN Q6HRS PRN PO PAIN / TEMP Last administered on 07/25/18at 17:52; Start 07/14/18 at 17:15 Multi-Ingredient Ointment (Analgesic [place]) 1 nelda PRN QID PRN TP MUSCLE PAIN; Start 07/14/18 at 17:15 Al Hydroxide/Mg Hydroxide (Mylanta Plus Xs) 15 ml PRN AFTMEALHC PRN PO DYSPEPSIA; Start 07/14/18 at 17:15 Magnesium Hydroxide (Milk Of Magnesia) 2,400 mg PRN QHS PRN PO CONSTIPATION Last administered on 07/16/18at 20:24; Start 07/14/18 at 17:15 Sertraline HCl (Zoloft) 50 mg DAILY PO Last administered on 07/23/18at 07:56; Start 07/15/18 at 09:00; Stop 07/23/18 at 16:17; Status DC Divalproex Sodium (Depakote Sprinkles) 375 mg BID PO Last administered on 19:25; Start 07/14/18 at 21:00 Memantine (Namenda) 10 mg BID PO Last administered on 07/26/18 19:25; Start at 21:00 Mirtazapine (Remeron) 15 mg QHS PO Last administered on 07/26/18 19:25; Start 07/14/18 at 21:00 Risperidone (RisperDAL) 0.5 mg QHS PO Last administered on 07/26/18 19:25; Start 07/14/18 at 21:00 Trazodone HCl (Desyrel) 50 mg PRN QHS PRN PO INSOMNIA, MAY REPEAT IN 1HR Last administered on 07/20/18at 19:53; Start 07/14/18 at 17:30 Olanzapine (ZyPREXA ZYDIS) 5 mg PRN Q2HR PRN PO PSYCHOSIS; Start 07/14/18 at 17 :30; Stop 07/14/18 at 17:33; Status DC Levofloxacin (Levaquin) 250 mg DAILY06 PO Last administered on 07/19/18at 06:34 ; Start 07/15/18 at 06:00; Stop 07/20/18 at 05:59; Status DC Acetaminophen (Tylenol) 650 mg PRN QID PRN PO PAIN / TEMP; Start 07/14/18 at 17 :30; Status UNV Vitamin D (Vitamin D3) 50,000 unit WEEKLY PO Last administered on 07/20/18at 08: 04; Start 07/20/18 at 09:00 Multi-Ingredient Ointment (Analgesic [place]) 1 nelda PRN QID PRN TP MUSCLE PAIN; Start 07/14/18 at 17:30; Status UNV Pravastatin Sodium (Pravachol) 20 mg HS PO Last administered on 07/16/18at 20:23 ; Start 07/14/18 at 21:00; Stop 07/17/18 at 14:58; Status DC Non-Formulary Medication (Magnesium Hydroxide (Milk Of Magnesia)) 2,400 mg PRN QHS PRN PO CONSTIPATION; Start 07/14/18 at 17:30; Status UNV Pantoprazole Sodium (Protonix) 40 mg DAILYAC PO Last administered on 07/26/18 07:41; Start 07/15/18 at 07:30 Potassium Chloride (Klor-Con) 20 meq DAILYWBKFT PO Last administered on 07:39; Start 07/15/18 at 08:00 Olanzapine (ZyPREXA ZYDIS) 2.5 mg PRN Q2HR PRN PO PSYCHOSIS Last administered on 07/15/18 13:50; Start 07/14/18 at 17:45 Amlodipine Besylate (Norvasc) 10 mg DAILY PO Last administered on 07/26/18 07: 40; Start 07/15/18 at 09:00 Lactobacillus Rhamnosus (Culturelle) 1 cap BID PO Last administered on 19:25; Start 07/17/18 at 21:00 Pravastatin Sodium (Pravachol) 40 mg HS PO Last administered on 07/26/18 19:25 ; Start 07/17/18 at 21:00 Nystatin (Nystop) 1 nelda BID TP Last administered on 07/26/18 19:25; Start at 10:30 Fluconazole (Diflucan) 100 mg 1X ONCE PO Last administered on 07/18/18at 12:13 ; Start 07/18/18 at 10:30; Stop 07/18/18 at 10:31; Status DC Sertraline HCl (Zoloft) 75 mg DAILY PO Last administered on 07/26/18 07:40; Start 07/24/18 at 09:00 Active Scripts Active Pantoprazole Sodium 40 Mg Tablet.dr 40 Mg PO DAILYAC 30 Days Amlodipine Besylate 10 Mg Tablet 10 Mg PO DAILY 30 Days Reported Trazodone Hcl 50 Mg Tablet 50 Mg PO PRN QHS PRN Risperidone 0.5 Mg Tablet 0.5 Mg PO QHS Zoloft (Sertraline Hcl) 50 Mg Tablet 50 Mg PO DAILY Olanzapine 5 Mg Tablet 2.5 Mg PO PRN Q4HRS PRN MDD 10mg Analgesic [place] (Methyl Salicylate/Menthol) 28 Gm Oint...g. 1 Nelda TP PRN QID PRN Milk Of Magnesia (Magnesium Hydroxide) 2,400 Mg/10 Ml Oral.susp 2,400 Mg PO PRN QHS PRN Depakote Sprinkle (Divalproex Sodium) 125 Mg Cap.sprink 375 Mg PO BID D3-50 (Cholecalciferol (Vitamin D3)) 50,000 Unit Capsule 50,000 Unit PO WEEKLY Tylenol (Acetaminophen) 325 Mg Tablet 650 Mg PO PRN QID PRN Mirtazapine 15 Mg Tablet 15 Mg PO QHS Potassium Chloride 10 Meq Tablet.er 20 Meq PO DAILYWBKFT Namenda (Memantine Hcl) 10 Mg Tablet 10 Mg PO BID Pravastatin Sodium 20 Mg Tablet 20 Mg PO HS I have reviewed the current psychotropics carefully including drug interactions. Risk benefit ratio favors no change other than as noted in my dictated progress note. 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
[2018-07-27 06:08] VITALS: BP 138/73
[2018-07-27] MEDS: DIVALPROEX 125 MG CAP.SPRINK PO SCH ×2 (08:01→19:26)
[2018-07-27] MEDS: amLODIPine BESYLATE 10 MG TABLET PO SCH (08:01)
[2018-07-27] MEDS: NYSTATIN TOPICAL POWDER 15GM BOTTLE. TP SCH ×2 (08:01→19:25)
[2018-07-27] MEDS: MEMANTINE 10 MG TABLET. PO SCH ×2 (08:01→19:26)
[2018-07-27] MEDS: POTASSIUM CHLORIDE 20 MEQ TABLET.ER. PO SCH (08:01)
[2018-07-27] MEDS: LACTOBACILLUS RHAMNOSUS GG 1 CAPSULE. PO SCH ×2 (08:01→19:26)
[2018-07-27] MEDS: SERTRALINE 50 MG TABLET. PO SCH (08:02)
[2018-07-27] MEDS: PANTOPRAZOLE 40 MG TABLET. PO SCH (08:05)
[2018-07-27] MEDS: CHOLECALCIFEROL (VITAMIN D3) 50,000 UNIT CAPSULE PO SCH (08:05)
[2018-07-27 16:32] VITALS: BP 112/63
[2018-07-27] MEDS: MIRTAZAPINE 15 MG TABLET PO SCH (19:26)
[2018-07-27] MEDS: risperiDONE 0.5 MG TABLET. PO SCH (19:26)
[2018-07-27] MEDS: PRAVASTATIN 20 MG TABLET. PO SCH (19:26)
--- NOTE | 2018-07-27 20:05 | PDOC ---
Exam Note: Antoine Note: Late entry for date of service July.Please also refer to the separate dictated note~for this date of service dictated separately.~Patient seen individually. Discussed the patient with Nursing staff reviewed the chart.~ Reviewed interim history and current functioning. Reviewed vital signs,~Labs/ Radiology~and current medications noted below. Continue current treatment with the changes noted in the dictated addendum note Assessment: Vital Signs: VS - Last 72 Hours, by Label Date Time Temp Pulse Resp B/P (MAP) Pulse Ox O2 Delivery O2 Flow Rate FiO2 07/27/18 16:32 97.7 63 18 112/63 (79) 97 07/27/18 08:01 80 138/73 07/27/18 06:08 98.3 80 18 138/73 (94) 93 Room Air 07/26/18 16:10 97.7 77 16 123/79 (94) 96 07/26/18 07:43 55 102/62 07/26/18 07:40 55 102/62 07/26/18 06:24 97.8 55 20 102/62 (75) 94 Room Air 07/25/18 16:35 97.8 59 17 119/77 (91) 95 Room Air 07/25/18 07:41 86 121/79 07/25/18 05:53 97.9 86 18 121/79 (93) 94 Vital Signs Date Time Temp Pulse Resp B/P (MAP) Pulse Ox O2 Delivery O2 Flow Rate FiO2 07/27/18 16:32 97.7 63 18 112/63 (79) 97 07/27/18 06:08 Room Air I&O Intake and Output 07/27/18 07:00 Intake Total 960 ml Balance 960 ml Intake Oral 960 ml Current Medications: Meds: Current Medications Acetaminophen (Tylenol) 650 mg PRN Q6HRS PRN PO PAIN / TEMP Last administered on 07/25/18at 17:52; Start 07/14/18 at 17:15 Multi-Ingredient Ointment (Analgesic [place]) 1 nelda PRN QID PRN TP MUSCLE PAIN; Start 07/14/18 at 17:15 Al Hydroxide/Mg Hydroxide (Mylanta Plus Xs) 15 ml PRN AFTMEALHC PRN PO DYSPEPSIA; Start 07/14/18 at 17:15 Magnesium Hydroxide (Milk Of Magnesia) 2,400 mg PRN QHS PRN PO CONSTIPATION Last administered on 07/16/18 20:24; Start 07/14/18 at 17:15 Sertraline HCl (Zoloft) 50 mg DAILY PO Last administered on 07/23/18 07:56; Start 07/15/18 at 09:00; Stop 07/23/18 at 16:17; Status DC Divalproex Sodium (Depakote Sprinkles) 375 mg BID PO Last administered on 19:26; Start 07/14/18 at 21:00 Memantine (Namenda) 10 mg BID PO Last administered on 07/27/18 19:26; Start at 21:00 Mirtazapine (Remeron) 15 mg QHS PO Last administered on 07/27/18 19:26; Start 07/14/18 at 21:00 Risperidone (RisperDAL) 0.5 mg QHS PO Last administered on 07/27/18 19:26; Start 07/14/18 at 21:00 Trazodone HCl (Desyrel) 50 mg PRN QHS PRN PO INSOMNIA, MAY REPEAT IN 1HR Last administered on 07/20/18at 19:53; Start 07/14/18 at 17:30 Olanzapine (ZyPREXA ZYDIS) 5 mg PRN Q2HR PRN PO PSYCHOSIS; Start 07/14/18 at 17 :30; Stop 07/14/18 at 17:33; Status DC Levofloxacin (Levaquin) 250 mg DAILY06 PO Last administered on 07/19/18at 06:34 ; Start 07/15/18 at 06:00; Stop 07/20/18 at 05:59; Status DC Acetaminophen (Tylenol) 650 mg PRN QID PRN PO PAIN / TEMP; Start 07/14/18 at 17 :30; Status UNV Vitamin D (Vitamin D3) 50,000 unit WEEKLY PO Last administered on 07/27/18 08: 05; Start 07/20/18 at 09:00 Multi-Ingredient Ointment (Analgesic [place]) 1 nelda PRN QID PRN TP MUSCLE PAIN; Start 07/14/18 at 17:30; Status UNV Pravastatin Sodium (Pravachol) 20 mg HS PO Last administered on 07/16/18at 20:23 ; Start 07/14/18 at 21:00; Stop 07/17/18 at 14:58; Status DC Non-Formulary Medication (Magnesium Hydroxide (Milk Of Magnesia)) 2,400 mg PRN QHS PRN PO CONSTIPATION; Start 07/14/18 at 17:30; Status UNV Pantoprazole Sodium (Protonix) 40 mg DAILYAC PO Last administered on 07/27/18 08:05; Start 07/15/18 at 07:30 Potassium Chloride (Klor-Con) 20 meq DAILYWBKFT PO Last administered on 08:01; Start 07/15/18 at 08:00 Olanzapine (ZyPREXA ZYDIS) 2.5 mg PRN Q2HR PRN PO PSYCHOSIS Last administered on 07/15/18 13:50; Start 07/14/18 at 17:45 Amlodipine Besylate (Norvasc) 10 mg DAILY PO Last administered on 07/27/18 08: 01; Start 07/15/18 at 09:00 Lactobacillus Rhamnosus (Culturelle) 1 cap BID PO Last administered on 19:26; Start 07/17/18 at 21:00 Pravastatin Sodium (Pravachol) 40 mg HS PO Last administered on 07/27/18 19:26 ; Start 07/17/18 at 21:00 Nystatin (Nystop) 1 nelda BID TP Last administered on 07/27/18 19:25; Start at 10:30 Fluconazole (Diflucan) 100 mg 1X ONCE PO Last administered on 07/18/18 12:13 ; Start 07/18/18 at 10:30; Stop 07/18/18 at 10:31; Status DC Sertraline HCl (Zoloft) 75 mg DAILY PO Last administered on 07/27/18 08:02; Start 07/24/18 at 09:00 Active Scripts Active Pantoprazole Sodium 40 Mg Tablet.dr 40 Mg PO DAILYAC 30 Days Amlodipine Besylate 10 Mg Tablet 10 Mg PO DAILY 30 Days Reported Trazodone Hcl 50 Mg Tablet 50 Mg PO PRN QHS PRN Risperidone 0.5 Mg Tablet 0.5 Mg PO QHS Zoloft (Sertraline Hcl) 50 Mg Tablet 50 Mg PO DAILY Olanzapine 5 Mg Tablet 2.5 Mg PO PRN Q4HRS PRN MDD 10mg Analgesic [place] (Methyl Salicylate/Menthol) 28 Gm Oint...g. 1 Nelda TP PRN QID PRN Milk Of Magnesia (Magnesium Hydroxide) 2,400 Mg/10 Ml Oral.susp 2,400 Mg PO PRN QHS PRN Depakote Sprinkle (Divalproex Sodium) 125 Mg Cap.sprink 375 Mg PO BID D3-50 (Cholecalciferol (Vitamin D3)) 50,000 Unit Capsule 50,000 Unit PO WEEKLY Tylenol (Acetaminophen) 325 Mg Tablet 650 Mg PO PRN QID PRN Mirtazapine 15 Mg Tablet 15 Mg PO QHS Potassium Chloride 10 Meq Tablet.er 20 Meq PO DAILYWBKFT Namenda (Memantine Hcl) 10 Mg Tablet 10 Mg PO BID Pravastatin Sodium 20 Mg Tablet 20 Mg PO HS I have reviewed the current psychotropics carefully including drug interactions. Risk benefit ratio favors no change other than as noted in my dictated progress note. 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
--- NOTE | 2018-07-27 20:06 | PDOC ---
Exam Note: Antoine Note: Please also refer to the separate dictated note~for this date of service dictated separately.~Patient seen individually. Discussed the patient with Nursing staff reviewed the chart.~Reviewed interim history and current functioning. Reviewed vital signs,~Labs/ Radiology~and current medications noted below. Continue current treatment with the changes noted in the dictated addendum note Assessment: Vital Signs: Vital Signs Date Time Temp Pulse Resp B/P (MAP) Pulse Ox O2 Delivery O2 Flow Rate FiO2 07/27/18 16:32 97.7 63 18 112/63 (79) 97 07/27/18 06:08 Room Air I&O Intake and Output 07/27/18 07:00 Intake Total 960 ml Balance 960 ml Intake Oral 960 ml Current Medications: Meds: Current Medications Acetaminophen (Tylenol) 650 mg PRN Q6HRS PRN PO PAIN / TEMP Last administered on 07/25/18 17:52; Start 07/14/18 at 17:15 Multi-Ingredient Ointment (Analgesic [place]) 1 nelda PRN QID PRN TP MUSCLE PAIN; Start 07/14/18 at 17:15 Al Hydroxide/Mg Hydroxide (Mylanta Plus Xs) 15 ml PRN AFTMEALHC PRN PO DYSPEPSIA; Start 07/14/18 at 17:15 Magnesium Hydroxide (Milk Of Magnesia) 2,400 mg PRN QHS PRN PO CONSTIPATION Last administered on 07/16/18at 20:24; Start 07/14/18 at 17:15 Sertraline HCl (Zoloft) 50 mg DAILY PO Last administered on 07/23/18at 07:56; Start 07/15/18 at 09:00; Stop 07/23/18 at 16:17; Status DC Divalproex Sodium (Depakote Sprinkles) 375 mg BID PO Last administered on 19:26; Start 07/14/18 at 21:00 Memantine (Namenda) 10 mg BID PO Last administered on 07/27/18 19:26; Start at 21:00 Mirtazapine (Remeron) 15 mg QHS PO Last administered on 07/27/18 19:26; Start 07/14/18 at 21:00 Risperidone (RisperDAL) 0.5 mg QHS PO Last administered on 07/27/18 19:26; Start 07/14/18 at 21:00 Trazodone HCl (Desyrel) 50 mg PRN QHS PRN PO INSOMNIA, MAY REPEAT IN 1HR Last administered on 07/20/18at 19:53; Start 07/14/18 at 17:30 Olanzapine (ZyPREXA ZYDIS) 5 mg PRN Q2HR PRN PO PSYCHOSIS; Start 07/14/18 at 17 :30; Stop 07/14/18 at 17:33; Status DC Levofloxacin (Levaquin) 250 mg DAILY06 PO Last administered on 07/19/18 06:34 ; Start 07/15/18 at 06:00; Stop 07/20/18 at 05:59; Status DC Acetaminophen (Tylenol) 650 mg PRN QID PRN PO PAIN / TEMP; Start 07/14/18 at 17 :30; Status UNV Vitamin D (Vitamin D3) 50,000 unit WEEKLY PO Last administered on 07/27/18 08: 05; Start 07/20/18 at 09:00 Multi-Ingredient Ointment (Analgesic [place]) 1 nelda PRN QID PRN TP MUSCLE PAIN; Start 07/14/18 at 17:30; Status UNV Pravastatin Sodium (Pravachol) 20 mg HS PO Last administered on 07/16/18 20:23 ; Start 07/14/18 at 21:00; Stop 07/17/18 at 14:58; Status DC Non-Formulary Medication (Magnesium Hydroxide (Milk Of Magnesia)) 2,400 mg PRN QHS PRN PO CONSTIPATION; Start 07/14/18 at 17:30; Status UNV Pantoprazole Sodium (Protonix) 40 mg DAILYAC PO Last administered on 07/27/18 08:05; Start 07/15/18 at 07:30 Potassium Chloride (Klor-Con) 20 meq DAILYWBKFT PO Last administered on 08:01; Start 07/15/18 at 08:00 Olanzapine (ZyPREXA ZYDIS) 2.5 mg PRN Q2HR PRN PO PSYCHOSIS Last administered on 07/15/18at 13:50; Start 07/14/18 at 17:45 Amlodipine Besylate (Norvasc) 10 mg DAILY PO Last administered on 07/27/18at 08: 01; Start 07/15/18 at 09:00 Lactobacillus Rhamnosus (Culturelle) 1 cap BID PO Last administered on 19:26; Start 07/17/18 at 21:00 Pravastatin Sodium (Pravachol) 40 mg HS PO Last administered on 07/27/18 19:26 ; Start 07/17/18 at 21:00 Nystatin (Nystop) 1 nelda BID TP Last administered on 07/27/18at 19:25; Start at 10:30 Fluconazole (Diflucan) 100 mg 1X ONCE PO Last administered on 07/18/18at 12:13 ; Start 07/18/18 at 10:30; Stop 07/18/18 at 10:31; Status DC Sertraline HCl (Zoloft) 75 mg DAILY PO Last administered on 07/27/18at 08:02; Start 07/24/18 at 09:00 Active Scripts Active Pantoprazole Sodium 40 Mg Tablet.dr 40 Mg PO DAILYAC 30 Days Amlodipine Besylate 10 Mg Tablet 10 Mg PO DAILY 30 Days Reported Trazodone Hcl 50 Mg Tablet 50 Mg PO PRN QHS PRN Risperidone 0.5 Mg Tablet 0.5 Mg PO QHS Zoloft (Sertraline Hcl) 50 Mg Tablet 50 Mg PO DAILY Olanzapine 5 Mg Tablet 2.5 Mg PO PRN Q4HRS PRN MDD 10mg Analgesic [place] (Methyl Salicylate/Menthol) 28 Gm Oint...g. 1 Nelda TP PRN QID PRN Milk Of Magnesia (Magnesium Hydroxide) 2,400 Mg/10 Ml Oral.susp 2,400 Mg PO PRN QHS PRN Depakote Sprinkle (Divalproex Sodium) 125 Mg Cap.sprink 375 Mg PO BID D3-50 (Cholecalciferol (Vitamin D3)) 50,000 Unit Capsule 50,000 Unit PO WEEKLY Tylenol (Acetaminophen) 325 Mg Tablet 650 Mg PO PRN QID PRN Mirtazapine 15 Mg Tablet 15 Mg PO QHS Potassium Chloride 10 Meq Tablet.er 20 Meq PO DAILYWBKFT Namenda (Memantine Hcl) 10 Mg Tablet 10 Mg PO BID Pravastatin Sodium 20 Mg Tablet 20 Mg PO HS I have reviewed the current psychotropics carefully including drug interactions. Risk benefit ratio favors no change other than as noted in my dictated progress note. 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
--- NOTE | 2018-07-28 01:44 | PN ---
DATE: 07/25/2018 PSYCHIATRIC PROGRESS NOTE This is a late entry of 07/25/2018, covers elements not covered in my initial note. SUBJECTIVE: I met with the patient in the evening. The patient slept 7-1/4 hours previous evening. She is confused, but compliant, pleasant, verbal. REVIEW OF SYSTEMS: No CV, , pulmonary, eye, ENT system symptoms on review. Reliability poor. Gait unsteady with walker. MENTAL STATUS EXAM: Oriented to herself. Insight, judgment, recent and remote memory, attention, concentration, fund of knowledge poor, consistent with her diagnosis mentioned in my initial note. PLAN: No change from initial note. MONICA BOND MD DR: [email or web address] JOB#: [id number] / [id number]
[2018-07-28 05:33] VITALS: BP 105/63
[2018-07-28] MEDS: DIVALPROEX 125 MG CAP.SPRINK PO SCH ×2 (09:00→19:14)
[2018-07-28] MEDS: LACTOBACILLUS RHAMNOSUS GG 1 CAPSULE. PO SCH ×2 (09:00→19:14)
[2018-07-28] MEDS: NYSTATIN TOPICAL POWDER 15GM BOTTLE. TP SCH ×2 (09:00→19:14)
[2018-07-28] MEDS: amLODIPine BESYLATE 10 MG TABLET PO SCH (09:01)
[2018-07-28] MEDS: PANTOPRAZOLE 40 MG TABLET. PO SCH (09:01)
[2018-07-28] MEDS: SERTRALINE 50 MG TABLET. PO SCH (09:01)
[2018-07-28] MEDS: MEMANTINE 10 MG TABLET. PO SCH ×2 (09:01→19:14)
[2018-07-28] MEDS: POTASSIUM CHLORIDE 20 MEQ TABLET.ER. PO SCH (09:01)
[2018-07-28 15:40] VITALS: BP 128/82
[2018-07-28] MEDS: risperiDONE 0.5 MG TABLET. PO SCH (19:14)
[2018-07-28] MEDS: MIRTAZAPINE 15 MG TABLET PO SCH (19:14)
[2018-07-28] MEDS: PRAVASTATIN 20 MG TABLET. PO SCH (19:14)
--- NOTE | 2018-07-28 20:51 | PDOC ---
Exam Note: Antoine Note: Please also refer to the separate dictated note~for this date of service dictated separately.~Patient seen individually. Discussed the patient with Nursing staff reviewed the chart.~Reviewed interim history and current functioning. Reviewed vital signs,~Labs/ Radiology~and current medications noted below. Continue current treatment with the changes noted in the dictated addendum note Assessment: Vital Signs: Vital Signs Date Time Temp Pulse Resp B/P (MAP) Pulse Ox O2 Delivery O2 Flow Rate FiO2 07/28/18 15:40 97.9 77 18 128/82 (97) 99 Room Air I&O Intake and Output 07/28/18 07:00 Intake Total 1200 ml Balance 1200 ml Intake Oral 1200 ml Current Medications: Meds: Current Medications Acetaminophen (Tylenol) 650 mg PRN Q6HRS PRN PO PAIN / TEMP Last administered on 07/25/18 17:52; Start 07/14/18 at 17:15 Multi-Ingredient Ointment (Analgesic [place]) 1 nelda PRN QID PRN TP MUSCLE PAIN; Start 07/14/18 at 17:15 Al Hydroxide/Mg Hydroxide (Mylanta Plus Xs) 15 ml PRN AFTMEALHC PRN PO DYSPEPSIA; Start 07/14/18 at 17:15 Magnesium Hydroxide (Milk Of Magnesia) 2,400 mg PRN QHS PRN PO CONSTIPATION Last administered on 07/16/18at 20:24; Start 07/14/18 at 17:15 Sertraline HCl (Zoloft) 50 mg DAILY PO Last administered on 07/23/18at 07:56; Start 07/15/18 at 09:00; Stop 07/23/18 at 16:17; Status DC Divalproex Sodium (Depakote Sprinkles) 375 mg BID PO Last administered on 19:14; Start 07/14/18 at 21:00 Memantine (Namenda) 10 mg BID PO Last administered on 07/28/18 19:14; Start at 21:00 Mirtazapine (Remeron) 15 mg QHS PO Last administered on 07/28/18 19:14; Start 07/14/18 at 21:00 Risperidone (RisperDAL) 0.5 mg QHS PO Last administered on 07/28/18 19:14; Start 07/14/18 at 21:00 Trazodone HCl (Desyrel) 50 mg PRN QHS PRN PO INSOMNIA, MAY REPEAT IN 1HR Last administered on 07/20/18at 19:53; Start 07/14/18 at 17:30 Olanzapine (ZyPREXA ZYDIS) 5 mg PRN Q2HR PRN PO PSYCHOSIS; Start 07/14/18 at 17 :30; Stop 07/14/18 at 17:33; Status DC Levofloxacin (Levaquin) 250 mg DAILY06 PO Last administered on 07/19/18at 06:34 ; Start 07/15/18 at 06:00; Stop 07/20/18 at 05:59; Status DC Acetaminophen (Tylenol) 650 mg PRN QID PRN PO PAIN / TEMP; Start 07/14/18 at 17 :30; Status UNV Vitamin D (Vitamin D3) 50,000 unit WEEKLY PO Last administered on 07/27/18at 08: 05; Start 07/20/18 at 09:00 Multi-Ingredient Ointment (Analgesic [place]) 1 nelda PRN QID PRN TP MUSCLE PAIN; Start 07/14/18 at 17:30; Status UNV Pravastatin Sodium (Pravachol) 20 mg HS PO Last administered on 07/16/18at 20:23 ; Start 07/14/18 at 21:00; Stop 07/17/18 at 14:58; Status DC Non-Formulary Medication (Magnesium Hydroxide (Milk Of Magnesia)) 2,400 mg PRN QHS PRN PO CONSTIPATION; Start 07/14/18 at 17:30; Status UNV Pantoprazole Sodium (Protonix) 40 mg DAILYAC PO Last administered on 07/28/18 09:01; Start 07/15/18 at 07:30 Potassium Chloride (Klor-Con) 20 meq DAILYWBKFT PO Last administered on 09:01; Start 07/15/18 at 08:00 Olanzapine (ZyPREXA ZYDIS) 2.5 mg PRN Q2HR PRN PO PSYCHOSIS Last administered on 07/28/18 09:00; Start 07/14/18 at 17:45 Amlodipine Besylate (Norvasc) 10 mg DAILY PO Last administered on 07/28/18at 09: 01; Start 07/15/18 at 09:00 Lactobacillus Rhamnosus (Culturelle) 1 cap BID PO Last administered on at 19:14; Start 07/17/18 at 21:00 Pravastatin Sodium (Pravachol) 40 mg HS PO Last administered on 07/28/18 19:14 ; Start 07/17/18 at 21:00 Nystatin (Nystop) 1 nelda BID TP Last administered on 07/28/18 19:14; Start at 10:30 Fluconazole (Diflucan) 100 mg 1X ONCE PO Last administered on 07/18/18at 12:13 ; Start 07/18/18 at 10:30; Stop 07/18/18 at 10:31; Status DC Sertraline HCl (Zoloft) 75 mg DAILY PO Last administered on 07/28/18 09:01; Start 07/24/18 at 09:00 Active Scripts Active Pantoprazole Sodium 40 Mg Tablet.dr 40 Mg PO DAILYAC 30 Days Amlodipine Besylate 10 Mg Tablet 10 Mg PO DAILY 30 Days Reported Trazodone Hcl 50 Mg Tablet 50 Mg PO PRN QHS PRN Risperidone 0.5 Mg Tablet 0.5 Mg PO QHS Zoloft (Sertraline Hcl) 50 Mg Tablet 50 Mg PO DAILY Olanzapine 5 Mg Tablet 2.5 Mg PO PRN Q4HRS PRN MDD 10mg Analgesic [place] (Methyl Salicylate/Menthol) 28 Gm Oint...g. 1 Nelda TP PRN QID PRN Milk Of Magnesia (Magnesium Hydroxide) 2,400 Mg/10 Ml Oral.susp 2,400 Mg PO PRN QHS PRN Depakote Sprinkle (Divalproex Sodium) 125 Mg Cap.sprink 375 Mg PO BID D3-50 (Cholecalciferol (Vitamin D3)) 50,000 Unit Capsule 50,000 Unit PO WEEKLY Tylenol (Acetaminophen) 325 Mg Tablet 650 Mg PO PRN QID PRN Mirtazapine 15 Mg Tablet 15 Mg PO QHS Potassium Chloride 10 Meq Tablet.er 20 Meq PO DAILYWBKFT Namenda (Memantine Hcl) 10 Mg Tablet 10 Mg PO BID Pravastatin Sodium 20 Mg Tablet 20 Mg PO HS I have reviewed the current psychotropics carefully including drug interactions. Risk benefit ratio favors no change other than as noted in my dictated progress note. 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
--- NOTE | 2018-07-29 04:54 | PN ---
DATE: 07/26/2018 This is a late entry for 07/26/2018 covers elements not covered in my initial note. SUBJECTIVE: I met with the patient in the evening. The patient slept 7 hours previous evening, remains confused, compliant with her medications, delusional, somewhat forgetful. She is often looking for her . REVIEW OF SYSTEMS: No CV, , pulmonary, eye, ENT system symptoms on review. Reliability poor. Gait unsteady with walker. MENTAL STATUS EXAM: Oriented to herself. Insight, judgment, recent and remote memory, attention, concentration, fund of knowledge poor, consistent with her diagnosis mentioned in my initial note. PLAN: No change from initial note. MAN Wandy BOND MD DR: TAMIKO/willy JOB#: [id number] / [id number]
--- NOTE | 2018-07-29 04:55 | PN ---
DATE: 07/27/2018 This late entry 07/27 covers elements not covered in my initial note. SUBJECTIVE: I met with the patient in the evening. The patient slept 7-3/4 hours previous evening. She remains confused, ambulates with a walker. No CV, , pulmonary, eye system symptoms on review. Reliability poor. She does have a UTI and has completed Levaquin. MENTAL STATUS EXAM: Oriented to herself. Insight, judgment, recent and remote memory, attention, concentration, fund of knowledge poor, consistent with her diagnosis mentioned in my initial note. PLAN: No change from initial note. Valproic acid level therapeutic at 62. MAN Wandy BOND MD DR: TAMIKO/willy JOB#: [id number] / [id number]
[2018-07-29 05:35] VITALS: BP 110/56
[2018-07-29] MEDS: LACTOBACILLUS RHAMNOSUS GG 1 CAPSULE. PO SCH ×2 (09:11→19:59)
[2018-07-29] MEDS: DIVALPROEX 125 MG CAP.SPRINK PO SCH ×2 (09:11→19:59)
[2018-07-29] MEDS: POTASSIUM CHLORIDE 20 MEQ TABLET.ER. PO SCH (09:11)
[2018-07-29] MEDS: PANTOPRAZOLE 40 MG TABLET. PO SCH (09:11)
[2018-07-29] MEDS: amLODIPine BESYLATE 10 MG TABLET PO SCH (09:12)
[2018-07-29] MEDS: SERTRALINE 50 MG TABLET. PO SCH (09:12)
[2018-07-29] MEDS: NYSTATIN TOPICAL POWDER 15GM BOTTLE. TP SCH ×2 (09:12→19:59)
[2018-07-29] MEDS: MEMANTINE 10 MG TABLET. PO SCH ×2 (09:12→19:59)
[2018-07-29 16:10] VITALS: BP 150/84
[2018-07-29] MEDS: PRAVASTATIN 20 MG TABLET. PO SCH (19:59)
[2018-07-29] MEDS: risperiDONE 0.5 MG TABLET. PO SCH (19:59)
[2018-07-29] MEDS: MIRTAZAPINE 15 MG TABLET PO SCH (19:59)
--- NOTE | 2018-07-29 21:01 | PDOC ---
Exam Note: Antoine Note: Please also refer to the separate dictated note~for this date of service dictated separately.~Patient seen individually. Discussed the patient with Nursing staff reviewed the chart.~Reviewed interim history and current functioning. Reviewed vital signs,~Labs/ Radiology~and current medications noted below. Continue current treatment with the changes noted in the dictated addendum note Assessment: Vital Signs: Vital Signs Date Time Temp Pulse Resp B/P (MAP) Pulse Ox O2 Delivery O2 Flow Rate FiO2 07/29/18 16:10 97.3 72 18 150/84 (106) 96 07/28/18 15:40 Room Air I&O Intake and Output 07/29/18 07:00 Intake Total 840 ml Balance 840 ml Intake Oral 840 ml Current Medications: Meds: Current Medications Acetaminophen (Tylenol) 650 mg PRN Q6HRS PRN PO PAIN / TEMP Last administered on 07/25/18 17:52; Start 07/14/18 at 17:15 Multi-Ingredient Ointment (Analgesic [place]) 1 nelda PRN QID PRN TP MUSCLE PAIN; Start 07/14/18 at 17:15 Al Hydroxide/Mg Hydroxide (Mylanta Plus Xs) 15 ml PRN AFTMEALHC PRN PO DYSPEPSIA; Start 07/14/18 at 17:15 Magnesium Hydroxide (Milk Of Magnesia) 2,400 mg PRN QHS PRN PO CONSTIPATION Last administered on 07/16/18at 20:24; Start 07/14/18 at 17:15 Sertraline HCl (Zoloft) 50 mg DAILY PO Last administered on 07/23/18at 07:56; Start 07/15/18 at 09:00; Stop 07/23/18 at 16:17; Status DC Divalproex Sodium (Depakote Sprinkles) 375 mg BID PO Last administered on 19:59; Start 07/14/18 at 21:00 Memantine (Namenda) 10 mg BID PO Last administered on 07/29/18 19:59; Start at 21:00 Mirtazapine (Remeron) 15 mg QHS PO Last administered on 07/29/18 19:59; Start 07/14/18 at 21:00 Risperidone (RisperDAL) 0.5 mg QHS PO Last administered on 07/29/18 19:59; Start 07/14/18 at 21:00 Trazodone HCl (Desyrel) 50 mg PRN QHS PRN PO INSOMNIA, MAY REPEAT IN 1HR Last administered on 07/20/18at 19:53; Start 07/14/18 at 17:30 Olanzapine (ZyPREXA ZYDIS) 5 mg PRN Q2HR PRN PO PSYCHOSIS; Start 07/14/18 at 17 :30; Stop 07/14/18 at 17:33; Status DC Levofloxacin (Levaquin) 250 mg DAILY06 PO Last administered on 07/19/18 06:34 ; Start 07/15/18 at 06:00; Stop 07/20/18 at 05:59; Status DC Acetaminophen (Tylenol) 650 mg PRN QID PRN PO PAIN / TEMP; Start 07/14/18 at 17 :30; Status UNV Vitamin D (Vitamin D3) 50,000 unit WEEKLY PO Last administered on 07/27/18 08: 05; Start 07/20/18 at 09:00 Multi-Ingredient Ointment (Analgesic [place]) 1 nelda PRN QID PRN TP MUSCLE PAIN; Start 07/14/18 at 17:30; Status UNV Pravastatin Sodium (Pravachol) 20 mg HS PO Last administered on 07/16/18 20:23 ; Start 07/14/18 at 21:00; Stop 07/17/18 at 14:58; Status DC Non-Formulary Medication (Magnesium Hydroxide (Milk Of Magnesia)) 2,400 mg PRN QHS PRN PO CONSTIPATION; Start 07/14/18 at 17:30; Status UNV Pantoprazole Sodium (Protonix) 40 mg DAILYAC PO Last administered on 07/29/18 09:11; Start 07/15/18 at 07:30 Potassium Chloride (Klor-Con) 20 meq DAILYWBKFT PO Last administered on 09:11; Start 07/15/18 at 08:00 Olanzapine (ZyPREXA ZYDIS) 2.5 mg PRN Q2HR PRN PO PSYCHOSIS Last administered on 07/28/18 09:00; Start 07/14/18 at 17:45 Amlodipine Besylate (Norvasc) 10 mg DAILY PO Last administered on 07/29/18 09: 12; Start 07/15/18 at 09:00 Lactobacillus Rhamnosus (Culturelle) 1 cap BID PO Last administered on 19:59; Start 07/17/18 at 21:00 Pravastatin Sodium (Pravachol) 40 mg HS PO Last administered on 07/29/18 19:59 ; Start 07/17/18 at 21:00 Nystatin (Nystop) 1 nelda BID TP Last administered on 07/29/18 19:59; Start at 10:30 Fluconazole (Diflucan) 100 mg 1X ONCE PO Last administered on 07/18/18 12:13 ; Start 07/18/18 at 10:30; Stop 07/18/18 at 10:31; Status DC Sertraline HCl (Zoloft) 75 mg DAILY PO Last administered on 07/29/18 09:12; Start 07/24/18 at 09:00 Active Scripts Active Pantoprazole Sodium 40 Mg Tablet.dr 40 Mg PO DAILYAC 30 Days Amlodipine Besylate 10 Mg Tablet 10 Mg PO DAILY 30 Days Reported Trazodone Hcl 50 Mg Tablet 50 Mg PO PRN QHS PRN Risperidone 0.5 Mg Tablet 0.5 Mg PO QHS Zoloft (Sertraline Hcl) 50 Mg Tablet 50 Mg PO DAILY Olanzapine 5 Mg Tablet 2.5 Mg PO PRN Q4HRS PRN MDD 10mg Analgesic [place] (Methyl Salicylate/Menthol) 28 Gm Oint...g. 1 Nelda TP PRN QID PRN Milk Of Magnesia (Magnesium Hydroxide) 2,400 Mg/10 Ml Oral.susp 2,400 Mg PO PRN QHS PRN Depakote Sprinkle (Divalproex Sodium) 125 Mg Cap.sprink 375 Mg PO BID D3-50 (Cholecalciferol (Vitamin D3)) 50,000 Unit Capsule 50,000 Unit PO WEEKLY Tylenol (Acetaminophen) 325 Mg Tablet 650 Mg PO PRN QID PRN Mirtazapine 15 Mg Tablet 15 Mg PO QHS Potassium Chloride 10 Meq Tablet.er 20 Meq PO DAILYWBKFT Namenda (Memantine Hcl) 10 Mg Tablet 10 Mg PO BID Pravastatin Sodium 20 Mg Tablet 20 Mg PO HS I have reviewed the current psychotropics carefully including drug interactions. Risk benefit ratio favors no change other than as noted in my dictated progress note. 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
--- NOTE | 2018-07-29 23:33 | PN ---
DATE: 07/28/2018 PSYCHIATRIC PROGRESS NOTE This is a late entry of 07/28/2018, covers elements not covered in my initial note. SUBJECTIVE: I met with the patient in the evening. The patient slept 7-1/2 hours previous evening, somewhat agitated, restless, anxious in the morning, delusional, looking for her parents. REVIEW OF SYSTEMS: No CV, , pulmonary, eye, ENT system symptoms on review. Gait unsteady with walker. MENTAL STATUS EXAM: Oriented to herself. Insight, judgment, recent and remote memory, attention, concentration, fund of knowledge poor, consistent with her diagnosis mentioned in my initial note. PLAN: No change from initial note. If delusions persist, we may need to increase Risperdal. MONICA BOND MD DR: TAMIKO/willy JOB#: [id number] / [id number]
[2018-07-30 05:59] VITALS: BP 108/73
[2018-07-30] MEDS: LACTOBACILLUS RHAMNOSUS GG 1 CAPSULE. PO SCH ×2 (07:42→19:57)
[2018-07-30] MEDS: PANTOPRAZOLE 40 MG TABLET. PO SCH (07:42)
[2018-07-30] MEDS: POTASSIUM CHLORIDE 20 MEQ TABLET.ER. PO SCH (07:43)
[2018-07-30] MEDS: DIVALPROEX 125 MG CAP.SPRINK PO SCH ×2 (07:43→19:55)
[2018-07-30] MEDS: SERTRALINE 50 MG TABLET. PO SCH (07:43)
[2018-07-30] MEDS: amLODIPine BESYLATE 10 MG TABLET PO SCH (07:43)
[2018-07-30] MEDS: NYSTATIN TOPICAL POWDER 15GM BOTTLE. TP SCH ×2 (07:44→19:56)
[2018-07-30] MEDS: MEMANTINE 10 MG TABLET. PO SCH ×2 (07:44→19:55)
[2018-07-30 09:43] LABS: CALCIUM 8.8 mg/dL (8.5-10.1); CREATININE 1.4 mg/dL (0.6-1.0); POTASSIUM 4.2 mmol/L (3.5-5.1)
[2018-07-30 16:23] VITALS: BP 126/75
[2018-07-30] MEDS: risperiDONE 0.5 MG TABLET. PO SCH (19:55)
[2018-07-30] MEDS: PRAVASTATIN 20 MG TABLET. PO SCH (19:55)
[2018-07-30] MEDS: MIRTAZAPINE 15 MG TABLET PO SCH (19:56)
--- NOTE | 2018-07-30 21:06 | PDOC ---
Exam Note: Antoine Note: Please also refer to the separate dictated note~for this date of service dictated separately.~Patient seen individually. Discussed the patient with Nursing staff reviewed the chart.~Reviewed interim history and current functioning. Reviewed vital signs,~Labs/ Radiology~and current medications noted below. Continue current treatment with the changes noted in the dictated addendum note Assessment: Vital Signs: Vital Signs Date Time Temp Pulse Resp B/P (MAP) Pulse Ox O2 Delivery O2 Flow Rate FiO2 07/30/18 16:23 98.3 75 19 126/75 (92) 97 07/28/18 15:40 Room Air I&O Intake and Output 07/30/18 07:00 Intake Total 1200 ml Balance 1200 ml Intake Oral 1200 ml Labs: Laboratory Tests Test 07/30/18 09:18 Sodium Level 142 mmol/L (136-145) Potassium Level 4.2 mmol/L (3.5-5.1) Chloride Level 108 mmol/L (98-107) H Carbon Dioxide Level 28 mmol/L (21-32) Anion Gap 6 (6-14) Blood Urea Nitrogen 25 mg/dL (7-20) H Creatinine 1.4 mg/dL (0.6-1.0) H Estimated GFR (Cockcroft-Gault) 36.0 Glucose Level 144 mg/dL (70-99) H Calcium Level 8.8 mg/dL (8.5-10.1) Current Medications: Meds: Current Medications Acetaminophen (Tylenol) 650 mg PRN Q6HRS PRN PO PAIN / TEMP Last administered on 07/25/18at 17:52; Start 07/14/18 at 17:15 Multi-Ingredient Ointment (Analgesic [place]) 1 nelda PRN QID PRN TP MUSCLE PAIN; Start 07/14/18 at 17:15 Al Hydroxide/Mg Hydroxide (Mylanta Plus Xs) 15 ml PRN AFTMEALHC PRN PO DYSPEPSIA; Start 07/14/18 at 17:15 Magnesium Hydroxide (Milk Of Magnesia) 2,400 mg PRN QHS PRN PO CONSTIPATION Last administered on 07/16/18at 20:24; Start 07/14/18 at 17:15 Sertraline HCl (Zoloft) 50 mg DAILY PO Last administered on 07/23/18at 07:56; Start 07/15/18 at 09:00; Stop 07/23/18 at 16:17; Status DC Divalproex Sodium (Depakote Sprinkles) 375 mg BID PO Last administered on 19:55; Start 07/14/18 at 21:00 Memantine (Namenda) 10 mg BID PO Last administered on 07/30/18 19:55; Start at 21:00 Mirtazapine (Remeron) 15 mg QHS PO Last administered on 07/30/18 19:56; Start 07/14/18 at 21:00 Risperidone (RisperDAL) 0.5 mg QHS PO Last administered on 07/30/18 19:55; Start 07/14/18 at 21:00 Trazodone HCl (Desyrel) 50 mg PRN QHS PRN PO INSOMNIA, MAY REPEAT IN 1HR Last administered on 07/20/18 19:53; Start 07/14/18 at 17:30 Olanzapine (ZyPREXA ZYDIS) 5 mg PRN Q2HR PRN PO PSYCHOSIS; Start 07/14/18 at 17 :30; Stop 07/14/18 at 17:33; Status DC Levofloxacin (Levaquin) 250 mg DAILY06 PO Last administered on 07/19/18at 06:34 ; Start 07/15/18 at 06:00; Stop 07/20/18 at 05:59; Status DC Acetaminophen (Tylenol) 650 mg PRN QID PRN PO PAIN / TEMP; Start 07/14/18 at 17 :30; Status UNV Vitamin D (Vitamin D3) 50,000 unit WEEKLY PO Last administered on 07/27/18at 08: 05; Start 07/20/18 at 09:00 Multi-Ingredient Ointment (Analgesic [place]) 1 nelda PRN QID PRN TP MUSCLE PAIN; Start 07/14/18 at 17:30; Status UNV Pravastatin Sodium (Pravachol) 20 mg HS PO Last administered on 07/16/18at 20:23 ; Start 07/14/18 at 21:00; Stop 07/17/18 at 14:58; Status DC Non-Formulary Medication (Magnesium Hydroxide (Milk Of Magnesia)) 2,400 mg PRN QHS PRN PO CONSTIPATION; Start 07/14/18 at 17:30; Status UNV Pantoprazole Sodium (Protonix) 40 mg DAILYAC PO Last administered on 07/30/18 07:42; Start 07/15/18 at 07:30 Potassium Chloride (Klor-Con) 20 meq DAILYWBKFT PO Last administered on 07:43; Start 07/15/18 at 08:00 Olanzapine (ZyPREXA ZYDIS) 2.5 mg PRN Q2HR PRN PO PSYCHOSIS Last administered on 07/28/18 09:00; Start 07/14/18 at 17:45 Amlodipine Besylate (Norvasc) 10 mg DAILY PO Last administered on 07/30/18 07: 43; Start 07/15/18 at 09:00 Lactobacillus Rhamnosus (Culturelle) 1 cap BID PO Last administered on 19:57; Start 07/17/18 at 21:00 Pravastatin Sodium (Pravachol) 40 mg HS PO Last administered on 07/30/18 19:55 ; Start 07/17/18 at 21:00 Nystatin (Nystop) 1 nelda BID TP Last administered on 07/30/18 19:56; Start at 10:30 Fluconazole (Diflucan) 100 mg 1X ONCE PO Last administered on 07/18/18 12:13 ; Start 07/18/18 at 10:30; Stop 07/18/18 at 10:31; Status DC Sertraline HCl (Zoloft) 75 mg DAILY PO Last administered on 07/30/18 07:43; Start 07/24/18 at 09:00 Active Scripts Active Pantoprazole Sodium 40 Mg Tablet.dr 40 Mg PO DAILYAC 30 Days Amlodipine Besylate 10 Mg Tablet 10 Mg PO DAILY 30 Days Reported Trazodone Hcl 50 Mg Tablet 50 Mg PO PRN QHS PRN Risperidone 0.5 Mg Tablet 0.5 Mg PO QHS Zoloft (Sertraline Hcl) 50 Mg Tablet 50 Mg PO DAILY Olanzapine 5 Mg Tablet 2.5 Mg PO PRN Q4HRS PRN MDD 10mg Analgesic [place] (Methyl Salicylate/Menthol) 28 Gm Oint...g. 1 Nelda TP PRN QID PRN Milk Of Magnesia (Magnesium Hydroxide) 2,400 Mg/10 Ml Oral.susp 2,400 Mg PO PRN QHS PRN Depakote Sprinkle (Divalproex Sodium) 125 Mg Cap.sprink 375 Mg PO BID D3-50 (Cholecalciferol (Vitamin D3)) 50,000 Unit Capsule 50,000 Unit PO WEEKLY Tylenol (Acetaminophen) 325 Mg Tablet 650 Mg PO PRN QID PRN Mirtazapine 15 Mg Tablet 15 Mg PO QHS Potassium Chloride 10 Meq Tablet.er 20 Meq PO DAILYWBKFT Namenda (Memantine Hcl) 10 Mg Tablet 10 Mg PO BID Pravastatin Sodium 20 Mg Tablet 20 Mg PO HS I have reviewed the current psychotropics carefully including drug interactions. Risk benefit ratio favors no change other than as noted in my dictated progress note. 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
--- NOTE | 2018-07-31 04:31 | PN ---
DATE: 07/29/2018 PSYCHIATRIC PROGRESS NOTE This is a late entry of 07/29/2018, covers elements not covered in my initial note. SUBJECTIVE: I met with the patient in the evening. The patient slept 7-1/2 hours previous evening. The patient remains confused, ambulates with walker, compliant with medications. She is asking to call her parents, believes the year is 1989. REVIEW OF SYSTEMS: No CV, , pulmonary, eye, ENT system symptoms on review. Reliability poor. MENTAL STATUS EXAM: Oriented to herself. Insight, judgment, recent and remote memory, attention, concentration, fund of knowledge poor, consistent with her diagnosis mentioned in my initial note. PLAN: No change from initial note. Social service staff are arranging placement and she should live in appropriate placement arranged between her and her family and the social service staff. MAN Wandy BOND MD DR: TAMIKO/willy JOB#: [id number] / [id number]
[2018-07-31 06:01] VITALS: BP 100/54
[2018-07-31] MEDS: PANTOPRAZOLE 40 MG TABLET. PO SCH (08:41)
[2018-07-31] MEDS: DIVALPROEX 125 MG CAP.SPRINK PO SCH ×2 (08:41→19:56)
[2018-07-31] MEDS: LACTOBACILLUS RHAMNOSUS GG 1 CAPSULE. PO SCH ×2 (08:41→19:56)
[2018-07-31] MEDS: POTASSIUM CHLORIDE 20 MEQ TABLET.ER. PO SCH (08:41)
[2018-07-31] MEDS: MEMANTINE 10 MG TABLET. PO SCH ×2 (08:41→19:56)
[2018-07-31] MEDS: SERTRALINE 50 MG TABLET. PO SCH (08:41)
[2018-07-31] MEDS: NYSTATIN TOPICAL POWDER 15GM BOTTLE. TP SCH ×2 (08:42→19:57)
[2018-07-31 08:55] VITALS: BP 111/70
[2018-07-31] MEDS: amLODIPine BESYLATE 10 MG TABLET PO SCH (08:57)
[2018-07-31 16:19] VITALS: BP 117/78
[2018-07-31] MEDS: risperiDONE 0.5 MG TABLET. PO SCH (19:57)
[2018-07-31] MEDS: MIRTAZAPINE 15 MG TABLET PO SCH (19:57)
[2018-07-31] MEDS: PRAVASTATIN 20 MG TABLET. PO SCH (19:57)
--- NOTE | 2018-07-31 20:56 | PDOC ---
Exam Note: Antoine Note: Please also refer to the separate dictated note~for this date of service dictated separately.~Patient seen individually. Discussed the patient with Nursing staff reviewed the chart.~Reviewed interim history and current functioning. Reviewed vital signs,~Labs/ Radiology~and current medications noted below. Continue current treatment with the changes noted in the dictated addendum note Assessment: Vital Signs: Vital Signs Date Time Temp Pulse Resp B/P (MAP) Pulse Ox O2 Delivery O2 Flow Rate FiO2 07/31/18 16:19 98.3 73 16 117/78 (91) 94 07/28/18 15:40 Room Air I&O Intake and Output 07/31/18 07:00 Intake Total 1440 ml Balance 1440 ml Intake Oral 1440 ml Current Medications: Meds: Current Medications Acetaminophen (Tylenol) 650 mg PRN Q6HRS PRN PO PAIN / TEMP Last administered on 07/25/18 17:52; Start 07/14/18 at 17:15 Multi-Ingredient Ointment (Analgesic [place]) 1 nelda PRN QID PRN TP MUSCLE PAIN; Start 07/14/18 at 17:15 Al Hydroxide/Mg Hydroxide (Mylanta Plus Xs) 15 ml PRN AFTMEALHC PRN PO DYSPEPSIA; Start 07/14/18 at 17:15 Magnesium Hydroxide (Milk Of Magnesia) 2,400 mg PRN QHS PRN PO CONSTIPATION Last administered on 07/16/18at 20:24; Start 07/14/18 at 17:15 Sertraline HCl (Zoloft) 50 mg DAILY PO Last administered on 07/23/18 07:56; Start 07/15/18 at 09:00; Stop 07/23/18 at 16:17; Status DC Divalproex Sodium (Depakote Sprinkles) 375 mg BID PO Last administered on 19:56; Start 07/14/18 at 21:00 Memantine (Namenda) 10 mg BID PO Last administered on 07/31/18 19:56; Start at 21:00 Mirtazapine (Remeron) 15 mg QHS PO Last administered on 07/31/18 19:57; Start 07/14/18 at 21:00 Risperidone (RisperDAL) 0.5 mg QHS PO Last administered on 07/31/18 19:57; Start 07/14/18 at 21:00 Trazodone HCl (Desyrel) 50 mg PRN QHS PRN PO INSOMNIA, MAY REPEAT IN 1HR Last administered on 07/20/18 19:53; Start 07/14/18 at 17:30 Olanzapine (ZyPREXA ZYDIS) 5 mg PRN Q2HR PRN PO PSYCHOSIS; Start 07/14/18 at 17 :30; Stop 07/14/18 at 17:33; Status DC Levofloxacin (Levaquin) 250 mg DAILY06 PO Last administered on 07/19/18 06:34 ; Start 07/15/18 at 06:00; Stop 07/20/18 at 05:59; Status DC Acetaminophen (Tylenol) 650 mg PRN QID PRN PO PAIN / TEMP; Start 07/14/18 at 17 :30; Status UNV Vitamin D (Vitamin D3) 50,000 unit WEEKLY PO Last administered on 07/27/18 08: 05; Start 07/20/18 at 09:00 Multi-Ingredient Ointment (Analgesic [place]) 1 nelda PRN QID PRN TP MUSCLE PAIN; Start 07/14/18 at 17:30; Status UNV Pravastatin Sodium (Pravachol) 20 mg HS PO Last administered on 07/16/18 20:23 ; Start 07/14/18 at 21:00; Stop 07/17/18 at 14:58; Status DC Non-Formulary Medication (Magnesium Hydroxide (Milk Of Magnesia)) 2,400 mg PRN QHS PRN PO CONSTIPATION; Start 07/14/18 at 17:30; Status UNV Pantoprazole Sodium (Protonix) 40 mg DAILYAC PO Last administered on 07/31/18 08:41; Start 07/15/18 at 07:30 Potassium Chloride (Klor-Con) 20 meq DAILYWBKFT PO Last administered on 08:41; Start 07/15/18 at 08:00 Olanzapine (ZyPREXA ZYDIS) 2.5 mg PRN Q2HR PRN PO PSYCHOSIS Last administered on 07/31/18 13:52; Start 07/14/18 at 17:45 Amlodipine Besylate (Norvasc) 10 mg DAILY PO Last administered on 07/31/18 08: 57; Start 07/15/18 at 09:00 Lactobacillus Rhamnosus (Culturelle) 1 cap BID PO Last administered on 19:56; Start 07/17/18 at 21:00 Pravastatin Sodium (Pravachol) 40 mg HS PO Last administered on 07/31/18 19:57 ; Start 07/17/18 at 21:00 Nystatin (Nystop) 1 nelda BID TP Last administered on 07/31/18 19:57; Start at 10:30 Fluconazole (Diflucan) 100 mg 1X ONCE PO Last administered on 07/18/18 12:13 ; Start 07/18/18 at 10:30; Stop 07/18/18 at 10:31; Status DC Sertraline HCl (Zoloft) 75 mg DAILY PO Last administered on 07/31/18at 08:41; Start 07/24/18 at 09:00 Active Scripts Active Pantoprazole Sodium 40 Mg Tablet.dr 40 Mg PO DAILYAC 30 Days Amlodipine Besylate 10 Mg Tablet 10 Mg PO DAILY 30 Days Reported Trazodone Hcl 50 Mg Tablet 50 Mg PO PRN QHS PRN Risperidone 0.5 Mg Tablet 0.5 Mg PO QHS Zoloft (Sertraline Hcl) 50 Mg Tablet 50 Mg PO DAILY Olanzapine 5 Mg Tablet 2.5 Mg PO PRN Q4HRS PRN MDD 10mg Analgesic [place] (Methyl Salicylate/Menthol) 28 Gm Oint...g. 1 Nelda TP PRN QID PRN Milk Of Magnesia (Magnesium Hydroxide) 2,400 Mg/10 Ml Oral.susp 2,400 Mg PO PRN QHS PRN Depakote Sprinkle (Divalproex Sodium) 125 Mg Cap.sprink 375 Mg PO BID D3-50 (Cholecalciferol (Vitamin D3)) 50,000 Unit Capsule 50,000 Unit PO WEEKLY Tylenol (Acetaminophen) 325 Mg Tablet 650 Mg PO PRN QID PRN Mirtazapine 15 Mg Tablet 15 Mg PO QHS Potassium Chloride 10 Meq Tablet.er 20 Meq PO DAILYWBKFT Namenda (Memantine Hcl) 10 Mg Tablet 10 Mg PO BID Pravastatin Sodium 20 Mg Tablet 20 Mg PO HS I have reviewed the current psychotropics carefully including drug interactions. Risk benefit ratio favors no change other than as noted in my dictated progress note. 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
[2018-08-01] MEDS ORDERED: LACT1CAP21 PO (01:47)
[2018-08-01] MEDS ORDERED: MAG30ORA2 PO (01:48)
[2018-08-01] MEDS ORDERED: NYST15PO9 TP (01:49)
--- NOTE | 2018-08-01 02:51 | PN ---
DATE: 07/30/2018 This is a late entry for 07/30/2018 covers elements not covered in my initial note. SUBJECTIVE: I met with the patient in the evening. The patient slept 7 hours previous evening. She remains very pleasant, forgetful, ambulates with a walker. REVIEW OF SYSTEMS: No CV, , pulmonary, eye, ENT system symptoms on review. Reliability poor. MENTAL STATUS EXAM: Oriented to herself. Insight, judgment, recent and remote memory, attention, concentration, fund of knowledge poor, consistent with her diagnosis. She is wanting to know discharge plans that I addressed with her. LABORATORY DATA: Reviewed. IMPRESSION: Unchanged from initial note. PLAN: No change from initial note. Transition back home at end of this week. MAN Wandy BOND MD DR: TAMIKO/willy JOB#: [id number] / [id number]
[2018-08-01 06:46] VITALS: BP 117/78
[2018-08-01] MEDS: SERTRALINE 50 MG TABLET. PO SCH (07:58)
[2018-08-01 07:59] VITALS: BP 117/78
[2018-08-01] MEDS: amLODIPine BESYLATE 10 MG TABLET PO SCH (07:59)
[2018-08-01] MEDS: DIVALPROEX 125 MG CAP.SPRINK PO SCH (07:59)
[2018-08-01] MEDS: PANTOPRAZOLE 40 MG TABLET. PO SCH (07:59)
[2018-08-01] MEDS: LACTOBACILLUS RHAMNOSUS GG 1 CAPSULE. PO SCH (07:59)
[2018-08-01] MEDS: MEMANTINE 10 MG TABLET. PO SCH (07:59)
[2018-08-01] MEDS: POTASSIUM CHLORIDE 20 MEQ TABLET.ER. PO SCH (07:59)
[2018-08-01] MEDS: NYSTATIN TOPICAL POWDER 15GM BOTTLE. TP SCH (08:00)
--- NOTE | 2018-08-01 20:49 | PDOC ---
Exam Note: Antoine Note: Please also refer to the separate dictated note~for this date of service dictated separately.~Patient seen individually. Discussed the patient with Nursing staff reviewed the chart.~Reviewed interim history and current functioning. Reviewed vital signs,~Labs/ Radiology~and current medications noted below. Continue current treatment with the changes noted in the dictated addendum note Assessment: Vital Signs: Vital Signs Date Time Temp Pulse Resp B/P (MAP) Pulse Ox O2 Delivery O2 Flow Rate FiO2 08/01/18 07:59 65 117/78 08/01/18 06:46 97.0 17 95 07/28/18 15:40 Room Air I&O Intake and Output 08/01/18 07:00 Intake Total 1080 ml Balance 1080 ml Intake Oral 1080 ml Current Medications: Meds: Current Medications Acetaminophen (Tylenol) 650 mg PRN Q6HRS PRN PO PAIN / TEMP Last administered on 07/25/18at 17:52; Start 07/14/18 at 17:15; Stop 08/01/18 at 11:15; Status DC Multi-Ingredient Ointment (Analgesic [place]) 1 nelda PRN QID PRN TP MUSCLE PAIN; Start 07/14/18 at 17:15; Stop 08/01/18 at 11:15; Status DC Al Hydroxide/Mg Hydroxide (Mylanta Plus Xs) 15 ml PRN AFTMEALHC PRN PO DYSPEPSIA; Start 07/14/18 at 17:15; Stop 08/01/18 at 11:15; Status DC Magnesium Hydroxide (Milk Of Magnesia) 2,400 mg PRN QHS PRN PO CONSTIPATION Last administered on 07/16/18at 20:24; Start 07/14/18 at 17:15; Stop 08/01/18 at 11:15; Status DC Sertraline HCl (Zoloft) 50 mg DAILY PO Last administered on 07/23/18at 07:56; Start 07/15/18 at 09:00; Stop 07/23/18 at 16:17; Status DC Divalproex Sodium (Depakote Sprinkles) 375 mg BID PO Last administered on at 07:59; Start 07/14/18 at 21:00; Stop 08/01/18 at 11:15; Status DC Memantine (Namenda) 10 mg BID PO Last administered on 08/01/18at 07:59; Start at 21:00; Stop 08/01/18 at 11:15; Status DC Mirtazapine (Remeron) 15 mg QHS PO Last administered on 07/31/18at 19:57; Start 07/14/18 at 21:00; Stop 08/01/18 at 11:15; Status DC Risperidone (RisperDAL) 0.5 mg QHS PO Last administered on 07/31/18 19:57; Start 07/14/18 at 21:00; Stop 08/01/18 at 11:15; Status DC Trazodone HCl (Desyrel) 50 mg PRN QHS PRN PO INSOMNIA, MAY REPEAT IN 1HR Last administered on 07/20/18at 19:53; Start 07/14/18 at 17:30; Stop 08/01/18 at 11:15 ; Status DC Olanzapine (ZyPREXA ZYDIS) 5 mg PRN Q2HR PRN PO PSYCHOSIS; Start 07/14/18 at 17 :30; Stop 07/14/18 at 17:33; Status DC Levofloxacin (Levaquin) 250 mg DAILY06 PO Last administered on 07/19/18at 06:34 ; Start 07/15/18 at 06:00; Stop 07/20/18 at 05:59; Status DC Acetaminophen (Tylenol) 650 mg PRN QID PRN PO PAIN / TEMP; Start 07/14/18 at 17 :30; Status UNV Vitamin D (Vitamin D3) 50,000 unit WEEKLY PO Last administered on 07/27/18at 08: 05; Start 07/20/18 at 09:00; Stop 08/01/18 at 11:15; Status DC Multi-Ingredient Ointment (Analgesic [place]) 1 nelda PRN QID PRN TP MUSCLE PAIN; Start 07/14/18 at 17:30; Status UNV Pravastatin Sodium (Pravachol) 20 mg HS PO Last administered on 07/16/18at 20:23 ; Start 07/14/18 at 21:00; Stop 07/17/18 at 14:58; Status DC Non-Formulary Medication (Magnesium Hydroxide (Milk Of Magnesia)) 2,400 mg PRN QHS PRN PO CONSTIPATION; Start 07/14/18 at 17:30; Status UNV Pantoprazole Sodium (Protonix) 40 mg DAILYAC PO Last administered on 08/01/18at 07:59; Start 07/15/18 at 07:30; Stop 08/01/18 at 11:15; Status DC Potassium Chloride (Klor-Con) 20 meq DAILYWBKFT PO Last administered on at 07:59; Start 07/15/18 at 08:00; Stop 08/01/18 at 11:15; Status DC Olanzapine (ZyPREXA ZYDIS) 2.5 mg PRN Q2HR PRN PO PSYCHOSIS Last administered on 07/31/18at 13:52; Start 07/14/18 at 17:45; Stop 08/01/18 at 11:15; Status DC Amlodipine Besylate (Norvasc) 10 mg DAILY PO Last administered on 08/01/18at 07: 59; Start 07/15/18 at 09:00; Stop 08/01/18 at 11:15; Status DC Lactobacillus Rhamnosus (Culturelle) 1 cap BID PO Last administered on at 07:59; Start 07/17/18 at 21:00; Stop 08/01/18 at 11:15; Status DC Pravastatin Sodium (Pravachol) 40 mg HS PO Last administered on 07/31/18at 19:57 ; Start 07/17/18 at 21:00; Stop 08/01/18 at 11:15; Status DC Nystatin (Nystop) 1 nelda BID TP Last administered on 08/01/18at 08:00; Start at 10:30; Stop 08/01/18 at 11:15; Status DC Fluconazole (Diflucan) 100 mg 1X ONCE PO Last administered on 07/18/18at 12:13 ; Start 07/18/18 at 10:30; Stop 07/18/18 at 10:31; Status DC Sertraline HCl (Zoloft) 75 mg DAILY PO Last administered on 08/01/18at 07:58; Start 07/24/18 at 09:00; Stop 08/01/18 at 11:15; Status DC Active Scripts Active Pantoprazole Sodium 40 Mg Tablet.dr 40 Mg PO DAILYAC 30 Days Amlodipine Besylate 10 Mg Tablet 10 Mg PO DAILY 30 Days Reported Nystatin 15 Gm Powder 1 Nelda TP BID Mag-Al Plus Xs Suspension (Mag Hydrox/Al Hydrox/Simeth) 30 Ml Oral.susp 15 Ml PO PRN AFTMEALHC PRN Culturelle (Lactobacillus Rhamnosus Gg) 1 Each Capsule 1 Each PO BID Trazodone Hcl 50 Mg Tablet 50 Mg PO PRN QHS PRN Risperidone 0.5 Mg Tablet 0.5 Mg PO QHS Zoloft (Sertraline Hcl) 50 Mg Tablet 75 Mg PO DAILY Olanzapine 5 Mg Tablet 2.5 Mg PO PRN Q2HR PRN MDD 10mg Analgesic [place] (Methyl Salicylate/Menthol) 28 Gm Oint...g. 1 Nelda TP PRN QID PRN Milk Of Magnesia (Magnesium Hydroxide) 2,400 Mg/10 Ml Oral.susp 2,400 Mg PO PRN QHS PRN Depakote Sprinkle (Divalproex Sodium) 125 Mg Cap.sprink 375 Mg PO BID D3-50 (Cholecalciferol (Vitamin D3)) 50,000 Unit Capsule 50,000 Unit PO WEEKLY start date: 07/20/18 Tylenol (Acetaminophen) 325 Mg Tablet 650 Mg PO PRN Q6HRS PRN Mirtazapine 15 Mg Tablet 15 Mg PO QHS Potassium Chloride 10 Meq Tablet.er 20 Meq PO DAILYWBKFT Namenda (Memantine Hcl) 10 Mg Tablet 10 Mg PO BID Pravastatin Sodium 20 Mg Tablet 40 Mg PO HS I have reviewed the current psychotropics carefully including drug interactions. Risk benefit ratio favors no change other than as noted in my dictated progress note. 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
--- NOTE | 2018-08-02 03:40 | PN ---
DATE: 07/31/2018 This is a late entry 07/31/2018, covers elements not covered in my initial note. SUBJECTIVE: I met with the patient in the evening and staffed at a treatment team meeting with the entire team. The patient's son, Chadd, attended the treatment team meeting. We had a discussion about her progress and diagnosis. Family is desired to have her home with in-home services rather than in the placement. She will be followed by the [facility]. REVIEW OF SYSTEMS: Ambulation impaired with walker. No CV, , pulmonary, eye, ENT system symptoms on review. Reliability poor. MENTAL STATUS EXAM: Oriented to herself. Insight, judgment, recent and remote memory, attention, concentration, fund of knowledge poor, consistent with her diagnosis mentioned in my initial note. PLAN: No change from initial note. MAN Wandy BOND MD DR: TAMIKO/willy JOB#: [id number] / [id number]
--- NOTE | 2018-08-03 08:51 | DS ---
DATE OF DISCHARGE: 08/01/2018 This late entry for date of service 08/01/2018 and covers elements not covered in my initial note. REASON FOR ADMISSION: Please refer to the admission history for details. Briefly, the patient is an 83-year-old female, referred to us from [address] [place] [address] Medical/Surgical floor after she was medically stabilized by Dr. Valdovinos. She was having active hallucinations, increased anxiety, tearful, very confused. She had eloped from her home where she lived with her elderly . She had been falling. She sustained a laceration to the back of her head, all of which prompted the admission to [address] [place] [address]. It was felt she needed further psychiatric stabilization before she could return home or go to a more structured facility and she was referred for inpatient psychiatric treatment by Dr. Valdovinos. SIGNIFICANT FINDINGS AND CLINICAL COURSE: Following admission, the patient was seen daily individually by myself, followed medically per Dr. Rendon/Dr. Penaloza. She remained confused, somewhat anxious, paranoid initially, but gradually as the psychotropics were adjusted, she was much calmer, compliant, pleasant and quite delightful. Despite this, she was very confused, oblivious of her surroundings, but in some ways, was remembering things better as well. REVIEW OF SYSTEMS: Prior to discharge on 08/01/2018, no CV, , pulmonary, eye, ENT system symptoms on review. Reliability poor. She ambulates with a walker. MENTAL STATUS EXAM: Oriented to herself. Insight, judgment, recent and remote memory, attention, concentration, fund of knowledge poor, consistent with her diagnosis. FINAL DIAGNOSES: Major neurocognitive disorder, Alzheimer, vascular with delusion, depression, behavioral disturbance; anxiety disorder, unspecified; impulse control disorder, unspecified. Rest unchanged from admission. CONDITION AT DISCHARGE: Improved. DISCHARGE INSTRUCTIONS: She finally returned home with her with her adult sons who are her DPOA, who are making arrangements for in-home services and I had met with the family several times during this hospitalization. Outpatient psychiatric and medical followup with Dr. Valdovinos. MONICA BOND MD DR: TAMIKO/willy JOB#: [id number] / [id number]
== END 2018-08-01 11:15 | disposition home or self-care (01) | DRG 56 ==
LOC: GEROPSY 15:50
PROVIDERS: ADMIT Psychiatry & Neurology Psychiatry; ATTEND Psychiatry & Neurology Psychiatry
DX: G30.9 Alzheimer's disease, unspecified (principal); G93.40 Encephalopathy, unspecified; I26.99 Other pulmonary embolism without acute cor pulmonale; F33.9 Major depressive disorder, recurrent, unspecified; N39.0 Urinary tract infection, site not specified; F01.51 Vascular dementia, unspecified severity, with behavioral disturbance; F02.81 Dementia in other diseases classified elsewhere, unspecified severity, with behavioral disturbance; E78.5 Hyperlipidemia, unspecified; F41.9 Anxiety disorder, unspecified; F63.9 Impulse disorder, unspecified; I10 Essential (primary) hypertension; I25.10 Atherosclerotic heart disease of native coronary artery without angina pectoris; K21.9 Gastro-esophageal reflux disease without esophagitis; W18.39XA Other fall on same level, initial encounter; S01.01XA Laceration without foreign body of scalp, initial encounter; G62.9 Polyneuropathy, unspecified; G89.29 Other chronic pain; M54.9 Dorsalgia, unspecified; Z96.652 Presence of left artificial knee joint; Z85.820 Personal history of malignant melanoma of skin; Z86.711 Personal history of pulmonary embolism; Y93.89 Activity, other specified; Y92.89 Other specified places as the place of occurrence of the external cause; Y99.8 Other external cause status; Z91.83 Wandering in diseases classified elsewhere
CPT/HCPCS: 36415; 80048; 80053; 80061; 80164; 82306; 82607; 83036; 83540; 83550; 83735; 84436; 84443; 84480; 85007; 85025; 86592; 97110; 97116; 97140; 97530; 97535

== ENCOUNTER 2020-05-08 15:50 | Observation (INO) | payer MEDICARE ==
[~2020-05-08] VITALS: Ht 160 cm; Wt 90.7 kg
[~2020-05-08 15:50] MED LIST changes: -AMLO10TA6 PO; +AMLO10TA8 PO; +HYDR-2155 PO; -HYDR-2758 PO; +LACT1CAP21 PO; -MAGN2400 PO; +MAGN24003 PO; +METH28OI2 TP; -METH29OI TP; +NYST15PO9 TP; +OMEP40CA45 PO; -OMEP40CA5 PO; +TRAZ-120 PO; -TRAZ-85 PO
[2020-05-08] MEDS ORDERED: ASPIRIN CHEWABLE 81 MG TABLET. PO ONE (16:00)
[2020-05-08 16:10] LABS: BASO % 1 % (0-3); EOS # 0.1 x10^3/uL (0.0-0.7); EOS % 2 % (0-3); HEMATOCRIT 35.4 % (36.0-47.0); HEMOGLOBIN 11.5 g/dL (12.0-15.5); LYMPH # 1.9 x10^3/uL (1.0-4.8); LYMPH % 29 % (24-48); MEAN CORPUSCULAR HEMOGLOBIN 28 pg (25-35); MEAN CORPUSCULAR HGB CONC 33 g/dL (31-37); MEAN CORPUSCULAR VOLUME 87 fL (79-100); MONO # 0.6 x10^3/uL (0.0-1.1); MONO % 9 % (0-9); NEUT % 60 % (31-73); PLATELET COUNT 223 x10^3/uL (140-400); RED BLOOD COUNT 4.09 x10^6/uL (3.50-5.40); RED CELL DISTRIBUTION WIDTH 15.4 % (11.5-14.5); WHITE BLOOD COUNT 6.7 x10^3/uL (4.0-11.0)
--- NOTE | 2020-05-08 16:19 | PHYS DOC ---
Past History Past Medical History: Anxiety, Arthritis, Dementia, Diabetes, Hypertension, UTI, Other Past Surgical History: Cholecystectomy, Knee Replacement, Other Alcohol Use: None Drug Use: None General Adult EDM: Chief Complaint: CHEST PAIN HPI: HPI: Patient is a 85-year-old female who presents via EMS with report of chest pain. EMS reports that patient had been out walking and had developed some chest pain while walking. Patient states that she still has that chest discomfort but states that it is mild. She denies any nausea, vomiting or diaphoresis. Patient is not able to describe the pain or assign a number to it. She currently denies any shortness of breath but EMS states that patient was having some shortness of breath when they picked her up. Additional history is limited as patient is poor historian. [] Review of Systems: Review of Systems: Constitutional: Denies fever or chills Respiratory: Positive reported shortness of breath Cardiovascular: Positive chest pain GI: Denies abdominal pain, nausea, vomiting, bloody stools or diarrhea Integument: Denies rash Neurologic: Denies headache, focal weakness or sensory changes A full 10 point review of systems has been reviewed and is otherwise negative. Heart Score: HEART Score for Chest Pain: HEART Score for Chest Pain Response (Comments) Value History Moderately Suspicious 1 ECG Nonspecific Repolarizatio 1 Age > 65 2 Risk Factors 1 or 2 Risk Factors 1 Troponin < Normal Limit 0 Total 5 Risk Factors: Risk Factors: DM, Current or recent (<one month) smoker, HTN, HLP, family history of CAD, obesity. Risk Scores: Score 0 - 3: 2.5% MACE over next 6 weeks - Discharge Home Score 4 - 6: 20.3% MACE over next 6 weeks - Admit for Clinical Observation Score 7 - 10: 72.7% MACE over next 6 weeks - Early Invasive Strategies Current Medications: Current Meds: Current Medications Medications (Trade) Dose Ordered Sig/Henrry Start Time Stop Time Status Last Admin Dose Admin Aspirin (Aspirin Chewable) 324 mg 1X ONCE 05/08/20 16:00 05/08/20 16:12 DC Allergies: Allergies: Allergies Coded Allergies Type Severity Reaction Last Updated Verified NKMA Allergy Unknown 07/12/18 Yes Physical Exam: PE: Constitutional: Well developed, well nourished, no acute distress, non-toxic appearance. [] HENT: Normocephalic, atraumatic, bilateral external ears normal, oropharynx moist, no oral exudates, nose normal. [] Eyes: PERRLA, EOMI, conjunctiva normal, no discharge. [] Neck: Normal range of motion, no tenderness, supple, no stridor. [] Cardiovascular: Regular rate and rhythm [] Lungs & Thorax: Bilateral breath sounds clear to auscultation [] Abdomen: Bowel sounds normal, soft, no tenderness. [] Skin: Warm, dry, no erythema, no rash. [] Extremities: No tenderness, no cyanosis, no clubbing, ROM intact, no edema. [] Neurologic: Alert and oriented X 3, no focal deficits noted. [] Current Patient Data: Labs: Laboratory Tests Test 05/08/20 15:53 White Blood Count 6.7 x10^3/uL (4.0-11.0) Red Blood Count 4.09 x10^6/uL (3.50-5.40) Hemoglobin 11.5 g/dL (12.0-15.5) L Hematocrit 35.4 % (36.0-47.0) L Mean Corpuscular Volume 87 fL (79-100) Mean Corpuscular Hemoglobin 28 pg (25-35) Mean Corpuscular Hemoglobin Concent 33 g/dL (31-37) Red Cell Distribution Width 15.4 % (11.5-14.5) H Platelet Count 223 x10^3/uL (140-400) Neutrophils (%) (Auto) 60 % (31-73) Lymphocytes (%) (Auto) 29 % (24-48) Monocytes (%) (Auto) 9 % (0-9) Eosinophils (%) (Auto) 2 % (0-3) Basophils (%) (Auto) 1 % (0-3) Neutrophils # (Auto) 4.0 x10^3uL (1.8-7.7) Lymphocytes # (Auto) 1.9 x10^3/uL (1.0-4.8) Monocytes # (Auto) 0.6 x10^3/uL (0.0-1.1) Eosinophils # (Auto) 0.1 x10^3/uL (0.0-0.7) Basophils # (Auto) 0.0 x10^3/uL (0.0-0.2) Vital Signs: Vital Signs Date Time Temp Pulse Resp B/P (MAP) Pulse Ox O2 Delivery O2 Flow Rate FiO2 05/08/20 15:50 98.3 60 14 155/87 (109) 96 Room Air EKG: EKG: EKG demonstrates sinus bradycardia with a rate of 57. [] Radiology/Procedures: Radiology/Procedures: [] Course & Med Decision Making: Course & Med Decision Making Pertinent Labs and Imaging studies reviewed. (See chart for details) [] Dragon Disclaimer: Dragon Disclaimer: This electronic medical record was generated, in whole or in part, using a voice recognition dictation system. Departure Departure: Impression: Primary Impression: Chest pain Qualified Codes: R07.9 - Chest pain, unspecified Disposition: ADMITTED INPATIENT Admitting Physician: Rachid Rendon Condition: IMPROVED Referrals: KASEY OWENS MD (PCP) Justification of Admission: Justification of Admission: Justification of Admission Dx: Yes Comments: Chest Pain; HEART score of 5 TORRES MARES Jr. DO May 08, 2020 16:19
[2020-05-08 16:20] LABS: CALCIUM 8.8 mg/dL (8.5-10.1); CREATININE 1.4 mg/dL (0.6-1.0); GFR 35.8; POTASSIUM 3.3 mmol/L (3.5-5.1)
--- NOTE | 2020-05-08 16:24 | RAD ---
PORTABLE CHEST 1V Clinical Indication: Reason: chest pain / Spl. Instructions: / History: Comparison: AP chest July 12, 2018. Findings: Tortuous and ectatic thoracic aorta. Stable cardiomegaly. Central pulmonary vasculature is prominent but unchanged. Limited evaluation of the left lung base due to the cardiac silhouette. Lungs are clear. There is no pneumothorax. No pleural effusion is appreciated. No acute bone abnormality. There is arthropathy of the bilateral shoulders, worse on the right. IMPRESSION: 1. No acute airspace disease. 2. Stable cardiomegaly. Electronically signed by: Arnulfo Harrison MD (05/08/2020 4:21 PM) DAVIES CAMPUSSINGH
[2020-05-08 16:32] LABS: ALBUMIN 3.1 g/dL (3.4-5.0); ALBUMIN/GLOBULIN RATIO 0.9 (1.0-1.7); MAGNESIUM 1.7 mg/dL (1.8-2.4); TOTAL BILIRUBIN 0.6 mg/dL (0.2-1.0); TOTAL PROTEIN 6.6 g/dL (6.4-8.2)
[2020-05-08 16:39] LABS: CLARITY,URINE TURBID; COLOR,URINE YELLOW; GLUCOSE,URINE NEG (NEG)
[2020-05-08 16:42] LABS: BILIRUBIN,URINE NEG (NEG)
[2020-05-08 16:43] LABS: NITRITE,URINE NEG (NEG); UROBILINOGEN,URINE 0.2 mg/dL (0.2 mg/dL)
[2020-05-08 16:49] LABS: BACTERIA,URINE MOD /HPF (0-FEW); HYALINE CASTS, URINE MOD /HPF; RBC,URINE 0 /HPF (0-2); SQUAMOUS EPITHELIAL CELL,UR MOD /LPF
[2020-05-08] MEDS ORDERED: MORPHINE SULFATE 2 MG/ML DISP.SYRIN. IVP PRN (17:30)
[2020-05-08] MEDS ORDERED: ONDANSETRON PF 4 MG/2 ML VIAL. IVP PRN (17:30)
--- NOTE | 2020-05-08 18:30 | NUR ---
The patient, TIFFANIE KOROMA, 85 y/o, F admitted by JIMMY CLEARY MD, was given written information regarding hospital policies, unit procedures and contact persons. Valuables were checked and left with patient at bedside. Pt is pleasantly confused. Telemonitor applied to patient. Pt resting comfortably in bed.
[2020-05-08 18:48] VITALS: BP 149/79
[2020-05-08] MEDS ORDERED: POTASSIUM CHLORIDE 20 MEQ TABLET.ER. PO ONE (19:30)
[2020-05-08] MEDS ORDERED: DONE5TAB7 (20:05)
[2020-05-08] MEDS ORDERED: DONE5TAB14 PO (20:23)
[2020-05-08] MEDS: MAGNESIUM OXIDE 400 MG TABLET PO SCH (20:49)
[2020-05-08] MEDS ORDERED: OLANZapine 5 MG TABLET PO PRN (21:00)
[2020-05-08 23:00] VITALS: BP 166/79
--- NOTE | 2020-05-09 02:02 | NUR ---
During shift assessment, pt was irritable and confused. She stated,"I don't want to be here. I appreciate what you're trying to do but why don't you just let me go downstairs to bed." Pt oriented only to self and forgets answers to her previous questions. Pt expresses pain only in right upper abdomen, intermittent and only when palpated. There is a healing laceration on her lower, anterior right leg from a fall she states was 3 days ago from "bumping into something." Pt's feet were washed of mud and dirt on her soles. She states she didn't know why she was here or how she got here but goes for a walk a couple miles a day. Pt's cognizance varies by the moment. She also expresses seeing children in the hallway and in her room. Pt's son Jarvis is listed as the POA. He was called to discuss medications and medical history of the pt. He was unsure of what medications she is actually taking versus what is in her cabinet. He told this nurse he could call pt's but he was hard of hearing and wouldn't answer. He also stated the son that lives across from the parents takes care of the meds but also wouldn't answer the phone. Jarvis stated he would find out in the morning and call with information. Pt was more pleasant after discussing the reason she was here and getting her situated in bed. Pt using bedside commode instead of short toilet. She does not recognize it on her own and needs direction. Water and pudding given. Will continue to monitor. Addendum: 05/09/20 at 0317 by ZEESHAN VERNON RN Jarvis also stated they wanted her at [facility] so she could be evaluated for [facility] due to poor medication management and multiple instances of pt wandering away from home and forgetting how to get back.
[2020-05-09 06:45] LABS: CALCIUM 8.3 mg/dL (8.5-10.1); CREATININE 1.2 mg/dL (0.6-1.0); GFR 42.8; POTASSIUM 3.6 mmol/L (3.5-5.1)
--- NOTE | 2020-05-09 07:20 | EKG ---
[address] [address] Test Date: 2020-05-08 Test Time: 15:52:18 Pat Name: TIFFANIE KOROMA Department: Room: ICU06 1 Gender: Change Management Lead: : 1935 Requested By: TORRES MARES Order Number: [id number] Reading MD: Devon Smiley MD Measurements Intervals [facility] Rate: P: WI: QRS: QRSD: T: QT: QTc: Interpretive Statements IMAGES NOT AVAILABLE, UNABLE TO INTERPRET Electronically Signed On 05-16-2020 13:28:55 CDT by Devon Smiley MD
[2020-05-09] MEDS: MAGNESIUM OXIDE 400 MG TABLET PO SCH (09:00)
--- NOTE | 2020-05-09 09:14 | PDOC2 ---
BASHIR AMES WIRE WELDER 05/09/20 0914: CARDIAC CONSULT DATE OF CONSULT Date Of Consult DATE: 05/09/20 TIME: 09:02 REASON FOR CONSULT Reason for Consult Chest pain REFERRING PHYSICIAN Referring Physician Dr. Lorenzo SOURCE Source: Chart review, Patient HPI History of Present Illness This is an 85 yo female, with a history of dementia, who was found out wandering. Patient reported some chest pain, so family brought her in for further evaluation and treatment. No prior known cardiac history. She presently denies any shortness of breath, dizziness, diaphoresis, or nausea/vomiting. Does report left breast is tender upon palpitation. PAST MEDICAL HISTORY Cardiovascular: No pertinent hx Pulmonary: Other (PE) CENTRAL NERVOUS SYSTEM: Dementia, Periperal neuropathy GI: GERD Endocrine: No pertinent hx PAST SURGICAL HISTORY Past Surgical History: Appendectomy, Cholecystectomy, Total knee replacement (left ) FAMILY HISTORY Family History: Heart Disease SOCIAL HISTORY Smoke: No ALCOHOL: none Drugs: None Lives: with Family CURRENT MEDICATIONS Current Medications Current Medications Aspirin (Aspirin Chewable) 324 mg 1X ONCE PO Last administered on 05/08/20at 17:16; Start 05/08/20 at 16:00; Stop 05/08/20 at 16:12; Status DC Ondansetron HCl (Zofran) 4 mg PRN Q4HRS PRN IVP NAUSEA/VOMITING; Start 05/08/20 at 17:30; Stop 05/09/20 at 17:29 Morphine Sulfate (Morphine 2mg Syringe) 2 mg PRN Q2HR PRN IVP PAIN; Start 05/08/20 at 17:30; Stop 05/09/20 at 17:29 Potassium Chloride (Klor-Con) 40 meq 1X ONCE PO Last administered on 05/08/20at 20:49; Start 05/08/20 at 19:30; Stop 05/08/20 at 19:31; Status DC Magnesium Oxide (Magnesium Oxide) 400 mg BID PO Last administered on 05/08/20at 20:49; Start 05/08/20 at 21:00; Stop 05/10/20 at 09:01 Ceftriaxone Sodium 1 gm/ Sodium Chloride 50 ml @ 100 mls/hr 1X ONCE IV Last administered on 05/08/20at 22:51; Start 05/08/20 at 22:00; Stop 05/08/20 at 22:29; Status DC Olanzapine (ZyPREXA) 2.5 mg PRN Q2HR PRN PO ANXIETY / AGITATION Last administered on 05/08/20at 22:51; Start 05/08/20 at 21:00 Active Scripts Active Pantoprazole Sodium 40 Mg Tablet.dr 40 Mg PO DAILYAC 30 Days Amlodipine Besylate 10 Mg Tablet 10 Mg PO DAILY 30 Days Reported Donepezil Hcl 5 Mg Tab.rapdis 5 Mg PO DAILY Nystatin 15 Gm Powder 1 Nelda TP BID Mag-Al Plus Xs Suspension (Mag Hydrox/Al Hydrox/Simeth) 30 Ml Oral.susp 15 Ml PO PRN AFTMEALHC PRN Culturelle (Lactobacillus Rhamnosus Gg) 1 Each Capsule 1 Each PO BID Trazodone Hcl 50 Mg Tablet 50 Mg PO PRN QHS PRN Risperidone 0.5 Mg Tablet 0.5 Mg PO QHS Zoloft (Sertraline Hcl) 50 Mg Tablet 75 Mg PO DAILY Olanzapine 5 Mg Tablet 2.5 Mg PO PRN Q2HR PRN MDD 10mg Analgesic Sawyer (Methyl Salicylate/Menthol) 28 Gm Oint...g. 1 Nelda TP PRN QID PRN Milk Of Magnesia (Magnesium Hydroxide) 2,400 Mg/10 Ml Oral.susp 2,400 Mg PO PRN QHS PRN Depakote Sprinkle (Divalproex Sodium) 125 Mg Cap.sprink 375 Mg PO BID D3-50 (Cholecalciferol (Vitamin D3)) 50,000 Unit Capsule 50,000 Unit PO WEEKLY start date: 07/20/18 Tylenol (Acetaminophen) 325 Mg Tablet 650 Mg PO PRN Q6HRS PRN Mirtazapine 15 Mg Tablet 15 Mg PO QHS Potassium Chloride 10 Meq Tablet.er 20 Meq PO DAILYWBKFT Namenda (Memantine Hcl) 10 Mg Tablet 10 Mg PO BID Pravastatin Sodium 20 Mg Tablet 40 Mg PO HS ALLERGIES Allergies: Coded Allergies: No Known Drug Allergies (Unverified , 05/08/20) ROS Review of Systems 14 point ROS conducted with pertinent positives noted above in HPI although limited due to dementia PHYSICAL EXAM General: Alert, Cooperative, Other (oriented to person only) HEENT: Atraumatic Lungs: Clear to auscultation Heart: Regular rate, Other (left chest tenderness upon palpitation) Extremities: No edema, Normal pulses Skin: No breakdown Neuro: Strength at 5/5 X4 ext, Sensation intact Psych/Mental Status: Mood NL MUSCULOSKELETAL: Osteoarthritic changes both hands VITALS Vital Signs Vital Signs Date Time Temp Pulse Resp B/P (MAP) Pulse Ox O2 Delivery O2 Flow Rate FiO2 05/08/20 23:00 98.1 54 166/79 (108) 96 Room Air 05/08/20 15:50 14 LABS LABS Laboratory Tests Test 05/08/20 15:53 05/08/20 16:23 05/08/20 20:58 05/09/20 00:10 White Blood Count 6.7 x10^3/uL (4.0-11.0) Red Blood Count 4.09 x10^6/uL (3.50-5.40) Hemoglobin 11.5 g/dL (12.0-15.5) Hematocrit 35.4 % (36.0-47.0) Mean Corpuscular Volume 87 fL (79-100) Mean Corpuscular Hemoglobin 28 pg (25-35) Mean Corpuscular Hemoglobin Concent 33 g/dL (31-37) Red Cell Distribution Width 15.4 % (11.5-14.5) Platelet Count 223 x10^3/uL (140-400) Neutrophils (%) (Auto) 60 % (31-73) Lymphocytes (%) (Auto) 29 % (24-48) Monocytes (%) (Auto) 9 % (0-9) Eosinophils (%) (Auto) 2 % (0-3) Basophils (%) (Auto) 1 % (0-3) Neutrophils # (Auto) 4.0 x10^3uL (1.8-7.7) Lymphocytes # (Auto) 1.9 x10^3/uL (1.0-4.8) Monocytes # (Auto) 0.6 x10^3/uL (0.0-1.1) Eosinophils # (Auto) 0.1 x10^3/uL (0.0-0.7) Basophils # (Auto) 0.0 x10^3/uL (0.0-0.2) Sodium Level 142 mmol/L (136-145) Potassium Level 3.3 mmol/L (3.5-5.1) Chloride Level 106 mmol/L (98-107) Carbon Dioxide Level 25 mmol/L (21-32) Anion Gap 11 (6-14) Blood Urea Nitrogen 19 mg/dL (7-20) Creatinine 1.4 mg/dL (0.6-1.0) Estimated GFR (Cockcroft-Gault) 35.8 BUN/Creatinine Ratio 14 (6-20) Glucose Level 107 mg/dL (70-99) Calcium Level 8.8 mg/dL (8.5-10.1) Magnesium Level 1.7 mg/dL (1.8-2.4) Total Bilirubin 0.6 mg/dL (0.2-1.0) Aspartate Amino Transf (AST/SGOT) 30 U/L (15-37) Alanine Aminotransferase (ALT/SGPT) 27 U/L (14-59) Alkaline Phosphatase 112 U/L (46-116) Troponin I Quantitative < 0.017 ng/mL (0-0.055) < 0.017 ng/mL (0-0.055) < 0.017 ng/mL (0-0.055) FN-Chk-I-Type Natriuretic Peptide 747 pg/mL (0-449) Total Protein 6.6 g/dL (6.4-8.2) Albumin 3.1 g/dL (3.4-5.0) Albumin/Globulin Ratio 0.9 (1.0-1.7) Lipase 109 U/L (73-393) Urine Collection Type Unknown Urine Color Yellow Urine Clarity Turbid Urine pH 6.0 Urine Specific [place] 1.020 Urine Protein 30 mg/dl (NEG-TRACE) Urine Glucose (UA) Neg mg/dL (NEG) Urine Ketones (Stick) Trace mg/dL (NEG) Urine Blood Neg (NEG) Urine Nitrite Neg (NEG) Urine Bilirubin Neg (NEG) Urine Urobilinogen Dipstick 0.2 mg/dL (0.2 mg/dL) Urine Leukocyte Esterase Trace (NEG) Urine RBC 0 /HPF (0-2) Urine WBC 5-10 /HPF (0-4) Urine Squamous Epithelial Cells Mod /LPF Urine Bacteria Mod /HPF (0-FEW) Urine Hyaline Casts Mod /HPF Urine Mucus Mod /LPF Test 05/09/20 06:00 Sodium Level 142 mmol/L (136-145) Potassium Level 3.6 mmol/L (3.5-5.1) Chloride Level 108 mmol/L (98-107) Carbon Dioxide Level 26 mmol/L (21-32) Anion Gap 8 (6-14) Blood Urea Nitrogen 16 mg/dL (7-20) Creatinine 1.2 mg/dL (0.6-1.0) Estimated GFR (Cockcroft-Gault) 42.8 Glucose Level 110 mg/dL (70-99) Calcium Level 8.3 mg/dL (8.5-10.1) Magnesium Level 1.8 mg/dL (1.8-2.4) ASSESSMENT/PLAN Assessment/Plan 1. Chest pain, atypical; AMI ruled out. Most probably MSK. Chest tenderness upon palpitation noted. Supportive care. No further workup warranted at this time. 2. RENATO; improved 3 . Hypomagnesemia, hypokalemia; replaced 4. GERD 5. Dementia ZURDO BURGESS MD 05/10/20 1749: CARDIAC CONSULT ASSESSMENT/PLAN Assessment/Plan Patient seen and examined on 05/09/20. I agree with our nurse practitioners assessment and plan above. Atypical chest pain. No evidence of an acute infarct. Pain is reproducible with palpation. We will continue present treatment and supportive care. Acute kidney injury. Improving on present medications. Gastroesophageal reflux disease. Also continuing present medications. Hypomagnesemia and hypokalemia. Replaced. Thank you for allowing us to participate in the care of your patient. BASHIR AMES APRN May 09, 2020 09:14 ZURDO BURGESS MD May 10, 2020 17:49
[2020-05-09 11:00] VITALS: BP 147/85
[2020-05-09 15:00] VITALS: BP 169/86
[2020-05-09] MEDS ORDERED: CEFD300C PO (16:36)
--- NOTE | 2020-05-09 16:47 | HP ---
ADMIT DATE: 05/08/2020 HISTORY OF PRESENT ILLNESS: The patient is an 85-year-old female patient, who was brought by EMS with report of chest pain. EMS reported the patient had been out walking and had developed some chest pain while walking. She stated that she still have chest discomfort, but it is mild. She denied any nausea, vomiting or diaphoresis. She is unable to describe the pain or sign a number to it. She denied any shortness of breath, although she did have some shortness of breath when the EMS picked her up. She was seen in the Emergency Room and was extensively investigated. Her CBC showed mild normochromic normocytic anemia. Her chemistry showed that she has hypomagnesemia and mild hypokalemia. Her first set of cardiac enzymes showed troponin to be less than 0.017 and her urinalysis showed that she has moderate amount of bacteria and 5-10 wbc's. She was treated with IV Rocephin in the Emergency Room and was admitted to rule out myocardial infarction. PAST MEDICAL HISTORY: Significant for dementia, peripheral neuropathy, gastroesophageal reflux disease and pulmonary embolism. PAST SURGICAL HISTORY: Significant for appendectomy, cholecystectomy, left total knee arthroplasty. FAMILY HISTORY: Significant for heart disease. SOCIAL HISTORY: She lives with her . She does not smoke, drink alcohol or use recreational drugs. REVIEW OF SYSTEMS: As per history of present illness. PHYSICAL EXAMINATION: GENERAL: On arrival to the Emergency Room, she looked well and was clearly in no apparent respiratory distress. She was somewhat pale, but no jaundice, cyanosis or thyromegaly. No jugular venous distention. No limb edema. VITAL SIGNS: Her heart rate was 68, blood pressure was 149/79, temperature was 98.1, respiratory rate was 14 and oxygen saturation was 96%. HEAD, EYES, EARS, NOSE AND THROAT: Showed normocephalic, atraumatic. NECK: Supple. HEART: Showed normal first and second heart sounds with no gallop, rub or murmur. CHEST: Clear to auscultation. No crepitation or rhonchi. ABDOMEN: Distended, soft, nontender. No guarding or rigidity. No organomegaly. All hernial orifices intact. Bowel sounds normal. NEUROLOGIC: She was demented, but without any obvious lateralizing sign. She is able to ambulate, but she might stay there with a walker. LABORATORY DATA: On admission showed a white cell count 6700, hemoglobin 11.5, hematocrit 35, MCV 87 and platelet count 223,000. Her chemistry showed a serum sodium 142, potassium 3.3, chloride 106, bicarbonate 25, anion gap of 11, BUN 19, creatinine 1.4, estimated GFR was 36 mL per minute. Her glucose 107, calcium was 8.8, magnesium 1.7. Total bilirubin, AST, ALT, alkaline phosphatase were normal. Total protein was 6.6, albumin 3.1, lipase 109. Urinalysis showed the urine was yellow, turbid with a pH of 6, specific gravity of 1.020, the urine was negative for glucose. There was trace of ketones, negative for blood, nitrites. There was trace of leukocyte esterase, 5-10 wbc's and moderate amount of bacteria. Her chest x-ray showed no acute airspace disease, stable cardiomegaly. PLAN: The patient was admitted to do 2 more sets of cardiac enzyme and to consult the cardiology team. JIMMY CLEARY MD DR: GLENDY/willy JOB#: [id number] / [id number]
--- NOTE | 2020-05-09 16:59 | NUR ---
Discharge Note: [facility] Discharge instructions and discharge home medications reviewed with Patient and son, Chadd and a copy given. All questions have been answered and understanding verbalized. The following instructions and handouts were given: Discontinued lines and drains: Peripheral IV intact. Patient discharged to home with son, ambulated off unit via wheelchair. Belongings left with patient during this time.
--- NOTE | 2020-05-09 18:32 | DS ---
DATE OF DISCHARGE: HOSPITAL COURSE: The patient is an 85-year-old female patient, who was brought to the Emergency by EMS. She was found wandering and complained of chest pain. She was admitted, had 3 sets of cardiac enzymes, ruled out myocardial infarction. She was found to have UTI for which she has received Rocephin. Her urine was sent for culture and sensitivity. She has had 2 sets of cardiac enzymes that ruled out myocardial infarction. She has multiple other metabolic problems that were resolved. Her potassium was low at 3.3, now is improved. Her creatinine was slightly elevated and came down. Magnesium has improved and the patient apparently is known to have dementia and apparently she is not a candidate for [facility] as she is not insured and her family basically wanted to take care of her at home. PHYSICAL EXAMINATION: GENERAL: When I saw her this afternoon, she looked well and was clearly in no apparent respiratory distress. No pallor, jaundice, cyanosis or thyromegaly. No jugular venous distention or limb edema. VITAL SIGNS: Her heart rate was 57, blood pressure was 169/86, temperature was 98, respiratory rate was 13 and oxygen saturation was 95%. HEAD, EYES, EARS, NOSE AND THROAT: Showed normocephalic, atraumatic. NECK: Supple. HEART: Showed normal first and second heart sounds. No gallop or murmur. CHEST: Clear to auscultation. No crepitation or rhonchi. ABDOMEN: Distended, soft, nontender. NEUROLOGIC: She is demented, but without any obvious lateralizing sign. All other cranial nerves intact. She moves extremities without difficulty. She is much steadier when she walks with a walker as stated. LABORATORY DATA: Her lab work this morning showed that she has potassium, has improved to 3.6, magnesium is up to 1.8. She has 2 sets of cardiac enzymes that has ruled out myocardial infarction. Her creatinine has improved. DISCHARGE MEDICATIONS: The patient was discharged home to continue on cefdinir 300 mg twice a day. We do not have the actual list of her medication as her family is not sure. FINAL DISCHARGE DIAGNOSES: 1. Chest pain, acute myocardial infarction ruled out, acute on chronic kidney injury, improved. 2. Hypokalemia, resolved. 3. Hypomagnesemia, improved. 4. Urinary tract infection for which she was discharged home on cefdinir. JIMMY CLEARY MD DR: Siria JOB#: [id number] / [id number]
== END 2020-05-09 16:59 | disposition home or self-care (01) ==
LOC: ER 15:50 → ICU 17:23 → INTOOBSV 17:23
PROVIDERS: ADMIT Internal Medicine; ATTEND Internal Medicine
DX: R07.9 Chest pain, unspecified (principal); E87.6 Hypokalemia; E83.42 Hypomagnesemia; N39.0 Urinary tract infection, site not specified; K21.9 Gastro-esophageal reflux disease without esophagitis; I10 Essential (primary) hypertension; E11.42 Type 2 diabetes mellitus with diabetic polyneuropathy; F03.90 Unspecified dementia, unspecified severity, without behavioral disturbance, psychotic disturbance, mood disturbance, and anxiety; D64.9 Anemia, unspecified; N17.9 Acute kidney failure, unspecified; Z86.711 Personal history of pulmonary embolism
CPT/HCPCS: 36415; 71045; 80048; 80053; 81001; 82947; 83690; 83735; 83880; 84484; 85025; 87086; 93005; 96365; 96366; 97116; 97162; 97166; 99285; G0378; G0379; J0696

== ENCOUNTER → 2021-03-20 | Outpatient (CLI) | payer MEDICARE ==
[~2021-03-20] MED LIST changes: +AMLO-187 PO; -AMLO10TA8 PO; +CEFD300C PO; +DONE5TAB14 PO; +DONE5TAB7; -ISOS30TA4 PO; +ISOS30TA68 PO; -PANT40TA5 PO; +PANT40TA6 PO; -RISP0.5T3 PO; +RISP0.5T62 PO
--- NOTE | 2021-03-20 11:58 | RAD ---
EXAM: CT HEAD WITHOUT CONTRAST. HISTORY: Dementia. TECHNIQUE: Computed tomography of the head was performed without intravenous contrast. One or more of the following individualized dose reduction techniques were utilized for this examination: 1. Automated exposure control. 2. Adjustment of the mA and/or kV according to patient size. 3. Use of iterative reconstruction technique. COMPARISON: 07/19/2019. FINDINGS: There is no intracranial hemorrhage. Hypoattenuation within the white matter indicates mode rate chronic microangiopathic change. Prominence of the lateral ventricles and hemispheric sulci pako cates mild atrophy for patient age. The visualized paranasal sinuses appear clear. There are changes of bilateral cataract surgery. The t emporal bones are unremarkable. The calvarium reveals no suspicious lesions. IMPRESSION: 1. No acute intracranial findings. 2. Mild atrophy and moderate chronic microangiopathic white matter change for patient age. Electronically signed by: Joel Addison MD (03/20/2021 11:56 AM) [id number]
== END ==
LOC: CT 11:23
PROVIDERS: ATTEND Psychiatry & Neurology Neurology
DX: F03.90 Unspecified dementia, unspecified severity, without behavioral disturbance, psychotic disturbance, mood disturbance, and anxiety (principal)
CPT/HCPCS: 36415; 70450; 82306; 82607; 84436; 84443; 86592